=== PATIENT | male | born 1975 | race Caucasian/White ===

== ENCOUNTER 2019-11-13 16:56 | Emergency (ER) | payer OTHER, SELFPAY ==
[2019-11-13 16:57] VITALS: BP 178/120; PULSE 81; RESP 18; TEMP 36.3; O2SAT 94; BMI 43.0
--- NOTE | 2019-11-13 17:18 | ED.VISSUMM ---
- ER Visit Summary Date of Service: 11/13/19 Chief Complaint: Right leg swelling and pain History of Present Illness: The patient is a 44 M presenting with right leg swelling and pain. Patient states this started on Wednesday. He states he does a lot of kneeling while at work. He does not recall a specific injury. He noticed pain to his right knee and swelling to his right leg. He went to urgent care and was advised to come to the ED to rule out DVT. He currently has no pain. Denies fever. He states his mother had an isolated DVT after being sedentary. No other PE/DVT risk factors. Physical Examination: Vitals are stable. Blood pressure 176/120. Patient is afebrile. Alert no acute distress. HEENT exam is unremarkable. Neck is supple. Lungs are clear and equal bilaterally. Heart is regular rate and rhythm. Abdomen is soft nontender nondistended. Extremities mild lateral right knee tenderness with active full range of motion. No erythema or warmth. Mild swelling of the right lower extremity compared to the left. He states his left leg is typically smaller than the right due to previous surgery. Normal distal pulses. Skin is warm and dry. No focal neurologic deficit. Remainder of exam is unremarkable. Emergency Department Course and Treatment: Right lower extremity venous Doppler shows No demonstrated DVT. Patient states he has been out of his blood pressure medications for several months. He states due to COVID he did not follow-up with his primary care physician. He ran out of his refills early this year. I discussed with [facility] pharmacy and patient was previously taking amlodipine 5 mg daily and lisinopril 40 mg daily. He is given prescriptions and advised to follow-up with his primary care physician. He understands importance of follow-up. Advised return to ED for worsening complaints. Disposition: Discharge home Impression: Right lower extremity swelling, hypertension, noncompliance This note was generated with [employer] dictation software. It may contain incorrect words, spelling, and punctuation that were not noted in review of the chart prior to signing ED Disposition - Plan for ED Patient: Instructions: ED High Blood Pressure Established Out of Control, ED Peripheral Edema, Unilateral Prescriptions: Lisinopril 40 mg PO DAILY #30 tab Prescription Printed Amlodipine [Norvasc] 5 mg PO DAILY #30 tab Prescription Printed Referrals: Cash Puentes MD [Primary Care Provider] -
--- NOTE | 2019-11-13 17:37 | US_ITS ---
STUDY: VENOUS DOPPLER ULTRASOUND - RIGHT LOWER EXTREMITY REASON FOR EXAM: Male, 44 years old. RT KNEE PAIN/ SWELLING LATERAL TECHNIQUE: Ultrasound evaluation of the deep vein system to include berger-scale imaging and compression was performed. Berger-scale imaging and Doppler sonographic evaluation, including duplex spectral analysis and qualitative color flow sonography, was performed. COMPARISON: None. FINDINGS: Common Femoral Vein: Normal compression, spontaneity and augmentation. Normal color Doppler. Common Femoral Vein/Greater Saphenous Junction: Normal compression, spontaneity and augmentation. Normal color Doppler. Femoral Proximal: Normal compression, spontaneity and augmentation. Normal color Doppler. Femoral Middle: Normal compression, spontaneity and augmentation. Normal color Doppler. Femoral Distal: Normal compression, spontaneity and augmentation. Normal color Doppler. Popliteal Vein: Normal compression, spontaneity and augmentation. Normal color Doppler. Posterior Tibial Vein: Normal compression, spontaneity and augmentation. Normal color Doppler. Peroneal Vein: Normal compression, spontaneity and augmentation. Normal color Doppler. US/Venous Duplex Imag/Limited/Uni IMPRESSION: No demonstrated DVT Electronically Signed: Declan Page MD at 18:31 EDT , Service support ,
--- NOTE | 2019-11-13 19:04 | ED.DEP ---
ED Disposition - Plan for ED Patient: Instructions: ED Peripheral Edema, Unilateral, ED High Blood Pressure Established Out of Control Prescriptions: Lisinopril 40 mg PO DAILY #30 tab Prescription Printed Amlodipine [Norvasc] 5 mg PO DAILY #30 tab Prescription Printed Referrals: Cash Puentes MD [Primary Care Provider] -
[2019-11-13 19:36] VITALS: BP 159/108; PULSE 64
== END 2019-11-13 19:37 | disposition home or self-care (01) ==
LOC: ED 17:34
PROVIDERS: Emergency Provider Emergency Medicine; PCP Family Medicine
DX: M79.89 Other specified soft tissue disorders (principal); I10 Essential (primary) hypertension; F17.200 Nicotine dependence, unspecified, uncomplicated; Z91.19 Patient's noncompliance with other medical treatment and regimen
CPT/HCPCS: 93971; 99282

== ENCOUNTER 2019-11-18 18:37 | Emergency (ER) | payer OTHER, SELFPAY ==
[2019-11-18 18:38] VITALS: BP 150/94; PULSE 89; RESP 14; TEMP 37.1; O2SAT 97; BMI 42.3
--- NOTE | 2019-11-18 19:05 | RAD_ITS ---
STUDY: X-RAY - RIGHT KNEE REASON FOR EXAM: Male, 44 years old. PAIN LATERAL AND JUST BELOW PATELLA, NO INJURY, PT THINKS MAY BE BONE INFECTION TECHNIQUE: 4 view(s) of the knee. COMPARISON: None. FINDINGS: Normal visualized distal femur. Normal visualized proximal tibia and fibula. Normal proximal tibiofibular articulation. There is mild degenerative arthrosis of the medial femorotibial compartment. Normal lateral femorotibial compartment. There is mild degenerative arthrosis of the patellofemoral articulation. There is prepatellar soft tissue swelling. RAD/Knee 4 or More Views IMPRESSION: Prepatellar soft tissue swelling. Mild degenerative changes of the medial and patellofemoral compartments. There is no evidence of fracture, dislocation, or lytic or blastic osseous process. Electronically Signed: Fredis Cartwright MD at 19:59 EDT , Service support ,
[2019-11-18 19:33] LABS: Absolute Lymphocyte Count 1.87 X10^3/uL (0.83-4.51); Absolute Neutrophil Count 8.9 X10^3/uL (2.0-7.7); Basophil# 0.04 X10^3/uL; Basophil% 0.3 % (0-1); Eosinophil# 0.14 X10^3/uL; Eosinophils% 1.2 % (0-5); Hematocrit 47.4 % (40-54); Hemoglobin 15.9 g/dL (13.0-16.5); Lymphocyte # 1.87 X10^3/ul (4.0); Lymphocyte % 15.5 % (19-41); Mean Corp Hgb Conc 33.5 g/dL (32-36); Mean Corpuscular Hgb 30.3 pg (27.0-32.0); Mean Corpuscular Volume 90.3 fL (80-94); Mean Platelet Vol. 9.5 fl (6.2-12.0); Monocyte# 1.08 X10^3/uL; NRBC Flagged by Analyzer 0 % (0-5); Neutrophil # 8.85 X10^3/uL (2.7-7.7); Neutrophil % 73.5 % (47-70); Platelet Count 259 K/mm3 (150-450); RBC Distribution Width CV 13.8 % (11.6-14.6); RBC Distribution Width SD 46.1 fl (35.1-43.9); Red Blood Count 5.25 M/mm3 (4.6-6.2)
[2019-11-18 19:39] LABS: Anion Gap 5 (5-15); BUN 20 mg/dL (7-18); Calcium,Total 8.9 mg/dL (8.5-10.1); Chloride 109 mmol/L (98-107); Creatinine, Serum 0.91 mg/dL (0.70-1.30); EST Glomerular Filtration Rate 96 mL/min (>60); Est Glom Filt Rate - Afr Amer 117 mL/min (>60); Estimated Creatinine Clearance 114.88 ml/min; Glucose 136 mg/dL (74-106); Potassium 3.8 mmol/L (3.5-5.1); Sodium Level 139 mmol/L (136-145); Uric Acid 6.1 mg/dL (3.5-7.2)
[2019-11-18] MEDS: Ketorolac 15 MG/ML Vial IV (19:39)
[2019-11-18 19:48] LABS: Pathologist Comment May follow
[2019-11-18 20:38] LABS: RBC /Synovial Fluid 0.036 10^6/uL (0); Synovial Fld Mononuclear WBC % 52.5 %; Synovial Fld Polynuclear WBC # 0.029 10^3/uL; Synovial Fld Polynuclear WBC % 47.5 %
[2019-11-18 20:45] LABS: AUTO B FLUID DILUENT BKGD CT WBC <0.1 RBC <0.01 (W<.1,R<.01); Appearance /Synovial Fluid Cloudy (CLEAR); Color / Synovial Fluid Red (Pale Yellow); Source / Synovial Fluid RT KNEE; Viscosity / Synovial Fluid Mod. Viscous (HIGH)
[2019-11-18 21:16] LABS: CRYSTALS, BODY FLUID Other, see comment; Source- Body Fluid SYNOVIAL
[2019-11-18 22:19] LABS: Lymph 36 %; Monocyte /Synovial Fluid 4 %; Neutrophil 52 % (0-25)
[2019-11-18 22:20] LABS: Body Fluid QC Type(s) BF1Q,BF2Q; Other Cell /Synovial Fluid 8 %
--- NOTE | 2019-11-18 22:29 | ED.VISSUMM ---
- ER Visit Summary Date of Service: 11/18/19 Chief Complaint: Right knee pain History of Present Illness: The patient is a [address] Puentes. He reports that he has right knee pain that began 6 days ago. States that the only injury he can think of is 8 days ago something fell out of his van at work and he jumped back and felt like he hyperextended his knee slightly. States he did not have pain the next day. Patient reports that he has a sharp pain is 9-10 at worst and 4-10 currently. It is worsened by walking up the steps, standing from a chair, or extending. Is relieved by ice and heat. He had a cortisone shot placed in this 4 days ago without any relief. Patient denies any history of similar symptoms. 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 He says subjective fever. Physical Examination: Vitals: Stable. Afebrile. General: Well-nourished and well-developed. Head: Normocephalic atraumatic. Neck: Supple, no lymphadenopathy. No JVD. Nontender. Cardiovascular: Regular rate and rhythm. No murmurs. Respiratory: No respiratory distress. Clear to auscultation bilaterally. Abdominal: Soft, nontender, nondistended, normal bowel sounds. No guarding, rebound, or peritoneal signs. Back: Nontender. Extremities: Right knee: There is significant swelling of the prepatellar bursa. There is no overlying erythema or warmth to suggest a septic bursitis. He has limited range of motion due to pain. He does have pain over his patellar tendon and medially. There is no ligamentous instability, but there is pain with anterior/posterior drawer and medial/lateral stress. Skin: Normal color, no rash. Neurologic: Alert and oriented ?3. Cranial nerves II through XII are intact. Normal strength and sensation. Psych: Normal affect. Test Results: CBC shows a white count of 12.0 with 74 segs neutrophils and 16 lymphocytes. Chem-7 shows a chloride of 109, BUN 20, glucose 136. Uric acid is 6.1. Synovial fluid has a white count of 61, red blood count of 36. There were no crystals. Clinical Impression(s) from Imaging Studies Knee X-Ray 11/18/19 19:05 IMPRESSION: Prepatellar soft tissue swelling. Mild degenerative changes of the medial and patellofemoral compartments. There is no evidence of fracture, dislocation, or lytic or blastic osseous process. Electronically Signed: Fredis Cartwright MD at 19:59 EDT , Service support , Emergency Department Course and Treatment: I had a prolonged discussion the patient that I suspect that he a component of this is prepatellar bursitis. However, I do not think that this would necessarily cause all the symptoms that he is experiencing in question whether or not he may have torn his meniscus 8 days ago. States that he is unable to fully extend his leg due to pain. Because of this arthrocentesis was undertaken. This was negative. Treatment Plan: Patient will be discharged with Percocet and naproxen. Instructed to follow-up Dr. Morris in 1 week if not improving. Return to the emergency department for any worsening symptoms. Disposition: To home in improved and stable condition. Impression: 1. Right prepatellar bursitis. 2. Right knee pain, uncertain cause. 3. Arthrocentesis right knee. Procedure note Patient had his right knee prepped with Betadine. It was draped with sterile towels. Approximately 5 cc of fluid was removed. The patient tolerated this well. This note was generated with [employer] dictation software. It may contain incorrect words, spelling, and punctuation that were not noted in review of the chart prior to signing ED Disposition - Plan for ED Patient: Disposition: Home or Assisted Living Instructions: ED Bursitis, ED Meniscal Injury Knee Poss Prescriptions: Naproxen [Naprosyn] 500 mg PO BID #14 tab Prescription Printed Oxycodone HCl/Acetaminophen [Percocet 5/325] 1 tab PO Q6H PRN PRN 3 Days #12 tab PRN Reason: Pain Prescription Printed Referrals: Pao Morris DO [STAFF PHYSICIAN] - 1 Week if not improving
[2019-11-18 22:30] VITALS: PULSE 67; RESP 18; O2SAT 98
[2019-11-20 13:01] LABS: Pathologist Review Reviewed
== END 2019-11-18 22:44 | disposition home or self-care (01) ==
PROVIDERS: Emergency Provider Emergency Medicine; PCP Family Medicine
DX: M70.41 Prepatellar bursitis, right knee (principal); M25.561 Pain in right knee; F17.200 Nicotine dependence, unspecified, uncomplicated; I10 Essential (primary) hypertension
CPT/HCPCS: 73564; 80048; 84550; 85025; 87070; 87075; 87205; 89050; 89051; 89060; 96374; 99284; A4216

== ENCOUNTER 2021-11-23 06:08 | Emergency (ER) | payer OTHER, SELFPAY ==
[2021-11-23 06:08] VITALS: BP 151/89; PULSE 58; RESP 14; TEMP 36.7; O2SAT 97; BMI 43.8
--- NOTE | 2021-11-23 06:35 | RAD_ITS ---
EXAM: XR CHEST, 2 VIEWS CLINICAL INDICATION: chest pain TECHNIQUE: Frontal and lateral views of the chest. This report was created using [employer] report generation technology. COMPARISON: None. FINDINGS: LUNGS AND PLEURAL SPACES: Normal. No consolidation or edema. No pneumothorax. No effusion. HEART: Normal. Normal heart size. MEDIASTINUM: Central airways are unremarkable. No mediastinal or hilar mass. BONES/JOINTS: No acute abnormality. SOFT TISSUES: Normal. RAD/Chest PA and Lateral IMPRESSION: No acute cardiopulmonary disease. Electronically Signed: Mehul Eckert MD at 8:10 EDT ,
--- NOTE | 2021-11-23 06:35 | EKG12_ITS ---
Test Reason : CP Blood Pressure : / mmHG Vent. Rate : 060 BPM Atrial Rate : 060 BPM P-R Int : 216 ms QRS Dur : 106 ms QT Int : 426 ms P-R-T Axes : 054 -33 006 degrees QTc Int : 426 ms Sinus rhythm with 1st degree A-V block Left axis deviation Abnormal ECG Confirmed by HOMER MARIANO, KARLOS ([id number]), clinical editor LYDIA BOSWELL ([id number]) on 11/25/2021 9:15:15 AM Referred By: JULIA Confirmed By:AZALIA CORONEL MD
--- NOTE | 2021-11-23 06:49 | EDS_ITS ---
HPI History of Present Illness Chief Complaint: Chest Pain Narrative Narrative: Patient is a 46-year-old male with past medical history of hypertension and smoking. Patient states that he was staying up late with his significant other watching TV. He states he dozed off around 2:30 in the morning and woke up approximately 10 to 20 minutes later and noticed some pain in his mid upper abdomen/lower chest. He states the pain will radiate up into the chest but also wrap around to the right and left. He denies any nausea vomiting diaphoresis or shortness of breath associated with this. He denies any trauma earlier in the day prior to the pain beginning. He states that he is given himself a few hours for the pain to resolve but has not done so and secondary to this he comes in for evaluation. [facility] Medical History Hypertension Home Medications cetirizine 10 mg tablet 10 mg PO DAILY 11/13/19 [History Last Taken Unknown] lisinopril 40 mg tablet 40 mg PO DAILY #30 tabs 11/13/19 [Rx Last Taken Unknown] naproxen 500 mg tablet 500 mg PO BID #14 tabs 11/18/19 [Rx Last Taken Unknown] Allergy/AdvReac Type Severity Reaction Status Date / Time No Known Allergies Allergy Verified 11/23/21 06:20 Surgical History h/o kidney surgery h/o microdiscectomy L5-S1 Social History (Updated 11/22/19 @ 10:[address] Barry Sood DO) Smoking Status: Current every day smoker tobacco type: cigarettes ROS ROS ED Constitutional Constitutional ED: Denies chills or fever(s) ENT ENT ED: Denies sore throat Cardiovascular Cardiovascular: Reports chest pain; Denies palpitations or racing heartbeat Respiratory/Chest Respiratory/Chest: Denies cough or dyspnea Gastrointestinal Gastrointestinal: Reports abdominal pain; Denies diarrhea, nausea or vomiting Genitourinary Genitourinary ED: Denies dysuria Musculoskeletal Musculoskeletal: Denies back pain or myalgias Integumentary Denies rash Neurologic Neurologic: Denies headache(s) Hematologic/Lymphatic Hematologic/Lymphatic: Denies easy bleeding or easy bruising EXAM Physical Exam Const Vital Signs: 11/23/21 06:08 11/23/21 06:27 Temperature 98.1 F Temperature Source Temporal Pulse Rate 58 L Respiratory Rate 14 Respiratory Effort Normal Respiratory Pattern Normal Blood Pressure 151/89 H Blood Pressure Mean 109 Pulse Ox 97 Oxygen Delivery Method Room Air Positive well nourished, well developed and obese General Appearance ED: well developed Nutritional Appearance: obese HEENT Reports moist mucous membranes HEENT Narrative: No oral lesions no airway edema or compromise Eyes PERRL and EOMs intact bilaterally General Eye ED: Negative for scleral icterus Neck supple and no JVD Chest Wall palpation of chest normal Resp normal respiratory effort and clear to auscultation bilaterally Cardio regular rate and regular rhythm Rate: other Other Details: Radial pulses are plus 2 out of 4 bilaterally Carotid pulses are also plus 2 out of 4 bilaterally GI non-distended GI Narrative: Abdomen is obese soft and nondistended with normal active bowel sounds. There is mild pain to palpation in the midepigastric region without voluntary guarding or rigidity. No pulsatile mass or fluid wave. No hernia noted. Auscultation: normoactive bowel sounds Palpation: soft Extremity normal to inspection Neuro oriented x3 and CN's II-XII intact bilaterally Sensorium / Orientation: alert Psych mental status grossly normal Skin Skin Narrative: Patient has erythematous blanchable circular maculopapular rash to his bilateral arms legs and across the abdomen into the chest consistent with urticaria. No involvement of the palms or soles. No obvious infectious changes such as cellulitis or abscess associated with it MDM MDM MDM Narrative Medical decision making narrative: Patient presented to the ER mildly hypertensive but otherwise with stable vitals. He reported pain in his mid upper abdomen/lower chest. He did not have classic cardiac symptoms such as diaphoresis nausea vomiting or shortness of breath but he does have multiple risk factors and the fact that he is a male over 40 he is a smoker has hypertension and obesity and family history of heart disease. Secondary to this a cardiac work-up will be obtained. Patient also has a urticarial rash. I do not feel this is related to his chest/abdomen issues. It is not causing any signs of respiratory distress. He will be given Solu-Medrol Benadryl and Pepcid secondary to this. At this time patient will need an initial and delta troponin and if both values are normal I believe he will be safe for discharge. Patient will be signed out to the [facility] day physician Dr. Vera to evaluate to the patient's labs and x-ray. Lab Data Labs: Laboratory Results - last 24 hr 11/23/21 06:38 WBC 8.9 RBC 5.52 Hgb 17.4 H Hct 49.9 MCV 90.4 MCH 31.5 MCHC 34.9 RDW Std Deviation 45.6 H RDW Coeff of Jesus 13.7 Plt Count 216 MPV 10.6 Immature Gran % (Auto) 0.900 Neut % (Auto) 65.9 Lymph % (Auto) 21.1 Cedar % (Auto) 9.6 Eos % (Auto) 1.8 Baso % (Auto) 0.7 Absolute Neuts (auto) 5.8 Absolute Lymphs (auto) 1.87 Nucleated RBC % 0 Discharge Plan Triage Chief Complaint: Chest Pain ED Provider: Dilan Rivera Dx/Rx/DC Orders Clinical Impression: Urticaria Prescriptions: No Action cetirizine 10 MG tablet 10 mg PO DAILY lisinopril 40 MG tablet 40 mg PO DAILY Qty: 30 0RF naproxen 500 MG tablet 500 mg PO BID Qty: 14 0RF Primary Care Provider: Cash Puentes Referrals: Cash Puentes MD [Primary Care Provider] -
[2021-11-23] MEDS: Aspirin 325 MG Tablet PO (06:57)
[2021-11-23 06:58] LABS: Absolute Lymphocyte Count 1.87 X10^3/uL (0.83-4.51); Absolute Neutrophil Count 5.8 X10^3/uL (2.0-7.7); Basophil# 0.06 X10^3/uL; Basophil% 0.7 % (0-1); Eosinophil# 0.16 X10^3/uL; Eosinophils% 1.8 % (0-5); Hematocrit 49.9 % (40-54); Hemoglobin 17.4 g/dL (13.0-16.5); Lymphocyte # 1.87 X10^3/ul (0.83-4.51); Lymphocyte % 21.1 % (19-41); Mean Corp Hgb Conc 34.9 g/dL (32-36); Mean Corpuscular Hgb 31.5 pg (27.0-32.0); Mean Corpuscular Volume 90.4 fL (80-94); Mean Platelet Vol. 10.6 fl (6.2-12.0); Monocyte# 0.85 X10^3/uL; Monocyte% 9.6 % (0-10); NRBC Flagged by Analyzer 0 % (0-5); Neutrophil # 5.83 X10^3/uL (2.7-7.7); Neutrophil % 65.9 % (47-70); Platelet Count 216 K/mm3 (150-450); RBC Distribution Width CV 13.7 % (11.6-14.6); RBC Distribution Width SD 45.6 fl (35.1-43.9); Red Blood Count 5.52 M/mm3 (4.6-6.2); White Blood Count 8.9 K/mm3 (4.4-11.0)
[2021-11-23] MEDS: DiphenhydrAMINE 50 MG/ML Syringe IV (06:58)
[2021-11-23] MEDS: MethylPREDNISolone 125 MG/2 ML Vial IV (06:58)
[2021-11-23] MEDS: Mag Hydrox/Al Hydrox/Simeth 30 ML UDC PO (07:20)
[2021-11-23 07:21] LABS: AST(SGOT) 24 U/L (15-37); Alanine Aminotransfer ALT/SGPT 55 U/L (16-61); Albumin, Serum 3.7 g/dL (3.2-5.0); Alkaline Phosphatase 48 U/L (45-117); Anion Gap 7 (5-15); BUN 19 mg/dL (7-18); BUN/Creat Ratio 16.8 RATIO (10-20); Bilirubin, Direct 0.17 mg/dL (0.00-0.30); Calcium,Total 9.4 mg/dL (8.5-10.1); Chloride 107 mmol/L (98-107); Creatinine, Serum 1.13 mg/dL (0.70-1.30); EST Glomerular Filtration Rate 75 mL/min (>60); Est Glom Filt Rate - Afr Amer 90 mL/min (>60); Globulin 3.8 g/dL (2.2-4.2); Glucose 122 mg/dL (74-106); Lipase 214 U/L (73-393); Potassium 4.1 mmol/L (3.5-5.1); Protein, Total 7.5 g/dL (6.4-8.2); Sodium Level 136 mmol/L (136-145); Troponin-I HS 12 pg/mL (3.0-78.0)
[2021-11-23 07:51] VITALS: BP 165/102; PULSE 52; RESP 15; O2SAT 97
[2021-11-23] MEDS: Famotidine 200 MG/20 ML MDV 20 MG in 0.9% Normal Saline (Pres. free 8 ML 300 MG IV ×2 (08:39→08:42)
[2021-11-23 09:17] LABS: Troponin-I HS 11 pg/mL (3.0-78.0)
[2021-11-23 09:41] VITALS: BP 140/97; PULSE 66; RESP 16; RESP 18; O2SAT 96
== END 2021-11-23 09:44 | disposition home or self-care (01) ==
PROVIDERS: Emergency Provider Emergency Medicine; PCP Family Medicine; Visit Provider Emergency Medicine
DX: L50.9 Urticaria, unspecified (principal); F17.210 Nicotine dependence, cigarettes, uncomplicated; E66.9 Obesity, unspecified
CPT/HCPCS: 71046; 80048; 80076; 83690; 84484; 85025; 93005; 96374; 96375; 99285; A4216; J3490

== ENCOUNTER 2021-11-24 07:32 | Emergency (ER) | payer OTHER, SELFPAY ==
[2021-11-24 07:33] VITALS: BP 101/68; PULSE 92; RESP 16; TEMP 36.6; O2SAT 93; BMI 43.2
--- NOTE | 2021-11-24 07:55 | EDS_ITS ---
HPI History of Present Illness Chief Complaint: Rash Informant: patient Onset/Context/Timing Onset: Days (3) Context: Gradual Onset Timing: Continuous Quality: pruritic Location: all over body Current Severity: Severe Maximum Severity: Severe Worsened by: nothing he knows of Relieved by: nothing; tried benadryl, NSAID, Pepcid Associated Symptoms Associated Symptoms: throat feels a little swollen; able to swallow ok Narrative Narrative: Patient states he had the relatively quick onset of lower chest discomfort and itchy rash that started on his low back/hip and started appearing everywhere. Benadryl in the emergency department and at home did not help at all with regards to the rash or the itching. He was seen here and ruled out for cardiac etiologies, he was discharged home on Naprosyn and Pepcid which she has been taking in addition to cetirizine [id number] to try to help this allergy. He denies any obvious etiology. No recent illnesses, no recent medication changes except for the emergency department medications, he just took lisinopril prior to this. He had no tongue edema. He denies any new soaps or shampoos or any other topical contact that could be related. No travel out of the area. He states he is itching so much that he is having trouble sleeping which is why he comes back in. He has had no more the chest discomfort. Denies any dyspnea or syncope/near syncope. [facility] Medical History Hypertension Home Medications lisinopril 40 mg tablet 40 mg PO DAILY #30 tabs 11/13/19 [Rx Last Taken Unknown] prednisone 20 mg tablet 40 mg PO DAILY #10 TABLETS 11/24/21 [Rx Last Taken Unknown] Allergy/AdvReac Type Severity Reaction Status Date / Time No Known Allergies Allergy Verified 11/24/21 07:33 Surgical History h/o kidney surgery h/o microdiscectomy L5-S1 Social History Smoking Status: Current every day smoker tobacco type: cigarettes ROS ROS ED Constitutional Constitutional ED: Denies chills or fever(s) Eyes Eyes: Denies change in vision or diplopia ENT ENT ED: Reports throat swelling; Denies rhinorrhea or sore throat Cardiovascular Cardiovascular: Denies chest pain or palpitations Respiratory/Chest Respiratory/Chest: Denies cough or dyspnea Gastrointestinal Gastrointestinal: Denies abdominal pain, diarrhea, nausea or vomiting Genitourinary Genitourinary ED: Denies dysuria or hematuria Musculoskeletal Musculoskeletal: Reports other Details: Swelling of both hands. Pain on the soles of both feet when walking. ; Denies back pain or neck pain Integumentary Reports as per HPI, pruritus and rash; Denies abscess Neurologic Neurologic: Denies headache(s), paresthesias or weakness Psychiatric Psychiatric: Denies anxiety or suicidal thoughts Allergic/Immunologic Allergic/Immunologic ED: Reports as per HPI and urticaria EXAM Physical Exam Const Vital Signs: 11/24/21 07:33 Temperature 97.8 F Temperature Source Temporal Pulse Rate 92 Respiratory Rate 16 Blood Pressure 101/68 Blood Pressure Mean 79 Pulse Ox 93 Oxygen Delivery Method Room Air Positive well nourished, well developed and obese General Appearance ED: well developed and NAD Nutritional Appearance: obese HEENT Reports moist mucous membranes HEENT Narrative: No tongue edema or stridor. No trismus. No sublingual edema. No oral mucosal lesions. normocephalic and atraumatic Eyes PERRL and EOMs intact bilaterally Neck full ROM and supple Chest Wall palpation of chest normal Resp normal respiratory effort and clear to auscultation bilaterally Cardio regular rate, regular rhythm and no murmurs Rate: Negative for tachycardic GI non-tender and non-distended Auscultation: normoactive bowel sounds Palpation: soft Back/Spine no CVA tenderness General Back: other FROM Extremity General Extremety ED: Yes edema; Negative for pulses abnormal or tenderness General Extremity: edema bilateral upper extremity moderate (Hands only, symmetric); Negative for pulses abnormal Neuro oriented x3, CN's II-XII intact bilaterally and no sensory deficits noted Sensorium / Orientation: awake and alert Motor Exam: strength 5/5 throughout Psych mental status grossly normal Skin no wounds Skin Narrative: Diffuse large urticaria-appearing lesions. No tenderness. No bullae. No petechia or purpura. Feet and hands are involved including fingers and toes. Probably has them on the soles of his feet but difficult to tell because they appear homogenous. Feet are not edematous but hands are. On his lower extremities, there are fewer areas involved but his proximal thighs are involved. Most of the lesions are large and some have the appearance of irregular bull's-eye's. MDM MDM MDM Narrative Medical decision making narrative: This has the appearance of urticaria but since nothing has changed with Benadryl it is more likely to be erythema multiforme minor, he does not have any mucosal involvement, no signs of TEN, no signs of an immediate life threat. I will put him on steroids and have him follow-up closely, discussed this with him and he is comfortable with this plan. Discharge Plan Triage Chief Complaint: Rash ED Provider: Basil Tong Dx/Rx/DC Orders Clinical Impression: Erythema multiforme minor Instructions: ED Erythema Multiforme Prescriptions: New prednisone 20 mg tablet 40 mg PO DAILY Qty: 10 0RF Continued lisinopril 40 MG tablet 40 mg PO DAILY Qty: 30 0RF Discontinued cetirizine 10 MG tablet 10 mg PO DAILY naproxen 500 MG tablet 500 mg PO BID Qty: 14 0RF famotidine [Pepcid] 20 mg tablet 20 mg PO BID Qty: 30 0RF naproxen 500 mg tablet 500 mg PO BID PRN Qty: 20 0RF Primary Care Provider: Cash Puentes Referrals: James Mayer MD [Med Staff - Control Officer] - (If does not resolve with steroids that were prescribed) Cash Puentes MD [Primary Care Provider] - (make appt to be seen within the next 1-2 weeks; sometimes your doctor will want to order testing regarding this, but often this is self-limiting and testing is desired for recurrent reactions.) Disposition Disposition: Home, Self Care
[2021-11-24] MEDS: predniSONE 20 MG Tablet 60 MG PO (08:06)
== END 2021-11-24 08:09 | disposition home or self-care (01) ==
PROVIDERS: Emergency Provider Emergency Medicine; PCP Family Medicine; Visit Provider Emergency Medicine
DX: L51.9 Erythema multiforme, unspecified (principal); F17.210 Nicotine dependence, cigarettes, uncomplicated; E66.9 Obesity, unspecified
CPT/HCPCS: 99283

== ENCOUNTER 2021-11-24 23:20 | Inpatient (IN) | payer OTHER, SELFPAY ==
[2021-11-24 23:20] VITALS: BP 93/62; PULSE 102; RESP 18; TEMP 36.7; O2SAT 97; BMI 40.8
--- NOTE | 2021-11-24 23:34 | EX.ED.DYSGE1 ---
HPI History of Present Illness Chief Complaint: Allergic Reaction Informant: patient Onset/Context/Timing Onset: Yesterday Context: Gradual Onset Timing: Continuous Quality: Swelling Location: Throat Worsened by: Nothing Relieved by: Nothing Narrative Narrative: Patient presents with urticaria that began yesterday. Patient states he has been here twice for this. Patient states that the first visit he was having chest pain and had that evaluated. Patient states it was determined to be noncardiac in nature. Patient was discharged at that time. Patient states his hives got worse after that visit and he came back. Patient states that he was given prescription for prednisone and was told to take Benadryl for this. Patient states he has been taking that but the hives are getting worse. Patient states his chest pain is starting to come back. Patient also admits to some shortness of breath that is worse with exertion. Patient admits to nausea but denies any vomiting. Patient denies any diaphoresis. Patient states his throat feels like it is swelling as well. Patient denies any difficulty talking. [facility] Medical History Hypertension Home Medications lisinopril 40 mg tablet 40 mg PO DAILY #30 tabs 11/13/19 [Rx Last Taken Unknown] prednisone 20 mg tablet 40 mg PO DAILY #10 TABLETS 11/24/21 [Rx Last Taken Unknown] Allergy/AdvReac Type Severity Reaction Status Date / Time No Known Allergies Allergy Verified 11/24/21 23:23 Surgical History h/o kidney surgery h/o microdiscectomy L5-S1 Social History Smoking Status: Current every day smoker tobacco type: cigarettes ROS ROS ED Constitutional Constitutional ED: Denies chills or fever(s) Eyes Eyes: Denies blurry vision or change in vision ENT ENT ED: Reports sore throat; Denies rhinorrhea Cardiovascular Cardiovascular: Reports chest pain; Denies palpitations Respiratory/Chest Respiratory/Chest: Reports cough and dyspnea Gastrointestinal Gastrointestinal: Reports nausea; Denies vomiting Genitourinary Genitourinary ED: Denies dysuria or hematuria Musculoskeletal Musculoskeletal: Denies back pain or neck pain Integumentary Reports rash; Denies abscess Neurologic Neurologic: Denies headache(s) or weakness Allergic/Immunologic Allergic/Immunologic ED: Reports urticaria; Denies mouth swelling or tongue swelling EXAM Physical Exam Const Vital Signs: 11/24/21 23:20 Temperature 98.0 F Temperature Source Temporal Pulse Rate 102 H Respiratory Rate 18 Blood Pressure 93/62 Blood Pressure Mean 72 Pulse Ox 97 Oxygen Delivery Method Room Air Positive well nourished, well developed and obese General Appearance ED: well developed and NAD Nutritional Appearance: obese HEENT Reports moist mucous membranes Neck supple and no JVD Resp normal respiratory effort and clear to auscultation bilaterally Cardio regular rate, regular rhythm and no murmurs GI normal to inspection, nondistended, normoactive bowel sounds and non-tender Palpation: soft Extremity normal to inspection General Extremety ED: Negative for edema or tenderness General Extremity: Negative for edema Neuro oriented x3, CN's II-XII intact bilaterally and no sensory deficits noted Sensorium / Orientation: alert Motor Exam: strength 5/5 throughout Psych mental status grossly normal Skin Rashes: rashes noted Generalized macule scattered erythematous raised and sharp nontender hives MDM MDM MDM Narrative Medical decision making narrative: Patient was given a dose of Benadryl here. Patient was given a GI cocktail here. EKG was obtained. On my interpretation, it showed a normal sinus rhythm with a rate of 66. MS interval, QRS interval, and QTc intervals were all normal. There is left axis deviation at -32. There are no acute ST or T wave changes. CBC was within normal limits. Basic metabolic profile showed a BUN of 46 and creatinine of 2.59. This is increased from previous result. High-sensitivity troponin was 8. Patient was given IV fluids. Patient was still having some itching after the Benadryl. Patient was given a dose of Vistaril. Patient was also given a dose of Pepcid. Case was discussed with the hospitalist. He will admit the patient to his service. He requested patient be given a dose of Solu-Medrol here. This was ordered. Patient understands and is agreeable with the plan. All questions were answered. Lab Data Attestation: I reviewed the patient's lab results. Labs: Laboratory Results - last 24 hr 11/24/21 11/24/21 23:58 23:58 WBC 5.6 RBC 5.72 Hgb 17.9 H Hct 52.0 MCV 90.9 MCH 31.3 MCHC 34.4 RDW Std Deviation 46.4 H RDW Coeff of Jesus 13.9 Plt Count 221 MPV 10.2 Immature Gran % (Auto) 1.200 H Neut % (Auto) 73.7 H Lymph % (Auto) 19.1 Emanuel % (Auto) 4.8 Eos % (Auto) 0.5 Baso % (Auto) 0.7 Absolute Neuts (auto) 4.1 Absolute Lymphs (auto) 1.07 Nucleated RBC % 0 Sodium 132 L Potassium 4.9 Chloride 101 Carbon Dioxide 23.0 Anion Gap 8 BUN 46 H Creatinine 2.59 H Estim Creat Clear Calc 40.70 Est GFR (MDRD) Af Amer 35 L Est GFR (MDRD) Non-Af 29 L BUN/Creatinine Ratio 17.8 Glucose 140 H Calcium 8.8 Troponin I High Sens 8 Discharge Plan Triage Chief Complaint: Allergic Reaction ED Provider: Bishnu Barraza Dx/Rx/DC Orders Clinical Impression: Acute kidney injury, Urticaria Prescriptions: No Action lisinopril 40 MG tablet 40 mg PO DAILY Qty: 30 0RF prednisone 20 mg tablet 40 mg PO DAILY Qty: 10 0RF Primary Care Provider: Cash Puentes Referrals: Cash Puentes MD [Primary Care Provider] - Disposition Disposition: [facility]
--- NOTE | 2021-11-24 23:39 | EKG12_ITS ---
Test Reason : Allergic Reaction Blood Pressure : / mmHG Vent. Rate : 066 BPM Atrial Rate : 066 BPM P-R Int : 170 ms QRS Dur : 092 ms QT Int : 406 ms P-R-T Axes : 032 -32 004 degrees QTc Int : 425 ms Normal sinus rhythm Left axis deviation Septal infarct , age undetermined Abnormal ECG No previous ECGs available Confirmed by SELINA MARIANO, RAMIREZ ([id number]), sound editor LYDIA BOSWELL ([id number]) on 11/27/2021 9:42:16 AM Referred By: Confirmed By:RAMIREZ MARKS MD
[2021-11-24] MEDS: Mag Hydrox/Al Hydrox/Simeth 30 ML UDC PO (23:56)
[2021-11-24] MEDS: DiphenhydrAMINE 50 MG/ML Syringe 25 MG IV (23:56)
[2021-11-25] VITALS (16 sets, daily range): BP systolic 110–177; BP diastolic 72–104; PULSE 62–99; RESP 16–22; TEMP 36.4–37.1; O2SAT 91–98; BMI 44.0
[2021-11-25 00:02] LABS: Absolute Lymphocyte Count 1.07 X10^3/uL (0.83-4.51); Absolute Neutrophil Count 4.1 X10^3/uL (2.0-7.7); Basophil# 0.04 X10^3/uL; Basophil% 0.7 % (0-1); Eosinophil# 0.03 X10^3/uL; Eosinophils% 0.5 % (0-5); Hemoglobin 17.9 g/dL (13.0-16.5); Lymphocyte # 1.07 X10^3/ul (0.83-4.51); Lymphocyte % 19.1 % (19-41); Mean Corp Hgb Conc 34.4 g/dL (32-36); Mean Corpuscular Hgb 31.3 pg (27.0-32.0); Mean Corpuscular Volume 90.9 fL (80-94); Mean Platelet Vol. 10.2 fl (6.2-12.0); Monocyte# 0.27 X10^3/uL; Monocyte% 4.8 % (0-10); NRBC Flagged by Analyzer 0 % (0-5); Neutrophil # 4.13 X10^3/uL (2.7-7.7); Neutrophil % 73.7 % (47-70); POSITIVE MORPHOLOGY YES; Platelet Count 221 K/mm3 (150-450); RBC Distribution Width CV 13.9 % (11.6-14.6); RBC Distribution Width SD 46.4 fl (35.1-43.9); Red Blood Count 5.72 M/mm3 (4.6-6.2); White Blood Count 5.6 K/mm3 (4.4-11.0)
[2021-11-25 00:04] LABS: Differential Indicated SCAN CRITERIA MET
[2021-11-25 00:23] LABS: Anion Gap 8 (5-15); BUN 46 mg/dL (7-18); BUN/Creat Ratio 17.8 RATIO (10-20); Calcium,Total 8.8 mg/dL (8.5-10.1); Chloride 101 mmol/L (98-107); Creatinine, Serum 2.59 mg/dL (0.70-1.30); EST Glomerular Filtration Rate 29 mL/min (>60); Est Glom Filt Rate - Afr Amer 35 mL/min (>60); Glucose 140 mg/dL (74-106); Potassium 4.9 mmol/L (3.5-5.1); Sodium Level 132 mmol/L (136-145); Troponin-I HS 8 pg/mL (3.0-78.0)
[2021-11-25] MEDS: 0.9% Normal Saline 1,000 ML 1000 ML IV (01:22)
[2021-11-25] MEDS: hydrOXYzine 50 MG/ML Vial 25 MG IM (02:02)
--- NOTE | 2021-11-25 02:32 | PCM.HP.STD ---
HPI - General General Date of Admission: 11/25/21 Date of Service: 11/25/21 Chief Complaint: Allergic reaction HPI Narrative NEHAL SUTTON, is a 46 M with a significant history of hypertension who presents to the emergency department with allergic reaction that started 2 days before presentation. He woke up after 15 minutes upon sleeping on the couch to see that his body was covered with hives. Also, he had epigastric pain. He came to emergency department and he was treated and discharged. He returned next day because his symptoms was persistent. He was subsequently discharged home on a prednisone. Still his symptoms were worsening so he came back again to the emergency department. Associated with his symptoms is tightness of his throat and itching. He reports a decrease fluid intake. [facility] Medical History Hypertension Home Medications lisinopril 40 mg tablet 40 mg PO DAILY #30 tabs 11/13/19 [Rx Last Taken Unknown] prednisone 20 mg tablet 40 mg PO DAILY #10 TABLETS 11/24/21 [Rx Last Taken Unknown] Allergy/AdvReac Type Severity Reaction Status Date / Time No Known Allergies Allergy Verified 11/24/21 23:23 Family History Other Heart disease Surgical History h/o kidney surgery h/o microdiscectomy L5-S1 Social History Smoking Status: Current every day smoker tobacco type: cigarettes ROS ROS Narrative Pertinent positives and pertinent negatives as noted in HPI. All other systems were reviewed and are negative Vital Signs Vital Signs Vital Signs: 11/24/21 23:20 Temperature 98.0 F Temperature Source Temporal Pulse Rate 102 H Respiratory Rate 18 Blood Pressure 93/62 Blood Pressure Mean 72 Pulse Ox 97 Oxygen Delivery Method Room Air Weight Weight: 140.614 kg Body Mass Index (BMI) 40.8 Physical Exam Narrative Physical exam: General: Well-nourished, well-developed. Head: Normocephalic, atraumatic, no tenderness Eyes: Vision is grossly intact. EOMI ENT, mild erythema of tonsillar area; no rhinorrhea Neck: Nontender, full range of motion CVS: Regular rate and rhythm. S1-S2 present. No murmur, gallop or rub. Respiratory : Moderate wheezes, chest wall nontender Abdomen: Soft, nontender, nondistended, normal bowel sounds, no masses : Deferred Back: Nontender, no CVA tenderness, no midline spinal tenderness, deformities, step-offs Extremities: Nontender full range of motion, no trauma Skin: Diffuse urticarial rash on entire body. Normal color. Neuro: Alert, oriented, cranial nerves II through XII grossly intact. Psychiatry: Normal mood. Normal affect. Not depressed. Not anxious. Results Lab / Micro Data Result Diagrams: 11/24/21 23:58 11/25/21 02:37 Labs: Laboratory Results - last 24 hr 11/24/21 23:58: WBC 5.6, RBC 5.72, Hgb 17.9 H, Hct 52.0, MCV 90.9, MCH 31.3, MCHC 34.4, RDW Std Deviation 46.4 H, RDW Coeff of Jesus 13.9, Plt Count 221, MPV 10.2, Immature Gran % (Auto) 1.200 H, Neut % (Auto) 73.7 H, Lymph % (Auto) 19.1, [place] % (Auto) 4.8, Eos % (Auto) 0.5, Baso % (Auto) 0.7, Absolute Neuts (auto) 4.1, Absolute Lymphs (auto) 1.07, Nucleated RBC % 0 11/24/21 23:58: Sodium 132 L, Potassium 4.9, Chloride 101, Carbon Dioxide 23.0, Anion Gap 8, BUN 46 H, Creatinine 2.59 H, Estim Creat Clear Calc 40.70, Est GFR (MDRD) Af Amer 35 L, Est GFR (MDRD) Non-Af 29 L, BUN/Creatinine Ratio 17.8, Glucose 140 H, Calcium 8.8, Troponin I High Sens 8 Assessment & Plan Assessment/Plan (1) Allergic reaction: (2) Urticaria: (3) Tobacco abuse: PLAN: Plan Allergic reaction/Urticaria rash Chest x-ray on 11/23/2021 was visualized and independently interpreted. I agree with radiologist interpretation of no cardiopulmonary process. Solu-Medrol [id number] ordered. Claritin and Pepcid ordered. DuoNeb [id number]. As needed albuterol ordered. Admit to progressive care unit. DARREL History of congenital kidney disease with multiple kidney/urological procedures. Creatinine on presentation was 2.59. Repeat was 2.38. BUN presentation was 46. Repeat was 47. BUN over creatinine 17.8 with repeat 19.7. Gentle IV hydration ordered. Trend BMP. Avoid nephrotoxins. Home lisinopril held. Hypertension Stable Hold lisinopril for DARREL. As needed hydralazine IV ordered. Tobacco abuse Counseled Nicotine patch prescribed. DVT prophylaxis: Subcutaneous Lovenox ordered. Charges/Coding Visit Charges Inpatient E&M: 28913 Init Hosp L3
[2021-11-25] MEDS: Famotidine 200 MG/20 ML MDV 20 MG in 0.9% Normal Saline (Pres. free 8 ML 300 MG IV (02:35)
[2021-11-25 02:56] LABS: Anion Gap 8 (5-15); BUN 47 mg/dL (7-18); BUN/Creat Ratio 19.7 RATIO (10-20); Calcium,Total 8.4 mg/dL (8.5-10.1); Chloride 103 mmol/L (98-107); Creatinine, Serum 2.38 mg/dL (0.70-1.30); EST Glomerular Filtration Rate 32 mL/min (>60); Est Glom Filt Rate - Afr Amer 38 mL/min (>60); Glucose 139 mg/dL (74-106); Potassium 4.7 mmol/L (3.5-5.1); Sodium Level 133 mmol/L (136-145)
[2021-11-25] MEDS: MethylPREDNISolone 125 MG/2 ML Vial IV (02:59)
[2021-11-25] MEDS: 0.9% Normal Saline 1,000 ML 100 ML IV ×2 (03:57→14:37)
--- NOTE | 2021-11-25 04:20 | NURSING ---
pt noted with red raised rash covering portions of pt entire body. Pt noted with swelling to pt face and L eye. L eye noted to open and close with minimal difficulty. pt noted to drink water without difficulty, eye watering or coughing noted. Pt reports discomfort in throat. pt denies needs at this time. Call light within reach will monitor.
[2021-11-25] MEDS: Ipratropium/Albuterol Sulfate 3 ML AMPUL.NEB INHALATION ×4 (06:37→20:05)
[2021-11-25] MEDS: DiphenhydrAMINE 50 MG/ML Syringe 25 MG IV ×4 (07:25→20:32)
[2021-11-25] MEDS: 0.9% Saline Lock 10 ML Syringe IV ×2 (07:25→22:52)
[2021-11-25] MEDS: Enoxaparin 40 MG/0.4 ML Syringe SC (08:16)
[2021-11-25] MEDS: Loratadine 10 MG Tablet PO (08:16)
[2021-11-25] MEDS: Famotidine 20 MG Tablet PO ×2 (08:16→22:52)
--- NOTE | 2021-11-25 10:30 | CASEMGMT ---
BRAXTON BAUTISTA assessment: Face to Face with patient for initial transition planning/care coordination assessment. BRAXTON BAUTISTA introduced self and role at [facility], pt voices understanding and consents to assessment.? Pt is sitting up on side of bed in no distress on room air. Pt is A/Ox4 and answers all questions appropriately. Care providers, pharmacy,?and demographics verified. ? Presentation: pt w/ multiple visits to ED for hives/allergic reaction Admitting dx: DARREL/allergic rxn PCP: Dhaval Specialists: Pt states no current specialists. Preferred [facility]acy: [facility] Insurance: [employer] Prescription Benefit:? [employer] Living Will/HPOA: Pt does not have LW/HPOA and declines AD info. LNOK: Nathalia Mcmahan, sig other; eMl Rivers, daughter Living Arrangements: Pt lives with sig other in house apt with 5 steps in and states no concerns at home. Pt is independent with ADL's. Transportation: Pt drives self and states no transportation concerns. DME/HHC: Pt states no current DME or need for any further DME. Pt states no hx of HHC or SNF. Pt states no concerns with going home at time of discharge. 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 Pt states smokes a pack of cigarettes daily and occasionally drinks ETOH. Pt states no further concerns/needs. CM to follow for any further discharge planning/needs. Advised pt to ask for CM if any further questions/concerns/needs arise, voices understanding. Pt Goal: Home ? Plan: Home [place] BRAXTON BAUTISTA ?
[2021-11-25] MEDS: hydrOXYzine PAM 25 MG Capsule 50 MG PO ×3 (10:43→23:00)
--- NOTE | 2021-11-25 14:07 | PCM.DC.SUM ---
Providers Date of Admission: 11/25/21 Date of Discharge: 11/25/21 Primary Care Physician: Dr. Cash Puentes MD Reason For Visit: DARREL, ALLERGIC REACTION Diagnosis Discharge Diagnosis (1) Allergic reaction: Status: Acute Code(s): T78.40XA - Allergy, unspecified, initial encounter (2) Urticaria: Status: Acute Code(s): L50.9 - Urticaria, unspecified (3) Tobacco abuse: Status: Acute Code(s): Z72.0 - Tobacco use Medications at Discharge Home Medications diphenhydramine HCl 25 mg capsule (Benadryl) 25 mg PO TID PRN allergic reaction #30 caps 11/25/21 famotidine 20 mg tablet 20 mg PO BID #60 tabs 11/25/21 hydroxyzine pamoate 25 mg capsule 25 mg PO 4X/DAY PRN PRN Itching #60 caps 11/25/21 prednisone 20 mg tablet 40 mg PO DAILY #10 tabs 11/25/21 amlodipine 10 mg tablet 10 mg PO DAILY #90 tabs 11/26/21 Hospital Course Summary of Care Provided Minutes Spent on Discharge: 35 Hospital Course: Patient is a 46-year-old gentleman admitted with extensive hives which started 2 days prior to his admission.? He had been seen in the emergency department discharged on prednisone however presented with throat discomfort as well as itching.? He was also found to have impaired kidney function admitted to a monitored bed for subsequent management 1.? Acute urticarial rash -Patient managed with prednisone and antihistamines 2.? Acute kidney injury ? Managed with IV fluids. Patient was on lisinopril discontinued on discharge 3. Hypertension - Blood pressure controlled, patient was on lisinopril discontinued in view of his impaired kidney function 4.? Tobacco dependence - Counseled on cessation, offered nicotine patch for tobacco cravings 5.? Class III obesity with BMI of 44 ? Counseled on cessation 6.? DVT prophylaxis ? Enoxaparin Physical Exam Narrative GENERAL: cooperative HEENT: Atraumatic; EYES; Anicteric, Normal Conjunctiva NECK; supple, normal thyroid, RESPIRATORY: Diminished to auscultation CARDIOVASCULAR: Regular S1 S2, GI: soft, normoactive bowel sounds, : No Renal angle tenderness; EXTREMITIES: No edema, no clubbing, MUSCULOSKELETAL: no muscle wasting NEURO: Awake; no lateralizing signs. SKIN: Diffuse urticarial rash on entire body PSYCH; Flat affect Weight / BMI Weight Weight: 151.4 kg Body Mass Index (BMI) 44.0 ABG / Lab / Microbiology Data Result Diagrams: 11/26/21 04:30 11/26/21 04:30 Laboratory: Laboratory Results - last 24 hr 11/24/21 23:58: WBC 5.6, RBC 5.72, Hgb 17.9 H, Hct 52.0, MCV 90.9, MCH 31.3, MCHC 34.4, RDW Std Deviation 46.4 H, RDW Coeff of Jesus 13.9, Plt Count 221, MPV 10.2, Immature Gran % (Auto) 1.200 H, Neut % (Auto) 73.7 H, Lymph % (Auto) 19.1, [place] % (Auto) 4.8, Eos % (Auto) 0.5, Baso % (Auto) 0.7, Absolute Neuts (auto) 4.1, Absolute Lymphs (auto) 1.07, Nucleated RBC % 0 11/24/21 23:58: Sodium 132 L, Potassium 4.9, Chloride 101, Carbon Dioxide 23.0, Anion Gap 8, BUN 46 H, Creatinine 2.59 H, Estim Creat Clear Calc 40.70, Est GFR (MDRD) Af Amer 35 L, Est GFR (MDRD) Non-Af 29 L, BUN/Creatinine Ratio 17.8, Glucose 140 H, Calcium 8.8, Troponin I High Sens 8 11/25/21 02:37: Sodium 133 L, Potassium 4.7, Chloride 103, Carbon Dioxide 22.0, Anion Gap 8, BUN 47 H, Creatinine 2.38 H, Estim Creat Clear Calc 44.30, Est GFR (MDRD) Af Amer 38 L, Est GFR (MDRD) Non-Af 32 L, BUN/Creatinine Ratio 19.7, Glucose 139 H, Calcium 8.4 L D/C Instructions Discharge Diet: No restrictions Discharge Activity: Return to Normal Activity Call your doctor if you observe: Fever of 101 or Higher, Shortness of breath, Fainting spells and Chest pain Meaningful Use Info Meaningful Use Diagnoses (Choose all that apply): None applicable Discharge Plan Admission Admit Date/Time: 11/25/21 02:22 Attending Provider: Armand Forde Primary Care Provider: Cash Puentes Consulting Providers: Barry Ojeda Discharge Orders/Prescriptions Prescriptions: New famotidine 20 mg Tablet 20 mg PO BID Qty: 60 0RF hydroxyzine pamoate 25 mg Capsule 25 mg PO 4X/DAY PRN PRN (Reason: Itching) Qty: 60 0RF diphenhydramine HCl [Benadryl] 25 mg capsule 25 mg PO TID PRN (Reason: allergic reaction) Qty: 30 0RF prednisone 20 mg tablet 40 mg PO DAILY Qty: 10 0RF amlodipine 10 mg tablet 10 mg PO DAILY Qty: 90 0RF Discontinued lisinopril 40 MG tablet 40 mg PO DAILY Qty: 30 0RF prednisone 20 mg tablet 40 mg PO DAILY Qty: 10 0RF Referrals / Follow Up: Cash Puentes MD [Primary Care Provider] - In 1 Day (IN 1 to 2 days to be referred to dermatology) Disposition Disposition (needs filled in before D/C Order can be placed): Home, Self Care Charges/Coding Visit Charges OBSV E&M: 39918 Observation care discharge
--- NOTE | 2021-11-25 14:31 | PCM.HOSP.N ---
Hospitalist Note Patient is a 46-year-old gentleman admitted with extensive hives which started 2 days prior to his admission. He had been seen in the emergency department discharged on prednisone however presented with throat discomfort as well as itching. He was also found to have impaired kidney function admitted to a monitored bed for subsequent management GENERAL: cooperative HEENT: Atraumatic; EYES; Anicteric, Normal Conjunctiva NECK; supple, normal thyroid, RESPIRATORY: Diminished to auscultation CARDIOVASCULAR:? Regular S1 S2, GI:? soft, normoactive bowel sounds, : No Renal angle tenderness; EXTREMITIES:? No edema, no clubbing, MUSCULOSKELETAL:? no muscle wasting NEURO:? Awake;? no lateralizing signs. SKIN: Diffuse urticarial rash on entire body PSYCH; Flat? affect 1. Acute urticarial rash 2. Acute kidney injury 3. Essential tension 4. Tobacco dependence 5. Class III obesity with BMI of 44 6. DVT prophylaxis Patient seen and examined initial assessment including history and physical, diagnostic data and management orders reviewed will follow.
[2021-11-25] MEDS: hydrALAZINE 20 MG/ML Vial 5 MG IV (16:17)
[2021-11-25 17:25] LABS: Color, Urine Straw (Yellow); Glucose, Dipstick 250 mg/dl (Normal); Ketone-Dipstick Negative (Negative); Leukocyte Esterase-Dipstick Negative /ul (Negative); Nitrite-Dipstick Negative (Negative); Occult Blood-Urine 10 /ul (Negative); Protein-Dipstick 15 mg/dl (Negative); Urine Bilirubin Dipstick Negative (Negative); Urine Clarity Clear (Clear); Urine Urobilinogen Normal (Normal)
[2021-11-25] MEDS: Calcium Carbonate 500 MG Tablet PO (22:52)
[2021-11-26] MEDS: 0.9% Normal Saline 1,000 ML 100 ML IV (00:38)
[2021-11-26] MEDS: DiphenhydrAMINE 50 MG/ML Syringe 25 MG IV ×2 (00:39→04:44)
[2021-11-26 03:00] VITALS: PULSE 77
[2021-11-26 04:40] VITALS: BP 129/69; PULSE 64; RESP 16; TEMP 36.4; O2SAT 96
[2021-11-26 05:07] LABS: Absolute Lymphocyte Count 0.82 X10^3/uL (0.83-4.51); Absolute Neutrophil Count 4.5 X10^3/uL (2.0-7.7); Basophil# 0.01 X10^3/uL; Basophil% 0.2 % (0-1); Hematocrit 43.3 % (40-54); Hemoglobin 14.8 g/dL (13.0-16.5); Lymphocyte # 0.82 X10^3/ul (0.83-4.51); Lymphocyte % 14.7 % (19-41); Mean Corp Hgb Conc 34.2 g/dL (32-36); Mean Corpuscular Hgb 31.1 pg (27.0-32.0); Mean Platelet Vol. 10.7 fl (6.2-12.0); Monocyte# 0.25 X10^3/uL; Monocyte% 4.5 % (0-10); NRBC Flagged by Analyzer 0 % (0-5); Neutrophil # 4.46 X10^3/uL (2.7-7.7); Neutrophil % 80.2 % (47-70); Platelet Count 207 K/mm3 (150-450); RBC Distribution Width CV 14.1 % (11.6-14.6); RBC Distribution Width SD 47.4 fl (35.1-43.9); Red Blood Count 4.76 M/mm3 (4.6-6.2); White Blood Count 5.6 K/mm3 (4.4-11.0)
[2021-11-26 05:40] LABS: Anion Gap 7 (5-15); BUN 30 mg/dL (7-18); BUN/Creat Ratio 29.4 RATIO (10-20); Calcium,Total 8.2 mg/dL (8.5-10.1); Chloride 109 mmol/L (98-107); Creatinine, Serum 1.02 mg/dL (0.70-1.30); EST Glomerular Filtration Rate 84 mL/min (>60); Est Glom Filt Rate - Afr Amer 101 mL/min (>60); Estimated Creatinine Clearance 103.36 ml/min; Glucose 177 mg/dL (74-106); Potassium 5.1 mmol/L (3.5-5.1); Sodium Level 137 mmol/L (136-145)
[2021-11-26] MEDS: hydrOXYzine PAM 25 MG Capsule 50 MG PO (05:40)
--- NOTE | 2021-11-26 06:58 | NURSING ---
11/26/21 @ 0630- Nicotine patch removed for shower.
[2021-11-26 07:00] VITALS: PULSE 65
[2021-11-26 07:14] VITALS: PULSE 68; RESP 18; O2SAT 94
[2021-11-26] MEDS: Ipratropium/Albuterol Sulfate 3 ML AMPUL.NEB INHALATION (07:14)
[2021-11-26] MEDS: Loratadine 10 MG Tablet PO (08:16)
[2021-11-26] MEDS: Famotidine 20 MG Tablet PO (08:16)
[2021-11-26] MEDS: Enoxaparin 40 MG/0.4 ML Syringe SC (08:18)
[2021-11-26 08:40] LABS: Hemoglobin A1c 5.9 % (3.8-5.6)
[2021-11-26 10:04] VITALS: BP 129/69; PULSE 64; RESP 16; TEMP 36.4; O2SAT 96
--- NOTE | 2021-11-26 14:02 | PHA.DC.MR ---
Pharmacy Service has performed discharge medication reconciliation for this patient. The patient's discharge medication list was reviewed for discrepancies and discrepancies were resolved. Medication education papers prepared, patient discharged before student was able to bereavement counselor. Home Medications diphenhydramine HCl 25 mg capsule (Benadryl) 25 mg PO TID PRN allergic reaction #30 caps 11/25/21 famotidine 20 mg tablet 20 mg PO BID #60 tabs 11/25/21 hydroxyzine pamoate 25 mg capsule 25 mg PO 4X/DAY PRN PRN Itching #60 caps 11/25/21 prednisone 20 mg tablet 40 mg PO DAILY #10 tabs 11/25/21 amlodipine 10 mg tablet 10 mg PO DAILY #90 tabs 11/26/21
== END 2021-11-26 11:00 | disposition home or self-care (01) | DRG 607 ==
LOC: ED 11-25 02:51 → PCU 11-25 02:57
PROVIDERS: Admitting Provider Hospitalist; Emergency Provider Emergency Medicine; PCP Family Medicine; Visit Provider Internal Medicine
DX: L50.0 Allergic urticaria (principal); N17.9 Acute kidney failure, unspecified; Z68.41 Body mass index [BMI] 40.0-44.9, adult; E66.01 Morbid (severe) obesity due to excess calories; I10 Essential (primary) hypertension; F17.210 Nicotine dependence, cigarettes, uncomplicated; T78.40XA Allergy, unspecified, initial encounter; Z79.899 Other long term (current) drug therapy
CPT/HCPCS: 36415; 80048; 81002; 83036; 84484; 85025; 87086; 93005; 94640; 99251; 99285; J7030; A4216; G0463; J3490

== ENCOUNTER 2022-10-25 20:30 | Emergency (ER) | payer OTHER, SELFPAY ==
[2022-10-25 20:31] VITALS: BP 189/117; PULSE 72; RESP 18; TEMP 36.6; O2SAT 95; BMI 41.8
[2022-10-25 20:33] VITALS: BP 189/117; PULSE 72; RESP 18; TEMP 36.6; O2SAT 95
--- NOTE | 2022-10-25 20:43 | EX.ED.DYSGE1 ---
HPI History of Present Illness Chief Complaint: Abscess Informant: patient Onset/Context/Timing Onset: Days Context: Gradual Onset Timing: Continuous Current Severity: Mild Maximum Severity: Mild Narrative Narrative: 47-year-old male history of hypertension. Complaining of pain just below his right knee. Sitting now About a week ago has not felt uncomfortable but he really did not make much of it. He followed up with his primary care physician's office saw their physician merchandising assistant around last they thought it may be a bursitis and put him on prednisone. He said it is now red and much more swollen. He denies any fever. Today he thinks that there was a small amount of drainage from and that might of pus-like. Prior similar symptoms: No Recent Illness/Hospitalization: No PFSH PFSH Medical History Hypertension Home Medications amlodipine 10 mg tablet 10 mg PO DAILY #90 tabs 11/26/21 [Rx Last Taken Unknown] cephalexin 500 mg capsule 500 mg PO Q6 #40 CAPSULES 10/25/22 [Rx Last Taken Unknown] omeprazole 20 mg capsule,delayed release 20 mg PO DAILY 10/25/22 [History Last Taken Unknown] Allergy/AdvReac Type Severity Reaction Status Date / Time lisinopril Allergy Severe Angioedema Verified 10/25/22 20:31 Family History Other Heart disease Surgical History h/o kidney surgery h/o microdiscectomy L5-S1 Social History Smoking Status: Current every day smoker tobacco type: cigarettes ROS ROS ED ROS Narrative Denies. Review of Systems ROS Unobtainable: Denies due to encephalopathy Constitutional Constitutional ED: Denies chills or fever(s) Eyes Eyes: Denies blurry vision ENT ENT ED: Denies ear pain Cardiovascular Cardiovascular: Denies chest pain Respiratory/Chest Respiratory/Chest: Denies cough Gastrointestinal Gastrointestinal: Denies abdominal pain Genitourinary Genitourinary ED: Denies dysuria Musculoskeletal Musculoskeletal: Denies arthralgias Integumentary Reports abscess Neurologic Neurologic: Denies headache(s) Psychiatric Psychiatric: Denies anxiety Endocrine Endocrinology: Denies cold intolerance Hematologic/Lymphatic Hematologic/Lymphatic: Reports none Allergic/Immunologic Allergic/Immunologic ED: Denies mouth swelling or tongue swelling EXAM Physical Exam Narrative Exam Narrative: Well-appearing 47-year-old male. Vital signs stable afebrile. No distress. Significant other bedside. H EENT exam unremarkable. Lungs clear. Heart regular rhythm no murmur. Rate about 70. Chest wall nontender. Abdomen soft nontender. Moving all 4 extremities. Neurovascular intact. Right knee just distal to the patella over his tibial tuberosity is red tender area consistent with a septic bursitis. He is able to flex and extend his knee. There is no swelling of the knee itself. No signs of a septic joint. He denies any significant discomfort with flexion extension. There is no lymphangitic streaking. There is no inguinal lymphadenopathy of his right leg. Const Vital Signs: 10/25/22 20:31 10/25/22 20:33 Temperature 97.9 F 97.9 F Temperature Source Temporal Temporal Pulse Rate 72 72 Respiratory Rate 18 18 Blood Pressure 189/117 H 189/117 H Blood Pressure Mean 141 141 Pulse Ox 95 95 Positive well nourished and well developed; Negative for cachectic, contractures or unkempt General Appearance ED: well developed and NAD; Negative for unkempt, cachectic, contractures, cyanotic or diaphoretic Nutritional Appearance: Negative for cachectic HEENT Reports moist mucous membranes; Denies TM's clear Negative for trauma or tenderness Tympanic Membrane ED: Negative for TM's clear Eyes PERRL and EOMs intact bilaterally General Eye ED: Negative for pale conjunctiva or scleral icterus Neck no lymphadenopathy, supple and no JVD General: Negative for tenderness Lymph Lymphatic: Negative for other Chest Wall Negative for inspection of chest normal or palpation of chest normal Chest: Negative for other Resp normal respiratory effort and clear to auscultation bilaterally Effort and Inspection: Negative for retractions Auscultation: Negative for rales, rhonchi or wheezes Cardio regular rate, regular rhythm, S1 normal heart sound, S2 normal heart sound and no murmurs Rhythm: Negative for abnormal rhythm GI normal to inspection, nondistended, normoactive bowel sounds, non-tender, non-distended and no masses Inspection: Negative for abdominal distention Auscultation: normoactive bowel sounds Palpation: soft; Negative for tender or guarding Extremity normal to inspection Extremity Narrative: Except prepatellar bursitis just distal to the right kneecap. It is red, tender and swollen consistent with a septic bursitis. No signs of a septic knee joint. Full flexion extension. No effusion. General Extremety ED: Yes tenderness; Negative for edema General Extremity: Negative for edema Neuro oriented x3 and CN's II-XII intact bilaterally Sensorium / Orientation: alert; Negative for orientation impaired Motor Exam: strength 5/5 throughout Psych mental status grossly normal Appearance: Negative for unkempt Attitude: No agitated Mood & Affect: Negative for depressed, anxious or tearful Skin no rashes or lesions noted and no wounds Lesions: No lesion noted Rashes: No rashes noted Trauma: Negative for abrasion Wounds: Negative for wounds noted MDM MDM MDM Narrative Medical decision making narrative: 47-year-old male suspected septic bursitis of his right knee. No signs of septic joint. Area will be locally anesthetized I&D no be started on antibiotics. Outpatient follow-up with orthopedics. Patient has a right knee septic bursitis. The joint itself is fine. Cleaned with Shur-Clens. Local anesthetized with lidocaine. I made a 1 to 2 cm vertical incision. Was able to express about 5 to maybe as much is 10 cc of pus and blood. Irrigated the wound. Placed packing material. Patient is doing well. I spoke to orthopedics on-call Dr. Sood. He will follow up the patient next several days. Patient be discharged home with Keflex 500 mg 4 times daily for 10 days. Procedures Other Procedures Procedure(s): Right knee infected bursa incision and drainage. Locally anesthetized with lidocaine. Made a 1-1/2 to 2 cm vertical incision. Drained 5 to 10 cc of pus and blood. Probed the wound with forceps. Irrigated the infected bursa. Placed about 5 inches of quarter inch plain gauze. Instructed the patient on wound care and packing removal in 4 to 5 days. Follow-up with orthopedics. Treated with a dose of Keflex p.o. here. Discharge Plan Triage Chief Complaint: Abscess ED Provider: Victor Manuel Duenas Dx/Rx/DC Orders Clinical Impression: Septic bursitis Instructions: ED Abscess Incision And Drainage Prescriptions: New cephalexin 500 mg capsule 500 mg PO Q6 Qty: 40 0RF No Action amlodipine 10 mg tablet 10 mg PO DAILY Qty: 90 0RF omeprazole 20 mg capsule,delayed release(DR/EC) 20 mg PO DAILY Primary Care Provider: Cash Puentes Referrals: Barry Sood DO [Med Staff - Active Staff] - As soon as possible (Call the doctor's office tomorrow they can see you this week.) Cash Puentes MD [Primary Care Provider] - Activity Restrictions/Additional Instructions: Keflex 1 pill 4 times a day for 10 days. Call and follow-up with the orthopedic doctor to ensure this is improving. Sometimes it to take out the whole bursa sac. Motrin and Tylenol for pain. Return if feeling worse, fever the leg is getting much more swollen, painful or streaks up the knee or groin. Packing can be pulled out in 5 days. Disposition Disposition: Home, Self Care
[2022-10-25] MEDS: Lidocaine 1% (20 ml mdv) 20 ML Vial 10 ML INFILT (20:48)
[2022-10-25] MEDS: Cephalexin 250 MG Capsule 500 MG PO (20:48)
== END 2022-10-25 22:04 | disposition home or self-care (01) ==
PROVIDERS: Emergency Provider Emergency Medicine; PCP Family Medicine; Visit Provider Emergency Medicine
DX: M71.161 Other infective bursitis, right knee (principal); M25.561 Pain in right knee; F17.210 Nicotine dependence, cigarettes, uncomplicated; I10 Essential (primary) hypertension
CPT/HCPCS: 27301; 99283

== ENCOUNTER 2023-07-27 22:40 | Inpatient (IN) | payer OTHER, SELFPAY ==
[2023-07-27] VITALS (8 sets, daily range): BP systolic 115–186; BP diastolic 61–113; PULSE 69–80; RESP 19–20; TEMP 36.2–36.3; O2SAT 93–97; BMI 41.5
--- NOTE | 2023-07-27 22:44 | EDS_ITS ---
HPI History of Present Illness Chief Complaint: Chest Pain [facility] Medical History Hypertension Home Medications amlodipine 10 mg tablet 10 mg PO DAILY #90 tabs 11/26/21 [Rx Last Taken Unknown] cephalexin 500 mg capsule 500 mg PO Q6 #40 CAPSULES 10/25/22 [Rx Last Taken Unknown] omeprazole 20 mg capsule,delayed release 20 mg PO DAILY PRN 10/28/22 [History Last Taken Unknown] meloxicam 15 mg tablet 15 mg PO DAILY #30 tabs 11/02/22 [Rx Last Taken Unknown] Allergy/AdvReac Type Severity Reaction Status Date / Time lisinopril Allergy Severe Angioedema Verified 07/27/23 22:40 Family History Other Heart disease Surgical History h/o kidney surgery h/o microdiscectomy L5-S1 Social History Smoking Status: Current every day smoker tobacco type: cigarettes alcohol intake: current alcohol intake frequency: a few times a month MDM MDM MDM Narrative Medical decision making narrative: HISTORY OF PRESENT ILLNESS: 48-year-old male presents with acute onset of sharp chest pain is not radiating does note some left arm pain as well. Notes he feels like his chest is collapsing or ripping. Does note uncle with history of aortic aneurysm but denies any personal or family history in first-degree relatives of aortic dissection or other connective tissue disorder. Denies any cough or fever. Denies any loss of movement or sensation. Denies any vomiting. Denies any bleeding diathesis. Notes history of high blood pressure, high cholesterol he smokes tobacco and occasionally marijuana but denies any cocaine or methamphetamine use REVIEW OF SYSTEMS: Pertinent positives: Chest pain Pertinent negatives: Shortness of breath PHYSICAL EXAM: Nursing triage notes reviewed, Vital signs reviewed Constitutional: please see mdm HENT: MMM Eyes: Pupils equal round and reactive to light, Extraocular muscles intact Neck: No stridor, no JVD, full neck ROM Lungs: Clear to auscultation, No wheezing or rales. No increased work of breathing, no conversational dyspnea, no accessory muscle use, no nasal flaring. No respiratory distress noted Heart: Regular rate and rhythm, No murmurs, No rubs and No gallops, 2+ distal pulses (radial, femoral, posterior tibial) in all extremities Abdomen: Soft, there is no tenderness, rigidity, rebound or guarding, no obvious peritoneal signs, no palpable pulsatile abdominal masses, no auscultated abdominal bruit : No CVAT Extremities: No edema Neuro: No focal neurological deficits, cranial nerves II through XII intact, 5/5 strength in all extremities. Intact sensation to light touch in all extremities, 2+ reflexes bilateral patella tendons. Normal gait. No ataxia. Skin: No rash or lesions noted MEDICAL DECISION MAKING: Chief Complaint: [] External records reviewed: [] Factors affecting care: none [] Social determinants of health: none [] History obtained from others: none [] Consults: none [] [facility] Narrative: [] I considered the following differential diagnosis: [] ALL IMAGES (IF OBTAINED) HAVE BEEN PERSONALLY REVIEWED AND INTERPRETED BY MYSELF. [] The patient and/or family, caregivers express understanding. The patient and/or family, caregivers agrees with the plan. Shared decision making: I will have a discussion with the patient and or visitors regarding risk/benefits of further testing or admission. They will be made aware of of the risk/benefits inherent in this decision they will be given the opportunity to voice understanding. Total critical care time today provided was at least 0 [] minutes. This excludes separately billable procedures. Critical care time (if documented) is secondary to the patient having high probability of clinically significant/life threatening deterioration in the patient's condition which required my urgent intervention. Impression: [] Dispo: [] This note was generated with [email or web address] dictation software. It may contain incorrect words, spelling, and punctuation that were not noted in review of the chart prior to signing. Discharge Plan Triage Chief Complaint: Chest Pain ED Provider: Nathen Haynes Dx/Rx/DC Orders Prescriptions: No Action meloxicam 15 mg tablet 15 mg PO DAILY Qty: 30 1RF Rx Instructions: Do not take in conjunction with other NSAID. Tylenol is okay. amlodipine 10 mg tablet 10 mg PO DAILY Qty: 90 0RF cephalexin 500 mg capsule 500 mg PO Q6 Qty: 40 0RF omeprazole 20 mg capsule,delayed release(DR/EC) 20 mg PO DAILY PRN Primary Care Provider: Cash Puentes: Cash Puentes MD [Primary Care Provider] -
--- NOTE | 2023-07-27 22:44 | ED.VIS.CHEST ---
HPI History of Present Illness Chief Complaint: Chest Pain [facility] Medical History Hypertension Home Medications amlodipine 10 mg tablet 10 mg PO DAILY #90 tabs 11/26/21 [Rx Last Taken Unknown] omeprazole 20 mg capsule,delayed release 20 mg PO DAILY PRN gerd 10/28/22 [History Last Taken Unknown] Allergy/AdvReac Type Severity Reaction Status Date / Time lisinopril Allergy Severe Angioedema Verified 07/27/23 22:40 Family History Other Heart disease Surgical History h/o kidney surgery h/o microdiscectomy L5-S1 Social History Smoking Status: Current every day smoker tobacco type: cigarettes alcohol intake: current alcohol intake frequency: a few times a month EXAM Physical Exam Const Vital Signs: 07/27/23 22:40 07/27/23 22:51 07/27/23 22:58 Temperature 97.1 F L Temperature Source Temporal Pulse Rate 78 79 Respiratory Rate 20 H Blood Pressure 176/105 H 186/107 H Blood Pressure Mean 128 Pulse Ox 97 93 Oxygen Delivery Method Nasal Cannula Oxygen Flow Rate (L/min) 2 07/27/23 23:02 07/27/23 23:04 07/27/23 23:05 Temperature 97.4 F L Temperature Source Pulse Rate 80 80 70 Respiratory Rate 19 H Blood Pressure 175/111 H 178/111 H 162/113 H Blood Pressure Mean 133 Pulse Ox 97 Oxygen Delivery Method Oxygen Flow Rate (L/min) 07/27/23 23:08 07/27/23 23:11 Temperature Temperature Source Pulse Rate 70 69 Respiratory Rate 19 H 19 H Blood Pressure 168/110 H 115/61 Blood Pressure Mean 129 79 Pulse Ox 96 96 Oxygen Delivery Method Room Air Room Air Oxygen Flow Rate (L/min) MDM MDM MDM Narrative Medical decision making narrative: HISTORY OF PRESENT ILLNESS: 48-year-old male presents with acute onset of sharp chest pain is not radiating does note some left arm pain as well. Notes he feels like his chest is collapsing or ripping. Does note uncle with history of aortic aneurysm but denies any personal or family history in first-degree relatives of aortic dissection or other connective tissue disorder. Denies any cough or fever. Denies any loss of movement or sensation. Denies any vomiting. Denies any bleeding diathesis. Notes history of high blood pressure, high cholesterol he smokes tobacco and occasionally marijuana but denies any cocaine or methamphetamine use. The patient denies recent surgery in the last 4 weeks or immobilization in the last 3 days, denies previous diagnosis of DVT or PE, hemoptysis, unilateral leg swelling or malignancy with treatment the last 6 months or palliative. No estrogen use noted. Patient denies history of any bleeding diathesis including recurrent hemorrhage, GI hemorrhage. REVIEW OF SYSTEMS: Pertinent positives: Chest pain Pertinent negatives: Shortness of breath PHYSICAL EXAM: Nursing triage notes reviewed, Vital signs reviewed Constitutional: please see mdm HENT: MMM Eyes: Pupils equal round and reactive to light, Extraocular muscles intact Neck: No stridor, no JVD, full neck ROM Lungs: Clear to auscultation, No wheezing or rales. No increased work of breathing, no conversational dyspnea, no accessory muscle use, no nasal flaring. No respiratory distress noted Heart: Regular rate and rhythm, No murmurs, No rubs and No gallops, 2+ distal pulses (radial, femoral, posterior tibial) in all extremities Abdomen: Soft, there is no tenderness, rigidity, rebound or guarding, no obvious peritoneal signs, no palpable pulsatile abdominal masses, no auscultated abdominal bruit : No CVAT Extremities: No edema Neuro: No focal neurological deficits, cranial nerves II through XII intact, 5/5 strength in all extremities. Intact sensation to light touch in all extremities, 2+ reflexes bilateral patella tendons. Normal gait. No ataxia. Skin: No rash or lesions noted MEDICAL DECISION MAKING: Chief Complaint: Chest pain External records reviewed: Chest x-ray from November 2021 no acute process Factors affecting care: Hypertension, dyslipidemia Social determinants of health: Tobacco use History obtained from others: Family Consults: Internal medicine (Dr. Guaman), interventional cardiology (Dr. Lopez) [facility] Narrative: [Patient is initially hypertensive otherwise afebrile and nontoxic-appearing. No focal cardiopulmonary maladies noted. No pulse deficits or focal neurologic deficits noted. I considered the following differential diagnosis: STEMI, ACS, anemia, arrhythmia, electrolyte disturbance, PE Consider obtaining advanced imaging occluding CTA of the chest rule out PE or dissection however the patient had no pulse deficits and no risk factors to suggest PE. In addition to this his clinical exam, history and EKG more consistent with STEMI as a cause of his symptoms. Initial EKG shows STEMI. STEMI protocol activated. Patient was treated for thaws using heparin, aspirin and Brilinta. Consulted interventional cardiology spoke with Dr. Lopez who recommended transfer to the [facility] Of [facility] for definitive intervention. ALL IMAGES (IF OBTAINED) HAVE BEEN PERSONALLY REVIEWED AND INTERPRETED BY MYSELF. Initial EKG consistent with inferior lateral STEMI. CBC without leukocytosis, severe anemia, no thrombocytopenia. No coagulopathy BMP with hypokalemia otherwise no significant electrolyte disturbances, evidence of metabolic acidosis, endorgan hypoperfusion or DARREL High-sensitivity troponin is negative, no evidence of myocardial ischemia Patient was transported to the [facility] in guarded condition. The patient and/or family, caregivers express understanding. The patient and/or family, caregivers agrees with the plan. Shared decision making: I will have a discussion with the patient and or visitors regarding risk/benefits of further testing or admission. They will be made aware of of the risk/benefits inherent in this decision they will be given the opportunity to voice understanding. Total critical care time today provided was at least 35 minutes. This excludes separately billable procedures. Critical care time (if documented) is secondary to the patient having high probability of clinically significant/life threatening deterioration in the patient's condition which required my urgent intervention. Impression: 1. STEMI 2. Hypokalemia 3 history of hypertension Dispo: Admit to [facility] This note was generated with [employer] dictation software. It may contain incorrect words, spelling, and punctuation that were not noted in review of the chart prior to signing. Lab Data Labs: Laboratory Results - last 24 hr 07/27/23 22:43 WBC 9.9 RBC 5.70 Hgb 17.3 H Hct 50.3 MCV 88.2 MCH 30.4 MCHC 34.4 RDW Std Deviation 44.6 H RDW Coeff of Jesus 13.9 Plt Count 237 MPV 9.6 Immature Gran % (Auto) 0.300 Neut % (Auto) 41.5 L Lymph % (Auto) 43.5 H [place] % (Auto) 10.2 H Eos % (Auto) 3.3 Baso % (Auto) 1.2 H Absolute Neuts (auto) 4.1 Absolute Lymphs (auto) 4.29 Nucleated RBC % 0 PT 12.9 INR 1.0 APTT 29.4 Sodium 138 Potassium 3.1 L Chloride 107 Carbon Dioxide 22.0 Anion Gap 9 BUN 14 Creatinine 1.03 Estim Creat Clear Calc 128.16 Est GFR (MDRD) Af Amer 100 Est GFR (MDRD) Non-Af 82 BUN/Creatinine Ratio 13.6 Glucose 108 H Calcium 9.4 Troponin I High Sens 19 Discharge Plan Disposition Disposition: Acute Care Hospital [facility] Discharge Date/Time: 07/27/23 23:19
[2023-07-27] MEDS: Aspirin 81 MG TAB.CHEW 243 MG PO (22:45)
[2023-07-27] MEDS: TICAGRELOR 90 MG TABLET 180 MG PO (22:45)
[2023-07-27] MEDS: Heparin Injection (Vial) 5,000 UNIT/ML VIAL 4000 UNIT IV (22:45)
--- NOTE | 2023-07-27 22:47 | EKG12_ITS ---
Test Reason : Post STEMI Blood Pressure : / mmHG Vent. Rate : 064 BPM Atrial Rate : 064 BPM P-R Int : 192 ms QRS Dur : 106 ms QT Int : 428 ms P-R-T Axes : 062 -27 021 degrees QTc Int : 441 ms Normal sinus rhythm Anterolateral infarct , age undetermined Abnormal ECG When compared with ECG of 27-JUL-2023 22:38, MANUAL COMPARISON REQUIRED, DATA IS UNCONFIRMED Confirmed by SELINA MARIANO, RAMIREZ ([id number]), editor & co founder LYDIA BOSWELL ([id number]) on 07/28/2023 1:13:54 PM Referred By: Marisa Lopez Confirmed By:RAMIREZ MARKS MD
[2023-07-27 22:51] LABS: Absolute Lymphocyte Count 4.29 X10^3/uL (0.83-4.51); Absolute Neutrophil Count 4.1 X10^3/uL (2.0-7.7); Basophil# 0.12 X10^3/uL; Basophil% 1.2 % (0-1); Eosinophil# 0.33 X10^3/uL; Eosinophils% 3.3 % (0-5); Hematocrit 50.3 % (40-54); Hemoglobin 17.3 g/dL (13.0-16.5); Lymphocyte # 4.29 X10^3/ul (0.83-4.51); Lymphocyte % 43.5 % (19-41); Mean Corp Hgb Conc 34.4 g/dL (32-36); Mean Corpuscular Hgb 30.4 pg (27.0-32.0); Mean Corpuscular Volume 88.2 fL (80-94); Mean Platelet Vol. 9.6 fl (6.2-12.0); Monocyte# 1.01 X10^3/uL; Monocyte% 10.2 % (0-10); NRBC Flagged by Analyzer 0 % (0-5); Neutrophil # 4.08 X10^3/uL (2.7-7.7); Neutrophil % 41.5 % (47-70); Platelet Count 237 K/mm3 (150-450); RBC Distribution Width CV 13.9 % (11.6-14.6); RBC Distribution Width SD 44.6 fl (35.1-43.9); White Blood Count 9.9 K/mm3 (4.4-11.0)
[2023-07-27] MEDS: Nitroglycerin SL (ED/IMG/CATH) 0.4 MG TABLET SL ×3 (22:58→23:05)
[2023-07-27 23:05] LABS: Prothrombin Time (Protime)PT. 12.9 SECONDS (11.7-14.9)
[2023-07-27 23:06] LABS: Partial Thromboplast Time 29.4 Seconds (24.1-36.2)
[2023-07-27 23:11] LABS: Anion Gap 9 (5-15); BUN 14 mg/dL (7-18); BUN/Creat Ratio 13.6 RATIO (10-20); Calcium,Total 9.4 mg/dL (8.5-10.1); Chloride 107 mmol/L (98-107); Creatinine, Serum 1.03 mg/dL (0.70-1.30); EST Glomerular Filtration Rate 82 mL/min (>60); Est Glom Filt Rate - Afr Amer 100 mL/min (>60); Estimated Creatinine Clearance 128.16 ml/min; Glucose 108 mg/dL (74-106); Potassium 3.1 mmol/L (3.5-5.1); Sodium Level 138 mmol/L (136-145); Troponin-I HS 19 pg/mL (3.0-78.0)
--- NOTE | 2023-07-27 23:17 | PCM.HP.STD ---
[facility] - General General Date of Admission: 07/27/23 Date of Service: 07/27/23 Chief Complaint: Chest Pain with Code STEMI. [facility] Narrative NEHAL RIVERS, is a 48 M with a past medical history of essential hypertension, hyperlipidemia, history of tobacco abuse, morbid obesity; with BMI of 41.6 this admission, history of angioedema attributed to Lisinopril, history of microdiscectomy at L5-S1, history of kidney surgery, history of septic and patellar bursitis of the right knee, GERD and osteoarthritis who presents to [facility] ER complaining of chest pain with code STEMI. Mr. Rivers reports his symptoms began approximately 1 hour prior to arrival with the abrupt onset of chest pain that was substernal, sharp and radiating into his left arm with patient describing the pain as his chest collapsing or ripping. Nothing seems to make the pain better or worse and he denies a history of personal history aortic aneurysm but he states he has an uncle that has a history of aortic aneurysm. He denies associated fever, chills, nausea, vomiting, cough, shortness of breath or history of cocaine or methamphetamine abuse. In the ER patient had evidence of a STEMI on EKG and he was immediately treated with aspirin, IV heparin, Brilinta and nitroglycerin prior to being emergently sent to the cardiac catheterization lab complicated by laboratory evidence of hypokalemia of 3.1 mmol/L present on admission. He then had 2 stents placed in his LAD and then clinically markedly improved. He was then admitted to the ICU for ongoing treatment or stay that is expected to be greater than 2 midnights. [facility] Medical History Hypertension Home Medications amlodipine 10 mg tablet 10 mg PO DAILY #90 tabs 11/26/21 [Rx Last Taken Unknown] omeprazole 20 mg capsule,delayed release 20 mg PO DAILY PRN gerd 10/28/22 [History Last Taken Unknown] Allergy/AdvReac Type Severity Reaction Status Date / Time lisinopril Allergy Severe Angioedema Verified 07/27/23 22:40 Family History Other Heart disease Surgical History h/o kidney surgery h/o microdiscectomy L5-S1 Social History Smoking Status: Current every day smoker tobacco type: cigarettes alcohol intake: current alcohol intake frequency: a few times a month ROS ROS Narrative Review of systems: General: Patient denies fever or chills. HENT: Denies headache, denies stuffy nose, denies sore throat EYES: Denies changes in vision or discharge from eyes. Resp: Denies cough, denies shortness of breath Cardiac: Patient admits to sharp chest pain radiating to his left arm with a ripping sensation as per HPI. GI: Denies abdominal pain, denies changes in bowel, denies nausea or vomiting. : Denies changes in urination Extremity: Denies swelling Musculoskeletal: Feels somewhat generally weak and unwell but denies arthralgias or myalgias. Neuro: Patient denies headache, paresthesias or focal neurologic weakness. Heme: Denies any bleeding or bruising Skin: Denies rashes Psychiatric: No complaints voiced related to uncontrolled depression or anxiety. Endocrine: No polyuria, polydipsia or polyphagia. The rest of the 14 point ROS was negative except for positives in HPI. Vital Signs Vital Signs Vital Signs: 07/27/23 22:40 07/27/23 22:51 07/27/23 22:58 Temperature 97.1 F L Temperature Source Temporal Pulse Rate 78 79 Respiratory Rate 20 H Blood Pressure 176/105 H 186/107 H Blood Pressure Mean 128 Pulse Ox 97 93 Oxygen Delivery Method Nasal Cannula Oxygen Flow Rate (L/min) 2 07/27/23 23:02 07/27/23 23:04 07/27/23 23:05 Temperature 97.4 F L Temperature Source Pulse Rate 80 80 70 Respiratory Rate 19 H Blood Pressure 175/111 H 178/111 H 162/113 H Blood Pressure Mean 133 Pulse Ox 97 Oxygen Delivery Method Oxygen Flow Rate (L/min) 07/27/23 23:08 07/27/23 23:11 Temperature Temperature Source Pulse Rate 70 69 Respiratory Rate 19 H 19 H Blood Pressure 168/110 H 115/61 Blood Pressure Mean 129 79 Pulse Ox 96 96 Oxygen Delivery Method Room Air Room Air Oxygen Flow Rate (L/min) Weight Weight: 306 lb 10.608 oz Body Mass Index (BMI) 41.5 Physical Exam Const alert, oriented x3, average body habitus and healthy appearing General Appearance: cooperative HEENT normocephalic, head/scalp atraumatic, hearing grossly normal bilaterally and moist oral mucous membranes Eyes PERRL and EOMs intact bilaterally Neck no lymphadenopathy and supple Resp normal respiratory effort, no retractions, no use of accessory muscles and clear to auscultation bilaterally Cardio regular rate and regular rhythm GI normal to inspection, nondistended, normoactive bowel sounds, soft to palpation, non-tender and non-distended Extremity normal to inspection, full ROM and no clubbing, cyanosis or edema Skin Skin Narrative: Patient has no evidence of jaundice or rash. Neuro oriented x3, CN's II-XII intact bilaterally, moves all extremities and no focal motor deficits Sensorium / Orientation: awake, alert, oriented to person, oriented to place and oriented to time Speech: speech normal Psych affect normal Results Medical Records Data Attestation: I reviewed the patient's medical records Lab / Micro Data Attestation: I reviewed the patient's lab results. 07/28/23 02:45 07/28/23 02:45 Labs: Laboratory Results - last 24 hr 07/27/23 22:43: WBC 9.9, RBC 5.70, Hgb 17.3 H, Hct 50.3, MCV 88.2, MCH 30.4, MCHC 34.4, RDW Std Deviation 44.6 H, RDW Coeff of Jesus 13.9, Plt Count 237, MPV 9.6, Immature Gran % (Auto) 0.300, Neut % (Auto) 41.5 L, Lymph % (Auto) 43.5 H, [place] % (Auto) 10.2 H, Eos % (Auto) 3.3, Baso % (Auto) 1.2 H, Absolute Neuts (auto) 4.1, Absolute Lymphs (auto) 4.29, Nucleated RBC % 0, PT 12.9, INR 1.0, APTT 29.4, Sodium 138, Potassium 3.1 L, Chloride 107, Carbon Dioxide 22.0, Anion Gap 9, BUN 14, Creatinine 1.03, Estim Creat Clear Calc 128.16, Est GFR (MDRD) Af Amer 100, Est GFR (MDRD) Non-Af 82, BUN/Creatinine Ratio 13.6, Glucose 108 H, Calcium 9.4, Troponin I High Sens 19 Assessment & Plan Assessment/Plan (1) STEMI (ST elevation myocardial infarction): QUALIFIERS: Involved coronary artery: LAD coronary artery Qualified Code(s): I21.02 - ST elevation (STEMI) myocardial infarction involving left anterior descending coronary artery (2) Hypokalemia: (3) Tobacco abuse: (4) Morbid obesity with BMI of 40.0-44.9, adult: PLAN: Plan 1. Chest Pain with Code STEMI; s/p stents x 2 to LAD - Admit to ICU for treatment under the STEMI protocol. Continue current medical management with IV heparin, Brilinta and statin. Check echocardiogram to evaluate LVEF. [place] [facility] help is greatly appreciated. Give morphine as needed for severe (level 6-10 out of 10) pain. 2. Hypokalemia of 3.1 mmol/L present on admission complicating #1 - Give supplemental KCl and recheck BMP in a.m. to ensure improvement. 3. History of tobacco abuse likely precipitating #1 - Tobacco cessation will be strongly encouraged. 4. Morbid obesity; with BMI of 41.6 this admission adding to the pathology of #1 - #3 - Weight loss will be recommended. Check TSH. 5. Essential hypertension - Continue home medications plus give IV hydralazine as needed for systolic blood pressure greater than 1 or 60 mmHg. 6. Hyperlipidemia - Resume statin and check lipid profile in light of #1. 7. History of angioedema attributed to Lisinopril - Noted. Avoid MALLORY inhibitors and ARB's to prevent recurrence. 8. History of microdiscectomy at L5-S1 - Noted. 9. History of kidney surgery - Noted. 10. History of septic and patellar bursitis of the right knee - Noted. 11. GERD - Resume PPI as previous. 12. Osteoarthritis - Hold meloxicam due to increased risk of cardiovascular events. Give Tylenol as needed for [id number] (level 1-5 out of 10) pain or fever. 13. DVT prophylaxis - Patient already on IV heparin for #1. Total time: Approximately 75 minutes. Charges/Coding Visit Charges Inpatient E&M: 23152 Init Hosp L3
[2023-07-28] VITALS (37 sets, daily range): BP systolic 123–185; BP diastolic 76–114; PULSE 51–74; RESP 12–27; TEMP 36.5–36.8; O2SAT 94–100; BMI 41.5; BMI 41.0
--- NOTE | 2023-07-28 00:35 | ECHOCS_ITS ---
Reason For Study: Chest Pain Procedure This was a 2D Doppler, Color Flow transthoracic echocardiogram. Contrast injection was performed. Exam performed portable in ICU/CCU. Left Ventricle Moderate concentric left ventricular hypertrophy. Normal LV size. The left ventricular ejection fraction is 55 %. Normal diastology for age. Right Ventricle Normal right ventricle. Atria The left atrium is moderately enlarged. Normal right atrium. Mitral Valve Trivial mitral valve insufficiency. Tricuspid Valve Trivial tricuspid valve insufficiency. Normal pulmonary artery pressure. Aortic Valve Trisinus/trileaflet aortic valve. Mild (1+) aortic valve insufficiency. Pulmonic Valve Mild (1+) pulmonic valve insufficiency. Great Vessels Mildly dilated aortic root. Pericardium/Pleural No pericardial effusion. Medication Diluted definity 2ml given slow IV push to enhance endocardial definition. MMode/2D Measurements & Calculations LVIDd: 5.9 cm IVSd: 1.4 cm Ao root diam: 4.1 cm LVIDs: 4.2 cm LVPWd: 1.4 cm RVDd: 4.2 cm FS: 29.2 % LAV(MOD-bp): 67.0 ml LVAd ap4: 41.9 cm2 SV(MOD-sp4): 103.2 ml LAV(MOD-bp) Indexed: 26.4 ml/m2 LVLd ap4: 8.4 cm LAV(MOD-sp2): 55.7 ml EDV(MOD-sp4): 167.6 ml LAV(MOD-sp4): 71.0 ml EDV(sp4-el): 176.4 ml LVAs ap4: 24.7 cm2 LVLs ap4: 7.6 cm ESV(MOD-sp4): 64.5 ml ESV(sp4-el): 68.4 ml EF(MOD-sp4): 61.5 % EF(sp4-el): 61.2 % SV(sp4-el): 108.0 ml LA A4 area: 23.0 cm2 LA dimension(2D): 4.6 cm RA A4 area: 13.5 cm2 TAPSE: 3.1 cm Time Measurements MV dec time: 0.25 sec Doppler Measurements & Calculations MV E max rigoberto: 66.7 cm/sec Lat Peak E' Rigoberto: 10.9 cm/sec Med Peak E' Rigoberto: 9.1 cm/sec MV A max rigoberto: 57.0 cm/sec E/E' lat: 6.1 E/E' med: 7.3 MV E/A: 1.2 MV dec slope: 269.1 cm/sec2 Ao V2 max: 142.0 cm/sec LV V1 max: 119.4 cm/sec Ao max P.1 mmHg LV V1 max P.7 mmHg Ao V2 mean: 98.2 cm/sec Ao mean P.4 mmHg Ao V2 VTI: 30.9 cm PA V2 max: 133.6 cm/sec PI end-d rigoberto: 109.5 cm/sec TR max rigoberto: 262.4 cm/sec PA V2 mean: 91.9 cm/sec TR max P.5 mmHg ECHO/Echo Complete W/ Contrast Interpretation Summary Moderate concentric left ventricular hypertrophy. The left ventricular ejection fraction is 55 %. Apical hypokinesis. The left atrium is moderately enlarged. Mild (1+) aortic valve insufficiency. Mild (1+) pulmonic valve insufficiency. Mildly dilated aortic root. Ordering Physician: Marisa Lopez Referring Physician: Cash Puentes Performed By: Latricia Mast, MELIA, RVT
--- NOTE | 2023-07-28 00:37 | PCM.CONS.C ---
Assessment & Plan Assessment/Plan (1) STEMI (ST elevation myocardial infarction): PLAN: Patient was taken emergently to the cardiac catheterization lab. Coronary angiography revealed about 90% lesion in the proximal LAD. Distal LAD was noted to be totally occluded. Successful percutaneous revascularization was performed with balloon angioplasty to the distal LAD and drug-eluting stent placement to the proximal LAD. Excellent results were noted. Continue aspirin lifelong. Ticagrelor for at least 1 year. Risk factor modification. (2) Coronary artery disease: PLAN: See #1 above. Continue beta-blockers. Statins. Lose weight. Stop smoking. Possible staged PCI to the distal mid RCA as an outpatient. (3) 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: PLAN: Mild LV systolic dysfunction with apical and inferior apical hypokinesis. Secondary to #1 above. Beta-blockers. Spironolactone. No MALLORY inhibitor's or ARB's in view of history of angioedema. (4) Hypertension: PLAN: Beta-blockers. Start on spironolactone. No MALLORY inhibitor's or ARB's in view of history of angioedema. (5) Nicotine dependence: PLAN: Counseled to quit. (6) Hypokalemia: PLAN: Replace potassium. (7) Morbid obesity with BMI of 40.0-44.9, adult: PLAN: Lose weight. HPI Consult Data Date of Consult: 07/28/23 HPI Narrative Reason for Consultation: STEMI HPI Narrative: 48-year-old gentleman with past medical history significant for hypertension, nicotine dependence and morbid obesity. Presented to the emergency room with complaints of anterior chest discomfort that started about half an hour prior to presentation. No radiation to the arm neck or jaw. No diaphoresis. Some shortness of breath associated with it. An ECG was done in the emergency room which showed changes consistent with acute anterior ST elevation myocardial infarction. Subsequently a STEMI alert was called. [facility] Medical History Hypertension Home Medications amlodipine 10 mg tablet 10 mg PO DAILY #90 tabs 11/26/21 [Rx Last Taken Unknown] omeprazole 20 mg capsule,delayed release 20 mg PO DAILY PRN gerd 10/28/22 [History Last Taken Unknown] Allergy/AdvReac Type Severity Reaction Status Date / Time lisinopril Allergy Severe Angioedema Verified 07/27/23 22:40 Family History Other Heart disease Surgical History h/o kidney surgery h/o microdiscectomy L5-S1 Social History Smoking Status: Current every day smoker tobacco type: cigarettes alcohol intake: current alcohol intake frequency: a few times a month Physical Exam Narrative Obese. Comfortable. No apparent distress. Heart sounds 1 and 2 noted. Chest clear to auscultation bilaterally. Alert oriented x 3. No ankle edema. Risk Stratification Risk Stratification Applicable: No Objective Data Vital Signs: Vital Signs Temp Pulse Resp BP Pulse Ox O2 Del Method O2 Flow Rate 97.4 F L 69 19 H 115/61 96 Room Air 2 07/27/23 23:04 07/27/23 23:11 07/27/23 23:11 07/27/23 23:11 07/27/23 23:11 07/27/23 23:11 07/27/23 22:51 Oxygen Flow Rate (L/min) 2 Oxygen Delivery Method Room Air Weight: 306 lb 10.608 oz Body Mass Index (BMI) 41.5 Lab / Micro Data Attestation: I reviewed the patient's lab results. 07/27/23 22:43 07/27/23 22:43 Labs: Laboratory Results - last 24 hr 07/27/23 22:43: WBC 9.9, RBC 5.70, Hgb 17.3 H, Hct 50.3, MCV 88.2, MCH 30.4, MCHC 34.4, RDW Std Deviation 44.6 H, RDW Coeff of Jesus 13.9, Plt Count 237, MPV 9.6, Immature Gran % (Auto) 0.300, Neut % (Auto) 41.5 L, Lymph % (Auto) 43.5 H, [place] % (Auto) 10.2 H, Eos % (Auto) 3.3, Baso % (Auto) 1.2 H, Absolute Neuts (auto) 4.1, Absolute Lymphs (auto) 4.29, Nucleated RBC % 0, PT 12.9, INR 1.0, APTT 29.4, Sodium 138, Potassium 3.1 L, Chloride 107, Carbon Dioxide 22.0, Anion Gap 9, BUN 14, Creatinine 1.03, Estim Creat Clear Calc 128.16, Est GFR (MDRD) Af Amer 100, Est GFR (MDRD) Non-Af 82, BUN/Creatinine Ratio 13.6, Glucose 108 H, Calcium 9.4, Troponin I High Sens 19 Rhythm Strip Rhythm Strip: Sinus Rhythm Cardiology Labs/Tests 07/27/23 22:43: WBC 9.9, RBC 5.70, Hgb 17.3 H, Hct 50.3, MCV 88.2, MCH 30.4, MCHC 34.4, Plt Count 237, MPV 9.6, Immature Gran % (Auto) 0.300, Neut % (Auto) 41.5 L, Lymph % (Auto) 43.5 H, [place] % (Auto) 10.2 H, Eos % (Auto) 3.3, Baso % (Auto) 1.2 H, Absolute Neuts (auto) 4.1, Nucleated RBC % 0, PT 12.9, INR 1.0, APTT 29.4, Sodium 138, Potassium 3.1 L, Chloride 107, Carbon Dioxide 22.0, Anion Gap 9, BUN 14, Creatinine 1.03, Est GFR (MDRD) Af Amer 100, Est GFR (MDRD) Non-Af 82, BUN/Creatinine Ratio 13.6, Glucose 108 H, Calcium 9.4 Rhythm: EKG: Sinus rhythm. ST elevation in anterior leads consistent with acute anterior myocardial infarction. ECHO: Stress Test: Cardiac Cath: PCI: CT Surgery: Holter monitor: EPS: PPM: CXR: Chest CT Scan:
[2023-07-28] MEDS: EPTIFIBATIDE 75 MG/100 ML VIAL 22.2 MG CONT INF ×2 (00:41→03:40)
[2023-07-28] MEDS: Carvedilol 3.125 MG TABLET PO ×2 (00:54→09:47)
[2023-07-28] MEDS: Atorvastatin Calcium 80 MG Tablet PO ×2 (00:54→20:18)
[2023-07-28] MEDS: 0.9% Normal Saline (1000mL) 1,000 ML 100 ML IV (00:54)
[2023-07-28] MEDS: Potassium Chloride Oral Tablet 20 MEQ PO ×2 (00:56→01:30)
--- NOTE | 2023-07-28 00:58 | CL.I_ITS ---
Patient Name: NEHAL SUTTON Study Date: 07/27/2023 Performing: Marisa Lopez MD Ht: 72 inches 182.88 cm : 1975 Wt: 306.66 lbs 139.1 kg Age: 48 Gender: male BSA: 2.55 PROCEDURE(S) PERFORMED DC01-(47404)LHC/COR/LV IC16-([id number])AMI, IZZY OR PTCA, ARTERY/GRAFT, SINGLE VESSEL CLINICAL PROFILE AND CO-MORBIDITIES Indications: ACS <= 24 hrs Heart Failure: None CAD Presentations: STEMI. Symptom onset Date/Time: Time Not Available CONCLUSIONS 40% distal LMCA 70% distal Mid RCA LVEF 45% with apical and inferior apical hypokinesis to akinesis Successfult PTCA distal LAD using 2.0 mm balloon using 3.5 mm balloon, optimized proximally using 4.0 mm balloon RECOMMENDATIONS ASA Indefinitley Brilinta for at least 12 months Staged PCI to Mid RCA DESCRIPTION OF PROCEDURE The patient arrived to the procedure lab. The risks and benefits of the procedure as well as a full description of our services here and lack of surgical backup were fully explained to the patient and/or their significant other prior to the catheterization. The Timeout was completed, verifying the correct patient and procedure. The patient's procedural site was prepped and draped in the usual fashion. Local anesthetic was given subcutaneously to right radial region with Lidocaine 2%. Using a modified Seldinger technique, arterial access was obtained via the right radial artery, a 6Fr sheath was inserted.. Left Coronary Artery selective angiography was performed in multiple views using a 6 Fr XB 3.0 Guide.. Right Coronary Artery selective angiography was then performed in multiple views using a 5 Fr. 4.0 Jeff catheter. Left Ventriculography was performed in NICOLE projection using a 5 Fr. Pigtail catheter. LV to AO pullback pressures were then recorded XB 3.0 Guide catheter was inserted and engaged into the LCA. Runthrough Guide wire was advanced to the LAD. 2 x 20 Emerge Balloon catheter was advanced across lesion in the LAD, distal. PTCA balloon inflated at 8 atms for 15 secs. PTCA balloon inflated at 6 atms for 17 secs. PTCA balloon inflated at 8 atms for 14 secs. PTCA balloon inflated at 4 atms for 10 secs. PTCA balloon inflated at 8 atms for 60 secs. 3.0 x 30 Shahbaz Hernando Drug Eluting stent was advanced across the lesion in the LAD, proximal. Angiogram performed post stent deployment. 3.25 x 20 NC Emerge Balloon catheter was inserted post stent. Angiogram performed post balloon dilatation. 3.0 x 8 Shahbaz Hernando Drug Eluting stent was advanced across the lesion in the LAD, proximal. Angiogram performed post stent deployment. 4 x 6 NC Euphora Balloon catheter was inserted post stent. Angiogram performed post balloon dilatation. 3.5 x 20 NC Emerge Balloon catheter was inserted post stent. Angiogram performed post balloon dilatation. The arterial sheath was pulled and a TR Band was applied for hemostasis 13cc air CORONARY ANGIOGRAPHY DOMINANCE: Right Dominant LEFT HEART ASSESSMENT Left Ventricular Ejection Fraction: by LV Gram 45 % LVEDP: 12 mmHg LEFT MAIN: Tubular 40% Distal lesion in LMCA LEFT ANTERIOR DESCENDING ARTERY: LAD: Tubular 60% Ostial lesion in LAD Tubular 80% Proximal lesion in LAD Thrombus 100% Distal lesion in LAD DIAGONAL 1: Tubular 80% Ostial lesion in DIAG1 RIGHT CORONARY ARTERY: RCA: Tubular 30% Proximal lesion in RCA Tubular 70% Mid lesion in RCA INTERVENTION INFORMATION LESION SITE: LAD (Distal) Lesion Complexity: High/C, thrombus present: Yes, lesion length: 30 mm, culprit lesion: Yes Pre Stenosis: 100 % Pre intervention MK flow: 0 PROCEDURE: Balloon Angioplasty Post Stenosis: 0 % Post intervention MK flow: 3 Lesion Devices: Terumo .014 180cm Runthrough Extra Floppy straight Cordis 6 Fr XB3.0 100cm Guide Catheter Wilbert Sci EMERGE MR 2.00x20 BALLOON LESION SITE: LAD (Proximal) Lesion Complexity: High/C, lesion length: 36 mm, culprit lesion: Yes Pre Stenosis: 80 % Pre intervention MK flow: 3 PROCEDURE: Drug Eluting Stent with post dilatation Post Stenosis: 0 % Post intervention MK flow: 3 Lesion Devices: Terumo .014 180cm Runthrough Extra Floppy straight Cordis 6 Fr XB3.0 100cm Guide Catheter Wilbert Sci NC EMERGE MR 3.25x20 BALLOON Medtronic 3.0 x 08 SHAHBAZ FRONTIER IZZY Medtronic NC EUPHORA RX 4.0x06 BALLOON Wilbert Sci NC EMERGE MR 3.50x20 BALLOON Medtronic 3.0 x 30 SHAHBAZ FRONTIER IZZY COMPLICATIONS No Complications PROCEDURE MEDICATIONS Oxygen: 2 L/min via nasal cannula Heparin 8000 unit(s) IV 07/27/2023 23:36:01 Nitro 50 mcg IC 07/27/2023 23:44:04 Potassium Chloride 10 mEq in 100cc NS 07/27/2023 23:43:13 Potassium Chloride 10 mEq in 100cc NS 07/27/2023 23:43:13 SUMMARY OF HEMODYNAMIC DATA Time AIR REST AO 105/70 (87) SA 23:32:15 AO 132/84 (104) 00:05:31 LV 141/6, 15 00:15:27 LV 133/4, 12 00:15:35 LVp 142/10, 22 00:17:21 AOp 142/88 (114) 00:17:28 ECG 00:51:21 00:51:21 Signed By Marisa Lopez MD On 07/28/2023 00:57:31 Marisa Lopez MD
[2023-07-28 03:20] LABS: Hematocrit 46.6 % (40-54); Hemoglobin 15.7 g/dL (13.0-16.5); Mean Corp Hgb Conc 33.7 g/dL (32-36); Mean Corpuscular Hgb 30.1 pg (27.0-32.0); Mean Corpuscular Volume 89.4 fL (80-94); Mean Platelet Vol. 10.1 fl (6.2-12.0); Platelet Count 248 K/mm3 (150-450); RBC Distribution Width CV 13.8 % (11.6-14.6); RBC Distribution Width SD 45.3 fl (35.1-43.9); Red Blood Count 5.21 M/mm3 (4.6-6.2); White Blood Count 8.7 K/mm3 (4.4-11.0)
[2023-07-28] MEDS: 0.9% Saline Lock 10 ML Syringe IV (03:40)
[2023-07-28 04:05] LABS: ALB/GLOB Ratio 1.1 RATIO (0.9-2.4); AST(SGOT) 56 U/L (15-37); Alanine Aminotransfer ALT/SGPT 65 U/L (16-61); Albumin, Serum 3.8 g/dL (3.2-5.0); Alkaline Phosphatase 61 U/L (45-117); Anion Gap 7 (5-15); BUN 12 mg/dL (7-18); BUN/Creat Ratio 14.4 RATIO (10-20); Calcium,Total 8.9 mg/dL (8.5-10.1); Chloride 107 mmol/L (98-107); Cholesterol 178 mg/dL (200); Creatinine, Serum 0.84 mg/dL (0.70-1.30); EST Glomerular Filtration Rate 105 mL/min (>60); Est Glom Filt Rate - Afr Amer 127 mL/min (>60); Estimated Creatinine Clearance 157.09 ml/min; Globulin 3.5 g/dL (2.2-4.2); Glucose 116 mg/dL (74-106); High Density Lipoprotein 41 mg/dL; Potassium 4.2 mmol/L (3.5-5.1); Protein, Total 7.3 g/dL (6.4-8.2); Sodium Level 136 mmol/L (136-145); Triglycerides 103 mg/dL; Very Low Density Lipoprotein 21 mg/dL (5-40)
--- NOTE | 2023-07-28 07:43 | CRPHASE1 ---
Patient Communication Patient Information Former Patient:: Phase I PHII Cardiac Rehab Discussed with Patient:: Yes Guide to Cardiac Rehab Given to Patient:: Yes Cardiac Rehab Facility Choice List Given to Patient:: Yes Communication to Cardiac Rehab Choice Program [facility] PHII:: Communication Given to CR Bumper And Painter:: Marisa Lopez Phase II Cardiac Rehab:: Yes Sessions:: 36 sessions - 3 days/wk, 12 weeks Medical/Surgical History Medical History VT:: Yes Angina:: No CAD:: Yes Congestive Heart Failure: Cardiomyopathy:: No Valve Disease/Replacement:: No Pulmonary:: No COPD:: No Asthma:: No GENEVA:: No Diabetes:: No Diabetes Type I:: No Diabetes Type II:: No Hypertension:: Yes CVA/TIA: CEA:: No DVT:: No PVD:: No GI:: No GERD:: No Cancer:: No Renal:: No Thyroid:: No Depression:: No Anxiety:: No Surgical History CABG: No PTCA:: Yes ICD:: No Pacemaker:: No Orthopedic:: No Cardiac Rehabilitation Info Program Information Cardiac Rehabilitation Program Information: Cardiac Rehab The cardiac rehab team at [facility] consists of highly skilled exercise physiologists, nurses, respiratory therapists and physicians working together with you. Our purpose is to help you have a full recovery and achieve the goals you set for yourself. Over the years many of our patients have returned to activities they assumed they would never do again! We can help restore your confidence and motivation to make lifestyle changes that can have a significant impact on your health and quality of life! We can help answer questions and concerns you may have about exercise, lifestyle, medications, diet, stress and anxiety which are common following a hospitalization. WE monitor ECG and vital signs during exercise and discuss your progress with you and report to your physician(s). Cardiac Rehab is proven to help reduce readmissions, improve functional capacity and lower recurrence of problems with your heart. Our Cardiac Rehab program is Certified by the [place] [employer] Pulmonary [employer] (AACVPR) and Accredited by the [employer] through our [facility]. You can contact us at . We invite you to call us with your questions or to get started in our program. If you have other questions or concerns be sure to ask your physician/provider during your follow-up visit. WE look forward to seeing you!
--- NOTE | 2023-07-28 07:45 | CRPH1.INSTRU ---
General Education Discussed with Patient CAD and cardiac anatomy and function:: Patient communicates acknowledgment Explanation of diagnoses and procedures:: Patient communicates acknowledgment Sign/Symptoms of CA:: Patient communicates acknowledgment Antiplatelet therapy: Patient communicates acknowledgment Emergency procedures and activation of EMS: Patient communicates acknowledgment Compliance of all prescribed medications: Patient communicates acknowledgment Smoking Risk Factors Patient Nicotine/Smoking Risk Factors Are:: Cigarettes Recommendations Recommendations Include:: Smoking cessation strategies/Smoking packet Response Code Nicotine/Smoking Response Code:: Patient communicates acknowledgment Dyslipidemia Recommendations Recommendations Include:: Lipid profile not available Overweight/Obesity Risk Factors Patient Overweight/Obesity Risk Factors Are:: Overweight = 26-29 Recommendations Recommendations Include:: Exercise 5-7 times/week Response Code Overweight/Obesity:: Patient communicates acknowledgment Hypertension Recommendations Recommendations Include:: Maintain BP <130/85 Response Code Hypertension:: Patient communicates acknowledgment Heart Disease Risk Factors Patient Heart Disease Risk Factors Are:: Family history of heart disease < 65 years old and Previous cardiac event Recommendations Recommendations Include:: Educated family members of their risk Response Code Heart Disease Response Code:: Patient communicates acknowledgment Diabetes Risk Factors Patient Diabetes Risk Factors Are:: No documented hx of diabetes Metabolic Syndrome Risk Factors Patient Metabolic Syndrome Risk Factors Are [3 of 5]:: Waist circumference > 35 [female] or 40 [male] Response Code Metabolic Syndrome Response Code:: Patient communicates acknowledgment Sedentary Risk Factors Patient Sedentary Risk Factors Are:: Lack of regular exercise Stress Recommendations Recommendations Include:: Identification of stressors, and assessment of coping skills Response Code Stress Response Code:: Patient communicates acknowledgment
--- NOTE | 2023-07-28 07:59 | PCM.PN.HOSP ---
Reason for Visit Reason for Visit: Chest pain/STEMI Subjective Subjective Mr. Rivers is a 48-year-old white male who presented to the emergency department at [facility] on 07/27/2023 with chest pain and code STEMI. His symptoms started about an hour prior to arrival with abrupt onset of chest pain that was substernal, sharp and radiated into his left arm. He described the pain as collapsing or ripping in nature and nothing seems to make it better or worse. EKG in the emergency department showed STEMI and he was treated with aspirin, IV heparin, Brilinta and nitroglycerin and taken emergently to the [facility]. Vital signs on presentation showed temperature of 97.1, heart rate 78, blood pressure was 176/105, respiratory was 20 and oxygen saturations were 97% on room air. His CBC was unremarkable except for erythrocytosis which has since resolved. His chemistry panel showed mild hypokalemia with a potassium of 3.1 but was otherwise unremarkable. His initial troponin was 19. He was taken emergently to the [facility] with Dr. Lopez at which time 2 stents were placed in the distal LAD. He was also noted to have 40% distal LMCA and 70% distal mid RCA disease and staged PCI to mid RCA has been recommended. He was placed on aspirin, Brilinta, Coreg, Aldactone but MALLORY/ARB were avoided due to history of angioedema with these medications. EF on cath was noted to be 45% and echocardiogram is pending. Patient with some intermittent runs of VT through the night but better this morning. Patient denies any ongoing chest pain or shortness of breath. States he feels much better than he did on presentation. No current complaints. Objective Data Objective Data Vital Signs: Vital Signs Temp Pulse Resp BP Pulse Ox O2 Del Method O2 Flow Rate 97.7 F L 63 16 164/109 H 98 Room Air 2 07/28/23 04:15 07/28/23 07:00 07/28/23 07:00 07/28/23 07:00 07/28/23 07:00 07/28/23 07:00 07/28/23 02:00 Oxygen Flow Rate (L/min) 2 Oxygen Delivery Method Room Air Weight: 137.3 kg Body Mass Index (BMI) 41.0 Intake & Output: Intake and Output for Last 24 Hours 07/26/23 07/27/23 07/28/23 23:59 23:59 23:59 Intake Total 825.43 / 825.43 Output Total 1900 / 1900 Balance -1074.57 / -1074.57 Lab / Micro Data 07/28/23 02:45 07/28/23 02:45 Labs: Laboratory Results - last 24 hr 07/27/23 22:43: WBC 9.9, RBC 5.70, Hgb 17.3 H, Hct 50.3, MCV 88.2, MCH 30.4, MCHC 34.4, RDW Std Deviation 44.6 H, RDW Coeff of Jesus 13.9, Plt Count 237, MPV 9.6, Immature Gran % (Auto) 0.300, Neut % (Auto) 41.5 L, Lymph % (Auto) 43.5 H, [place] % (Auto) 10.2 H, Eos % (Auto) 3.3, Baso % (Auto) 1.2 H, Absolute Neuts (auto) 4.1, Absolute Lymphs (auto) 4.29, Nucleated RBC % 0, PT 12.9, INR 1.0, APTT 29.4, Sodium 138, Potassium 3.1 L, Chloride 107, Carbon Dioxide 22.0, Anion Gap 9, BUN 14, Creatinine 1.03, Estim Creat Clear Calc 128.16, Est GFR (MDRD) Af Amer 100, Est GFR (MDRD) Non-Af 82, BUN/Creatinine Ratio 13.6, Glucose 108 H, Calcium 9.4, Troponin I High Sens 19 07/28/23 02:45: WBC 8.7, RBC 5.21, Hgb 15.7, Hct 46.6, MCV 89.4, MCH 30.1, MCHC 33.7, RDW Std Deviation 45.3 H, RDW Coeff of Jesus 13.8, Plt Count 248, MPV 10.1, Sodium 136, Potassium 4.2, Chloride 107, Carbon Dioxide 22.0, Anion Gap 7, BUN 12, Creatinine 0.84, Estim Creat Clear Calc 157.09, Est GFR (MDRD) Af Amer 127, Est GFR (MDRD) Non-Af 105, BUN/Creatinine Ratio 14.4, Glucose 116 H, Calcium 8.9, Total Bilirubin 0.60, AST 56 H, ALT 65 H, Alkaline Phosphatase 61, Total Protein 7.3, Albumin 3.8, Globulin 3.5, Albumin/Globulin Ratio 1.1, Triglycerides 103, Cholesterol 178, LDL Cholesterol 116, VLDL Cholesterol 21, HDL Cholesterol 41 Rhythm Strip Rhythm Strip: Sinus Rhythm Physical Exam Const alert, oriented x3, no apparent distress and well nourished; Negative for average body habitus Constitutional Narrative: Morbidly obese, white male, sitting up in a chair at the bedside, nursing at bedside, patient appears comfortable and nontoxic HEENT head/scalp atraumatic and moist oral mucous membranes HEENT Narrative: Mallampati 3-4, no thrush Head and Scalp: normocephalic Resp normal respiratory effort, no retractions, no use of accessory muscles and clear to auscultation bilaterally Resp Narrative: Diminished but clear Auscultation: Negative for rales, rhonchi or wheezes Cardio regular rate, regular rhythm, S1 normal heart sound, S2 normal heart sound, no murmurs, no rub, no gallops and no clicks GI normal to inspection, nondistended, normoactive bowel sounds, soft to palpation and non-tender Extremity no clubbing, cyanosis or edema Extremity Narrative: Pedal pulses are 2+, bilateral radial arteries are 2+, postcatheterization dressing intact-clean and dry with no ecchymosis or significant tenderness Neuro oriented x3, moves all extremities and no focal motor deficits Speech: speech normal Psych affect normal Psych Narrative: Eye contact is good and patient interacts appropriately asking good questions Assessment & Plan Assessment/Plan (1) Chest pain: (2) STEMI (ST elevation myocardial infarction): QUALIFIERS: Involved coronary artery: LAD coronary artery Qualified Code(s): I21.02 - ST elevation (STEMI) myocardial infarction involving left anterior descending coronary artery (3) Hypokalemia: (4) Ventricular ectopy: (5) Tobacco abuse: (6) Morbid obesity with BMI of 40.0-44.9, adult: PLAN: Plan STEMI -Status post PCI with IZZY x 2 to the distal LAD -Status procedure to RCA has been recommended -Continue Brilinta -Continue statin -Continue aspirin -Continue carvedilol -Continue Aldactone -No MALLORY inhibitor/ARB due to history of angioedema -Check hemoglobin A1c -Lipid panel shows a total cholesterol 178/LDL 116/HDL 41/triglycerides of 103 -Patient had not been on a statin previously Hypokalemia -Replaced and resolved Hypertension -Discontinue home amlodipine -Continue Aldactone and carvedilol and titrate accordingly -If blood pressure nelda elevated may need to add third agent as he is bradycardic mildly on the Coreg that we have given him with no significant room for up titration GERD -Continue home PPI History of tobacco abuse -Patient is still smoking -Strongly recommend cessation History of angioedema secondary to lisinopril -Avoid MALLORY inhibitors and ARB's Morbid obesity -BMI is 41.1 -Recommend weight loss -Complicates treatment, prognosis, outcomes DVT prophylaxis -Start Lovenox 40 mg twice daily subcu CODE STATUS Full code Charges/Coding Visit Charges Inpatient E&M: 92562 Subs Hosp L2
[2023-07-28] MEDS: Aspirin E.C. 81 MG Tablet PO (08:33)
[2023-07-28 09:18] LABS: Magnesium 2.1 mg/dL (1.6-2.6); Phosphorus 2.6 mg/dL (2.5-4.9)
[2023-07-28 09:29] LABS: Hemoglobin A1c 5.4 % (3.8-5.6)
[2023-07-28] MEDS: hydroCHLOROthiazide 25 MG Tablet PO (09:46)
[2023-07-28] MEDS: Spironolactone 25 MG Tablet 12.5 MG PO (09:47)
[2023-07-28] MEDS: TICAGRELOR 90 MG TABLET PO ×2 (09:47→20:18)
--- NOTE | 2023-07-28 10:00 | EKG12_ITS ---
Test Reason : am ekg Blood Pressure : / mmHG Vent. Rate : 055 BPM Atrial Rate : 055 BPM P-R Int : 182 ms QRS Dur : 106 ms QT Int : 438 ms P-R-T Axes : 027 -33 -10 degrees QTc Int : 419 ms Sinus bradycardia with sinus arrhythmia Left axis deviation Abnormal ECG When compared with ECG of 27-JUL-2023 22:38, MANUAL COMPARISON REQUIRED, DATA IS UNCONFIRMED Confirmed by SELINA MARIANO, RAMIREZ ([id number]), video tape editor LYDIA BOSWELL ([id number]) on 07/28/2023 1:11:31 PM Referred By: Marisa Lopez Confirmed By:RAMIREZ MARKS MD
[2023-07-28] MEDS: Enoxaparin 40 MG/0.4 ML Syringe SC ×2 (10:01→20:17)
--- NOTE | 2023-07-28 11:45 | CASEMGMT ---
RN CM Assessment Face to Face with patient for initial transition planning/care coordination assessment. RN CM introduced self and role at [facility], pt voices understanding. Pt is A&Ox4 and is resting comfortably in bed and is calm. Pt SO at bedside. Care providers, pharmacy, and demographics verified. Admitting dx: STEMI LACE Strata: 1 PCP: Cash Puentes Specialists: Cristine . Dr. Lopez is seeing the pt here. Preferred Pharmacy: [facility] Insurance: [employer], Commercial (Other) Prescription Benefit: Yes LNOK: Nathalia Mcmahan (SO), Mel Rivers (PAZ) Living Arrangements: Pt lives with his SO in a single level apartment with 5 steps to enter ADLs/IADLs: Ind Transportation: Self, SO DME: [employer]. Denies all other DME uses or needs HHC/SNF: Denies history or needs Pt?s goal: Home and f/u with Cardiac Rehab Plan: Pt plans to DC home once medically ready and denies the need for HHC or OP PT/OT. Pt states that he is willing and wanting to f/u with the Cardiac Rehab program here at [facility]. Pt was given the booklet of information regarding this. Pt states that he would like this RN CM to make appt for the pt. Pt prefers the appt to be later in the day. This RN CM will call to make appt once appropriate. Will follow for expensive medications at time of DC. CM to follow for safe DC from [facility]. Maximilian Wise RN, CM
[2023-07-28] MEDS: amLODIPine 5 MG Tablet PO (15:37)
[2023-07-28] MEDS: cloNIDine HCl 0.1 MG Tablet PO (18:14)
[2023-07-28] MEDS: Carvedilol 6.25 MG Tablet PO (20:18)
[2023-07-29] VITALS: BP 143/101; PULSE 49; RESP 16; TEMP 36.3; O2SAT 97
[2023-07-29 01:00] VITALS: BP 140/95; PULSE 48; RESP 16; O2SAT 96
--- NOTE | 2023-07-29 02:03 | NURSING ---
Pt tx from ICU, this nurse assumed care of this patient
[2023-07-29 02:49] VITALS: BP 158/94; PULSE 67; RESP 18; TEMP 36.4; O2SAT 94
[2023-07-29 05:54] VITALS: BMI 40.4
[2023-07-29 07:14] VITALS: O2SAT 96
[2023-07-29 07:30] LABS: Absolute Neutrophil Count 4.3 X10^3/uL (2.0-7.7); Basophil# 0.07 X10^3/uL; Basophil% 0.9 % (0-1); Eosinophil# 0.24 X10^3/uL; Eosinophils% 3.2 % (0-5); Hematocrit 49.9 % (40-54); Hemoglobin 16.7 g/dL (13.0-16.5); Lymphocyte % 26.8 % (19-41); Mean Corp Hgb Conc 33.5 g/dL (32-36); Mean Corpuscular Hgb 30.2 pg (27.0-32.0); Mean Corpuscular Volume 90.2 fL (80-94); Monocyte% 10.7 % (0-10); NRBC Flagged by Analyzer 0 % (0-5); Neutrophil # 4.33 X10^3/uL (2.7-7.7); Platelet Count 233 K/mm3 (150-450); RBC Distribution Width CV 13.8 % (11.6-14.6); Red Blood Count 5.53 M/mm3 (4.6-6.2); White Blood Count 7.5 K/mm3 (4.4-11.0)
[2023-07-29 08:09] LABS: Anion Gap 5 (5-15); BUN 12 mg/dL (7-18); BUN/Creat Ratio 11.5 RATIO (10-20); Chloride 104 mmol/L (98-107); Creatinine, Serum 1.04 mg/dL (0.70-1.30); EST Glomerular Filtration Rate 81 mL/min (>60); Est Glom Filt Rate - Afr Amer 98 mL/min (>60); Estimated Creatinine Clearance 125.09 ml/min; Glucose 121 mg/dL (74-106); Potassium 3.8 mmol/L (3.5-5.1); Sodium Level 135 mmol/L (136-145)
--- NOTE | 2023-07-29 10:00 | EKG12_ITS ---
Test Reason : CP Blood Pressure : / mmHG Vent. Rate : 077 BPM Atrial Rate : 077 BPM P-R Int : 206 ms QRS Dur : 106 ms QT Int : 414 ms P-R-T Axes : 059 -22 064 degrees QTc Int : 468 ms Normal sinus rhythm Nonspecific ST abnormality Abnormal ECG Confirmed by SELINA MARIANO, RAMIREZ ([id number]), supervising film or videotape editor TYLER SAEZ ([id number]) on 07/29/2023 6:57:07 AM Referred By: Marisa Lopez Confirmed By:RAMIREZ MARKS MD
--- NOTE | 2023-07-29 10:00 | PCM.PN.CARD ---
Subjective Subjective Denies any complaints. Ambulating. No chest pains. No shortness of breath. Objective Data Vital Signs: Vital Signs Temp Pulse Resp BP Pulse Ox O2 Del Method O2 Flow Rate 97.5 F L 67 18 158/94 H 96 Room Air 2 07/29/23 02:49 07/29/23 02:49 07/29/23 02:49 07/29/23 02:49 07/29/23 07:14 07/29/23 07:14 07/28/23 02:00 Oxygen Flow Rate (L/min) 2 Oxygen Delivery Method Room Air Weight: 298 lb 8.094 oz Body Mass Index (BMI) 40.4 Intake & Output: Intake and Output for Last 24 Hours 07/27/23 07/28/23 07/29/23 23:59 23:59 23:59 Intake Total 1825.43 / 2425.43 600 / 600 Output Total 1900 / 1900 Balance -74.57 / 525.43 600 / 600 Lab / Micro Data 07/29/23 06:59 07/29/23 06:59 Labs: Laboratory Results - last 24 hr 07/29/23 06:59: WBC 7.5, RBC 5.53, Hgb 16.7 H, Hct 49.9, MCV 90.2, MCH 30.2, MCHC 33.5, RDW Std Deviation 46.0 H, RDW Coeff of Jesus 13.8, Plt Count 233, MPV 10.0, Immature Gran % (Auto) 0.400, Neut % (Auto) 58.0, Lymph % (Auto) 26.8, [place] % (Auto) 10.7 H, Eos % (Auto) 3.2, Baso % (Auto) 0.9, Absolute Neuts (auto) 4.3, Absolute Lymphs (auto) 2.00, Nucleated RBC % 0, Sodium 135 L, Potassium 3.8, Chloride 104, Carbon Dioxide 26.0, Anion Gap 5, BUN 12, Creatinine 1.04, Estim Creat Clear Calc 125.09, Est GFR (MDRD) Af Amer 98, Est GFR (MDRD) Non-Af 81, BUN/Creatinine Ratio 11.5, Glucose 121 H, Calcium 9.0 Rhythm Strip Rhythm Strip: Sinus Rhythm Cardiology Labs/Tests 07/29/23 06:59: WBC 7.5, RBC 5.53, Hgb 16.7 H, Hct 49.9, MCV 90.2, MCH 30.2, MCHC 33.5, Plt Count 233, MPV 10.0, Immature Gran % (Auto) 0.400, Neut % (Auto) 58.0, Lymph % (Auto) 26.8, [place] % (Auto) 10.7 H, Eos % (Auto) 3.2, Baso % (Auto) 0.9, Absolute Neuts (auto) 4.3, Nucleated RBC % 0, Sodium 135 L, Potassium 3.8, Chloride 104, Carbon Dioxide 26.0, Anion Gap 5, BUN 12, Creatinine 1.04, Est GFR (MDRD) Af Amer 98, Est GFR (MDRD) Non-Af 81, BUN/Creatinine Ratio 11.5, Glucose 121 H, Calcium 9.0 Rhythm: EKG: Evolutionary changes consistent with recent anterior myocardial infarction. ECHO: Stress Test: Cardiac Cath: PCI: CT Surgery: Holter monitor: EPS: PPM: CXR: Chest CT Scan: Radiography Diagnostic Testing: Radiology Impression Echocardiogram 07/28/23 00:35 Interpretation Summary Moderate concentric left ventricular hypertrophy. The left ventricular ejection fraction is 55 %. Apical hypokinesis. The left atrium is moderately enlarged. Mild (1+) aortic valve insufficiency. Mild (1+) pulmonic valve insufficiency. Mildly dilated aortic root. Ordering Physician: Marisa Lopez Referring Physician: Cash Puentes Performed By: Latricia Mast, RDCS, RVT Physical Exam Narrative Comfortable. No distress. Heart sounds 1 and 2 normal. Chest clear to auscultation bilaterally. Alert oriented x 3. No ankle edema. Assessment & Plan Assessment/Plan (1) STEMI (ST elevation myocardial infarction): QUALIFIERS: Involved coronary artery: LAD coronary artery Qualified Code(s): I21.02 - ST elevation (STEMI) myocardial infarction involving left anterior descending coronary artery PLAN: Status post drug-eluting stent to the mid LAD. Status post balloon angioplasty to distal LAD. Continue aspirin lifelong. Ticagrelor for at least 1 year. Risk factor modification. (2) Coronary artery disease: PLAN: See #1 above. Continue beta-blockers. Statins. Lose weight. Stop smoking. Possible staged PCI to the distal mid RCA as an outpatient. (3) 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: PLAN: Overall left ventricular systolic function normal. Regional wall motion abnormality with apical and inferior apical hypokinesis. Secondary to #1 above. Beta-blockers. Spironolactone. No MALLORY inhibitor's or ARB's in view of history of angioedema. (4) Hypertension: PLAN: Beta-tej, spironolactone, amlodipine and hydrochlorothiazide. (5) Nicotine dependence: PLAN: Counseled to quit. (6) Hypokalemia: PLAN: Potassium replaced. (7) Morbid obesity with BMI of 40.0-44.9, adult: PLAN: Lose weight. PLAN: Plan May discharge home today. Follow-up as outpatient in 2 weeks.
[2023-07-29 10:44] VITALS: BP 149/102; PULSE 51; RESP 16; TEMP 36.7; O2SAT 98
[2023-07-29] MEDS: Carvedilol 6.25 MG Tablet PO (10:48)
[2023-07-29] MEDS: hydroCHLOROthiazide 25 MG Tablet PO (10:48)
[2023-07-29] MEDS: Enoxaparin 40 MG/0.4 ML Syringe SC (10:48)
[2023-07-29] MEDS: TICAGRELOR 90 MG TABLET PO (10:48)
[2023-07-29] MEDS: Spironolactone 25 MG Tablet 12.5 MG PO (10:48)
[2023-07-29] MEDS: Aspirin E.C. 81 MG Tablet PO (10:49)
[2023-07-29] MEDS: amLODIPine 10 MG Tablet PO (10:52)
--- NOTE | 2023-07-29 11:20 | CASEMGMT ---
BRAXTON BAUTISTA NOTE: Pt being discharged home today. BRAXTON BAUTISTA to room. Introduced self and role. Pt discharging home on Brilinta and he would like to get his medications from [facility] in [place]. Brilinta 30-day savings card given to pt and instructed on use. Pt made aware if refills are not affordable, to discuss other possible affordable options w/garment mender. He voices understanding. BRAXTON BAUTISTA spoke w/energy systems laboratory director who states Cardiac Rehab will be contacting pt w/in a couple weeks to schedule rehab appt. Pt made aware. He denies having other discharge planning needs/concerns. Aydee HANLEY RN, CM
--- NOTE | 2023-07-29 11:34 | DS.PCM_ITS ---
Providers Date of Admission: 07/28/23 Date of Discharge: 07/29/23 Primary Care Physician: Dr. Cash Puentes MD Reason For Visit: STEMI Diagnosis Discharge Diagnosis (1) STEMI (ST elevation myocardial infarction): Status: Acute Code(s): I21.3 - ST elevation (STEMI) myocardial infarction of unspecified site Qualifiers: Involved coronary artery: LAD coronary artery Qualified Code(s): I21.02 - ST elevation (STEMI) myocardial infarction involving left anterior descending coronary artery (2) Coronary artery disease: Status: Acute Code(s): I25.10 - Atherosclerotic heart disease of lime coronary artery without angina pectoris (3) 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: Status: Acute Code(s): I51.9 - Heart disease, unspecified (4) Hypertension: Status: Chronic Code(s): I10 - Essential (primary) hypertension (5) Nicotine dependence: Status: Acute Code(s): F17.200 - Nicotine dependence, unspecified, uncomplicated (6) Hypokalemia: Status: Deleted Code(s): E87.6 - Hypokalemia (7) Morbid obesity with BMI of 40.0-44.9, adult: Status: Acute Code(s): E66.01 - Morbid (severe) obesity due to excess calories; Z68.41 - Body mass index [BMI] 40.0-44.9, adult Plan STEMI -Status post PCI with IZZY x 2 to the distal LAD -Status procedure to RCA has been recommended -Continue Brilinta -Continue statin -Continue aspirin -Continue carvedilol -Continue Aldactone -No MALLORY inhibitor/ARB due to history of angioedema -Check hemoglobin A1c -Lipid panel shows a total cholesterol 178/LDL 116/HDL 41/triglycerides of 103 -Patient had not been on a statin previously Hypokalemia -Replaced and resolved Hypertension -Discontinue home amlodipine -Continue Aldactone and carvedilol and titrate accordingly -If blood pressure nelda elevated may need to add third agent as he is bradycardic mildly on the Coreg that we have given him with no significant room for up titration GERD -Continue home PPI History of tobacco abuse -Patient is still smoking -Strongly recommend cessation History of angioedema secondary to lisinopril -Avoid MALLORY inhibitors and ARB's Morbid obesity -BMI is 41.1 -Recommend weight loss -Complicates treatment, prognosis, outcomes DVT prophylaxis -Start Lovenox 40 mg twice daily subcu CODE STATUS Full code Medications at Discharge Home Medications amlodipine 10 mg tablet 10 mg PO DAILY #90 tabs 11/26/21 omeprazole 20 mg capsule,delayed release 20 mg PO DAILY PRN gerd 10/28/22 aspirin 81 mg tablet,delayed release 81 mg PO DAILY@0800 #0 tabs 07/29/23 atorvastatin 80 mg tablet 80 mg PO QHS #30 tabs 07/29/23 carvedilol 6.25 mg tablet 6.25 mg PO BID #60 tabs 07/29/23 hydrochlorothiazide 25 mg tablet 25 mg PO DAILY #30 tabs 07/29/23 spironolactone 25 mg tablet 12.5 mg (1/2 x 25 mg) PO DAILY #15 tabs 07/29/23 ticagrelor 90 mg tablet (Brilinta) 90 mg PO BID #60 tabs 07/29/23 Weight / BMI Weight Weight: 135.4 kg Body Mass Index (BMI) 40.4 ABG / Lab / Microbiology Data 07/29/23 06:59 07/29/23 06:59 Laboratory: Laboratory Results - last 24 hr 07/29/23 06:59: WBC 7.5, RBC 5.53, Hgb 16.7 H, Hct 49.9, MCV 90.2, MCH 30.2, MCHC 33.5, RDW Std Deviation 46.0 H, RDW Coeff of Jesus 13.8, Plt Count 233, MPV 10.0, Immature Gran % (Auto) 0.400, Neut % (Auto) 58.0, Lymph % (Auto) 26.8, [place] % (Auto) 10.7 H, Eos % (Auto) 3.2, Baso % (Auto) 0.9, Absolute Neuts (auto) 4.3, Absolute Lymphs (auto) 2.00, Nucleated RBC % 0, Sodium 135 L, Potassium 3.8, Chloride 104, Carbon Dioxide 26.0, Anion Gap 5, BUN 12, Creatinine 1.04, Estim Creat Clear Calc 125.09, Est GFR (MDRD) Af Amer 98, Est GFR (MDRD) Non-Af 81, BUN/Creatinine Ratio 11.5, Glucose 121 H, Calcium 9.0 Radiography Diagnostic Testing: Radiology Impression Echocardiogram 07/28/23 00:35 Interpretation Summary Moderate concentric left ventricular hypertrophy. The left ventricular ejection fraction is 55 %. Apical hypokinesis. The left atrium is moderately enlarged. Mild (1+) aortic valve insufficiency. Mild (1+) pulmonic valve insufficiency. Mildly dilated aortic root. Ordering Physician: Marisa Lopez Referring Physician: Cash Puentes Performed By: Latricia Mast, MELIA, RVT Meaningful Use Info Ischemic Stroke Statin Dosing Therapy Reference: STATIN DOSE THERAPY REFERENCE: * Patients > 75 years receive moderate or high dose statin therapy. * Patients 75 years or YOUNGER should receive HIGH intensity statin dose unless contraindicated. You will be required to document reason for non-treatment if statin daily dose does not meet guidelines. HIGH DOSE STATIN THERAPY DAILY Atorvastatin > than or = to 40 mg Rosuvastatin > than or = to 20 mg Amlodipine + Atorvastatin > than or = to 2.5/40 mg Ezetimibe + Simvastatin 10/80 mg Simvastatin 80mg Discharge Plan Admission Admit Date/Time: 07/28/23 06:40 Primary Reason for Your Visit: Chest Pain Attending Provider: Babita Carreno Primary Care Provider: Cash Puentes Instructions Additional Instructions / Restrictions: 1. Do not stop taking your aspirin and Brilinta unless instructed to do so by your site lead 2. We highly advise that you stop smoking 3. Please call your primary care physician and get an appointment to be seen within the next 7 to 10 days and ask that a basic metabolic profile be ordered to recheck your kidney function and your electrolytes Discharge Orders/Prescriptions Prescriptions: New atorvastatin 80 mg Tablet 80 mg PO QHS Qty: 30 1RF aspirin 81 mg Tablet,Delayed Release (Dr/Ec) 81 mg PO DAILY@0800 Qty: 0 0RF carvedilol 6.25 mg Tablet 6.25 mg PO BID Qty: 60 1RF hydrochlorothiazide 25 mg Tablet 25 mg PO DAILY Qty: 30 1RF spironolactone 25 mg Tablet 12.5 mg PO DAILY Qty: 15 1RF Brilinta 90 mg Tablet 90 mg PO BID Qty: 60 11RF Continued amlodipine 10 mg tablet 10 mg PO DAILY Qty: 90 0RF omeprazole 20 mg capsule,delayed release(DR/EC) 20 mg PO DAILY PRN (Reason: gerd) Referrals / Follow Up: Cash Puentes MD [Primary Care Provider] - Within 1 Week George Mast NP, [employer] [Med Staff - Adv Practice Prof] - 08/19/23 1:30 pm Disposition Disposition (needs filled in before D/C Order can be placed): Home, Self Care Charges/Coding Visit Charges Inpatient E&M: 46974 Disch Hosp >30min
--- NOTE | 2023-07-29 11:34 | PCM.DC.SUM ---
Providers Date of Admission: 07/28/23 Date of Discharge: 07/29/23 Primary Care Physician: Dr. Cash Puentes MD Reason For Visit: STEMI Diagnosis Discharge Diagnosis (1) STEMI (ST elevation myocardial infarction): Status: Acute Code(s): I21.3 - ST elevation (STEMI) myocardial infarction of unspecified site Qualifiers: Involved coronary artery: LAD coronary artery Qualified Code(s): I21.02 - ST elevation (STEMI) myocardial infarction involving left anterior descending coronary artery (2) Coronary artery disease: Status: Acute Code(s): I25.10 - Atherosclerotic heart disease of [place] coronary artery without angina pectoris (3) 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: Status: Acute Code(s): I51.9 - Heart disease, unspecified (4) Hypertension: Status: Chronic Code(s): I10 - Essential (primary) hypertension (5) Nicotine dependence: Status: Acute Code(s): F17.200 - Nicotine dependence, unspecified, uncomplicated (6) Hypokalemia: Status: Deleted Code(s): E87.6 - Hypokalemia (7) Morbid obesity with BMI of 40.0-44.9, adult: Status: Acute Code(s): E66.01 - Morbid (severe) obesity due to excess calories; Z68.41 - Body mass index [BMI] 40.0-44.9, adult Medications at Discharge Home Medications amlodipine 10 mg tablet 10 mg PO DAILY #90 tabs 11/26/21 omeprazole 20 mg capsule,delayed release 20 mg PO DAILY PRN gerd 10/28/22 aspirin 81 mg tablet,delayed release 81 mg PO DAILY@0800 #0 tabs 07/29/23 atorvastatin 80 mg tablet 80 mg PO QHS #30 tabs 07/29/23 carvedilol 6.25 mg tablet 6.25 mg PO BID #60 tabs 07/29/23 hydrochlorothiazide 25 mg tablet 25 mg PO DAILY #30 tabs 07/29/23 spironolactone 25 mg tablet 12.5 mg (1/2 x 25 mg) PO DAILY #15 tabs 07/29/23 ticagrelor 90 mg tablet (Brilinta) 90 mg PO BID #60 tabs 07/29/23 Hospital Course Operations None Procedures 2-D Echocardiogram, Cardiac catheterization and EKG Summary of Care Provided Minutes Spent on Discharge: 38 Hospital Course: Mr. Rivers is a 48-year-old white male who presented to the emergency department at [facility] on 07/27/2023 with chest pain and code STEMI. His symptoms started about an hour prior to arrival with abrupt onset of chest pain that was substernal, sharp and radiated into his left arm. He described the pain as collapsing or ripping in nature and nothing seems to make it better or worse. EKG in the emergency department showed STEMI and he was treated with aspirin, IV heparin, Brilinta and nitroglycerin and taken emergently to the Event Coordinator. Vital signs on presentation showed temperature of 97.1, heart rate 78, blood pressure was 176/105, respiratory was 20 and oxygen saturations were 97% on room air. His CBC was unremarkable except for erythrocytosis which has since resolved. His chemistry panel showed mild hypokalemia with a potassium of 3.1 but was otherwise unremarkable. His initial troponin was 19. He was taken emergently to the Event Coordinator with Dr. Lopez at which time 2 stents were placed in the distal LAD. He was also noted to have 40% distal LMCA and 70% distal mid RCA disease and staged PCI to mid RCA has been recommended. He was placed on aspirin, Brilinta, Coreg, Aldactone but GILDARDO/ARB were avoided due to history of angioedema with these medications. An echocardiogram was performed and showed moderate concentric LVH with an EF of 55% and apical hypokinesis, left atrium was moderately enlarged and he had 1+ aortic and pulmonic valve insufficiency with a mildly dilated aortic root. His chest pain resolved after catheterization. The biggest issue during his hospitalization was controlling his blood pressure. He had only been on amlodipine prior to admission and this was restarted along with a beta-jade and eventually we added Aldactone as well as hydrochlorothiazide. Blood pressure was improved however not quite at goal at the time of discharge. Goal blood pressure for him will be 130/80 or less. Plan will be for follow-up in uptitration versus addition of further medications depending on outpatient blood pressures. The patient did have some ventricular arrhythmia post revascularization but this subsided and was likely related to revascularization arrhythmia after cardiac catheterization. He was monitored on telemetry throughout his hospital course. Prescriptions for his Coreg, atorvastatin, hydrochlorothiazide, Aldactone, and Brilinta were sent to local pharmacy and he was advised to start aspirin 81 mg daily. We did discuss the importance of ongoing dual antiplatelet therapy for at least 12 months and prevention of in-stent restenosis/thrombosis and he voiced understanding. I have asked that he call his primary care physician and obtain a basic metabolic profile to be done within the next 7 to 10 days to ensure that with the diuretics and new medications his renal function and electrolytes are stable. Appointment was made to follow-up with cardiology later on this month and I advised him to follow-up with his primary care physician within the next 1 to 2 weeks. The patient was able to be discharged in stable condition on 07/29/2023. He will follow-up with cardiac rehab as well. He was advised to stop smoking. He would likely also benefit from an outpatient sleep study. Discharge diagnoses: STEMI Coronary artery disease Hypokalemia-resolved Hypertension GERD Tobacco abuse History of angioedema with GILDARDO inhibitors Morbid obesity Suspected GENEVA Physical Exam Const alert, oriented x3, no apparent distress, no limitations, healthy appearing and well nourished; Negative for average body habitus Constitutional Narrative: Morbidly obese, white male, sitting up in a chair at the bedside, family/friends at bedside, patient appears comfortable and nontoxic General Appearance: cooperative, comfortable, well kempt and well developed Orientation / Consciousness: awake, oriented to person, oriented to place and oriented to time Exam Limitations: no limitations Nutritional Appearance: morbidly obese HEENT normocephalic, head/scalp atraumatic, hearing grossly normal bilaterally and moist oral mucous membranes HEENT Narrative: Mallampati is 3-4, no thrush Eyes PERRL, EOMs intact bilaterally and conjunctivae normal Eyes Narrative: No scleral icterus Neck no lymphadenopathy and supple Neck Narrative: Trachea midline, neck is short and thick, no thyroid enlargement noted Resp normal respiratory effort, no retractions, no use of accessory muscles and clear to auscultation bilaterally Resp Narrative: Diminished but clear Auscultation: Negative for rales, rhonchi or wheezes Cardio regular rate, regular rhythm, S1 normal heart sound, S2 normal heart sound, no murmurs, no rub, no gallops and no clicks GI normal to inspection, nondistended, normoactive bowel sounds, soft to palpation and non-tender Extremity no clubbing, cyanosis or edema Extremity Narrative: Pedal pulses are 2+, bilateral radial arteries are 2+, postcatheterization dressing intact-clean and dry with no ecchymosis or significant tenderness Skin no rashes or lesions noted, no wounds, skin turgor normal and no jaundice Neuro oriented x3, CN's II-XII intact bilaterally, moves all extremities and no focal motor deficits Sensorium / Orientation: awake, alert, oriented to person, oriented to place and oriented to time Speech: speech normal Motor Exam: strength 5/5 throughout Psych affect normal Psych Narrative: Eye contact is good and patient interacts appropriately asking good questions Weight / BMI Weight Weight: 135.4 kg Body Mass Index (BMI) 40.4 ABG / Lab / Microbiology Data 07/29/23 06:59 07/29/23 06:59 Laboratory: Laboratory Results - last 24 hr 07/29/23 06:59: WBC 7.5, RBC 5.53, Hgb 16.7 H, Hct 49.9, MCV 90.2, MCH 30.2, MCHC 33.5, RDW Std Deviation 46.0 H, RDW Coeff of Jesus 13.8, Plt Count 233, MPV 10.0, Immature Gran % (Auto) 0.400, Neut % (Auto) 58.0, Lymph % (Auto) 26.8, Wagoner % (Auto) 10.7 H, Eos % (Auto) 3.2, Baso % (Auto) 0.9, Absolute Neuts (auto) 4.3, Absolute Lymphs (auto) 2.00, Nucleated RBC % 0, Sodium 135 L, Potassium 3.8, Chloride 104, Carbon Dioxide 26.0, Anion Gap 5, BUN 12, Creatinine 1.04, Estim Creat Clear Calc 125.09, Est GFR (MDRD) Af Amer 98, Est GFR (MDRD) Non-Af 81, BUN/Creatinine Ratio 11.5, Glucose 121 H, Calcium 9.0 Radiography Diagnostic Testing: Radiology Impression Echocardiogram 07/28/23 00:35 Interpretation Summary Moderate concentric left ventricular hypertrophy. The left ventricular ejection fraction is 55 %. Apical hypokinesis. The left atrium is moderately enlarged. Mild (1+) aortic valve insufficiency. Mild (1+) pulmonic valve insufficiency. Mildly dilated aortic root. Ordering Physician: Marisa Lopez Referring Physician: Cash Puentes Performed By: Latricia Mast RDCS, RVT D/C Instructions Discharge Diet: Low fat / Low cholesterol Discharge Activity: Return to Normal Activity and - (Do not lift greater than 10 pounds for the next 4 to 5 days with the right hand and avoid repetitive movements) Return to work on: 08/02/23 Meaningful Use Info Meaningful Use Meaningful Use Diagnoses (Choose all that apply): AMI AMI/Post PCI/Angioplasty Aspirin given w/in 24hrs of arrival?: Yes ASA at discharge?: Yes Antiplatelet Therapy at Discharge:: Yes Statins at discharge?: Yes Gildardo/ARB at discharge?: No Reason Gildardo/ARB not ordered:: Angioedema Beta Jade at discharge?: Yes Done w/ Acute AL measure.: Yes Documented LVEF (%): 55 Ischemic Stroke Statin Dosing Therapy Reference: STATIN DOSE THERAPY REFERENCE: * Patients > 75 years receive moderate or high dose statin therapy. * Patients 75 years or YOUNGER should receive HIGH intensity statin dose unless contraindicated. You will be required to document reason for non-treatment if statin daily dose does not meet guidelines. HIGH DOSE STATIN THERAPY DAILY Atorvastatin > than or = to 40 mg Rosuvastatin > than or = to 20 mg Amlodipine + Atorvastatin > than or = to 2.5/40 mg Ezetimibe + Simvastatin 10/80 mg Simvastatin 80mg Discharge Plan Admission Admit Date/Time: 07/28/23 06:40 Primary Reason for Your Visit: Chest Pain Attending Provider: Babita Carreno Primary Care Provider: Cash Puentes Instructions Additional Instructions / Restrictions: 1. 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 We highly advise that you stop smoking 3. Please call your primary care physician and get an appointment to be seen within the next 7 to 10 days and ask that a basic metabolic profile be ordered to recheck your kidney function and your electrolytes Discharge Orders/Prescriptions Prescriptions: New atorvastatin 80 mg Tablet 80 mg PO QHS Qty: 30 1RF aspirin 81 mg Tablet,Delayed Release (Dr/Ec) 81 mg PO DAILY@0800 Qty: 0 0RF carvedilol 6.25 mg Tablet 6.25 mg PO BID Qty: 60 1RF hydrochlorothiazide 25 mg Tablet 25 mg PO DAILY Qty: 30 1RF spironolactone 25 mg Tablet 12.5 mg PO DAILY Qty: 15 1RF Brilinta 90 mg Tablet 90 mg PO BID Qty: 60 11RF Continued amlodipine 10 mg tablet 10 mg PO DAILY Qty: 90 0RF omeprazole 20 mg capsule,delayed release(DR/EC) 20 mg PO DAILY PRN (Reason: gerd) Referrals / Follow Up: Cash Puentes MD [Primary Care Provider] - Within 1 Week George Mast NP, INSURANCE LAW SPECIALIST-C [Med Staff - Adv Practice Prof] - 08/19/23 1:30 pm Disposition Disposition (needs filled in before D/C Order can be placed): Home, Self Care Charges/Coding Visit Charges Inpatient E&M: 93293 Disch Hosp >30min
[2023-07-29 11:53] VITALS: BP 129/91; PULSE 45; RESP 16; TEMP 36.7; O2SAT 98
--- NOTE | 2023-07-29 13:42 | PHA.DC.MR.R ---
Pharmacy [place] Med Reconciliation Pharmacy Service has performed discharge medication reconciliation for this patient. Medication education papers prepared, patient discharged when counseling was attempted. Medications reviewed. The patient's discharge medication list was reviewed for discrepancies and discrepancies were resolved. Medications at Discharge Home Medications amlodipine 10 mg tablet 10 mg PO DAILY #90 tabs 11/26/21 omeprazole 20 mg capsule,delayed release 20 mg PO DAILY PRN gerd 10/28/22 aspirin 81 mg tablet,delayed release 81 mg PO DAILY@0800 #0 tabs 07/29/23 atorvastatin 80 mg tablet 80 mg PO QHS #30 tabs 07/29/23 carvedilol 6.25 mg tablet 6.25 mg PO BID #60 tabs 07/29/23 hydrochlorothiazide 25 mg tablet 25 mg PO DAILY #30 tabs 07/29/23 spironolactone 25 mg tablet 12.5 mg (1/2 x 25 mg) PO DAILY #15 tabs 07/29/23 ticagrelor 90 mg tablet (Brilinta) 90 mg PO BID #60 tabs 07/29/23
[2023-07-29 15:41] LABS: ACT Activated Clotting Time 238 sec (74-137)
[2023-07-29 15:41] LABS: ACT Activated Clotting Time 159 sec (74-137)
--- NOTE | 2023-08-09 11:31 | ECQM.STEMI ---
STEMI STEMI ED Door Time / Other REG STEMI EKG Time (1) STEMI (ST elevation myocardial infarction): Inactive ~07/27/23 22:40 Balloon/Aspiration Date-Time Date of Balloon/Aspiration:: 07/27/23 Time of Balloon/Aspiration:: 23:38
== END 2023-07-29 12:16 | disposition home or self-care (01) | DRG 322 ==
LOC: ED 22:52 → ICU 07-28 07:07 → PCU 07-29 02:15
PROVIDERS: Admitting Provider Internal Medicine; Emergency Provider Emergency Medicine; PCP Family Medicine; Referring Provider Internal Medicine Cardiovascular Disease; Visit Provider Internal Medicine
DX: I21.02 ST elevation (STEMI) myocardial infarction involving left anterior descending coronary artery (principal); I38 Endocarditis, valve unspecified; I47.20 Ventricular tachycardia, unspecified; Z68.41 Body mass index [BMI] 40.0-44.9, adult; I11.0 Hypertensive heart disease with heart failure; E66.01 Morbid (severe) obesity due to excess calories; I77.819 Aortic ectasia, unspecified site; E87.6 Hypokalemia; M19.90 Unspecified osteoarthritis, unspecified site; K21.9 Gastro-esophageal reflux disease without esophagitis; E78.5 Hyperlipidemia, unspecified; G47.33 Obstructive sleep apnea (adult) (pediatric); I25.10 Atherosclerotic heart disease of native coronary artery without angina pectoris; F17.210 Nicotine dependence, cigarettes, uncomplicated; Z79.899 Other long term (current) drug therapy; I51.9 Heart disease, unspecified
CPT/HCPCS: 36415; 80048; 80053; 80061; 83036; 83735; 84100; 84484; 85025; 85027; 85347; 85610; 85730; 92941; 93005; 93306; 93458; 99285; C1725; J7030; J7040; Q9957; Q9967; A4216; C1769; C1874; C1887; C1894; C8929; C9606; J1327

== ENCOUNTER → 2023-08-09 | Outpatient (CLI) | payer OTHER, SELFPAY ==
--- NOTE | 2023-08-09 08:02 | CR.HP_ITS ---
CR - History & Physical General Arrival date:: 08/09/23 Arrival time:: 08:02 Date of Referral:: 08/04/23 Date of CR Evaluation:: 08/09/23 Referring Physician: Dr. Lopez Primary Diagnosis: STEMI, PCI with coronary stent History of Present Cardiac Event Onset Date Acute Myocardial Infarction within 12 months:: Yes PTCA or coronary stenting:: Yes Vessel: LAD Medications Ambulatory Orders ?Medication ?Instructions ?Recorded amlodipine 10 mg tablet 10 mg PO DAILY #90 tabs 11/26/21 omeprazole 20 mg capsule,delayed 20 mg PO DAILY PRN gerd 10/28/22 release aspirin 81 mg tablet,delayed 81 mg PO DAILY@0800 #0 tabs 07/29/23 release atorvastatin 80 mg tablet 80 mg PO QHS #30 tabs 07/29/23 carvedilol 6.25 mg tablet 6.25 mg PO BID #60 tabs 07/29/23 hydrochlorothiazide 25 mg tablet 25 mg PO DAILY #30 tabs 07/29/23 spironolactone 25 mg tablet 12.5 mg (1/2 x 25 mg) PO DAILY #15 07/29/23 tabs ticagrelor 90 mg tablet (Brilinta) 90 mg PO BID #60 tabs 07/29/23 Allergies Allergies lisinopril Allergy (Severe, Verified 07/27/23 22:40) Angioedema Sleep Disorder Evaluation Hx of Sleep Apnea: No Do you snore loudly (louder than talking or can be heard through closed doors)?: No Do you often feel tired/ fatigued/ sleepy during daytime?: No Has anyone observed you stop breathing during sleep?: No History of Hypertension (for STOP score): Yes STOP Results: Negative Advanced Directives Advanced Directives Power of Sintering Plant Supervisor: No Living Will: No Advance Directives Information Provided: Yes Advance Directives on File: No DNR Order?:: No Past Medical History Covid-19 Screening Physicial Symptoms Other Clinical Concerns Exposure Risk Pertinent Comorbidities Has a serious heart condition:: Yes Severely obese (Body Mass Index of 40 or higher):: Yes Past Medical Illness Past Medical History (Updated 08/06/23 @ 00:01 by Background Da[place]) Ventricular ectopy I49.3 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 I51.9 Coronary artery disease I25.10 Nicotine dependence F17.200 Morbid obesity with BMI of 40.0-44.9, adult E66.01, Z68.41 Tobacco abuse Z72.0 STEMI (ST elevation myocardial infarction) I21.3 Hypertension I10 Past Surgical History Past Surgical History (Updated 08/06/23 @ 00:01 by Background [place]) Hx of cardiac catheterization (~07/28/23) Z98.890 PTCA distal LAD and prox LAD- IZZY 3.0 x 8 mm [place] and 3.0 x 30 mm [place] 07/28/23 Stented coronary artery (~07/28/23) Z95.5 prox LAD- IZZY 3.0 x 8 mm [place] and 3.0 x 30 mm [place] 07/28/23 h/o microdiscectomy L5-S1 h/o kidney surgery Family History Summary Family History Other Heart disease Social History Smoking History Smoking Status: Former smoker Years Smokin Packs Smoked per Day: 1 Hx Smoking Cessation Date: 07/29/23 Hx Tobacco Use: Yes Hx Smoking Exposure: Yes Alcohol Use Alcohol Usage: Yes Occupation Occupation (List type of work in comments):: Employed Hours worked per day:: 8 Returned to work on:: 08/02/23 Hobbies, Recreation, Social Activities Hobbies: Other (golf, shooting bow) Social Environment Status Marital Status: Current Living Arrangements Living Environment:: Family Children How many children do you have?: 2 Do any of your children live nearby?: Yes Safety Do you feel safe in your surroundings?: Yes Assistance Do you need any assistance at home?: no Review of Systems Review of Systems Hints Review of Present Symptoms: Reports Dizziness/Lightheadedness, Fatigue, Appetite - Normal, Appetite - Special Diet and Sleep - Normal; Denies Shortness of Breath at Rest, Shortness of Breath with Exertion, PVD, Operative Discomfort, Angina, Wound Healing, Heart Arrhythmia/Irregularities or Sexual Changes Pain Is Patient Pain Free?: Yes Risk Factor Assessment Chief Complaint Chief Complaint: STEMI, PCI with coronary stetn Vital Signs Pulse Ox: 96 Blood Pressure: 115/61 Hypertension Blood Pressure Sitting - Right Arm: 115/61 Obesity Height: 6 ft Weight:: 298 lb 12.8 oz Weight in Pounds: 298.8 lbs Body Mass Index (BMI): 40.5 Physical Inactivity Physical Inactivity: None Risk Stratification Risk Guidelines: Moderate Risk: Risk Factor for Dyslipidemia, Risk Factor for Diabetes, Risk Factor for Sedentary Lifestyle and Risk Factor for Depression and Highest Risk: Risk Factor for Smoking, Risk Factor for Obesity and Risk Factor for Hypertension For Smoking Smoking Risk Guidelines For Dyslipidemia Dyslipidemia Risk Guidelines For Diabetes Mellitus Diabetes Risk Guidelines For Obesity/Overweight Obesity/Overweight Risk Guidelines For Hypertension Hypertension Risk Guidelines For Sedentary Lifestyle Sedentary Lifestyle Risk Guidelines For Depression Depression Risk Guidelines Family History Family History Other Heart disease Motivation Motivation to Participate On a scale of 1 to 10, how prepared are you to commit to attending program?: 5 What do you see as barriers to successfully being able to complete the program?: work What do you see as the benefits of succesfully completing the program? In other words, what do you hope to get out of participating in the program?: stronger heart Are there issues you are dealing with that will interfere with completing the program?: no Do you have a spouse or signficant other, family or friends who will help support you to complete the program?: yes
[2023-08-09 08:09] VITALS: BP 115/61; O2SAT 96
--- NOTE | 2023-08-09 08:09 | CR.ITP_ITS ---
Diagnosis General Information Admitting Diagnosis: STEMI, PCI with coronary stent Personal Learning Style:: Audio/Visual Stage of change r/t lifestyle modifications:: Contemplation Gave educational material for:: Treating Heart Disease, How The Heart Works, What it means to have Heart Disease, How Coronary Artery Disease is Diagnosed, Heart Procedures, What Heart Medications Do, Risk Factors & Modifications, Living an Active Life, Nutrition, Emotions & Heart Disease, Stress Management & Relaxation and Sleep Disorders & Heart Disease Education/Goals Cardiac Rehabilitation Goals Personal Goals: Initial Assessment: Quit smoking (participate in smoking cessation, Improve energy level, Participate in home exercise program, Improve knowledge of cardiac disease, Improve muscle strength and endurance, Improve diet and eating habits (eat healthier) and Control risk factors (learn risk factor modification) Scale for measuring improvement of personal goals Diagnosis & Disease Process Outcomes/Goals: Pt IDs own risk factors & lifestyle modifications by Session 10, Verbalizes symptoms of angina & response by session 3., Pt independently manages and Other Additional Outcomes/Goals: Plan/Interventions: Assist Pt to ID & engage in lifestyle modification to reduce CVD risk, Instruct on individual risk factors, Review symptoms of angina & emergency actions, Review secondary diagnosis & identify educational needs. and Other see comment 30 day Reassessments:: Not Met 30 day Reassessments:: Not Met 30 day Reassessments:: Not Met 30 day Reassessments:: Not Met Final Reassessments:: Not Met Safety Referral to Physical Therapy: No Referral to [facility] Case Management: No Fall Risk Assessed:: Yes Assistive Devices:: None Exercise - Initial Assessment Visit Date of Eval: 08/09/23 (initial eval ) Mets: Pre-: >3 METS for 30 minutes by discharge, >5 METS for 30 minutes by discharge, >7 METS for 30 minutes by discharge and Unable to meet goal due to: (see comment below) Physician Prescribed Exercise Modalities: Treadmill, Rower, Airdyne, NuStep, SciFit and Lateral Double Spindle Shaper Operator Frequency: 3x/week for 12 weeks [36 sessions] Intensity: 60-80% of age predicted maximum heart rate reserve Duration: 30 - 45 minutes Current METSs:: 3 Target Heart Rate:: 112-130 Resting Blood Pressure: 115/61 EKG Type: NSR Outcomes & Goals Goals:: Verbalizes understanding of THR, RPE & goal METS by session 6, Documents in home exercise log/reports 30 min aerobic 5 day/wk by DC, Demonstrates acc urate pulse taking by DC and Other additional outcome/goals: see below Intervention & Plan Exercise Program Goals: Instruct on personal THR & RPE, Instruct on MET level & personal MET goal, Show patient to take own pulse /validate performance until accurate, Instruct on home exercise and Other additional plan/int Physical Activity Home Exercise Physical Activity - Home Exercise: Safe Exercise, Warm-up, Self-monitoring, Cool-Down, Home Exercise > 30 min Daily and Sitting Time <3 hours/daily Outcomes & Goals Outcomes/Goals: Demonstrates correct Warm-up/exercise Cool-Down (S3) if = 2.5 METs, Verbalizes symptoms of exercise intolerance by Session 3 (S3), Demonstrate safe equipment use (S3) & follows exercise prescrition (6) and Other: See below Intervention & Plan Plan/Intervention: Instruct warm-up & cool-down if exercising at > 2 METs, Instruct on symptoms of exercise intolerance & actions to take, Instruct & monitor on saf, Assess intial functional capacity & safety risk and Other See below Nutrition - Initial Assessment Program Goals Nutrition Program Goals Patient has diagnosis of Hyperlipidemia (ICD E78)?: No Visit Date of Eval: 08/09/23 (initial eval ) Cholesterol/Lipids (Other Core Measures) Determine presence & major risk factors that modify LDL goal: Cigarette smoking, Hypertension or hypertensive medication, Low HDL cholesterol <40 mg/dL*, Family history of premature CHD in Male < 55 years: female <65 yearsFa and Age men > 45 years; women >/= 55 years Outcomes/Goals: Pt IDs own risk factors & lifestyle modifications by Session 10, Verbalizes symptoms of angina & response by session 3., Pt independently manages and Other Additional Outcomes/Goals: Intervention/Plan: Advocate for lipid panel cholesterol medication if applic able, Instruct on personal lipid levels & lipid goals/NCEP guidelines, Instruct on cholesterol and Other additional plan/int Diabetes (Other Core Measures) Diabetes Type: Not Applicable Weight Mgt (Other Care) Height: 6 ft Weight:: 298 lb 12.8 oz BMI: 40.5 Diagnosis Overweight/Obesity BMI> 30% ICD-10 E66: Yes Diagnosis High BMI/Morbid Obesity BMI> 35% ICD-10 Z68: Yes Outcomes/Goals: Pt sets, maintains & shows weight loss goal & trend during rehab and Other additional outcomes/goals Intervention/Plan: Instruct on ideal BMI & set weight loss goal w/patient, Assist pt to ID & incorporate diet changes for weight loss by S9, Refer to Structured Weight Loss program as appropriate, Encourage goal of using 250- 300dcal per session for weight loss and Other additional plan/interventions Healthy Eating Habits Will attend diet classes:: Yes Outcomes/Goals:: Consume diet rich in vegs,fruits,whole grain/high fiber,fish,lean meat, Limit sat/trans fats,cholesterol & added salts & sugars and Other additional outcome/goals: Intervention/Plan:: Assess current eating habits and Other Additional plan/interventions Education Gave educational materials for:: Signs & symptoms of hypoglycemia, Signs & symptoms of hyperglycemia, Relate diabetes to coronary artery disease and Healthy eating Core - Initial Assessment Visit Date of Eval: 08/09/23 (initial eval ) Medication Compliance Preventative Medication(s):: Ticagrelor/P2Y12 inhibitor, Statin/lipid and Beta tej H/O mental health issues: depression, anxiety, or addiction?: No Doesn?t believe in the benefits of treatment?: No Believes medications are unnecessary or harmful?: No Has a concern about medication side effects?: No Expresses concern over the cost of medications?: No Outcomes/Goals: Verbalizes medications,desired effect & common side effects @ DC, Pt self-reports following medication regimen, Keeps card in wallet w/medications listed by DC and Other additional outcome/goals: Interventions/plans: Instruct on medication effects & side effects, Review medication list w/patient every two weeks, Instruct importance of taking meds as ordered & assist problem solving and Other additional Tobacco Use Tobacco Use: Cigarettes Outcomes/Goals: Smoking cessation achieved or maintained by discharge, Identify aids/strategies for achieving smoking cessation by session 6 and Other additional outcome/goals Interventions/plan: Instruct on effects of smoking & provide smoking cessation resource, Assist pt to set quit date & provide encouragement, Assist pt to develop strategies to achieve/maintain quit date, Assist pt w/nicotine replacement & medication for cessation success and Other additional plan/interventions Hypertension Hypertension Diagnosis:: Hypertension ICD-10 I10 Resting Blood Pressure:: 115/61 [place] [employer] Hypertension Guidelines Outcomes/Goals: Able to verbalize/achieve optimal blood pressure <130/80, In corporates diet changes & exercise for blood pressure control by DC and Other additional outcomes/goals Interventions/plan: Instruct on optimal blood pressure, hypertension & m edications, Instruct on effects of sodium, alcohol, stress, exercise &hypertension and Other additional plan/interventions Tobacco Cessation Referral Smoking Cessation Referral:: No Individual Education/Counseling:: No Education Schedule Given:: Yes Psychosocial - Initial Assess VIsit Date of Eval: 08/09/23 (initial eval ) History of previous Mental disease:: No Target Goals Target Goals Outcomes/Goals: See list Psychosocial Outcomes/Goals:: ID's personal stressors & 2 strategies to manage stress by discharge and Other Additional outcome/goals: Intervention/Plan: See List Interventions/Plan:: Assess stressors,coping strategies & signs of derpression on admission, Instruct/assist pt to develop coping & personal stress Mgt strategies, Refer to Behavioral Health if appropriate, Refer to Physician if appropriate, Instruct patient to recognize signs & symptoms of depression, Instruct patient to recog and Other additional plan/intervention Patient Health Questionnaire PHQ-9 Screening Initial Assessment: 1. Little interest or pleasure in doing things: Not at all 2. Feeling down, depressed, or hopeless: Not at all 3. Trouble falling or staying asleep, or sleeping too much: Several days 4. Feeling tired or having little energy: Not at all 5. Poor appetite or overeating: More than half the days 6. Feeling bad about yourself -- or that you are a failure or have let yourself or your family down: More than half the days 7. Trouble concentrating on things, such as reading the newspaper or watching television: Not at all 8. Moving or speaking so slowly that other people could have noticed. Or the opposite - being so fidgety or restless that you have been moving around a lot more than usual: Not at all 9. Thoughts that you would be better off , or of hurting yourself in some way: Not at all How difficult have these problems made it for you to do your work, take care of things at home, or get along with other people?: Not difficult at all Total Score: 5 PADMINI-Q SV Test Statements CAD is a disease of the arteries in the heart: False Examples of risk factors for heart disease: True Angina is chest pain or discomfort: I Don't Know The benefits of resistance training include: True Eating more meat and dairy products: False Anti-platelet medications such as aspirin are important: True The only effective way to manage stress: False An exercise warm-up slowly increases heart rate: I Don't Know Prepared, processed foods usually have high sodium: True Depression is common after a heart attack: I Don't Know The statin medications lower cholesterol: I Don't Know To control blood pressure, lower the amount of sodium: True If someone gets chest discomfort during walking: False Transfats are partially hydrogenated vegetable oils: I Don't Know Sleep apnea that is not treated increases the risk: I Don't Know To control cholesterol, one should become a vegetarian: False Someone knows if he/she is exercising at the right level: I Don't Know Diabetes cannot be prevented with exercise & health eating: I Don't Know Stress is a large risk for heart attack: I Don't Know A diet that can help lower blood pressure is rich in: I Don't Know Total Score Total Correct Responses: 10 Self-Efficacy 6-Item Scale Initial Assessment: We would like to know how confident you are in doing certain activities. Please select your confidence level for: Fatigue Select Number: 8 Physical Discomfort or Pain Select Number: 8 Emotional Distress Select Number: 10 Other Symptoms or Health Problems Select Number: 4 Different Tasks and Activities Select Number: 8 Medication Select Number: 8 Total Score:: 7 Nutrition Survey Nutrition Survey Instructions Scoring Instructions Nutrition Survey Initial: Have you lost >10 lbs over the past 2 months without trying?: No Are you following a special diet at home for diabetes, low fat, or low salt?: No Are you interested in meeting with a dietitian for help understanding your diet?: Yes Do you eat less than 3 meals a day?: Yes Do you eat fatty meats (vallejo, sausage, ribs, etc), fried foods, desserts, large amounts of salad dressings, margarine, butter, or cheese most days?: No Do you have food allergies? [Enter types in comment field]: No Do you eat in restaurants more than 3 times a week?: No Do you season food with salt, seasoning salt, or garlic salt?: Yes Do you used canned, boxed, frozen meals, or soups, seasoning packets?: Yes Total Score:: 4 Exercise - Final/Discharge Physician Prescribed Exercise Modalities: Treadmill, Rower, Airdyne, NuStep, SciFit and Lateral [place] Frequency: 3x/week for 12 weeks [36 sessions] Intensity: 60-80% of age predicted maximum heart rate reserve Current METSs:: 3 Target Heart Rate:: 112-130 Nutrition - 30-Day Assessment Weight Mgt (Other Care) Height: 6 ft Weight:: 298 lb 12.8 oz BMI: 40.5 Nutrition - 60-Day Assessment Weight Mgt (Other Care) Height: 6 ft Weight:: 298 lb 12.8 oz BMI: 40.5 Core - Final Assessment Hypertension Resting Blood Pressure:: 115/61 [place] [employer] Hypertension Guidelines Core - 60-Day Assessment Hypertension Resting Blood Pressure:: 115/61 [place] [employer] Hypertension Guidelines Psychosocial - 30-Day Assess Target Goals Target Goals Psychosocial - 60-Day Assess Target Goals Target Goals Psychosocial - 90-Day Assess Target Goals Target Goals Psychosocial - Final Assessmen Target Goals Target Goals Nutrition - 90-Day Assessment Weight Mgt (Other Care) Height: 6 ft Weight:: 298 lb 12.8 oz BMI: 40.5 Nutrition - Final Assessment Program Goals Patient has diagnosis of Hyperlipidemia (ICD E78)?: No Weight Mgt (Other Care) Height: 6 ft Weight:: 298 lb 12.8 oz BMI: 40.5
[2023-08-09 08:15] VITALS: BP 115/61
[2023-08-09 08:24] VITALS: BMI 40.5
[2023-08-09 09:15] VITALS: BMI 40.5
== END | disposition home or self-care (01) ==
LOC: CR 07:39
PROVIDERS: PCP Family Medicine; Referring Provider Internal Medicine Cardiovascular Disease; Visit Provider Internal Medicine Cardiovascular Disease
DX: Z00.00 Encounter for general adult medical examination without abnormal findings (principal)

== ENCOUNTER → 2023-08-19 | Outpatient (CLI) | payer OTHER, SELFPAY ==
[2023-08-09 09:15] VITALS: BMI 40.5
--- NOTE | 2023-08-19 14:08 | RAD_ITS ---
INDICATION: for heart cath EXAMINATION/TECHNIQUE: X-RAY - XR Chest 2 Views COMPARISON: November 23, 2021 FINDINGS: LINES/DEVICES: None. LUNGS: No consolidation, edema or effusion. No pneumothorax. MEDIASTINUM AND CARDIOVASCULAR STRUCTURES: Cardiac silhouette not enlarged. Central airways and mediastinal contour are unremarkable. BONES AND SOFT TISSUES: Unremarkable. RAD/Chest PA and Lateral IMPRESSION: No radiographic evidence of acute cardiopulmonary disease. Electronically Signed: Suzanne Bustamante MD at 9:13 EDT ,
[2023-08-19 14:54] LABS: Hematocrit 46.2 % (40-54); Hemoglobin 15.8 g/dL (13.0-16.5); Mean Corp Hgb Conc 34.2 g/dL (32-36); Mean Corpuscular Hgb 30.1 pg (27.0-32.0); Mean Platelet Vol. 10.1 fl (6.2-12.0); Platelet Count 238 K/mm3 (150-450); RBC Distribution Width CV 13.2 % (11.6-14.6); RBC Distribution Width SD 42.9 fl (35.1-43.9); Red Blood Count 5.25 M/mm3 (4.6-6.2)
[2023-08-19 16:24] LABS: Anion Gap 9 (5-15); BUN 18 mg/dL (7-18); BUN/Creat Ratio 14.9 RATIO (10-20); Calcium,Total 9.2 mg/dL (8.5-10.1); Chloride 104 mmol/L (98-107); Creatinine, Serum 1.21 mg/dL (0.70-1.30); EST Glomerular Filtration Rate 68 mL/min (>60); Est Glom Filt Rate - Afr Amer 83 mL/min (>60); Glucose 88 mg/dL (74-106); Potassium 3.8 mmol/L (3.5-5.1); Sodium Level 136 mmol/L (136-145)
== END | disposition home or self-care (01) ==
LOC: RAD 14:08
PROVIDERS: PCP Family Medicine; Referring Provider Nurse Practitioner Family; Visit Provider Nurse Practitioner Family
DX: I25.10 Atherosclerotic heart disease of native coronary artery without angina pectoris (principal); F17.200 Nicotine dependence, unspecified, uncomplicated; I10 Essential (primary) hypertension; R06.02 Shortness of breath
CPT/HCPCS: 36415; 71046; 80048; 85027

== ENCOUNTER 2023-08-20 06:30 | Outpatient (RCR) | payer OTHER, SELFPAY ==
[2023-08-09 09:15] VITALS: BMI 40.5
== END 2023-08-20 23:59 ==
LOC: CR 06:30
PROVIDERS: PCP Family Medicine; Referring Provider Internal Medicine Cardiovascular Disease; Visit Provider Internal Medicine Cardiovascular Disease
DX: Z95.5 Presence of coronary angioplasty implant and graft (principal); I25.10 Atherosclerotic heart disease of native coronary artery without angina pectoris; I21.02 ST elevation (STEMI) myocardial infarction involving left anterior descending coronary artery
CPT/HCPCS: 93798

== ENCOUNTER 2023-08-26 07:24 | Day surgery (SDC) | payer OTHER, SELFPAY ==
[2023-08-09 09:15] VITALS: BMI 40.5
[2023-08-26 08:39] VITALS: BMI 41.9
--- NOTE | 2023-08-26 10:07 | DCINST_ITS ---
Discharge Instructions Diet Discharge Diet: Low fat / Low cholesterol Activity Discharge Activity: Return to Normal Activity Dressing / Incision Call your doctor if your incision/area has: Continuous Slow Oozing, Sudden Increased Bleeding, Increased Pain/ Swelling and Increased Redness Call your doctor if you observe: Fever of 101 or Higher, Coldness, Increased Pain, Numbness or Tingling and Change in Color Follow Up Care Please Follow Up With: Marisa Lopez MD When: 2-4 weeks Test Results: Test results from this visit will be discussed in further detail at your follow- up appointment, if applicable. Discharge Plan Admission Attending Provider: Marisa Lopez Primary Care Provider: Cash Puentes Instructions Print Language: Lithuanian Discharge Orders/Prescriptions Prescriptions: No Action atorvastatin 80 mg tablet 80 mg PO QHS Qty: 90 3RF carvedilol 6.25 mg tablet 6.25 mg PO BID Qty: 180 3RF hydrochlorothiazide 25 mg tablet 25 mg PO DAILY Qty: 90 3RF spironolactone 25 mg tablet 12.5 mg PO DAILY Qty: 45 3RF Brilinta 90 mg tablet 90 mg PO BID Qty: 60 11RF amlodipine 10 mg tablet 10 mg PO DAILY Qty: 90 0RF omeprazole 20 mg capsule,delayed release(DR/EC) 20 mg PO DAILY PRN (Reason: gerd) aspirin 81 mg Tablet,Delayed Release (Dr/Ec) 81 mg PO DAILY@0800 Qty: 0 0RF Referrals / Follow Up: Cash Puentes MD [Primary Care Provider] - Disposition Disposition (needs filled in before D/C Order can be placed): Home, Self Care
--- NOTE | 2023-08-26 10:15 | EKG12_ITS ---
Test Reason : POST PCI Blood Pressure : / mmHG Vent. Rate : 052 BPM Atrial Rate : 052 BPM P-R Int : 196 ms QRS Dur : 114 ms QT Int : 494 ms P-R-T Axes : 026 -35 -20 degrees QTc Int : 459 ms Sinus bradycardia Left axis deviation Anterior infarct (cited on or before 29-JUL-2023) T wave abnormality, consider lateral ischemia Abnormal ECG When compared with ECG of 29-JUL-2023 05:23, T wave inversion less evident in Anterior leads Confirmed by SELINA MARIANO, RAMIREZ ([id number]), editor department TYLER SAEZ ([id number]) on 08/30/2023 8:30:24 AM Referred By: Marisa Lopez Confirmed By:RAMIREZ MARKS MD
[2023-08-26 10:18] LABS: ACT Activated Clotting Time 232 sec (74-137)
[2023-08-26 10:18] LABS: ACT Activated Clotting Time 262 sec (74-137)
--- NOTE | 2023-08-26 10:21 | CL.I_ITS ---
Patient Name: NEHAL SUTTON Study Date: 08/26/2023 Performing: Marisa Lopez MD Ht: 72 inches 182.88 cm : 1975 Wt: 309.99 lbs 140.61 kg Age: 48 Gender: male BSA: 2.57 PROCEDURE(S) PERFORMED IC12-([id number])IZZY W/WO PTCA, SINGLE CORONARY ARTERY CLINICAL PROFILE AND CO-MORBIDITIES Indications: Stable Known CAD Heart Failure: None CONCLUSIONS Successful IZZY Mid/distal RCA using Mira Jasper 3.0x26 mm, post-dilated using 4.0 mm balloon RECOMMENDATIONS ASA Indefinitleshamar Stein for at least 12 months DESCRIPTION OF PROCEDURE The patient arrived to the procedure lab. The risks and benefits of the procedure as well as a full description of our services here and current unavailability of surgical backup were fully explained to the patient and/or their significant other prior to the catheterization. The Timeout was completed, verifying the correct patient and procedure. The patient's procedural site was prepped and draped in the usual fashion. Local anesthetic was given subcutaneously to right radial region with Lidocaine 2%. Using a modified Seldinger technique, arterial access was obtained via the right radial artery, a 6Fr sheath was inserted.. Right Coronary Artery selective angiography was then performed in multiple views using a 6 Fr. JR 4 catheter runthrough extra floppy Guide wire was advanced to the RCA. JR 4 Guide catheter was inserted and engaged into the RCA. mira frontier 3.5 x 34 Drug Eluting stent was inserted. Drug Eluting stent was advanced across the lesion in the right coronary, mid. Drug Eluting stent was removed intact, failed to cross lesion mira frontier 3.0 x 26 Drug Eluting stent was inserted. Drug Eluting stent was advanced across the lesion in the right coronary, mid. Angiogram performed post stent deployment. nc euphora 3.5 x 12 Balloon catheter was inserted. choice extra support 0.014 x 300 Guide wire was inserted as a lizbeth wire Balloon catheter was reinserted Balloon catheter was inserted post stent. Angiogram performed post balloon dilatation. Angiogram performed post balloon dilatation. nc emerge 4 x 12 Balloon catheter was inserted. Balloon catheter was advanced across lesion in the right coronary, mid. PTCA balloon inflated at 14 atms for 8 secs. Angiogram performed pre balloon dilatation. PTCA balloon inflated at 16 atms for 8 secs. PTCA balloon inflated at 16 atms for 6 secs. PTCA balloon inflated at 16 atms for 6 secs. PTCA balloon inflated at 16 atms for 6 secs. Angiogram performed post balloon dilatation. The arterial sheath was pulled and a TR Band was applied for hemostasis 12 ml of air INTERVENTION INFORMATION LESION SITE: RCA (Mid) Lesion Complexity: High/C, lesion length: 24 mm Pre Stenosis: 70 % Pre intervention MK flow: 3 Post Stenosis: 0 % Post intervention MK flow: 3 Lesion Devices: Cordis 6 Fr JR4 100cm Guide Catheter Terumo .014 180cm Runthrough Extra Floppy straight Medtronic 3.0 x 26 MIRA FRONTIER IZZY Medtronic NC EUPHORA RX 3.5x12 BALLOON Wilbert Sci .014 300cm Choice Extra Support Wire straight Wilbert Sci NC EMERGE MR 4.00x12 BALLOON COMPLICATIONS No Complications PROCEDURE MEDICATIONS Fentanyl 50 mcg IV Versed 1 mg IV Versed 1 mg IV Oxygen: 2 L/min via nasal cannula Heparin 8000 unit(s) IV 08/26/2023 09:20:27 Heparin given IA 08/26/2023 09:23:48 Heparin 2000 unit(s) IV 08/26/2023 10:05:11 Nitro 200 mcg IC 08/26/2023 09:38:11 Verapamil 2.5mg, Ntg 200mcgs, 2000 units of Heparin given IA 08/26/2023 09:23:48 SUMMARY OF HEMODYNAMIC DATA Time AIR REST ECG 07:44:43 ECG 09:06:02 AO 133/95 (113) SA 09:26:20 AO 132/96 (114) 09:40:30 AO 128/92 (108) 09:45:59 AO 139/95 (114) 09:53:05 ECG 10:14:55 Signed By Marisa Lopez MD On 08/26/2023 10:19:58 Marisa Lopez MD
--- NOTE | 2023-08-26 11:42 | CRPHASE1_ITS ---
Patient Communication Patient Information Former Patient:: Phase I and Phase II PHII Cardiac Rehab Discussed with Patient:: Yes Guide to Cardiac Rehab Given to Patient:: Yes Cardiac Rehab Facility Choice List Given to Patient:: Yes Communication to Cardiac Rehab Choice Program [facility] CR PHII:: Communication Given to CR Quarry Equipment Operator:: Marisa Lopez Phase II Cardiac Rehab:: Yes Sessions:: 36 sessions - 3 days/wk, 12 weeks Cardiac Rehabilitation Info Program Information Cardiac Rehabilitation Program Information: Cardiac Rehab The cardiac rehab team at [facility] consists of highly skilled exercise physiologists, nurses, respiratory therapists and physicians working together with you. Our purpose is to help you have a full recovery and achieve the goals you set for yourself. Over the years many of our patients have returned to activities they assumed they would never do again! We can help restore your confidence and motivation to make lifestyle changes that can have a significant impact on your health and quality of life! We can help answer questions and concerns you may have about exercise, lifestyle, medications, diet, stress and anxiety which are common following a hospitalization. WE monitor ECG and vital signs during exercise and discuss your progress with you and report to your physician(s). Cardiac Rehab is proven to help reduce readmissions, improve functional capacity and lower recurrence of problems with your heart. Our Cardiac Rehab program is Certified by the [place] [employer] Pulmonary [employer] (AACVPR) and Accredited by the [employer] through our [facility]. You can contact us at . We invite you to call us with your questions or to get started in our program. If you have other questions or concerns be sure to ask your physician/provider during your follow-up visit. WE look forward to seeing you!
--- NOTE | 2023-08-26 11:43 | CRPH1.INSTRU ---
General Education Discussed with Patient CAD and cardiac anatomy and function:: Patient communicates acknowledgment Explanation of diagnoses and procedures:: Patient communicates acknowledgment Sign/Symptoms of CA:: Patient communicates acknowledgment Antiplatelet therapy: Patient communicates acknowledgment Proper use of NTG-SL: Patient communicates acknowledgment Emergency procedures and activation of EMS: Patient communicates acknowledgment Compliance of all prescribed medications: Patient communicates acknowledgment Smoking Risk Factors Patient Nicotine/Smoking Risk Factors Are:: Cigarettes Recommendations Recommendations Include:: Smoking cessation strategies/Smoking packet and Previous smoker; encourage continued cessation Response Code Nicotine/Smoking Response Code:: Patient communicates acknowledgment Dyslipidemia Risk Factors Patient Dyslipidemia Risk Factors Are:: Total Cholesterol, Triglycerides, HDL and LDL Recommendations Recommendations Include:: Lipid profile provided, Reviewed NCEP/ATP guidelines and Therapeutic Lifestyle Change dietary guidelines Response Code Dyslipidemia Response Code:: Patient communicates acknowledgment Overweight/Obesity Risk Factors Patient Overweight/Obesity Risk Factors Are:: Obesity - > or = 30 Recommendations Recommendations Include:: Weight loss of 5-10%, Reduced calorie diet and Exercise 5-7 times/week Response Code Overweight/Obesity:: Patient communicates acknowledgment Hypertension Recommendations Recommendations Include:: Maintain BP <130/85, DASH dietary guidelines, Decrease/maintain normal body weight and Moderation of ETOH Response Code Hypertension:: Patient communicates acknowledgment Heart Disease Risk Factors Patient Heart Disease Risk Factors Are:: Family history of heart disease < 65 years old Recommendations Recommendations Include:: Educated family members of their risk and Educated family members of importance of prevention of heart disease Response Code Heart Disease Response Code:: Patient communicates acknowledgment Diabetes Risk Factors Patient Diabetes Risk Factors Are:: No documented hx of diabetes Metabolic Syndrome Risk Factors Patient Metabolic Syndrome Risk Factors Are [3 of 5]:: Fasting blood sugar > 100 mg/dL, Waist circumference > 35 [female] or 40 [male], High triglyceride >150, Hypertension and Low HDL <40 [male] or < 50 [female] Recommendations Recommendations Include:: Reinforce compliance to risk factor modifications and Encouraged follow-up with Primary Care Physician Response Code Metabolic Syndrome Response Code:: Patient communicates acknowledgment Sedentary Recommendations Recommendations Include:: Aerobic exercise 5-7 times/week for 20-30 minutes continuously, Benefits of regular exercise, Discussed home walking program and Monitored Outpatient Cardiac Rehab Response Code Sedentary Response Code:: Patient communicates acknowledgment Stress Recommendations Recommendations Include:: Identification of stressors, and assessment of coping skills and Stress management techniques Response Code Stress Response Code:: Patient communicates acknowledgment
== END 2023-08-26 15:00 | disposition home or self-care (01) ==
PROVIDERS: PCP Family Medicine; Referring Provider Internal Medicine Cardiovascular Disease; Visit Provider Internal Medicine Cardiovascular Disease
DX: I25.10 Atherosclerotic heart disease of native coronary artery without angina pectoris (principal); I21.3 ST elevation (STEMI) myocardial infarction of unspecified site; E66.01 Morbid (severe) obesity due to excess calories; Z68.41 Body mass index [BMI] 40.0-44.9, adult; I10 Essential (primary) hypertension; F17.210 Nicotine dependence, cigarettes, uncomplicated; E87.6 Hypokalemia; Z79.899 Other long term (current) drug therapy; Z95.5 Presence of coronary angioplasty implant and graft
CPT/HCPCS: 85347; 92928; 93005; 99152; 99153; C1769; C1725; C1874; C1887; C1894; C9600

== ENCOUNTER 2023-09-03 06:30 | Outpatient (RCR) | payer OTHER, SELFPAY ==
[2023-08-09 09:15] VITALS: BMI 40.5
--- NOTE | 2023-09-08 05:05 | CR.ITP_ITS ---
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 Physician Prescribed Exercise Modalities: Treadmill, Schwinn Airdyne AD-7 and SciFit Stepper Nutrition - Initial Assessment Weight Mgt (Other Care) Height: 6 ft Weight:: 309 lb BMI: 41.9 Psychosocial - Initial Assess Target Goals Target Goals Referral to Behavioral Health PS - Interventions: Yes: Attend Stress Management Classes and No: Referral to Behavioral Health if PHQ-9 score >9:, No: Referral to [facility] and No: Referral to Physician if PHQ-9 if score is 5-9: Patient Health Questionnaire PHQ-9 Screening 30-Day Re-eval Assessment: 1. Little interest or pleasure in doing things: Not at all 2. Feeling down, depressed, or hopeless: Not at all 3. Trouble falling or staying asleep, or sleeping too much: Not at all 4. Feeling tired or having little energy: Not at all 5. Poor appetite or overeating: Several days 6. Feeling bad about yourself -- or that you are a failure or have let yourself or your family down: Several days 7. Trouble concentrating on things, such as reading the newspaper or watching television: Not at all 8. Moving or speaking so slowly that other people could have noticed. Or the opposite - being so fidgety or restless that you have been moving around a lot more than usual: Not at all 9. Thoughts that you would be better off , or of hurting yourself in some way: Not at all Total Score: 2 Self-Efficacy 6-Item Scale 30-Day Re-eval Assessment: We would like to know how confident you are in doing certain activities. 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 Physician Prescribed Exercise Modalities: Treadmill, Schwinn Airdyne AD-7 and SciFit Stepper Frequency: 3x/week for 12 weeks [36 sessions] Intensity: 60-80% of age predicted maximum heart rate reserve Duration: 30 - 45 minutes Current METSs:: 6.0 Target Heart Rate:: 112-130 Current RPE:: 11-13 Maximum Excercise HR:: 100 Resting Blood Pressure: 128/84 Maximum Exercise Blood Pressure: 160/98 EKG Type: Sinus mathew to sinus tach with occasional PACs and rare PVC. Current Physical Activity or Exercising minutes: 36:08 Outcomes & Goals Goals:: Verbalizes understanding of THR, RPE & goal METS by session 6, Documents in home exercise log/reports 30 min aerobic 5 day/wk by DC and Demonstrates accurate pulse taking by DC Intervention & Plan Exercise Program Goals: Instruct on personal THR & RPE, Instruct on MET level & personal MET goal, Show patient to take own pulse /validate performance until accurate and Instruct on home exercise 30-day Reassessments 30 day Reassessments:: Met Physical Activity Home Exercise Physical Activity - Home Exercise: Safe Exercise, Warm-up, Self-monitoring, Cool-Down, Home Exercise > 30 min Daily and Sitting Time <3 hours/daily Outcomes & Goals Outcomes/Goals: Demonstrates correct Warm-up/exercise Cool-Down (S3) if = 2.5 METs, Verbalizes symptoms of exercise intolerance by Session 3 (S3) and Demonstrate safe equipment use (S3) & follows exercise prescrition (6) Intervention & Plan Plan/Intervention: Instruct warm-up & cool-down if exercising at > 2 METs, Instruct on symptoms of exercise intolerance & actions to take, Instruct & monitor on saf and Assess intial functional capacity & safety risk 30-day Reassessments 30 day Reassessments:: Met Exercise - 60-day Assessment Physician Prescribed Exercise Modalities: Treadmill, Schwinn Airdyne AD-7 and SciFit Stepper Exercise - 90-day Assessment Physician Prescribed Exercise Modalities: Treadmill, Schwinn Airdyne AD-7 and SciFit Stepper Exercise - Final/Discharge Physician Prescribed Exercise Modalities: Treadmill, Schwinn Airdyne AD-7 and SciFit Stepper Nutrition - 30-Day Assessment Program Goals Nutrition Program Goals Patient has diagnosis of Hyperlipidemia (ICD E78)?: Yes Visit Date of Eval: 09/08/23 Session #:: 6 Cholesterol/Lipids (Other Core Measures) Triglycerides (mg/dL): 103 Total Cholesterol (mg/dL): 178 LDL Cholesterol (mg/dL): 116 HDL Cholesterol (mg/dL): 41 Determine presence & major risk factors that modify LDL goal: Hypertension or hypertensive medication and Age men > 45 years; women >/= 55 years Outcomes/Goals: Pt IDs own risk factors & lifestyle modifications by Session 10, Verbalizes symptoms of angina & response by session 3. and Pt independently manages Intervention/Plan: Instruct on personal lipid levels & lipid goals/NCEP guidelines and Instruct on cholesterol Referral to dietitian:: Yes 30-day Reassessments:: Progressing Diabetes (Other Core Measures) Diabetes Type: Not Applicable Weight Mgt (Other Care) Height: 6 ft Weight:: 309 lb BMI: 41.9 Diagnosis Overweight/Obesity BMI> 30% ICD-10 E66: Yes Diagnosis High BMI/Morbid Obesity BMI> 35% ICD-10 Z68: Yes Outcomes/Goals: Pt sets, maintains & shows weight loss goal & trend during rehab Intervention/Plan: Instruct on ideal BMI & set weight loss goal w/patient, Assist pt to ID & incorporate diet changes for weight loss by S9, Refer to Structured Weight Loss program as appropriate and Encourage goal of using 250-300dcal per session for weight loss 30 day Reassessments:: Progressing Healthy Eating Habits Will attend diet classes:: Yes Outcomes/Goals:: Consume diet rich in vegs,fruits,whole grain/high fiber,fish,lean meat and Limit sat/trans fats,cholesterol & added salts & sugars Intervention/Plan:: Assess current eating habits 30-day Reassessments:: Progressing Education Gave educational materials for:: Healthy eating Nutrition - 60-Day Assessment Weight Mgt (Other Care) Height: 6 ft Weight:: 309 lb BMI: 41.9 Core - 30-Day Assessment Visit Date of Eval: 09/08/23 Session #:: 6 Medication Compliance Preventative Medication(s):: Aspirin, Ticagrelor/P2Y12 inhibitor, Statin/lipid and Beta tej H/O mental health issues: depression, anxiety, or addiction?: No Doesn?t believe in the benefits of treatment?: No Believes medications are unnecessary or harmful?: No Has a concern about medication side effects?: No Expresses concern over the cost of medications?: No Outcomes/Goals: Verbalizes medications,desired effect & common side effects @ DC, Pt self-reports following medication regimen and Keeps card in wallet w/medications listed by DC Interventions/plans: Instruct on medication effects & side effects, Review medication list w/patient every two weeks and Instruct importance of taking meds as ordered & assist problem solving 30-day Reassessments:: Met Tobacco Use Tobacco Use: Non-smoker Hypertension Hypertension Diagnosis:: Hypertension ICD-10 I10 Resting Blood Pressure:: 128/84 [place] [employer] Hypertension Guidelines Peak Exercise Blood Pressure:: 160/98 Outcomes/Goals: Able to verbalize/achieve optimal blood pressure <130/80 and Incorporates diet changes & exercise for blood pressure control by DC Interventions/plan: Instruct on optimal blood pressure, hypertension & medications and Instruct on effects of sodium, alcohol, stress, exercise &hypertension 30 day Reassessments:: Progressing Tobacco Cessation Referral Smoking Cessation Referral:: No Individual Education/Counseling:: No Education Schedule Given:: Yes Psychosocial - 30-Day Assess VIsit Date of Eval: 09/08/23 Session #:: 6 Not Applicable: Yes History of previous Mental disease:: No Target Goals Target Goals Psychosocial Test Tool Used:: PHQ-9 Questionnaire phq-9 Severity Referral to Behavioral Health PS - Interventions: Yes: Attend Stress Management Classes and No: Referral to Behavioral Health if PHQ-9 score >9:, No: Referral to [facility] and No: Referral to Physician if PHQ-9 if score is 5-9: Outcomes/Goals: See list Psychosocial Outcomes/Goals:: ID's personal stressors & 2 strategies to manage stress by discharge Intervention/Plan: See List Interventions/Plan:: Instruct/assist pt to develop coping & personal stress Mgt strategies, Instruct patient to recognize signs & symptoms of depression and Instruct patient to recog 30-day Reassessments: 30 day Reassessments:: Met Psychosocial - 60-Day Assess Target Goals Target Goals Referral to Behavioral Health PS - Interventions: Yes: Attend Stress Management Classes and No: Referral to Behavioral Health if PHQ-9 score >9:, No: Referral to [facility] and No: Referral to Physician if PHQ-9 if score is 5-9: Outcomes/Goals: See list Psychosocial Outcomes/Goals:: ID's personal stressors & 2 strategies to manage stress by discharge Psychosocial - 90-Day Assess Target Goals Target Goals Referral to Behavioral Health PS - Interventions: Yes: Attend Stress Management Classes and No: Referral to Behavioral Health if PHQ-9 score >9:, No: Referral to [facility] and No: Referral to Physician if PHQ-9 if score is 5-9: Psychosocial - Final Assessmen Target Goals Target Goals Referral to Behavioral Health PS - Interventions: Yes: Attend Stress Management Classes and No: Referral to Behavioral Health if PHQ-9 score >9:, No: Referral to [facility] and No: Referral to Physician if PHQ-9 if score is 5-9: Nutrition - 90-Day Assessment Weight Mgt (Other Care) Height: 6 ft Weight:: 309 lb BMI: 41.9 Nutrition - Final Assessment Weight Mgt (Other Care) Height: 6 ft Weight:: 309 lb BMI: 41.9
[2023-09-08 05:08] VITALS: BP 128/84
[2023-09-08 05:12] VITALS: BP 128/84; BMI 41.9
== END 2023-09-19 23:59 ==
LOC: CR 06:30
PROVIDERS: PCP Family Medicine; Referring Provider Internal Medicine Cardiovascular Disease; Visit Provider Internal Medicine Cardiovascular Disease
DX: Z95.5 Presence of coronary angioplasty implant and graft (principal); I51.9 Heart disease, unspecified; I25.10 Atherosclerotic heart disease of native coronary artery without angina pectoris; I21.02 ST elevation (STEMI) myocardial infarction involving left anterior descending coronary artery
CPT/HCPCS: 93798

== ENCOUNTER 2023-09-20 06:03 | Outpatient (RCR) | payer OTHER, SELFPAY ==
[2023-09-20 00:17] VITALS: BP 128/84; BMI 40.5
== END 2023-10-20 23:59 ==
LOC: CR 06:03
PROVIDERS: PCP Family Medicine; Referring Provider Internal Medicine Cardiovascular Disease; Visit Provider Internal Medicine Cardiovascular Disease
DX: Z95.5 Presence of coronary angioplasty implant and graft (principal); I25.10 Atherosclerotic heart disease of native coronary artery without angina pectoris; I21.02 ST elevation (STEMI) myocardial infarction involving left anterior descending coronary artery; I21.3 ST elevation (STEMI) myocardial infarction of unspecified site
CPT/HCPCS: 93798

== ENCOUNTER → 2024-03-17 | Outpatient (CLI) | payer OTHER, SELFPAY ==
[2024-02-25 15:35] VITALS: BMI 41.9
[2024-03-17 09:29] LABS: AST(SGOT) 40 U/L (15-37); Alanine Aminotransfer ALT/SGPT 87 U/L (16-61); Albumin, Serum 3.7 g/dL (3.2-5.0); Alkaline Phosphatase 52 U/L (45-117); Bilirubin, Direct 0.12 mg/dL (0.00-0.30); Cholesterol 167 mg/dL (200); Globulin 3.9 g/dL (2.2-4.2); High Density Lipoprotein 38 mg/dL; Protein, Total 7.6 g/dL (6.4-8.2); Triglycerides 205 mg/dL; Very Low Density Lipoprotein 41 mg/dL (5-40)
== END | disposition home or self-care (01) ==
LOC: LAB 07:19
PROVIDERS: PCP Family Medicine; Referring Provider Nurse Practitioner Family; Visit Provider Nurse Practitioner Family
DX: I10 Essential (primary) hypertension (principal); E78.2 Mixed hyperlipidemia; Z95.5 Presence of coronary angioplasty implant and graft; Z72.0 Tobacco use
CPT/HCPCS: 36415; 80061; 80076

== ENCOUNTER 2025-01-10 14:30 | Emergency (ER) | payer OTHER, SELFPAY ==
[2024-02-25 15:35] VITALS: BMI 41.9
[2025-01-10 14:31] VITALS: BP 199/176; PULSE 92; RESP 16; TEMP 36.2; O2SAT 100; BMI 44.1
[2025-01-10 15:21] LABS: Hematocrit 48.0 % (40-54); Hemoglobin 16.4 g/dL (13.0-16.5); Immature Granulocytes Count 0.020 X10^3/uL (0.0-0.0); Mean Corp Hgb Conc 34.2 g/dL (32-36); Mean Corpuscular Volume 91.1 fL (80-94); Mean Platelet Vol. 10.3 fl (6.2-12.0); NRBC Flagged by Analyzer 0 % (0-5); Platelet Count 210 K/mm3 (150-450); RBC Distribution Width CV 14.3 % (11.6-14.6); RBC Distribution Width SD 47.8 fl (35.1-43.9); Red Blood Count 5.27 M/mm3 (4.6-6.2); White Blood Count 6.7 K/mm3 (4.4-11.0)
[2025-01-10 15:40] VITALS: BP 135/101; PULSE 90; RESP 18; O2SAT 98
[2025-01-10 15:54] LABS: Anion Gap 11 (5-15); BUN 16 mg/dL (4-19); BUN/Creat Ratio 15.0 RATIO (10-20); Calcium,Total 9.2 mg/dL (7.6-11.0); Carbon Dioxide 22.8 mmol/L (21.0-32.0); Chloride 103 mmol/L (98-108); Estimated Creatinine Clearance 129.75 ml/min (50-250); Glucose 120 mg/dL (70-99); Potassium 4.2 mmol/L (3.3-5.1); Troponin T High Sensitivity 13 ng/L (<=22)
[2025-01-10 16:49] LABS: Magnesium 2.0 mg/dL (1.5-2.2)
[2025-01-10 16:59] VITALS: BP 144/110; PULSE 97; RESP 16; O2SAT 96
[2025-01-10] MEDS: APIXABAN 5 MG TABLET PO (17:46)
[2025-01-10 17:48] VITALS: BP 144/110; PULSE 97; RESP 16; TEMP 36.2; O2SAT 96
[2025-01-10 17:49] LABS: Troponin T High Sens 2 HR 14 ng/L (<=22)
== END 2025-01-10 17:49 | disposition home or self-care (01) ==
PROVIDERS: Emergency Provider Emergency Medicine; PCP Family Medicine; Visit Provider Emergency Medicine
DX: I48.91 Unspecified atrial fibrillation (principal); I10 Essential (primary) hypertension; I25.2 Old myocardial infarction; I25.10 Atherosclerotic heart disease of native coronary artery without angina pectoris; Z95.5 Presence of coronary angioplasty implant and graft; Z79.02 Long term (current) use of antithrombotics/antiplatelets; Z79.82 Long term (current) use of aspirin; Z79.899 Other long term (current) drug therapy; Z87.891 Personal history of nicotine dependence
CPT/HCPCS: 71045; 71275; 80048; 83735; 84443; 84484; 85025; 93005; 99284; Q9967; A4216

== ENCOUNTER → 2025-01-12 | Outpatient (CLI) | payer OTHER, SELFPAY ==
[2024-02-25 15:35] VITALS: BMI 41.9
[2025-01-12 15:25] LABS: Pro- Brain NATRIURETIC PEPTIDE 1534 pg/mL (<=450)
[2025-01-12 15:28] LABS: Anion Gap 10 (5-15); BUN 15 mg/dL (4-19); BUN/Creat Ratio 13.4 RATIO (10-20); Calcium,Total 9.2 mg/dL (7.6-11.0); Carbon Dioxide 23.7 mmol/L (21.0-32.0); Chloride 105 mmol/L (98-108); Glucose 119 mg/dL (70-99); Potassium 4.1 mmol/L (3.3-5.1)
== END | disposition home or self-care (01) ==
LOC: LAB 14:23
PROVIDERS: PCP Family Medicine; Referring Provider Nurse Practitioner Gerontology; Visit Provider Nurse Practitioner Gerontology
DX: R06.02 Shortness of breath (principal)
CPT/HCPCS: 36415; 80048; 83880

== ENCOUNTER → 2025-01-22 | Outpatient (CLI) | payer OTHER, SELFPAY ==
[2024-02-25 15:35] VITALS: BMI 41.9
[2025-01-22 08:42] LABS: Anion Gap 10 (5-15); BUN 15 mg/dL (4-19); BUN/Creat Ratio 14.1 RATIO (10-20); Calcium,Total 9.2 mg/dL (7.6-11.0); Carbon Dioxide 24.6 mmol/L (21.0-32.0); Chloride 102 mmol/L (98-108); Glucose 119 mg/dL (70-99); Potassium 4.6 mmol/L (3.3-5.1); Pro- Brain NATRIURETIC PEPTIDE 1042 pg/mL (<=450)
[2025-01-22 08:53] LABS: Cholesterol 129 mg/dL (<=200); Low Density Lipoprotein Calc. 68 mg/dL; Triglycerides 106 mg/dL; Very Low Density Lipoprotein 21 mg/dL (5-40); cholesterol:hdl ratio screen 3.09
[2025-01-22 08:54] LABS: AST(SGOT) 41 U/L (<=37); Alanine Aminotransfer ALT/SGPT 72 U/L (<=46); Albumin, Serum 4.4 g/dL (3.5-5.0); Alkaline Phosphatase 57 U/L (40-129); Bilirubin, Direct 0.19 mg/dL (0.00-0.30); Globulin 3.5 g/dL (2.2-4.2)
== END | disposition home or self-care (01) ==
PROVIDERS: Nurse Practitioner Family; PCP Family Medicine; Referring Provider Nurse Practitioner Gerontology; Visit Provider Nurse Practitioner Gerontology
DX: E78.2 Mixed hyperlipidemia (principal); R06.02 Shortness of breath
CPT/HCPCS: 36415; 80048; 80061; 80076; 83880

== ENCOUNTER → 2025-02-06 | Outpatient (CLI) | payer OTHER, SELFPAY ==
[2024-02-25 15:35] VITALS: BMI 41.9
[2025-02-06 15:50] LABS: Anion Gap 12 (5-15); BUN 21 mg/dL (4-19); BUN/Creat Ratio 18.5 RATIO (10-20); Calcium,Total 9.0 mg/dL (7.6-11.0); Carbon Dioxide 22.0 mmol/L (21.0-32.0); Chloride 104 mmol/L (98-108); Glucose 118 mg/dL (70-99); Potassium 4.3 mmol/L (3.3-5.1)
--- OUTSIDE RECORDS SUMMARY | 2025-02-06 19:01 | XMS RPT_ITS | CCD ---
Author Organization [facility] Care Team Providers Care Inseam Trimmer Name Role Phone Cash Puentes MD Primary Care Provider Dr. Cash Puentes Primary Care Provider Dr. Bishnu Barraza Emergency Provider Dr. Barry Ojeda Admit Provider Dr. Barry Ojeda Attending Provider Dr. Barry Ojeda Other Provider Cash Puentes MD Primary Care Provider Cash Puentes MD Primary Care Provider Dr. Cash Puentes Primary Care Provider Dr. Nathen Haynes Emergency Provider [phone] Dr. Marisa Lopez Admit Provider Dr. Marisa Lopez Referring Provider Dr. Marisa Lopez Other Provider Dr. Armand Worley Attending Provider Unavail able Dr. Marisa Lopez Attending Provider Dr. Babita Carreno Admit Provider Dr. Babita Carreno Attending Provider Dr. Babita Carreno Other Provider Cash Puentes MD Primary Care Provider CASH PUENTES Primary Care Unavailable MIRLANDE LAL Attending Unavailable Justino Kapoor Attending Unavailable Cash Puentes Primary Care Unavailable Cash Puentes Primary Care Unavailable Aditya MEDICAL OFFICE COORDINATOR, Lizzie Referring Unavailable Aditya MEDICAL OFFICE COORDINATOR, Lizzie Attending Unavailable DhavalCash arboleda Primary Care Unavailable Burgess MEDICAL OFFICE COORDINATOR, Lizzie Referring Unavailable Burgess MEDICAL OFFICE COORDINATOR, Lizzie Attending Unavailable Burgess MEDICAL OFFICE COORDINATOR, Lizzie Attending Unavailable [place] Primary Care Unavailable Aditya MEDICAL OFFICE COORDINATOR, Lizzie Referring Unavailable Marisa Lopez Attending Unavailable Dhaval, Cash Referring Unavailable [place], Cash Primary Care Unavailable [place], Cash Referring Unavailable Burgess MEDICAL OFFICE COORDINATOR, Lizzie Attending Unavailable Dhaval, Cash Primary Care Unavailable Burgess MEDICAL OFFICE COORDINATOR, Lizzie Attending Unavailable Burgess MEDICAL OFFICE COORDINATOR, Lizzie Referring Unavailable [place], Cash Primary Care Unavailable [place], Cash Primary Care Unavailable George Mast Attending Unavailable George Mast Referring Unavailable Dr. Cash Puentes MD Primary Care Physician Dr. Justino Kapoor DO Attending Physician Dr. Justino Kapoor DO Emergency Department Physi kamilla Dr. Cash Puentes MD Referring Provider [phone] Aditya MEDICAL OFFICE COORDINATOR-CLizzie Attending Physician [phone] Aditya MEDICAL OFFICE COORDINATOR-CLizzie Referring Provider [phone] Allergies Allergy Classification Reported Allergen(s) Allergy Type Date of Onset Reaction(s) Facility Angiotensin Converting Enzyme (MALLORY) Inhibitors (1 source) Lisinopril Drug Allergy 3 Other: See Comments [facility] (11 sources) Lisinopril; Translations: [LISINOPRIL] Drug Allergy 3 Other: See Comments [facility] (1 source) Lisinopril Drug Allergy 5 [facility] Repository Medications Current Medications Medication Drug Class(es) Dates Sig (Normalized) Sig (Original) amLODIPine 5 mg oral tablet (19 sources) Dihydropyridine Calcium Channel Tej Start: 01-15-2025 take 1 tablet by mouth once daily Start: 01-12-2025 End: 01-15-2025 take 1 tablet by mouth once daily Amlodipine 5 mg tablet Discontinued 5 mg PO DAILY 30 January 12, 2025 12:59pm January 15, 2025 1:48pm Start: 06-22-2024 End: 01-12-2025 take 5 mg by mouth once daily Amlodipine 10 mg tablet Discontinued 5 mg PO DAILY 90 November 16, 2024 11:27am January 12, 2025 1:04pm Start: 11-26-2021 End: 06-22-2024 take 1 tablet by mouth once daily Amlodipine 10 mg tablet Discontinued 10 mg PO DAILY 90 3 August 30, 2023 1:16pm June 22, 2024 11:15am Comment on above: Take 1 tablet by eduin once daily. amoxicillin 875 mg oral tablet (1 source) Penicillin-class Antibacterial Start: 2 End: 2 take 1 tablet by mouth twice daily amoxicillin (AMOXIL) 875 mg tablet Take 1 tablet by mouth twice daily for 10 days. 20 tablet 0 07/10/2021 07/20/2021 Active Comment on above: Take 1 tablet by eduin th twice daily for 10 days. apixaban 5 mg oral tablet (2 sources) Factor Xa Inhibitor Start: take 1 tablet by mouth twice daily Start: 01-10-2025 End: 01-12-2025 take 1 tablet by mouth twice daily Apixaban (Eliquis) 5 mg tablet Discontinued 5 mg PO TWICE A DAY 60 0 January 09, 2025 11:00pm January 12, 2025 1:04pm aspirin 81 mg delayed release oral tablet (6 sources) Platelet Aggregation Inhibitor, Nonsteroidal Anti-inflammatory Drug Start: 07-29-2023 End: 01-10-2025 take 1 tablet by mouth once daily aspirin, enteric coated (ASPIRIN, ENTERIC COATED) 81 mg EC tablet Take 1 tablet by mouth once daily. 0 08/03/2023 Active carvedilol 12.5 mg oral tablet (11 sources) alpha-Adrenergic Tej, beta-Adrenergic Tej Start: 01-12-2025 take 1 tablet by mouth twice daily at mealtime Start: 01-10-2025 End: 01-12-2025 take 1 tablet by mouth twice daily at mealtime Carvedilol 12.5 mg tablet Discontinued 12.5 mg PO TWICE A DAY 60 0 January 09, 2025 11:00pm January 12, 2025 1:04pm must administer with a meal/food Start: 08-09-2024 End: 01-10-2025 take 1 tablet by mouth twice daily at mealtime Carvedilol 3.125 mg tablet Discontinued 3.125 mg PO TWICE A DAY 180 August 08, 2024 11:00pm January 10, 2025 4:13pm must administer with a meal/food Start: 07-29-2023 take 1 tablet by eduin th every twelve hours carvedilol (COREG) 6.25 mg tablet Take 1 tablet by mouth every 12 hours. 0 07/29/2023 Active Start: 07-29-2023 End: 08-09-2024 take 1 tablet by mouth twice daily Carvedilol 6.25 mg tablet Discontinued 6.25 mg PO TWICE A DAY 180 April 19, 2024 9:57am August 09, 2024 7:48am furosemide 40 mg oral tablet (3 sources) Loop Diuretic Start: 01-22-2025 take 1 tablet by eduin th once daily Start: 01-12-2025 End: 01-22-2025 take 1 tablet by mouth once daily Furosemide (Lasix) 40 mg tablet Discontinued 40 mg PO daily 30 January 15, 2025 1:48pm January 22, 2025 12:56pm ketoconazole 20 mg/ml medicated shampoo (2 sources) Azole Antifungal Start: 09-03-2023 ketoconazole (NIZORAL) 2 % shampoo Apply to affected area two times a week. 120 mL 1 09/03/2023 Active lovastatin 40 mg oral tablet (1 source) HMG-CoA Reductase Inhibitor Start: 04-19-2024 take 1 tablet by mouth once daily methylPREDNISolone (1 source) Corticosteroid Start: 10-22-2022 End: 10-28-2022 methylPREDNISolone (MEDROL, JANICE,) 4 mg Dose-Pack Follow dosing instructions, take with food. 21 tablet 0 10/22/2022 10/28/2022 Active Comment on above: Follow dosing instru ctions, take with food. naproxen sodium 220 mg oral capsule (15 sources) Nonsteroidal Anti-inflammatory Drug Start: 04-19-2024 take 1 capsule by mouth once daily as needed Start: 11-18-2019 End: 11-24-2021 take 1 tablet by mouth twice daily as needed Naproxen 500 mg tablet Discontinued 500 mg PO TWICE DAILY NEEDED November 22, 2021 11:00pm November 24, 2021 7:01am omeprazole 20 mg delayed release oral capsule (19 sources) Proton Pump Inhibitor Start: 12-01-2021 End: 04-19-2024 take 1 capsule by mouth once daily as needed for gastroesophageal reflux disease Comment on above: Take 1 capsule by mouth daily before chad akfast. 1/2 hr before meal. Semaglutide (1 source) Start: 08-21-2024 End: 01-12-2025 Semaglutide (Ozempic) 0.25 mg or 0.5 mg (2 mg/3 mL) pen injector Discontinued 0.25 mg SC EVERY WEEK 3 August 20, 2024 11:00pm January 12, 2025 12:57pm For Coronary Artery Disease for 4 weeks sildenafil 25 mg oral tablet (2 sources) Phosphodiesterase 5 Inhibitor Start: 09-06-2023 End: 09-13-2024 tadalafil 10 mg oral tablet (1 source) Phosphodiesterase 5 Inhibitor Start: 12-01-2021 End: 05-30-2022 take 1 tablet by mouth once daily Tadalafil (CIALIS) 10 mg tablet Indications: ED (erectile dysfunction) of organic origin Take 1 tablet by mouth once daily. 30 tablet 5 12/01/2021 05/30/2022 Active Comment on above: Take 1 tablet by mouth once daily. Completed/Discontinued Medications Medication Drug Class(es) Dates Sig (Normalized) Sig (Original) acetaminophen 325 mg / oxyCODONE hydrochloride 5 mg oral tablet (7 sources) Opioid Agonist Start: 11-18-2019 End: 11-21-2019 Oxycodone-Acetamino phen 1 TABLET tablet Discontinued 1 {tbl} PO EVERY 6 HOURS NEEDED as needed for Pain 12 3 0 November 18, 2019 November 19, 2019 11:00pm November 20, 2019 11:02pm Knee pain Pain in unspecified knee Start: 11-18-2019 End: 11-21-2019 take 1 tablet by mouth every six hours as needed Oxycodone-Acetaminophen Discontinued 1 TABLET PO EVERY 6 HOURS NEEDED 12 3 November 18, 2019 November 21, 2019 12:02am atorvastatin 80 mg oral tablet (8 sources) HMG-CoA Reductase Inhibitor Start: 07-29-2023 End: 04-19-2024 take 1 tablet by mouth once daily in the morning Atorvastatin 80 mg tablet Discontinued 80 mg PO EVERY MORNING 90 September 13, 2023 9:45am April 19, 2024 3:00pm cephalexin 500 mg oral capsule (4 sources) Cephalosporin Antibacterial Start: 10-25-2022 End: 07-27-2023 take 1 capsule by mouth every six hours Cephalexin 500 mg capsule Discontinued 500 mg PO EVERY 6 HOURS 40 0 October 24, 2022 11:00pm July 27, 2023 9:50pm cetirizine hydrochloride 10 mg oral tablet (13 sources) Histamine-1 Receptor Antagonist Start: 11-13-2019 End: 11-24-2021 take 1 tablet by mouth once daily Cetirizine 10 MG tablet Discontinued 10 mg PO DAILY November 12, 2019 11:00pm November 24, 2021 7:00am End: 08-03-2023 cetirizine HCl (ZYRTEC ORAL) Take by mouth. 0 08/03/2023 Discontinued (Other) cetirizine HCl ( ZYRTEC ORAL) Take by mouth. 0 Active Comment on above: Take by mouth. clopidogrel 75 mg oral tablet (2 sources) P2Y12 Platelet Inhibitor Start : 11-07 End: 01-10 take 1 tablet by mouth once daily Clopidogrel 75 mg tablet Discontinued 75 mg PO .COMPLEX 90 3 August 09, 2024 7:50am January 10, 2025 4:13pm 75 mg orally 4 tablets on first day for loading dose, then 1 tablet by mouth daily; STOP after August 25 2024. cyclobenzaprine hydrochloride 10 mg oral tablet (5 sources) Muscle Relaxant Start : 04-19 End: 09-02 take 1 tablet by mouth three times daily as needed for muscle spasms cyclobenzaprine (FLEXERIL) 10 mg tablet Indications: Left sided sciatica Take 1 tablet by mouth three times a day as needed for muscle spasm. 15 tablet 0 04/19/2023 09/03/2023 Discontinued Comment on above: Take 1 tablet by [facility] three times a day as needed for muscle spasm. diphenhydrAMINE hydrochloride 25 mg oral capsule (5 sources) Histamine-1 Receptor Antagonist Start : 11-25 End: 10-25 take 1 capsule by mouth three times daily as needed Diphenhydramine Hcl (Benadryl) 25 mg capsule Discontinued 25 mg PO THREE TIMES A DAY as needed for allergic reaction 30 0 November 24, 2021 11:00pm October 25, 2022 7:40pm famotidine 20 mg oral tablet (12 sources) Histamine-2 Receptor Antagonist Start : 11-23 End: 10-25 take 1 tablet by mouth twice daily Famotidine 20 mg Tablet Discontinued 20 mg PO TWICE A DAY 60 0 November 24, 2021 11:00pm October 25, 2022 7:40pm hydroCHLOROthiazide 25 mg oral tablet (7 sources) Thiazide Diuretic Start : 07-28 End: 05-30 take 1 tablet by mouth once daily Hydrochlorothiazide 25 mg tablet Discontinued 25 mg PO DAILY 90 3 August 19, 2023 12:58pm May 30, 2024 3:19pm hydrOXYzine pamoate 25 mg oral capsule (5 sources) Antihistamine Start : 11-25 End: 10-25 take 1 capsule by mouth four times daily as needed Hydroxyzine Pamoate 25 mg Capsule Discontinued 25 mg PO 4 TIMES DAILY NEEDED as needed for Itching 60 0 November 24, 2021 11:00pm October 25, 2022 7:40pm lisinopril 40 mg oral tablet (10 sources) Angiotensin Converting Enzyme Inhibitor Start : 11-12 End: 12-01 take 1 tablet by mouth once daily Lisinopril 40 MG tablet Discontinued 40 mg PO DAILY 30 0 November 12, 2019 11:00pm November 25, 2021 1:25pm Comment on above: Take 1 tablet by eduin once daily. meloxicam 15 mg oral tablet (8 sources) Nonsteroidal Anti-inflammatory Drug Start : 11-02 End: 09-02 take 1 tablet by mouth once daily Meloxicam 15 mg tablet Discontinued 15 mg PO DAILY 30 1 November 01, 2022 11:00pm July 27, 2023 9:50pm Do not take in conjunction with other NSAID. Tylenol is okay. predniSONE 20 mg oral tablet (12 sources) Start : 11-24 End: 10-25 take 2 tablets by mouth once daily Prednisone 20 mg tablet Discontinued 40 mg PO DAILY 10 November 24, 2021 11:00pm October 25, 2022 7:42pm Start: 11-24-2021 End: 10-25-2022 take 40 mg by mouth once daily Prednisone Discontinued 40 MG PO DAILY November 25, 2021 12:00am October 25, 2022 8:42pm Semaglutide (Weight Loss) (2 sources) Start: 03-21-2024 End: 04-14-2024 Semaglutide (Weight Loss) (W egovy) 0.25 mg/0.5 mL pen injector Discontinued 0.25 mg SC EVERY WEEK 2 0 March 21, 2024 8:40am April 14, 2024 9:40am Morbid obesity with body mass index (BMI) of 40.0 to 44.9 in adult History of cardiac catheterization Presence of stent in coronary artery Hypertension Morbid (severe) obesity due to excess calories Body mass index [BMI] 40.0-44.9, adult Other specified postprocedural states Presence of coronary angioplasty implant and graft Essential (primary) hypertension administer weeks 1 through 4 of therapy Start: 03-17-2024 End: 03-21-2024 Semaglutide (Weight Loss) (W egovy) 0.25 mg/0.5 mL pen injector Discontinued 0.25 mg SC EVERY WEEK 2 0 March 17, 2024 12:00am March 21, 2024 8:41am Morbid obesity with body mass index (BMI) of 40.0 to 44.9 in adult History of cardiac catheterization Presence of stent in coronary artery Hypertension Morbid (severe) obesity due to excess calories Body mass index [BMI] 40.0-44.9, adult Other specified postprocedural states Presence of coronary angioplasty implant and graft Essential (primary) hypertension administer weeks 1 through 4 of therapy spironolactone 25 mg oral tablet (8 sources) Aldosterone Antagonist Start: 07-29-2023 take 0.5 tablet by mouth once spironolactone (ALDACTONE) 25 mg tablet Take 0.5 tablets by mouth every afternoon. 0 07/29/2023 Active Start: 07-29-2023 End: 09-13-2023 Spironolactone 25 mg tablet Discontinued 12.5 mg PO DAILY 45 September 06, 2023 1:05pm September 13, 2023 9:34am Start: 07-29-2023 take 12.5 mg by mout h once daily Spironolactone Active 12.5 MG PO DAILY July 29, 2023 12:00am ticagrelor 90 mg oral tablet (7 sources) Start: 07-29-2023 take 1 tablet by mouth every twelve hours BRILINTA 90 mg tablet Take 1 tablet by mouth every 12 hours. 0 07/29/2023 Active Start: 07-29-2023 End: 11-08-2023 take 1 tablet by mouth twice daily Ticagrelor (Brilinta) 90 mg tablet Discontinued 90 mg PO TWICE A DAY 60 11 August 19, 2023 12:58pm November 08, 2023 8:55am Tirzepatide (Weight Loss) (2 sources) Start: 04-14-2024 End: 08-01-2024 Tirzepatide (Weight Loss) (Z epbound) 2.5 mg/0.5 mL pen injector Discontinued 2.5 mg SC EVERY WEEK 2 0 April 14, 2024 9:45am August 01, 2024 8:55am for 4 weeks Start: 04-14-2024 End: 04-14-2024 Tirzepatide (Weight Loss) (Z epbound) 2.5 mg/0.5 mL pen injector Discontinued 2.5 mg SC EVERY WEEK April 14, 2024 12:00am April 14, 2024 9:45am for 4 weeks triamcinolone acetonide 0.001 mg/mg topical ointment (4 sources) Corticosteroid Start: 08-03-2023 End: 09-03-2023 triamcinolone acetonide (KENALOG) 0.1 % ointment Indications: Essential hypertension Apply to affected area two times a day. 15 g 0 08/03/2023 09/03/2023 Discontinued Start: 06-02-2023 End: 06-12-2023 triamcinolone acetonide (CHARU ALOG) 0.1 % cream Indications: Dermatitis of external ear Apply 1 application to affected area two times a day for 10 days. Apply to affected area. Location: external ears 15 g 0 06/02/2023 06/12/2023 Active Comment on above: Apply 1 application to affected area two times a day for 10 days. Apply to affected area. Location: external ears Problems Active Problems Problem Classification Problem Date Documented Da te Episodic/Chronic Acute and unspecified renal failure (9 sources) Injury of kidney; Translations: [Acute kidney failure, unspecified] Episodic Acute myocardial infarction (11 sources) Myocardial infarction; Translations: [ST elevation (STEMI) myocardial infarction of unspecified site] Onset: 07-21-2023 07-28-2023 Chronic Allergic reactions (20 sources) Urticaria; Translations: [Urticaria, unspecified] Episodic Cardiac dysrhythmias (9 sources) Ventricular arrhythmia; Translations: [Ventricular premature depolarization] Onset: 01-10-2025 07-28-2023 Chronic Cardiac dysrhythmias (2 sources) Bradycardia; Translations: [Bradycardia, unspecified] Onset: 01-29-2025 08-03-2023 Episodic Coronary atherosclerosis and other heart disease (4 sources) Coronary arteriosclerosis; Translations: [Atherosclerotic heart disease of [place] coronary artery without angina pectoris] Onset: 04-19-2024 07-28-2023 Chronic Disorders of lipid metabolism (5 sources) Pure hypercholesterolem ia, unspecified; Translations: [Mixed hyperlipidemia] Onset: 04-19-2024 08-19-2023 Chronic Essential hypertension (20 sources) Essential hypertension; Translations: [Essential (primary) hypertension] Onset: 03-08-2018 03-08-2018 Chronic Fluid and electrolyte disorders (3 sources) Hypokalemia; Translations: [Hypokalemia] 07-28-2023 Episodic Immunizations and screening for infectious disease (3 sources) Viral screening status; Translations: [Encounter for screening for other viral diseases] Episodic Nonspecific chest pain (4 sources) Chest pain; Translations: [Chest pain, unspecified] Onset: 01-20-2025 07-28-2023 Episodic Other and ill-defined heart disease (2 sources) Left ventricular systolic dysfunction; Translations: [Heart disease, unspecified] 07-28-2023 Chronic Other and ill-defined heart disease (1 source) Heart disease, unspecified; Translations: [Heart disease, unspecified] 07-29-2023 Chronic Other connective tissue disease (7 sources) Infected bursa; Translations: [Other infective bursitis, unspecified site] 10-25-2022 Episodic Other gastrointestinal disorders (3 sources) Heartburn; Translations: [Heartburn] Episodic Other gastrointestinal disorders (1 source) Intra-abdominal and pelvic swelling, mass and lump, unspecified site; Translations: [Intra-abdominal and pelvic swelling, mass and lump, unspecified site] Onset: 01-10-2025 Episodic Other gastrointestinal disorders (1 source) Heartburn; Translations: [Heartburn] Onset: 01-10-2025 Episodic Other inflammatory condition of skin (7 sources) Erythema multiforme minor; Translations: [Erythema multiforme, unspecified] 12-02-2021 Episodic Other lower respiratory disease (2 sources) Dyspnea; Translations: [Shortness of breath] 08-03-2023 Episodic Other lower respiratory disease (1 source) Snoring; Translations: [Snoring] 09-03-2023 Episodic Other lower respiratory disease (3 sources) Shortness of breath; Translations: [SOB (shortness of breath)] Onset: 01-10-2025 Episodic Other male genital disorders (2 sources) Secondary erectile dysfunction; Translations: [Male erectile dysfunction, unspecified] Chronic Other male genital disorders (2 sources) Male erectile dysfunction, unspecified; Translations: [Erectile dysfunction] Onset: 04-19-2024 04-19-2024 Chronic Other nutritional; endocrine; and metabolic disorders (13 sources) Body mass index 40+ - severely obese; Translations: [Morbid (severe) obesity due to excess calories] Onset: 07-26-2017 07-26-2017 Chronic Other nutritional; endocrine; and metabolic disorders (2 sources) Morbid (severe) obesity due to excess calories; Translations: [Morbid obesity] Onset: 04-19-2024 07-29-2023 Chronic Other nutritional; endocrine; and metabolic disorders (1 source) Morbid obesity; Translations: [Morbid (severe) obesity due to excess calories] 04-19-2024 Chronic Other screening for suspected conditions (not mental disorders or infectious disease) (4 sources) Patient encounter status; Translations: [Encounter for screening for lipoid disorders] Episodic Other skin disorders (1 source) Ingrowing nail; Translations: [Ingrowing nail] 08-03-2023 Episodic Residual codes; unclassified (8 sources) Tobacco user; Translations: [Tobacco use] 11-25-2021 Episodic Residual codes; unclassified (3 sources) Tobacco use; Translations: [Tobacco use disorder] Episodic Substance-related disorders (3 sources) Nicotine dependence; Translations: [Nicotine dependence, unspecified, uncomplicated] 07-28-2023 Chronic Past or Other Problems Problem Classification Problem Date Documented Date Episodic/Chronic Coronary atherosclerosis and other heart disease (4 sources) Stented coronary artery; Translations: [Presence of coronary angioplasty implant and graft] Onset: 07-21-2023 07-28-2023 Episodic Comment on above: prox LAD- IZZY 3.0 x 8 mm [place] and 3.0 x 30 mm [place] 5/8/24; IZZY Mid/distal RCA using [place] 3.0x26 mm 08/26/23; Diabetes mellitus without complication (13 sources) Hyperglycemia; Translations: [Hyperglycemia, unspecified] Onset: 03-08-2018 03-08-2018 Episodic Residual codes; unclassified (2 sources) History of cardiac catheterization; Translations: [Other specified postprocedural states] Onset: 07-21-2023 07-28-2023 Episodic Comment on above: PTCA distal LAD and prox LAD- IZZY 3.0 x 8 mm [place] and 3.0 x 30 mm [place] 07/28/23 Screening and history of mental health and substance abuse codes (3 sources) Personal history of nicotine dependence; Translations: [History of nicotine dependence] Onset: 04-19-2024 04-19-2024 Episodic Unclassified (7 sources) h/o kidney surgery 10-09-2021 Unclassified (7 sources) h/o microdiscectomy L5-S1 10-09-2021 Viral infection (10 sources) Condyloma acuminatum of the anogenital region; Translations: [Anogenital (venereal) warts] Onset: 11-28-2010 11-28-2010 Episodic Results Test Name Value Interpretation Reference Range Facility Anion gap in Serum or Plasma Ordered By: Lizzie Burgess on 01-22-2025 Anion gap [Moles/Vol] 10 mmol/L 08-03 [facility] BUN/creatinine ratioOrdered By: Lizzie Burgess on 01-22-2025 Urea nitrogen/Creatinine [Mass ratio] 14.1 mg/mg 01-08 [facility] Basic Metabolic Profile (BMP )on 01-22-2025 BUN/CRE 14.1 RATIO Normal 01-08 [facility] Comment on above: Performed By: #### L [id number], [id number] #### [facility] [address] [place], [address] Calcium [Mass/Vol] 9.2 mg/dL Normal 7.6-11.0 [facility] Comment on above: Performed By: #### L [id number], [id number] #### [facility] [address] [place], [address] Chloride [Moles/Vol] 102 mmol/L Normal 98-108 [facility] Comment on above: Performed By: #### L [id number], [id number] #### [facility] [address] [place], [address] CO2 [Moles/Vol] 24.6 mmol/L Normal 21.0-32.0 [facility] Comment on above: Performed By: #### L [id number], [id number] #### [facility] [address] [place], [address] Creatinine [Mass/Vol] 1.04 mg/dL Normal 0.70-1.20 [facility] Comment on above: Performed By: #### L [id number], [id number] #### [facility] [address] [place], [address] GAP 10 Normal 5-15 [facility] Comment on above: Performed By: #### L [id number], [id number] #### [facility] [address] [place], [address] GFR/1.73 sq M.predicted among non-blacks MDRD (S/P/Bld) [Vol rate/Area] 89 mL/min/{1.73_m2} Normal >60 [facility] Comment on above: Result Comment: mL/m in/1.73m2 CKD-EPI Creatinine Equation (2020) Performed By: #### L [id number], [id number] #### [facility] [address] [place], [address] Glucose [Mass/Vol] 119 mg/dL High 70-99 [facility] Comment on above: Performed By: #### L [id number], [id number] #### [facility] [address] [place], [address] Potassium [Moles/Vol] 4.6 mmol/L Normal 3.3-5.1 [facility] Comment on above: Result Comment: Hemo lysis present, Results??could be affected. ?? Performed By: #### L [id number], [id number] #### [facility] [address] [place], [address] Sodium [Moles/Vol] 136 mmol/L Normal 133-145 [facility] Comment on above: Performed By: #### L [id number], [id number] #### [facility] [address] [place], [address] Urea nitrogen [Mass/Vol] 15 mg/dL Normal 4-19 [facility] Comment on above: Performed By: #### L 501.9520, L501.5200 #### [facility] [address] [place], [address] Bilirubin directOrdered By: George Mast on 01-22-2025 Bilirubin.direct [Mass/Vol] 0.19 mg/dL 0.00-0.30 [facility] Comment on above: Hemolysis present, R esults could be affected. Bilirubin, totalOrdered By: George Mast on 01-22-2025 Bilirubin [Mass/Vol] 0.54 mg/dL 0.00-1.30 [facility] Calculated very low density lipoprotein (VLDL) cholesterol measurementOrdered By: George Mast on 01-22-2025 Calculated very low density lipoprotein (VLDL) cholesterol measurement 21 mg/dL 5-40 [facility] Carbon dioxide, total [Moles /volume] in Central venous bloodOrdered By: Lizzie Burgess on 01-22-2025 CO2 [Moles/Vol] 24.6 mmol/L 21.0-32.0 [facility] Chloride assayOrdered By: Kyle Burgess on 01-22-2025 Chloride [Moles/Vol] 102 mmol/L 98-108 [facility] Comprehensive Metabolic Prof ilon 01-22-2025 ALB Normal 3.5-5.0 [facility] Comment on above: Result Comment: OVER LAPPING Performed By: #### L 500.4050 #### [facility] [address] [place], [address] ALK PHOS Normal 40-129 [facility] Comment on above: Result Comment: OVER LAPPING Performed By: #### L 500.4050 #### [facility] [address] [place], [address] ALT Normal <=46 [facility] Comment on above: Result Comment: OVER LAPPING Performed By: #### L 500.4050 #### [facility] [address] [place], [address] AST Normal <=37 [facility] Comment on above: Result Comment: OVER LAPPING Performed By: #### L 500.4050 #### [facility] [address] [place], [address] BUN Normal 4-19 [facility] Comment on above: Result Comment: OVER LAPPING Performed By: #### L 500.4050 #### [facility] [address] [place], [address] BUN/CRE Normal 10-20 [facility] Comment on above: Result Comment: OVER LAPPING Performed By: #### L 500.4050 #### [facility] [address] [place], [address] Calcium Normal 7.6-11.0 [facility] Comment on above: Result Comment: OVER LAPPING Performed By: #### L 500.4050 #### [facility] [address] [place], [address] CL Normal 98-108 [facility] Comment on above: Result Comment: OVER LAPPING Performed By: #### L 500.4050 #### [facility] [address] [place], [address] CO2 Normal 21.0-32.0 [facility] Comment on above: Result Comment: OVER LAPPING Performed By: #### L 500.4050 #### [facility] [address] [place], [address] CREAT,SERUM Normal 0.70-1.20 [facility] Comment on above: Result Comment: OVER LAPPING Performed By: #### L 500.4050 #### [facility] [address] [place], [address] eGFR Normal >60 [facility] Comment on above: Result Comment: OVER LAPPING Performed By: #### L 500.4050 #### [facility] [address] [place], [address] GAP Normal 5-15 [facility] Comment on above: Result Comment: OVER LAPPING Performed By: #### L 500.4050 #### [facility] [address] [place], [address] GLU Normal 70-99 [facility] Comment on above: Result Comment: OVER LAPPING Performed By: #### L 500.4050 #### [facility] [address] [place], [address] Potassium Normal 3.3-5.1 [facility] Comment on above: Result Comment: OVER LAPPING Performed By: #### L 500.4050 #### [facility] [address] [place], [address] T BILI Normal 0.00-1.30 [facility] Comment on above: Result Comment: OVER LAPPING Performed By: #### L 500.4050 #### [facility] [address] [place], [address] T PROT Normal 5.9-8.4 [facility] Comment on above: Result Comment: OVER LAPPING Performed By: #### L 500.4050 #### [facility] [address] [place], [address] Comprehensive Metabolic Profil Normal 133-145 [facility] Comment on above: Result Comment: OVER LAPPING Performed By: #### L 500.4054 #### [facility] [address] [place], [place], [address] Glomerular filtration rate ( GFR) estimation/1.73 sq m using serum, plasma, or whole bOrdered By: Lizzie Burgess on 01-22-2025 GFR/1.73 sq M.predicted among non-blacks MDRD (S/P/Bld) [Vol rate/Area] 89 mL/min/{1.73_m2} >60 [facility] Comment on above: mL/min/1.73m2 CKD-EP I Creatinine Equation (2020) LDL calc ser/plasOrdered By: George Mast on 01-22-2025 Cholesterol in LDL [Mass/Vol] 68 mg/dL [facility] Comment on above: Qjqcolydii=906-355 m g/dL & Higher Dmyu=447 mg/dL or greaterSampson Equation 2020 for LDL-C Laboratory - Chemistry and C hemistry - challengeOrdered By: George Mast on 01-22-2025 AST [Catalytic activity/Vol] 41 U/L High <38 [facility] Comment on above: Hemolysis present, R esults could be affected. Lipid Profileon 01-22-2025 CHOL:HDL 3.09 Normal [facility] Comment on above: Performed By: #### L 501.9520, L501.5200 #### [facility] [address] [place], [place], [address] Cholesterol [Mass/Vol] 129 mg/dL Normal <=200 [facility] Comment on above: Result Comment: Chol esterol level, Desirable <200 mg/dL Borderline high cholesterol 200-239 mg/dL High cholesterol >=240 mg/dL Recommendations of the NCEP Adult Treatment Panel for the following risk-cutoff thresholds for the [place] population. Performed By: #### L 501.9520, L501.5200 #### [facility] [address] [place], [place], [address] Cholesterol in HDL [Mass/Vol] 42 mg/dL Normal [facility] Comment on above: Result Comment: Amelia onal Cholesterol Education Program (NCEP) guidelines: <40 mg/dL: Low HDL-cholesterol (major risk factor for CHD) >= 60 mg/dL: High HDL-cholesterol (negative risk factor for CHD) HDL-cholesterol is affected by a number of factors, e.g. smoking, exercise, hormones, sex and age. Performed By: #### L 501.9520, L501.5200 #### [facility] [address] [place], [address] Cholesterol in LDL [Mass/Vol] 68 mg/dL Normal [facility] Comment on above: Result Comment: Bord fzhwxi=195-344 mg/dL Higher Qcpw=220 mg/dL or greater Dai Equation 2020 for LDL-C Performed By: #### L 501.9520, L501.5200 #### [facility] [address] [place], [address] Cholesterol in VLDL [Mass/Vol] 21 mg/dL Normal 5-40 [facility] Comment on above: Performed By: #### L 501.9520, L501.5200 #### [facility] [address] [place], [address] Triglyceride [Mass/Vol] 106 mg/dL Normal [facility] Comment on above: Result Comment: The drugs N-Acetylcysteine and Metamizole may falsely depress this assay. Normal range: <150 mg/dL Borderline High: 150-199 mg/dL High: 200-499 mg/dL Very High: >500 mg/dL Performed By: #### L 501.9520, L501.5200 #### [facility] [address] [place], [address] Liver Profileon 01-22-2025 Albumin [Mass/Vol] 4.4 g/dL Normal 3.5-5.0 [facility] Comment on above: Performed By: #### L 501.9520, L501.5200 #### [facility] [address] [place], [address] ALK PHOS 57 U/L Normal 40-129 [facility] Comment on above: Performed By: #### L 501.9520, L501.5200 #### [facility] [address] [place], [address] ALT [Catalytic activity/Vol] 72 U/L High <=46 [facility] Comment on above: Performed By: #### L 501.9520, L501.5200 #### [facility] [address] [place], [address] AST [Catalytic activity/Vol] 41 U/L High <=37 [facility] Comment on above: Result Comment: Hemo lysis present, Results??could be affected. ?? Performed By: #### L 501.9520, L501.5200 #### [facility] [address] [place], [address] Bilirubin [Mass/Vol] 0.54 mg/dL Normal 0.00-1.30 [facility] Comment on above: Performed By: #### L 501.9520, L501.5200 #### [facility] [address] [place], [address] Bilirubin.direct [Mass/Vol] 0.19 mg/dL Normal 0.00-0.30 [facility] Comment on above: Result Comment: Hemo lysis present, Results??could be affected. ?? Performed By: #### L 501.9520, L501.5200 #### [facility] [address] [place], [address] Globulin (S) [Mass/Vol] 3.5 g/dL Normal 2.2-4.2 [facility] Comment on above: Performed By: #### L 501.9520, L501.5200 #### [facility] [address] [place], [address] T PROT 7.9 g/dL Normal 5.9-8.4 [facility] Comment on above: Performed By: #### L 501.9520, L501.5200 #### [facility] [address] [place], [address] Natriuretic peptide.B prohor anupam N-Terminal [Mass/volume] in Serum or PlasmaOrdered By: Lizzie Burgess on 01-22-2025 Natriuretic peptide.B prohormone N-Terminal [Mass/Vol] 1042 pg/mL High <450 [facility] Comment on above: Heart Failure Unlike ly: < 300 pg/mLHeart Failure Likely< 50 Years: > 450 pg/mL50-75 Years: > 900 pg/mL>75 Years: > 1800 pg/mL Potassium measurement (mass/ volume)Ordered By: Lizzie Burgess on 01-22-2025 Potassium (Unsp spec) [Mass/Vol] 4.6 mmol/L 3.3-5.1 [facility] Comment on above: Hemolysis present, R esults could be affected. Pro- Brain NATRIURETIC PEPTI Remi 01-22-2025 Natriuretic peptide B (Bld) [Mass/Vol] 1042 pg/mL High <=450 [facility] Comment on above: Result Comment: Hear t Failure Unlikely: < 300 pg/mL Heart Failure Likely < 50 Years: > 450 pg/mL 50-75 Years: > 900 pg/mL >75 Years: > 1800 pg/mL Performed By: #### L 501.9520, L501.5200 #### [facility] [address] [place], [address] Screening total cholesterol/ high density lipoprotein (HDL) cholesterol ratioOrdered By: George Mast on 01-22-2025 Cholesterol.total/Choles terol in HDL [Mass ratio] 3.09 {ratio} [facility] Serum creatinine measurement (mass/volume)Ordered By: Lizzie Burgess on 01-22-2025 Creatinine [Mass/Vol] 1.04 mg/dL 0.70-1.20 [facility] Serum globulin measurementOr dered By: George Mast on 01-22-2025 Globulin (S) [Mass/Vol] 3.5 g/dL 2.2-4.2 [facility] Serum glucose measurement (m ass/volume)Ordered By: Lizzie Burgess on 01-22-2025 Glucose [Mass/Vol] 119 mg/dL High 70-99 [facility] Serum or plasma alanine bradley otransferase (ALT) measurementOrdered By: George Mast on 01-22-2025 ALT [Catalytic activity/Vol] 72 U/L High <47 [facility] Serum or plasma albumin christina urement (mass/volume)Ordered By: George Mast on 01-22-2025 Albumin [Mass/Vol] 4.4 g/dL 3.5-5.0 [facility] Serum or plasma alkaline delma sphatase measurementOrdered By: George Mast on 01-22-2025 ALP [Catalytic activity/Vol] 57 U/L 40-129 [facility] Serum or plasma calcium christina urement (mass/volume)Ordered By: Lizzie Burgess on 01-22-2025 Calcium [Mass/Vol] 9.2 mg/dL 7.6-11.0 [facility] Serum or plasma cholesterol in HDL measurement (mass/volume)Ordered By: George Mast on 01-22-2025 Cholesterol in HDL [Mass/Vol] 42 mg/dL >40 [facility] Comment on above: National Cholesterol Education Program (NCEP) guidelines:<40 mg/dL: Low HDL-cholesterol (major risk factor for CHD)>= 60 mg/dL: High HDL-cholesterol (negative risk factor for CHD)HDL-cholesterol is affected by a number of factors, e.g. smoking, exercise, hormones, sex and age. Serum or plasma cholesterol measurement (mass/volume)Ordered By: George Mast on 01-22-2025 Cholesterol [Mass/Vol] 129 mg/dL <201 [facility] Comment on above: Cholesterol level, D esirable <200 mg/dLBorderline high cholesterol 200-239 mg/dLHigh cholesterol >=240 mg/dLRecommendations of the NCEP Adult Treatment Panel for the following risk-cutoff thresholds for the [place] population. Serum or plasma urea nitroge n measurement (mass/volume)Ordered By: Lizzie Burgess on 01-22-2025 Urea nitrogen [Mass/Vol] 15 mg/dL 4-19 [facility] Sodium levelOrdered By: Lurdes Burgess on 01-22-2025 Sodium [Moles/Vol] 136 mmol/L 133-145 [facility] Total proteinOrdered By: Bc Mast on 01-22-2025 Protein [Mass/Vol] 7.9 g/dL 5.9-8.4 [facility] Triglycerides measurementOrd ered By: George Mast on 01-22-2025 Triglyceride [Mass/Vol] 106 mg/dL <199 [facility] Comment on above: The drugs N-Acetylcy steine and Metamizole may falsely depress this assay. Normal range: <150 mg/dLBorderline High: 150-199 mg/dLHigh: 200-499 mg/dLVery High: >500 mg/dL Anion gap in Serum or Plasma Ordered By: Lizzie Burgess on 01-12-2025 Anion gap [Moles/Vol] 10 mmol/L 08-03 [facility] BUN/creatinine ratioOrdered By: Lizzie Burgess on 01-12-2025 Urea nitrogen/Creatinine [Mass ratio] 13.4 mg/mg 01-08 [facility] Basic Metabolic Profile (BMP )on 01-12-2025 BUN/CRE 13.4 RATIO Normal 01-08 [facility] Comment on above: Performed By: #### L 500.2500, L503.4235 #### [facility] [address] [place], [address] Calcium [Mass/Vol] 9.2 mg/dL Normal 7.6-11.0 [facility] Comment on above: Performed By: #### L 500.2500, L503.7505 #### [facility] [address] [place], [address] Chloride [Moles/Vol] 105 mmol/L Normal 98-108 [facility] Comment on above: Performed By: #### L 500.2500, L503.7505 #### [facility] [address] [place], [address] CO2 [Moles/Vol] 23.7 mmol/L Normal 21.0-32.0 [facility] Comment on above: Performed By: #### L 500.2500, L503.7505 #### [facility] [address] [place], [address] Creatinine [Mass/Vol] 1.08 mg/dL Normal 0.70-1.20 [facility] Comment on above: Performed By: #### L 500.2500, L503.7505 #### [facility] [address] [place], [address] GAP 10 Normal 5-15 [facility] Comment on above: Performed By: #### L 500.2500, L503.7505 #### [facility] [address] [place], [address] GFR/1.73 sq M.predicted among non-blacks MDRD (S/P/Bld) [Vol rate/Area] 85 mL/min/{1.73_m2} Normal >60 [facility] Comment on above: Result Comment: mL/m in/1.73m2 CKD-EPI Creatinine Equation (2020) Performed By: #### L 500.2500, L503.7505 #### [facility] [address] [place], [address] Glucose [Mass/Vol] 119 mg/dL High 70-99 [facility] Comment on above: Performed By: #### L 500.2500, L503.7505 #### [facility] [address] [place], [address] Potassium [Moles/Vol] 4.1 mmol/L Normal 3.3-5.1 [facility] Comment on above: Result Comment: Hemo lysis present, Results??could be affected. ?? Performed By: #### L 500.2500, L503.7505 #### [facility] [address] [place], [address] Sodium [Moles/Vol] 138 mmol/L Normal 133-145 [facility] Comment on above: Performed By: #### L 500.2500, L503.7505 #### [facility] [address] [place], [address] Urea nitrogen [Mass/Vol] 15 mg/dL Normal 4-19 [facility] Comment on above: Performed By: #### L 500.2500, L503.7505 #### [facility] [address] [place], [address] Carbon dioxide, total [Moles /volume] in Central venous bloodOrdered By: Lizzie Burgess on 01-12-2025 CO2 [Moles/Vol] 23.7 mmol/L 21.0-32.0 [facility] Cardiology Visit Reporton Cardiology Visit Report [facility] [address] [place] [address] OFFICE VISIT Date of Service: 01/12/25 MR#: [id number] Acct: [id number] Name: MOHIT RIVERS Rep #: [id number] : 1975 Provider: MANDI ruiz Age/Sex: 49/M Location: BMS.G Status: Signed HPI HPI History of Present Illness Details: This is a 49-year-old male who presents to the office today for an emergency room follow-up. He has a history of STEMI, status post drug-eluting stents to the LAD and to the RCA, hypertension, and dyslipidemia. Patient has quit smoking and remains abstinent. Patient presented to emergency room on 01/10/2025 with complaints of chest pain. He was sent to the emergency room by his PCP for new onset atrial fibrillation. He states he had been short of breath over the last 2 weeks. His EKG demonstrated atrial fibrillation at a rate of 96 bpm. His troponin x 2 were stable TSH, BMP were normal. He was started on Eliquis and carvedilol was increased to 12.5 mg twice daily. He was instructed to follow-up with cardiology. From a cardiac standpoint, the patient is doing well. He does acknowledge chest pressure. He denies any palpitations, chest pain, or heaviness. He does acknowledge SOB with exertion and at rest. He denies Orthopnea, and PND. He does not have bleeding issues; no blood in urine, stool, or nosebleeds. He does acknowledge fatigue. He denies myalgias, or claudication. He does not have edema, or sudden weight gain. He denies lightheadedness, dizziness, syncopal or near syncopal episodes, and headaches. Patient states he has not been taking his amlodipine, as this was unable to be refilled. 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 Is patient in pain?: No Allergies lisinopril Allergy (Severe, Verified 01/12/25 13:56) Angioedema Medications ???Medication ???Instructions ???Recorded ???Confirmed ???Type lovastatin 40 mg tablet 40 mg PO QDAY #90 tabs 04/19/24 Rx naproxen sodium 220 mg capsule 220 mg PO QDAY PRN 04/19/24 History (Aleve) omeprazole 20 mg capsule,delayed 20 mg PO DAILY PRN gerd 04/19/24 1 History release sildenafil 25 mg tablet (Viagra) 25 mg PO DAILY PRN sexual activity 09/13/24 01/12/25 Rx #30 tabs amlodipine 5 mg tablet 5 mg PO DAILY #30 tabs 01/12/25 Rx apixaban 5 mg tablet (Eliquis) 5 mg PO BID #60 tabs 01/12/2512/21 Rx carvedilol 12.5 mg tablet 12.5 mg PO BID #60 tabs 01/12/25 1 Rx Ejection fraction %: 55 Have you fallen in the past year?: No COUNTS INCLUDE 234 BEDS AT [facility] Medical History Morbid obesity with BMI of 40.0-44.9, adult SOB (shortness of breath) Coronary artery disease Nicotine dependence Hypertension Ventricular ectopy 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 Tobacco abuse STEMI (ST elevation myocardial infarction) ( 07/27/23) Surgical History (Reviewed 01/12/25 @ 14:14 by Lizzie Burgess MEDICAL OFFICE COORDINATOR, MEDICAL OFFICE COORDINATOR-C) Hx of cardiac catheterization ( 07/28/23) Stented coronary artery ( 08/26/23) h/o microdiscectomy L5-S1 h/o kidney surgery Family History (Reviewed 01/12/25 @ 14:14 by Lizzie Burgess MEDICAL OFFICE COORDINATOR, MEDICAL OFFICE COORDINATOR-C) Father CAD (coronary artery disease) Other Heart disease Social History (Reviewed 01/12/25 @ 14:14 by Lizzie Burgess MEDICAL OFFICE COORDINATOR, MEDICAL OFFICE COORDINATOR-C) Smoking Status: Former smoker how long ago did patient quit smoking: July 2023 alcohol intake: current alcohol intake frequency: a few times a month Alcohol type: beer substance use type: marijuana caffeine: Yes Type: coffee Number of servings: 4 ROS Const Const: Positive for fatigue; Negative for weakness, headache(s) or frequent falls Eyes Eyes: Negative for blurry vision ENT ENT: Negative for headache(s), dizziness or Nosebleed/epistaxis Cardio Chest Pain: Yes Frequency: daily Character: other (Pressure) Palpitations: No Edema: None Muscle aches with walking: None Resp Respiratory: Positive for SOB with activity and SOB at rest; Negative for SOB orthopnea SOB lying down GI GI: Negative nausea, vomiting, heartburn, bright, red blood in stools or black,tarry stools : Negative for hematuria Neuro Neuro: Negative for dizziness, lightheadedness, near syncope, syncope, frequent falls, headache(s), weakness or blurry vision Endo Endo: Positive for fatigue Cardiology Exam Const Appearance: comfortable and no acute distress Nutritional Appearance: obese Orientation: alert and oriented (more content not included)... Normal [facility] Chloride assayOrdered By: Kyle Burgess on 01-12-2025 Chloride [Moles/Vol] 105 mmol/L 98-108 [facility] Glomerular filtration rate ( GFR) estimation/1.73 sq m using serum, plasma, or whole bOrdered By: Lizzie Burgess on 01-12-2025 GFR/1.73 sq M.predicted among non-blacks MDRD (S/P/Bld) [Vol rate/Area] 85 mL/min/{1.73_m2} >60 [facility] Comment on above: mL/min/1.73m2 CKD-EP I Creatinine Equation (2020) Natriuretic peptide.B prohor anupam N-Terminal [Mass/volume] in Serum or PlasmaOrdered By: Lizzie Burgess on 01-12-2025 Natriuretic peptide.B prohormone N-Terminal [Mass/Vol] 1534 pg/mL High <450 [facility] Comment on above: Heart Failure Unlike ly: < 300 pg/mLHeart Failure Likely< 50 Years: > 450 pg/mL50-75 Years: > 900 pg/mL>75 Years: > 1800 pg/mL Potassium measurement (mass/ volume)Ordered By: Lizzie Burgess on 01-12-2025 Potassium (Unsp spec) [Mass/Vol] 4.1 mmol/L 3.3-5.1 [facility] Comment on above: Hemolysis present, R esults could be affected. Pro- Brain NATRIURETIC PEPTI Remi 01-12-2025 Natriuretic peptide B (Bld) [Mass/Vol] 1534 pg/mL High <=450 [facility] Comment on above: Result Comment: Hear t Failure Unlikely: < 300 pg/mL Heart Failure Likely < 50 Years: > 450 pg/mL 50-75 Years: > 900 pg/mL >75 Years: > 1800 pg/mL Performed By: #### L 500.2500, L503.7505 #### [facility] [address] [place], [address] Serum creatinine measurement (mass/volume)Ordered By: Lizzie Burgess on 01-12-2025 Creatinine [Mass/Vol] 1.08 mg/dL 0.70-1.20 [facility] Serum glucose measurement (m ass/volume)Ordered By: Lizzie Burgess on 01-12-2025 Glucose [Mass/Vol] 119 mg/dL High 70-99 [facility] Serum or plasma calcium christina urement (mass/volume)Ordered By: Lizzie Burgess on 01-12-2025 Calcium [Mass/Vol] 9.2 mg/dL 7.6-11.0 [facility] Serum or plasma urea nitroge n measurement (mass/volume)Ordered By: Lizzie Burgess on 01-12-2025 Urea nitrogen [Mass/Vol] 15 mg/dL 4-19 [facility] Sodium levelOrdered By: Lurdes Burgess on 01-12-2025 Sodium [Moles/Vol] 138 mmol/L 133-145 [facility] 12 Lead EKGon 01-10-2025 12 Lead EKG [facility] Cardiovascular Services [address] [place] [address] 12 Lead EKG 01/10/25 1439 MR#: [id number] Acct: [id number] Name: MOHIT RIVERS Rep #: [id number] : 1975 49 From: Cliff Ga MD Attending Dr: Status: DEP ER Ordering Dr: Justino Kapoor DO Date: 01/10/25 Location: ED Sex: M C Admitted: Test Reason : CP Blood Pressure : */* mmHG Vent. Rate : 96 BPM Atrial Rate : * BPM P-R Int : * ms QRS Dur : 98 ms QT Int : 352 ms P-R-T Axes : * -42 -6 degrees QTcB Int : 444 ms Atrial fibrillation Left axis deviation Nonspecific T wave abnormality Abnormal ECG Confirmed by Cliff Ga ([id number]), offline editor TYLER SAEZ ([id number]) on 01/11/2025 9:34:28 AM Referred By: /ER Confirmed By: Cliff Ga 01/11/25 0934 Date Cliff Ga MD CC: Dr. Justino Kapoor DO; Dr. Cash Puetnes MD Signed Normal [facility] Absolute lymphocyte countOrd ered By: Justino Kapoor on 01-10-2025 Lymphocytes Auto (Unsp spec) [#/Vol] 2.09 10*3/uL 0.83-4.51 [facility] Absolute neutrophil countOrd ered By: Justino Kapoor on 01-10-2025 Neutrophils (Bld) [#/Vol] 3.8 10*3/uL 2.0-7.7 [facility] Anion gap in Serum or Plasma Ordered By: Justino Kapoor on 01-10-2025 Anion gap [Moles/Vol] 11 mmol/L 5-15 [facility] Automated lymphocyte count a s percentage of total leukocytesOrdered By: Justino Kapoor on 01-10-2025 Lymphocytes/100 WBC Auto (Unsp spec) 31.2 % [facility] BUN/creatinine ratioOrdered By: Justino Kapoor on 01-10-2025 Urea nitrogen/Creatinine [Mass ratio] 15.0 mg/mg 01-08 [facility] Basic Metabolic Profile (BMP )on 01-10-2025 BUN/CRE 15.0 RATIO Normal 01-08 [facility] Comment on above: Performed By: #### L 500.2500, L100.0100, L501.4021 #### [facility] [address] [place], [address] Calcium [Mass/Vol] 9.2 mg/dL Normal 7.6-11.0 [facility] Comment on above: Performed By: #### L 500.2500, L100.0100, L501.4021 #### [facility] [address] [place], [address] Chloride [Moles/Vol] 103 mmol/L Normal 98-108 [facility] Comment on above: Performed By: #### L 500.2500, L100.0100, L501.4021 #### [facility] [address] [place], [address] CO2 [Moles/Vol] 22.8 mmol/L Normal 21.0-32.0 [facility] Comment on above: Performed By: #### L 500.2500, L100.0100, L501.4021 #### [facility] [address] [place], [address] Creatinine [Mass/Vol] 1.04 mg/dL Normal 0.70-1.20 [facility] Comment on above: Performed By: #### L 500.2500, L100.0100, L501.4021 #### [facility] [address] [place], [address] ECRCL 129.75 ml/min Normal 50-250 [facility] Comment on above: Performed By: #### L 500.2500, L100.0100, L501.4021 #### [facility] [address] [place], [address] GAP 11 Normal 5-15 [facility] Comment on above: Performed By: #### L 500.2500, L100.0100, L501.4021 #### [facility] [address] [place], [address] GFR/1.73 sq M.predicted among non-blacks MDRD (S/P/Bld) [Vol rate/Area] 89 mL/min/{1.73_m2} Normal >60 [facility] Comment on above: Result Comment: mL/m in/1.73m2 CKD-EPI Creatinine Equation (2020) Performed By: #### L 500.2500, L100.0100, L501.4021 #### [facility] [address] [place], [address] Glucose [Mass/Vol] 120 mg/dL High 70-99 [facility] Comment on above: Performed By: #### L 500.2500, L100.0100, L501.4021 #### [facility] [address] [place], [address] Potassium [Moles/Vol] 4.2 mmol/L Normal 3.3-5.1 [facility] Comment on above: Result Comment: Hemo lysis present, Results??could be affected. ?? Performed By: #### L 500.2500, L100.0100, L501.4021 #### [facility] [address] [place], [address] Sodium [Moles/Vol] 137 mmol/L Normal 133-145 [facility] Comment on above: Performed By: #### L 500.2500, L100.0100, L501.4021 #### [facility] [address] [place], [address] Urea nitrogen [Mass/Vol] 16 mg/dL Normal 4-19 [facility] Comment on above: Performed By: #### L 500.2500, L100.0100, L501.4021 #### [facility] [address] [place], [address] Basophil percentageOrdered B y: Justino Nevarezehne on 01-10-2025 Basophils/100 WBC (Bld) 1.0 % 0-1 [facility] CBC W/Diff, Automatedon 12-21 Absolute Lymph 2.09 X10 3/uL Normal 0.83-4.51 [facility] Comment on above: Performed By: #### L 500.2500, L100.0100, L501.4021 #### [facility] [address] [place], [address] Absolute Neut 3.8 X10 3/uL Normal 2.0-7.7 [facility] Comment on above: Performed By: #### L 500.2500, L100.0100, L501.4021 #### [facility] [address] [place], [address] Basophils/100 WBC (Bld) 1.0 % Normal 0-1 [facility] Comment on above: Performed By: #### L 500.2500, L100.0100, L501.4021 #### [facility] [address] [place], [address] Eosinophils/100 WBC (Bld) 3.4 % Normal 0-5 [facility] Comment on above: Performed By: #### L 500.2500, L100.0100, L501.4021 #### [facility] [address] [place], [address] Erythrocyte distribution width (RBC) [Ratio] 14.3 % Normal 11.6-14.6 [facility] Comment on above: Performed By: #### L 500.2500, L100.0100, L501.4021 #### [facility] [address] [place], [address] Hematocrit (Bld) [Volume fraction] 48.0 % Normal 40-54 [facility] Comment on above: Performed By: #### L 500.2500, L100.0100, L501.4021 #### [facility] [address] [place], [address] Hemoglobin (Bld) [Mass/Vol] 16.4 g/dL Normal 13.0-16.5 [facility] Comment on above: Performed By: #### L 500.2500, L100.0100, L501.4021 #### [facility] [address] [place], [address] IG% 0.300 Normal 0.0-0.9 [facility] Comment on above: Result Comment: IG% - Immature Granulocytes (promyelocytes, myelocytes and metamyelocytes) > 1% indicates that a LEFT SHIFT is Present. Performed By: #### L 500.2500, L100.0100, L501.4021 #### [facility] [address] [place], [address] Lymphocytes/100 WBC (Bld) 31.2 % Normal 19-41 [facility] Comment on above: Performed By: #### L 500.2500, L100.0100, L501.4021 #### [facility] [address] [place], [address] MCH (RBC) [Entitic mass] 31.1 pg Normal 27.0-32.0 [facility] Comment on above: Performed By: #### L 500.2500, L100.0100, L501.4021 #### [facility] [address] [place], [address] MCHC (RBC) [Mass/Vol] 34.2 g/dL Normal 32-36 [facility] Comment on above: Performed By: #### L 500.2500, L100.0100, L501.4021 #### [facility] [address] [place], [address] MCV (RBC) [Entitic vol] 91.1 fL Normal 80-94 [facility] Comment on above: Performed By: #### L 500.2500, L100.0100, L501.4021 #### [facility] [address] [place], [address] Monocytes/100 WBC (Bld) 7.9 % Normal 0-10 [facility] Comment on above: Performed By: #### L 500.2500, L100.0100, L501.4021 #### [facility] [address] [place], [address] Neutrophils/100 WBC (Bld) 56.2 % Normal 47-70 [facility] Comment on above: Performed By: #### L 500.2500, L100.0100, L501.4021 #### [facility] [address] [place], [address] Nucleated RBC (Bld) [#/Vol] 0 10*3/uL Normal 0-5 [facility] Comment on above: Performed By: #### L 500.2500, L100.0100, L501.4021 #### [facility] [address] [place], [address] Platelet mean volume (Bld) [Entitic vol] 10.3 fL Normal 6.2-12.0 [facility] Comment on above: Performed By: #### L 500.2500, L100.0100, L501.4021 #### [facility] [address] [place], [address] Platelets (Bld) [#/Vol] 210 10*3/uL Normal 150-450 [facility] Comment on above: Performed By: #### L 500.2500, L100.0100, L501.4021 #### [facility] [address] [place], [address] RBC (Bld) [#/Vol] 5.27 10*6/uL Normal 4.6-6.2 [facility] Comment on above: Performed By: #### L 500.2500, L100.0100, L501.4021 #### [facility] [address] [place], [address] RDW SD 47.8 fl High 35.1-43.9 [facility] Comment on above: Performed By: #### L 500.2500, L100.0100, L501.4021 #### [facility] [address] [place], [address] WBC (Bld) [#/Vol] 6.7 10*3/uL Normal 4.4-11.0 [facility] Comment on above: Performed By: #### L 500.2500, L100.0100, L501.4021 #### [facility] [address] [place], [address] CNOVon 01-10-2025 OV [facility] MOHIT RIVERS ([id number]) 1975 M Date Time Provider Department 01/10/25 1:20 PM MIRLANDE LAL During your visit today, we recorded the following information about you: Pulse Respiration Blood pressure Weight 69/minute 16/minute 141/99 151 kg Mirlande Lal APRN.CNP 01/10/2025 2:18 PM Signed This is a 49 year old male who presents today with: The patient is a 49-year-old male presenting for evaluation of shortness of breath when sitting or supine and a right-sided abdominal bulge. HISTORY OF PRESENT ILLNESS: Mohit is a 49-year-old male presenting with dyspnea and abdominal mass. Dyspnea: - Dyspnea x2 weeks, primarily when sitting or lying down. - Occasionally noticed during movement in the past few days, but does not limit activity. - Denies chest pain or palpitations. - No swelling. Abdominal Mass: - Mass is palpable when lying flat; described as feeling like a baseball. - Associated with discomfort when pressure is applied or if he leans against it. - Denies any previous colonoscopy. + heartburn and uses omeprazole. No n/v. No diarrhea/constipation /melena/hematochezia. Denies urinary symptoms. PAST MEDICAL HISTORY: PAST MEDICAL HISTORY Diagnosis Date Hemorrhoids HTN (hypertension) Hyperglycemia PAST SURGICAL HISTORY Procedure Laterality Date PAST SURGICAL HISTORY OF [phone] left kidney surgery aprox 9 procedures PAST SURGICAL HISTORY OF [phone] [facility], and second at [facility]. ALLERGIES Lisinopril MEDICATIONS Current Outpatient Medications Medication Sig iv contrast (will be provided with radiology test) CT ABD/PEL -Inject, intravenously, once for 1 dose.No IV access, insert saline lock prior to the beginning of sedation, infusion, injection of imaging exam. Discontinue saline lock post exam. If Pt. has a central line or IVAD, may access for administration according to line specific nursing protocol. Once exam is complete flush line and de-access according to line specific nursing protocol in theCT contrast administration guidelines link. enteric contrast (will be provided with radiology test) For CT ABD/PEL W IVCON Routine order Administer, As Directed One Time Only, via Oral, Rectal, both Oral and Rectal, Enteric Tube, Stoma or Indwelling Catheter, Enteric Contrast as designated per enteric contrast guidelines omeprazole (PRILOSEC) 20 mg capsule Take 1 capsule by mouth daily before breakfast. 1/2 hr before meal. ketoconazole (NIZORAL) 2 % shampoo Apply to affected area two times a week. atorvastatin (LIPITOR) 80 mg tablet Take 80 mg by mouth daily at bedtime. carvedilol (COREG) 6.25 mg tablet Take 1 tablet by mouth every 12 hours. hydroCHLOROthiazide 25 mg tablet Take 1 tablet by mouth every afternoon. spironolactone (ALDACTONE) 25 mg tablet Take 0.5 tablets by mouth every afternoon. aspirin, enteric coated (ASPIRIN, ENTERIC COATED) 81 mg EC tablet Take 1 tablet by mouth once daily. amLODIPine (NORVASC) 10 mg tablet Take 1 tablet by mouth once daily. No current facility-administered medications for this visit. FAMILY HISTORY Problem Relation Age of Onset Cancer Paternal Grandfather Coronary Artery Disease Father Diabetes Father Heart Father Hypertension Father SOCIAL HISTORY[1] REVIEW OF SYSTEMS Cardiovascular: (+) lower extremity swelling, (-) chest pain Respiratory: (+) dyspnea Gastrointestinal: (+) heartburn, (+) abdominal mass sensation, (+) abdominal pain with pressure Genitourinary: (-) dysuria EXAM: BP 141/99 Pulse 69 Resp 16 Wt (!) 151 kg (333 lb) SpO2 95% BMI 45.16 kg/m? PHYSICAL EXAM: General Appearance: Well appearing, alert, in no acute distress, well-hydrated, well nourished.. Skin: Skin color, texture, turgor normal, no suspicious rashes or lesions. Head: Normocephalic, no masses, lesions, tenderness or abnormalities. Eyes: Anicteric sclera. Extraocular movements are intact. . Neck: Supple, no adenopathy; thyroid symmetric, normal size, no bruits. Lungs: Lungs clear to auscultation. No wheezing, rhonchi, rales.. Heart: Positive findings: irregularly irregular rhythm. Abdomen: + diastasis recti. Abdomen obese, soft, non-tender. + baseball sized lump noted in the right lateral mid abdomen. Extremities: No deformities, edema, skin discoloration, clubbing or cyanosis. Good capillary refill. . Neurologic: Gait normal. ASSESSMENT/PLAN 1. Atrial fibrillation, unspecified type (HCC) (I48.91) 2. SOB (shortness of breath) (R06.02) 3. Irregular heartbeat (I49.9) 4. ST elevation myocardial infarction involving left anterior descending (LAD) coronary artery (HCC) (I21.02) Pt with personal hx of STEMI 07/2023. Has not seen cardiology since 03/2024. Medication list is uncertain. - Occasional SOB and irregular heartbeats noted on exam. EKG obtained w/ n (more content not included)... Normal [facility] Chest W/WO Contraston CTA Chest W/WO Contrast [facility] Imaging Services [address] [place], [place] [address] CTA Chest W/WO Contrast MR#: [id number] Acct: [id number] Name: MOHIT RIVERS Rep #: [id number] : 1975 M 49 From: Merly Vanegas PCP: Dr. Cash Puentes MD Status: REG ER Study: CTA Chest W/WO Contrast Date of Exam: 01/10/25 Exam# [id number] Ordering Dr: Justino Kapoor DO PROCEDURE: CTA CHEST W/WO CONTRAST 01/10/2025 REASON FOR EXAM: PULMONARY EMBOLISM TECHNIQUE: Procedure Code: CTCTACHWW Modality: CT Procedure: CTA CHEST W/WO CONTRAST Multiplanar Sagittal and Coronal images were obtained. CONTRAST: 100 mL of Isovue 370 One or more dose reduction techniques were used (e.g., Automated exposure control, adjustment of the mA and/or kV according to patient size, use of iterative reconstruction technique). RADIATION DOSE SUMMARY: DLP: 599 mGycm COMPARISON: None FINDINGS: PULMONARY ARTERIES: No evidence of pulmonary embolism. LUNGS AND PLEURA: No consolidations. No definite pulmonary edema. No mass or nodule. No pleural effusion. No pneumothorax. MEDIASTINUM: No lymphadenopathy or mass. The heart shows no acute findings. Extensive coronary atherosclerosis/stent s. The aorta shows no acute findings. The pulmonary trunk, and branches of the vessels in the mediastinum are within normal limits. SUPRACLAVICULAR AND AXILLARY: No abnormalities seen in these regions. No mass or significant lymphadenopathy. UPPER ABDOMEN: Hepatic steatosis. BONES AND SOFT TISSUES: The ribs are unremarkable. The visualized spine shows no significant acute findings. No focal bony mass lesions noted. The subcutaneous soft tissues are unremarkable. CT/CTA Chest W/WO Contrast IMPRESSION: No acute pulmonary emboli. No focal consolidations. Reading Location: [facility] CC: Dr. Justino Kapoor DO; Dr. Cash Puentes MD Neurophysiologist: Signed Normal [facility] Carbon dioxide, total [Moles /volume] in Central venous bloodOrdered By: Justino Kapoor on 01-10-2025 CO2 [Moles/Vol] 22.8 mmol/L 21.0-32.0 [facility] Chest 1 View (Portable)on Chest 1 View (Portable) [facility] Imaging Services [address] [place], [place] [address] Chest 1 View (Portable) MR#: [id number] Acct: [id number] Name: MOHIT RIVERS Rep #: [id number] : 1975 M 49 From: Armand Vanegas PCP: Dr. Cash Puentes MD Status: REG ER Study: Chest 1 View (Portable) Date of Exam: 01/10/25 Exam# [id number] Ordering Dr: Justino Kapoor DO PROCEDURE: CHEST 1 VIEW (PORTABLE) 01/10/2025 REASON FOR EXAM: CHEST PAIN TECHNIQUE: Frontal view of the chest. COMPARISON: None. RAD/Chest 1 View (Portable) IMPRESSION: Examination somewhat limited by AP portable technique, body habitus, in some patient motion. Lungs appear clear of acute disease. No pleural effusion or pneumothorax is noted. The cardiomediastinal silhouette is within the normal range for technique. No acute osseous change is evident. Reading Location: [address] CC: Dr. Justino Kapoor DO; Dr. Cash Puentes MD Neurophysiologist: Signed Normal [facility] Chloride assayOrdered By: Bryce Kapoor on 01-10-2025 Chloride [Moles/Vol] 103 mmol/L 98-108 [facility] [id number] 01-10-2025 ECG01 Ventricular Rate : 8 8 BPM QRS Duration : 98 ms Q-T Interval : 394 ms QTC Calculation(Bazett) : 476 ms Calculated R [place] : -28 degrees Calculated T [place] : -26 degrees ATRIAL FIBRILLATION NONSPECIFIC T WAVE ABNORMALITY ABNORMAL ECG Confirmed by MD JASMINA, QARAB ([id number]) on 01/12/2025 5:48:48 PM NAME : MOHIT RIVERS PID : [id number] : 1975 Gender : Male Race : ORD : Procedure Date : Jan 10 2025 13:55:02 Edit Date : Jan 12 2025 17:48:49 Diagnosis: ATRIAL FIBRILLATION NONSPECIFIC T WAVE ABNORMALITY ABNORMAL ECG Confirmed by MD FREEDMAN QARAB ([id number]) on 01/12/2025 5:48:48 PM Test Reason : Location : 136 : [place] Overread By : MD FREEDMAN QARAB Edited By : MD FREEDMAN QARAB Referred By : Mirlande Lal Acquired by : dimitri gordillo Normal [facility] Electrocardiogram reportOrde red By: Cliff Ga on 01-10-2025 EKG study [facility] Cardiovascular Services [address] [place] [address] 12 Lead EKG 01/10/25 1439 MR#: [id number] Acct: [id number] Name: MOHIT RIVERS Rep #:[id number] : 1975 49 From: Cliff lawson MD Attending Dr: Status: DEP E R Ordering Dr: Justino Kapoor DO Date: 1 Location: ED Sex: M C Admitted: Test Reason : CP Blood Pressure : */* mmHG Vent. Rate : 96 BPM Atrial Rate : * BPM P-R Int : * ms QRS Dur : 98 ms QT Int : 352 ms P-R-T Axes : * -42 -6 degrees QTcB Int : 444 ms Atrial fibrillation Left axis deviation Nonspecific T wave abnormality Abnormal ECG Confirmed by Cliff Ga ([id number]), offline editor TYLER SAEZ ([id number]) on 59:34:28 AM Referred By: DH/ER Confirmed By: Cliff Ga 01/11/25 0934 Date _ Cliff Ga MD CC: Dr. Justino Kapoor DO; Dr. Cash Puentes MD ~ Signed [facility] Other Phone: Emergency Department Summary on 01-10-2025 Emergency Department Summary [facility] Medical Records Department [address] [place] [address] Emergency Department Summary 01/10/25 MR#: [id number] Acct: [id number] Name: MOHIT RIVERS Rep #: [id number] : 1975 49 From: Justino Kapoor DO PCP: Dr. Cash Puentes MD Status:DEP ER Location: ED HPI History of Present Illness Chief Complaint: Chest Pain Informant: patient Narrative Narrative: 49-year-old male presenting to the emergency room after being referred here by PCP for new onset A- fib. Patient has a history of coronary artery disease having had a STEMI in July 2023 with IZZY to the LAD delayed stenting to the RCA. He follows locally with [place] [facility] Dr. Lopez. Patient notes over the past 2 weeks he has had more consistent shortness of breath than what he was used to. He states that after his heart attack while on Brilinta he was having some dyspnea. He states that he has not been having any chest pain. He denies any leg swelling. He notes shortness of breath denies intermittent with exertion but is been more consistent at night. He went to his PCP where an EKG was performed which found A-fib. There was noted to be rate controlled. He is currently on antihypertensives to include amlodipine and carvedilol. He is also on Plavix and aspirin. He denies any thyroid issues. No muscle spasms or weakness. He has no history of sleep apnea. He quit tobacco following his STEMI. [facility] Medical History Morbid obesity with BMI of 40.0-44.9, adult SOB (shortness of breath) Coronary artery disease Nicotine dependence Hypertension Ventricular ectopy 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 Tobacco abuse STEMI (ST elevation myocardial infarction) ( 07/27/23) Home Medications ???Medication ???Instructions ???Recorded ???Last Taken ???Type lovastatin 40 mg tablet 40 mg PO QDAY #90 tabs 04/19/24 Un known Rx naproxen sodium 220 mg capsule 220 mg PO QDAY PRN 04/19/24 Unknow n History (Aleve) omeprazole 20 mg capsule,delayed 20 mg PO DAILY PRN gerd 04/19/24 U nknown History release semaglutide 0.25 mg or 0.5 mg (2 0.25 mg (0.368 mL) subcut QWEEK Unknown Rx mg/3 mL) subcutaneous pen injector For Coronary Artery Disease #3 m L (Ozempic) sildenafil 25 mg tablet (Viagra) 25 mg PO DAILY PRN sexual activity 09/13/24 Unknown Rx #30 tabs amlodipine 10 mg tablet 5 mg (1/2 x 10 mg) PO DAILY #90 Unknown Rx tabs apixaban 5 mg tablet (Eliquis) 5 mg PO BID #60 tabs 01/10/25 Unkn own Rx carvedilol 12.5 mg tablet 12.5 mg PO BID #60 tabs 01/10/25 U nknown Rx Allergy/AdvReac Type Severity Reaction Status Date / Time lisinopril Allergy Severe Angioedema Verified 01/10/25 14:31 Family History Father CAD (coronary artery disease) Other Heart disease Surgical History Hx of cardiac catheterization ( 07/28/23) Stented coronary artery ( 08/26/23) h/o microdiscectomy L5-S1 h/o kidney surgery Social History Smoking Status: Former smoker how long ago did patient quit smoking: July 2023 alcohol intake: current alcohol intake frequency: a few times a month Alcohol type: beer substance use type: marijuana caffeine: Yes Type: coffee Number of servings: 4 ROS ROS ED Constitutional Constitutional ED: Denies chills, fever(s) or weight loss Eyes Eyes: Denies change in vision or diplopia ENT ENT ED: Denies ear pain, rhinorrhea or sore throat Cardiovascular Cardiovascular: Denies chest pain, orthopnea, palpitations or racing heartbeat Respiratory/Chest Respiratory/Chest: Reports dyspnea and dyspnea on exertion; Denies cough or orthopnea Gastrointestinal Gastrointestinal: Denies abdominal pain, diarrhea, nausea or vomiting Genitourinary Genitourinary ED: Denies dysuria, hematuria or urinary frequency Musculoskeletal Musculoskeletal: Denies arthralgias or myalgias Integumentary Denies abscess or rash Neurologic Neurologic: Denies headache(s) or weakness Psychiatric Psychiatric: Denies anxiety, depression, suicidal ideation or suicidal thoughts Endocrine Endocrinology: Denies polydipsia, polyphagia or polyuria Allergic/Immunologic Allergic/Immunologic ED: Denies mouth swelling, tongue swelling or urticaria EXAM Physical Exam Const Vital Signs: 01/10/25 14:31 01/10/25 15:40 01/10/25 16:59 Temperature 97.2 F L Temperature Source Temporal Pulse Rate 92 90 97 Respiratory Rate 16 18 16 Blood Pressure 199/176 H 135/101 H 144/110 H Blood Pressure Mean 183 112 121 Pulse Ox 100 98 96 Oxygen Delivery Method Room Air Room Air Room Air (more content not included)... Normal [facility] Eosinophil percentageOrdered By: Justino Kapoor on 01-10-2025 Eosinophils/100 WBC (Bld) 3.4 % 0-5 [facility] Erythrocyte distribution wid th ratioOrdered By: Justino Kapoor on 01-10-2025 Erythrocyte distribution width (RBC) [Ratio] 14.3 % 11.6-14.6 [facility] Erythrocyte distribution wid th standard deviationOrdered By: Justino Kapoor on 01-10-2025 Erythrocyte distribution width (RBC) [Ratio] 47.8 fl High 35.1-43.9 [facility] Glomerular filtration rate ( GFR) estimation/1.73 sq m using serum, plasma, or whole bOrdered By: Justino Kapoor on 01-10-2025 GFR/1.73 sq M.predicted among non-blacks MDRD (S/P/Bld) [Vol rate/Area] 89 mL/min/{1.73_m2} >60 [facility] Comment on above: mL/min/1.73m2 CKD-EP I Creatinine Equation (2020) Hematocrit Auto (Bld) [Volum e fraction]Ordered By: Justino Kapoor on 01-10-2025 Hematocrit (Bld) [Volume fraction] 48.0 % 40-54 [facility] Hemoglobin measurementOrdere d By: Justino Kapoor on 01-10-2025 Hemoglobin (Bld) [Mass/Vol] 16.4 g/dL 13.0-16.5 [facility] Immature granulocytes/100 WB C Auto (Bld)Ordered By: Justino Kapoor on 01-10-2025 Immature granulocytes/100 WBC (Bld) 0.300 % 0.0-0.9 [facility] Comment on above: IG% - Immature Granu locytes (promyelocytes, myelocytes and metamyelocytes) > 1% indicates that a LEFT SHIFT is Present. L501.4021on 01-10-2025 Trop T High Sen 13 ng/L Normal <=22 [facility] Comment on above: Performed By: #### L 501.9520, L501.5200 #### [facility] [address] [place], [place], [id number] MCV (mean corpuscular volume ) determinationOrdered By: Justino Kapoor on 01-10-2025 MCV (RBC) [Entitic vol] 91.1 fL 80-94 [facility] Magnesiumon 01-10-2025 Magnesium [Mass/Vol] 2.0 mg/dL Normal 1.5-2.2 [facility] Comment on above: Performed By: #### L 501.9520, L501.5200 #### [facility] [address] [place], [place], [id number] Magnesium measurement (mass/ volume)Ordered By: Justino Kapoor on 01-10-2025 Magnesium (Unsp spec) [Mass/Vol] 2.0 mg/dL 1.5-2.2 [facility] Mean corpuscular hemoglobin (MCH) determinationOrdered By: Justino Kapoor on 01-10-2025 MCH (RBC) [Entitic mass] 31.1 pg 27.0-32.0 [facility] Mean corpuscular hemoglobin concentration (MCHC) determinationOrdered By: Justino Kapoor on 01-10-2025 MCHC (RBC) [Mass/Vol] 34.2 g/dL 32-36 [facility] Mean platelet volume determi nationOrdered By: Justino Kapoor on 01-10-2025 Platelet mean volume (Bld) [Entitic vol] 10.3 fL 6.2-12.0 [facility] Monocyte percentageOrdered B y: Justino Kapoor on 01-10-2025 Monocytes/100 WBC (Bld) 7.9 % 0-10 [facility] Neutrophil percentageOrdered By: Justino Kapoor on 01-10-2025 Neutrophils/100 WBC (Bld) 56.2 % 47-70 [facility] Nucleated red blood cell per centageOrdered By: Justino Kapoor on 01-10-2025 Nucleated RBC/100 WBC (Bld) [Ratio] 0 % 0-5 [facility] Platelet countOrdered By: Bryce Kapoor on 01-10-2025 Platelets (Bld) [#/Vol] 210 10*3/uL 150-450 [facility] Potassium measurement (mass/ volume)Ordered By: Justino Kapoor on 01-10-2025 Potassium (Unsp spec) [Mass/Vol] 4.2 mmol/L 3.3-5.1 [facility] Comment on above: Hemolysis present, R esults could be affected. RBC Auto (Bld) [#/Vol]Ordere d By: Justino Kapoor on 01-10-2025 RBC (Bld) [#/Vol] 5.27 10*6/uL 4.6-6.2 [facility] Serum creatinine measurement (mass/volume)Ordered By: Justino Kapoor on 01-10-2025 Creatinine [Mass/Vol] 1.04 mg/dL 0.70-1.20 [facility] Serum glucose measurement (m ass/volume)Ordered By: Justino Kapoor on 01-10-2025 Glucose [Mass/Vol] 120 mg/dL High 70-99 [facility] Serum or plasma calcium christina urement (mass/volume)Ordered By: Justino Kapoor on 01-10-2025 Calcium [Mass/Vol] 9.2 mg/dL 7.6-11.0 [facility] Serum or plasma urea nitroge n measurement (mass/volume)Ordered By: uJstino Kapoor on 01-10-2025 Urea nitrogen [Mass/Vol] 16 mg/dL 4-19 [facility] Sodium levelOrdered By: Krish Kapoor on 01-10-2025 Sodium [Moles/Vol] 137 mmol/L 133-145 [facility] TSH DL <= 0.005 mIU/L QnOrde red By: Justino Kapoor on 01-10-2025 TSH Qn 1.700 uIU/mL 0.300-4.200 [facility] Thyroid Stim Hormone (TSH)on 01-10-2025 TSH 1.700 uIU/mL Normal 0.300-4.200 [facility] Comment on above: Performed By: #### L [id number], L501.5200 #### [facility] [address] [place], [address] Troponin T HS 2 HRon 025 Trop T High Sen 14 ng/L Normal <=22 [facility] Comment on above: Performed By: #### L [id number], [id number] #### [facility] [address] [place], [address] Troponin T HS 4 HRon 025 Trop T High Sen Normal <=22 [facility] Comment on above: Result Comment: Beata nesbitt via OM: MD Ordered Performed By: #### L [id number], [id number] #### [facility] [address] [place], [address] Troponin T.cardiac [Mass/vol ume] in Serum or Plasma by High sensitivity methodOrdered By: Justino Kapoor on 01-10-2025 Troponin T.cardiac High sensitivity method [Mass/Vol] 14 ng/L <22 [facility] Troponin T.cardiac High sensitivity method [Mass/Vol] 13 ng/L <22 [facility] White blood cell (WBC) count Ordered By: Justino Kapoor on 01-10-2025 WBC (Bld) [#/Vol] 6.7 10*3/uL 4.4-11.0 [facility] Cardiology Visit Reporton Cardiology Visit Report [facility] [address] [place] [address] OFFICE VISIT Date of Service: 04/19/24 MR#: [id number] Acct: [id number] Name: MOHIT RIVERS Rep #: [id number] : 1975 Provider: Dr. Marisa Lopez MD Age/Sex: 48/M Location: [facility] Status: Signed HPI HPI History of Present Illness Details: This gentleman with history of STEMI status post drug-eluting stents to the LAD and to the RCA, hypertension and dyslipidemia is here for follow-up visit. Denies any chest pains or shortness of breath either at rest or with exertion. No orthopnea or PND. Denies any ankle edema. No palpitations. Per patient, he has not been taking his atorvastatin as according to him, it was causing him dry mouth. Patient has quit smoking and remains abstinent. 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 Accompanied by: self Is patient in pain?: No Allergies lisinopril Allergy (Severe, Verified 04/19/24 09:53) Angioedema Medications ???Medication ???Instructions ???Recorded ???Confirmed ???Type aspirin 81 mg tablet,delayed 81 mg PO DAILY@0800 #0 tabs 07/29/23 04/19/24 Rx release hydrochlorothiazide 25 mg tablet 25 mg PO DAILY #90 tabs 08/19/23 04/19/24 Rx amlodipine 10 mg tablet 10 mg PO DAILY #90 tabs 08/30/23 04/19/24 Rx sildenafil 25 mg tablet (Viagra) 25 mg PO DAILY PRN sexual activity 09/06/23 04/19/24 Rx #30 tabs atorvastatin 80 mg tablet 80 mg PO QAM #90 tabs 09/13/23 04/19/24 Rx clopidogrel 75 mg tablet 75 mg PO .COMPLEX #90 tabs 11/08/23 04/19/24 Rx tirzepatide (weight loss) 2.5 2.5 mg (0.5 mL) subcut QWEEK #2 mL 04/14/24 04/19/24 Rx mg/0.5 mL subcutaneous pen injector (Zepbound) carvedilol 6.25 mg tablet 6.25 mg PO BID #180 tabs 04/19/24 Rx naproxen sodium 220 mg capsule 220 mg PO QDAY PRN 04/19/24 04/19/24 History (Aleve) omeprazole 20 mg capsule,delayed 20 mg PO DAILY PRN gerd 04/19/24 04/19/24 History release Ejection fraction %: 55 Have you fallen in the past year?: No PFSH Medical History (Updated 04/19/24 @ 10:[address] 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 Tobacco abuse STEMI (ST elevation myocardial infarction) ( 07/27/23) Surgical History Hx of cardiac catheterization ( 07/28/23) Stented coronary artery ( 08/26/23) h/o microdiscectomy L5-S1 h/o kidney surgery Family History Father CAD (coronary artery disease) Other Heart disease Social History Smoking Status: Former smoker how long ago did patient quit smoking: July 2023 alcohol intake: current alcohol intake frequency: a few times a month Alcohol type: beer substance use type: marijuana caffeine: Yes Type: coffee Number of servings: 4 ROS Const Const: Positive for fatigue, weight gain and other (decreased libido); Negative for weakness or headache(s) ENT ENT: Negative for headache(s), dizziness, Nosebleed/epistaxis or balance problems Cardio Chest Pain: No Palpitations: No Edema: None Muscle aches with walking: None Resp Respiratory: Positive for SOB at rest (could be anxiety per pt); Negative for SOB with activity or SOB orthopnea SOB lying down GI GI: Negative nausea, vomiting or heartburn Musc Musc: Negative for muscle aches/ myalgia, muscle weakness, joint pain or balance problems Neuro Neuro: Negative for dizziness, lightheadedness, near syncope, syncope, headache(s) or weakness Endo Endo: Positive for fatigue Psych Psych: Positive for anxiety (stress and anxiety per pt) Cardiology Exam Const Appearance: comfortable and no acute distress Nutritional Appearance: obese Neck Neck: no JVD Carotids: Negative bruit Chest Auscultation: Bilateral: Clear to Auscultation Cardio Rate: regular rate Rhythm: regular rhythm Heart sounds: S1 normal and S2 normal GI GI: obese Neuro General: patient alert, patient awake and patient oriented x3 Extremities Lower Extremity Edema: None: Bilateral Supplemental Info Supplemental Information Echocardiogram from 07/28/2023: Interpretation Summary Moderate concentric left ventricular hypertrophy. The left ventricular ejection fraction is 55 %. Apical hypokinesis. The left atrium is moderately enlarged. Mild (1+) aortic valve i (more content not included)... Normal [facility] Lipid Profileon 03-17-2024 Cholesterol [Mass/Vol] 167 mg/dL Normal 200 [facility] Comment on above: Result Comment: <200 mg/dL Desirable 200-240 mg/dL Borderline >240 mg/dL High Risk Performed By: #### L 500.4100, L500.3400 #### [facility] [address] [place], [address] Cholesterol in HDL [Mass/Vol] 38 mg/dL Low [facility] Comment on above: Result Comment: The drugs N-Acetylcysteine and Metamizole may falsely depress this assay. Reference Range HDL <40 mg/dL Low HDL Cholesterol HDL >or= 60 mg/dL High HDL Cholesterol Performed By: #### L 500.4100, L500.3400 #### [facility] [address] [place], [address] Cholesterol in LDL [Mass/Vol] 88 mg/dL Normal 0-130 [facility] Comment on above: Performed By: #### L 500.4100, [id number] #### [facility] [address] [place], [address] Cholesterol in VLDL [Mass/Vol] 41 mg/dL High 5-40 [facility] Comment on above: Performed By: #### L 500.4100, [id number] #### [facility] [address] [place], [address] Triglyceride [Mass/Vol] 205 mg/dL High [facility] Comment on above: Result Comment: The drugs N-Acetylcysteine and Metamizole may falsely depress this assay. Serum Triglycerides Reference Interval Normal <150 mg/dL Borderline high 150 - 199 mg/dL High 200 - 499 mg/dL Very High > or = 500 mg/dL Performed By: #### L 500.4100, L500.3400 #### [facility] [address] [place], [address] Liver Profileon 03-17-2024 Albumin [Mass/Vol] 3.7 g/dL Normal 3.2-5.0 [facility] Comment on above: Performed By: #### L 500.4100, [id number] #### [facility] [address] [place], [address] ALK P 52 U/L Normal 45-117 [facility] Comment on above: Performed By: #### L 500.4100, [id number] #### [facility] [address] [place], [address] ALT [Catalytic activity/Vol] 87 U/L High 16-61 [facility] Comment on above: Performed By: #### L 500.4100, [id number] #### [facility] [address] [place], [address] AST [Catalytic activity/Vol] 40 U/L High 15-37 [facility] Comment on above: Performed By: #### L 500.4100, [id number] #### [facility] [address] [place], [address] Bilirubin [Mass/Vol] 0.70 mg/dL Normal 0.20-1.00 [facility] Comment on above: Result Comment: For patients on eltrombopag therapy, use of Dimension [place] TBIL is not recommended. Performed By: #### L 500.4100, L500.3400 #### [facility] [address] [place], [address] Bilirubin.direct [Mass/Vol] 0.12 mg/dL Normal 0.00-0.30 [facility] Comment on above: Performed By: #### L 500.4100, [id number] #### [facility] [address] [place], [address] Globulin (S) [Mass/Vol] 3.9 g/dL Normal 2.2-4.2 [facility] Comment on above: Performed By: #### L [id number], [id number] #### [facility] [address] [place], [address] T PROT 7.6 g/dL Normal 6.4-8.2 [facility] Comment on above: Performed By: #### L 500.4100, [id number] #### [facility] [address] [place], [address] CBC W Auto Differential pane l (Bld)on 08-03-2023 Basophils (Bld) [#/Vol] 0.07 10*3/uL [facility] Basophils/100 WBC (Bld) 1.0 % [facility] Differential cell count method Nom (Bld) Auto [facility] Eosinophils (Bld) [#/Vol] 0.25 10*3/uL [facility] Eosinophils/100 WBC (Bld) 3.5 % [facility] Erythrocyte distribution width (RBC) [Ratio] 13.6 % 11.5 - 15.0 % [facility] Hematocrit (Bld) [Volume fraction] 46.7 % 39.0 - 51.0 % [facility] Hemoglobin (Bld) [Mass/Vol] 16.3 g/dL 13.0 - 17.0 g/dL [facility] Immature granulocytes (Bld) [#/Vol] 0.04 10*3/uL [facility] Immature granulocytes/100 WBC (Bld) 0.6 % [facility] Lymphocytes (Bld) [#/Vol] 1.94 10*3/uL [facility] Lymphocytes/100 WBC (Bld) 27.0 % [facility] MCH (RBC) [Entitic mass] 30.8 pg 26. 0 - 34.[address] [facility] MCHC (RBC) [Mass/Vol] 34.9 g/dL 30.5 - 36.0 g/dL [facility] MCV (RBC) [Entitic vol] 88.1 fL 80.0 - 100.[address] [facility] Monocytes (Bld) [#/Vol] 0.67 10*3/uL [facility] Monocytes/100 WBC (Bld) 9.3 % [facility] Neutrophils (Bld) [#/Vol] 4.21 10*3/uL [facility] Neutrophils/100 WBC (Bld) 58.6 % [facility] Nucleated RBC (Bld) [#/Vol] [facility] Nucleated RBC/100 WBC (Bld) [Ratio] 0.0 % /[address] [facility] Platelet mean volume (Bld) [Entitic vol] 10.7 fL 9.0 - 12.[address] [facility] Platelets (Bld) [#/Vol] 242 10*3/uL [facility] RBC (Bld) [#/Vol] 5.30 10*6/uL 4.20 - 6.0 0 m/uL [facility] WBC (Bld) [#/Vol] 7.18 10*3/uL [facility] Comprehensive metabolic 2000 panelon 08-03-2023 Albumin [Mass/Vol] 4.3 g/dL 3.9 - 4.9 g/dL [facility] ALP [Catalytic activity/Vol] 74 U/L 38 - 113 U/L [facility] ALT [Catalytic activity/Vol] 53 U/L 10 - 54 U/L [facility] Anion gap [Moles/Vol] 13 mmol/L 9 - 18 mmol/L [facility] AST [Catalytic activity/Vol] 34 U/L 14 - 40 U/L [facility] Bilirubin [Mass/Vol] 0.5 mg/dL 0.2 - 1 .3 mg/dL [facility] Calcium [Mass/Vol] 9.6 mg/dL 8.5 - 10. 2 mg/dL [facility] Chloride [Moles/Vol] 100 mmol/L 97 - 10 5 mmol/L [facility] CO2 [Moles/Vol] 22 mmol/L 22 - 30 mmol/L [facility] Creatinine [Mass/Vol] 1.12 mg/dL 0.73 - 1.22 mg/dL [facility] GFR/1.73 sq M.predicted among non-blacks MDRD (S/P/Bld) [Vol rate/Area] 82 mL/min/{1.73_m2} - PINF [facility] Comment on above: Estimated Glomerular Filtration Rate (eGFR) is calculated using the 2020 CKD-EPI creatinine equation. This equation utilizes serum creatinine, sex, and age as parameters. The creatinine assay has traceable calibration to isotope dilution-mass spectrometry. Refer to KDIGO guidelines for clinical interpretation. In patients with unstable renal function, e.g. those with acute kidney injury, the eGFR may not accurately reflect actual GFR. Glucose [Mass/Vol] 102 mg/dL High 74 - 99 mg/dL [facility] Comment on above: The [place] Diabete s Association (ADA) provides guidance for cutoff values for fasting glucose and random glucose. The ADA defines fasting as no caloric intake for at least 8 hours. Fasting plasma glucose results between 100 to 125 mg/dL indicate increased risk for diabetes (prediabetes). Fasting plasma glucose results greater than or equal to 126 mg/dL meet the criteria for diagnosis of diabetes. In the absence of unequivocal hyperglycemia, results should be confirmed by repeat testing. In a patient with classic symptoms of hyperglycemia or hyperglycemic crisis, random plasma glucose results greater than or equal to 200 mg/dL meet the criteria for diagnosis of diabetes. Reference: Standards of Medical Care in Diabetes 2016, [place] [employer] Association. Diabetes Care. 2016.39(Suppl 1). Interpretation and review of laboratory results Abnormal [facility] Potassium [Moles/Vol] 4.2 mmol/L 3.7 - 5.1 mmol/L [facility] Protein [Mass/Vol] 7.3 g/dL 6.3 - 8.0 g/dL [facility] Sodium [Moles/Vol] 135 mmol/L Low 136 - 144 mmol/L [facility] Urea nitrogen [Mass/Vol] 16 mg/dL 9 - 24 mg/d L [facility] HbA1c (Bld)on 08-03-2023 Average glucose Estimated from glycated hemoglobin (Bld) [Mass/Vol] 117 mg/dL [facility] Comment on above: eAG: (Estimated aver age glucose) is a calculated value from HgbA1c and is business process representative of the average blood glucose level in the last 2-3 month period. HbA1c (Bld) [Mass fraction] 5.7 % High 4.3 - 5.6 % [facility] Comment on above: [place] Diabetes As sociation guidelines indicate that patients with HgbA1c in the range 5.7-6.4% are at increased risk for development of diabetes, and intervention by lifestyle modification may be beneficial. HgbA1c greater or equal to 6.5% is considered diagnostic of diabetes. Interpretation and review of laboratory results Abnormal [facility] Absolute lymphocyte countOrd ered By: Babita Carreno on 07-29-2023 Lymphocytes Auto (Unsp spec) [#/Vol] 2.00 10*3/uL 0.83-4.51 [facility] Automated lymphocyte count a s percentage of total leukocytesOrdered By: Babita Carreno on 07-29-2023 Lymphocytes/100 WBC Auto (Unsp spec) 26.8 % 19-41 [facility] Basophil percentageOrdered B y: Babita Carreno on 07-29-2023 Basophils/100 WBC (Bld) 0.9 % 0-1 [facility] Chloride [Moles/Vol] 104 mmol/L 98-107 [facility] Eosinophils/100 WBC (Bld) 3.2 % 0-5 [facility] Glucose [Mass/Vol] 121 mg/dL 74-106 [facility] Comment on above: Fasting Glucose resu lt from 100 to 125 mg/dL suggests IMPAIRED HOMEOSTASIS per A.D.A. criteria. Hemoglobin (Bld) [Mass/Vol] 16.7 g/dL 13.0-16.5 [facility] Monocytes/100 WBC (Bld) 10.7 % 0-10 [facility] Neutrophils (Bld) [#/Vol] 4.3 10*3/uL 2.0-7.7 [facility] Neutrophils/100 WBC (Bld) 58.0 % 47-70 [facility] Potassium [Moles/Vol] 3.8 mmol/L 3.5-5.1 [facility] Sodium [Moles/Vol] 135 mmol/L 136-145 [facility] WBC (Bld) [#/Vol] 7.5 10*3/uL 4.4-11.0 [facility] Determination of erythrocyte mean corpuscular volume (MCV)Ordered By: Babita Carreno on 07-29-2023 MCV (RBC) [Entitic vol] 90.2 fL 80-94 [facility] Erythrocyte distribution wid th ratioOrdered By: Babita Carreno on 07-29-2023 Erythrocyte distribution width (RBC) [Ratio] 13.8 % 11.6-14.6 [facility] Erythrocyte distribution wid th standard deviationOrdered By: Babita Carreno on 07-29-2023 Erythrocyte distribution width (RBC) [Entitic vol] 46.0 fL 35.1-43.9 [facility] Hematocrit Auto (Bld) [Volum e fraction]Ordered By: Babita Carreno on 07-29-2023 Hematocrit (Bld) [Volume fraction] 49.9 % 40-54 [facility] Immature granulocytes/100 WB C Auto (Bld)Ordered By: Babita Carreno on 07-29-2023 Immature granulocytes/100 WBC (Bld) 0.400 % 0.0-0.9 [facility] Comment on above: IG% - Immature Granu locytes (promyelocytes, myelocytes and metamyelocytes) > 1% indicates that a LEFT SHIFT is Present. Laboratory - Chemistry and C hemistry - challengeOrdered By: Babita Carreno on 07-29-2023 CO2 [Moles/Vol] 26.0 mmol/L 21.0-32.0 [facility] Urea nitrogen/Creatinine [Mass ratio] 11.5 mg/mg 10-20 [facility] - Hematology and Cell countsOrdered By: Babita Carreno on 07-29-2023 MCH (RBC) [Entitic mass] 30.2 pg 27.0-32.0 [facility] MCHC (RBC) [Mass/Vol] 33.5 g/dL 32-36 [facility] Nucleated RBC/100 WBC (Bld) [Ratio] 0 % 0-5 [facility] Platelet mean volume (Bld) [Entitic vol] 10.0 fL 6.2-12.0 [facility] Platelets (Bld) [#/Vol] 233 10*3/uL 150-450 [facility] No Panel InformationOrdered By: Babita Carreno on 07-29-2023 Estimated Creatinine Clearance Calc 125.09 ml/min [facility] Estimated GFR (MDRD) Amer 98 mL/min >60 [facility] Comment on above: GFR Calc Estimated GFR (MDRD) Non-Af Amer 81 mL/min >60 [facility] Comment on above: Non- GFR Calc RBC Auto (Bld) [#/Vol]Ordere d By: Babita Carreno on 07-29-2023 RBC (Bld) [#/Vol] 5.53 10*6/uL 4.6-6.2 [facility] Serum or plasma calcium christina urement (mass/volume)Ordered By: Babita Carreno on 07-29-2023 Calcium [Mass/Vol] 9.0 mg/dL 8.5-10.1 [facility] Serum or plasma creatinine m easurement (mass/volume)Ordered By: Babita Carreno on 07-29-2023 Creatinine [Mass/Vol] 1.04 mg/dL 0.70-1.30 [facility] Comment on above: The validity of the calculated GFR & GFRAA in patients over 70 years has not been determined. Clinical correlation is essential. Serum or plasma urea nitroge n measurement (mass/volume)Ordered By: Babita Carreno on 07-29-2023 Urea nitrogen [Mass/Vol] 12 mg/dL 7-18 [facility] Thin prep Papanicolaou smear with manual screeningOrdered By: Babita Carreno on 07-29-2023 Thin prep Papanicolaou smear with manual screening 5 5-15 [facility] Basophil percentageOrdered B y: Babita Carreno on 07-28-2023 Basophil percentage 2.6 mg/dL 2.5-4.9 [facility] Basophil percentageOrdered B y: Marisa Lopez on 07-28-2023 Bilirubin [Mass/Vol] 0.60 mg/dL 0.20-1.00 [facility] Comment on above: For patients on eltr ombopag therapy, use of Dimension [place] TBIL is not recommended. Cholesterol [Mass/Vol] 178 mg/dL <200 [facility] Comment on above: <200 mg/dL Desirable 200-240 mg/dL Borderline >240 mg/dL High Risk Protein [Mass/Vol] 7.3 g/dL 6.4-8.2 [facility] Triglyceride [Mass/Vol] 103 mg/dL <199 [facility] Comment on above: The drugs N-Acetylcy steine and Metamizole may falsely depress this assay.Serum Triglycerides Reference Interval Normal <150 mg/dL Borderline high 150 - 199 mg/dL High 200 - 499 mg/dL Very High > or = 500 mg/dL Laboratory - Chemistry and C hemistry - challengeOrdered By: Marisa Lopez on 07-28-2023 Albumin/Globulin [Mass ratio] 1.1 {ratio} 0.9-2.4 [facility] ALP [Catalytic activity/Vol] 61 U/L 45-117 [facility] ALT [Catalytic activity/Vol] 65 U/L 16-61 [facility] Cholesterol in HDL [Mass/Vol] 41 mg/dL >40 [facility] Comment on above: The drugs N-Acetylcy steine and Metamizole may falsely depress this assay. Reference Range HDL <40 mg/dL Low HDL Cholesterol HDL >or= 60 mg/dL High HDL Cholesterol Cholesterol in LDL [Mass/Vol] 116 mg/dL 0-130 [facility] Globulin (S) [Mass/Vol] 3.5 g/dL 2.2-4.2 [facility] Laboratory - Chemistry and C hemistry - challengeOrdered By: Babita Carreno on 07-28-2023 Magnesium [Mass/Vol] 2.1 mg/dL 1.6-2.6 [facility] No Panel InformationOrdered By: Marisa Lopez on 07-28-2023 VLDL Cholesterol 21 mg/dL 5-40 [facility] Thin prep Papanicolaou smear with manual screeningOrdered By: Marisa Lopez on 07-28-2023 Thin prep Papanicolaou smear with manual screening 3.8 g/dL 3.2-5.0 [facility] Thin prep Papanicolaou smear with manual screening 56 U/L 15-37 [facility] Whole blood hemoglobin A1c/t otal hemoglobin ratio (mass fraction)Ordered By: Babita Carreno on 07-28-2023 HbA1c (Bld) [Mass fraction] 5.4 % 3.8-5.6 [facility] Comment on above: Normal < 5.7 % Predi abetic 5.7 - 6.4 % Diabetic >or= 6.5 % Please note range changes. Absolute lymphocyte countOrd ered By: Nathen Haynes on 07-27-2023 Lymphocytes Auto (Unsp spec) [#/Vol] 4.29 10*3/uL 0.83-4.51 [facility] Activated partial thrombopla stin time (aPTT) in platelet poor plasma by coagulation aOrdered By: Nathen Haynes on 07-27-2023 aPTT Coag (PPP) [Time] 29.4 s 24.1-36.2 [facility] [place] Automated lymphocyte count a s percentage of total leukocytesOrdered By: Nathen Haynes on 07-27-2023 Lymphocytes/100 WBC Auto (Unsp spec) 43.5 % 19-41 [facility] Basophil percentageOrdered B y: Nathen Haynes on 07-27-2023 Basophils/100 WBC (Bld) 1.2 % 0-1 [facility] Chloride [Moles/Vol] 107 mmol/L 98-107 [facility] Eosinophils/100 WBC (Bld) 3.3 % 0-5 [facility] Glucose [Mass/Vol] 108 mg/dL 74-106 [facility] Comment on above: Fasting Glucose resu lt from 100 to 125 mg/dL suggests IMPAIRED HOMEOSTASIS per A.D.A. criteria. Hemoglobin (Bld) [Mass/Vol] 17.3 g/dL 13.0-16.5 [facility] Monocytes/100 WBC (Bld) 10.2 % 0-10 [facility] Neutrophils (Bld) [#/Vol] 4.1 10*3/uL 2.0-7.7 [facility] Neutrophils/100 WBC (Bld) 41.5 % 47-70 [facility] Potassium [Moles/Vol] 3.1 mmol/L 3.5-5.1 [facility] Sodium [Moles/Vol] 138 mmol/L 136-145 [facility] WBC (Bld) [#/Vol] 9.9 10*3/uL 4.4-11.0 [facility] Determination of erythrocyte mean corpuscular volume (MCV)Ordered By: Nathen Haynes on 07-27-2023 MCV (RBC) [Entitic vol] 88.2 fL 80-94 [facility] Erythrocyte distribution wid th ratioOrdered By: Nathen Haynes on 07-27-2023 Erythrocyte distribution width (RBC) [Ratio] 13.9 % 11.6-14.6 [facility] Erythrocyte distribution wid th standard deviationOrdered By: Nathen Haynes on 07-27-2023 Erythrocyte distribution width (RBC) [Entitic vol] 44.6 fL 35.1-43.9 [facility] Hematocrit Auto (Bld) [Volum e fraction]Ordered By: Nathen Haynes on 07-27-2023 Hematocrit (Bld) [Volume fraction] 50.3 % 40-54 [facility] Immature granulocytes/100 WB C Auto (Bld)Ordered By: Nathen Haynes on 07-27-2023 Immature granulocytes/100 WBC (Bld) 0.300 % 0.0-0.9 [facility] Comment on above: IG% - Immature Granu locytes (promyelocytes, myelocytes and metamyelocytes) > 1% indicates that a LEFT SHIFT is Present. Laboratory - Chemistry and C hemistry - challengeOrdered By: Nathen Haynes on 07-27-2023 CO2 [Moles/Vol] 22.0 mmol/L 21.0-32.0 [facility] Urea nitrogen/Creatinine [Mass ratio] 13.6 mg/mg 10-20 [facility] Laboratory - CoagulationOrde red By: Nathen Haynes on 07-27-2023 INR Coag (Bld) [Relative time] 1.0 {INR} [facility] PT Coag (PPP) [Time] 12.9 s 11.7-14.9 [facility] Laboratory - Hematology and Cell countsOrdered By: Nathen Haynes on 07-27-2023 MCH (RBC) [Entitic mass] 30.4 pg 27.0-32.0 [facility] MCHC (RBC) [Mass/Vol] 34.4 g/dL 32-36 [facility] Nucleated RBC/100 WBC (Bld) [Ratio] 0 % 0-5 [facility] Platelet mean volume (Bld) [Entitic vol] 9.6 fL 6.2-12.0 [facility] Platelets (Bld) [#/Vol] 237 10*3/uL 150-450 [facility] No Panel InformationOrdered By: Nathen Haynes on 07-27-2023 Estimated Creatinine Clearance Calc 128.16 ml/min [facility] Estimated GFR (MDRD) Amer 100 mL/min >60 [facility] Comment on above: GFR Calc Estimated GFR (MDRD) Non-Af Amer 82 mL/min >60 [facility] Comment on above: Non- GFR Calc Troponin I High Sensitivity 19 pg/mL 3.0-78.0 [facility] Comment on above: Please Note: New Katya t Units and Gender Specific Reference Ranges. For more information see Policy Stat Procedure [place] High Sensitivity Troponin (TNIH) and attachments. RBC Auto (Bld) [#/Vol]Ordere d By: Nathen Haynes on 07-27-2023 RBC (Bld) [#/Vol] 5.70 10*6/uL 4.6-6.2 [facility] Serum or plasma calcium christina urement (mass/volume)Ordered By: Nathen Haynes on 07-27-2023 Calcium [Mass/Vol] 9.4 mg/dL 8.5-10.1 [facility] Serum or plasma creatinine m easurement (mass/volume)Ordered By: Nathen Haynes on 07-27-2023 Creatinine [Mass/Vol] 1.03 mg/dL 0.70-1.30 [facility] Comment on above: The validity of the calculated GFR & GFRAA in patients over 70 years has not been determined. Clinical correlation is essential. Serum or plasma urea nitroge n measurement (mass/volume)Ordered By: Nathen Haynes on 07-27-2023 Urea nitrogen [Mass/Vol] 14 mg/dL 7-18 [facility] Thin prep Papanicolaou smear with manual screeningOrdered By: Nathen Haynes on 07-27-2023 Thin prep Papanicolaou smear with manual screening 9 5-15 [facility] Absolute lymphocyte counton 11-26-2021 Lymphocytes Auto (Unsp spec) [#/Vol] 0.82 10*3/uL 0.83-4.51 [facility] Work Phone: Basophil percentageon 2021 Basophils/100 WBC (Bld) 0.2 % 0-1 [facility] Work Phone: Chloride [Moles/Vol] 109 mmol/L 98-107 [facility] Work Phone: Eosinophils/100 WBC (Bld) 0.0 % 0-5 [facility] Work Phone: Glucose [Mass/Vol] 177 mg/dL 74-106 [facility] Work Phone: Comment on above: Fasting Glucose resu lt greater than or equal to 126 mg/dL suggests DIABETES MELLITUS per A.D.A. criteria. Neutrophils (Bld) [#/Vol] 4.5 10*3/uL 2.0-7.7 [facility] Work Phone: Neutrophils/100 WBC (Bld) 80.2 % 47-70 [facility] Work Phone: Potassium [Moles/Vol] 5.1 mmol/L 3.5-5.1 [facility] Work Phone: Sodium [Moles/Vol] 137 mmol/L 136-145 [facility] Work Phone: WBC (Bld) [#/Vol] 5.6 10*3/uL 4.4-11.0 [facility] Work Phone: Blood erythrocytes count (nu mber/volume)on 11-26-2021 RBC (Bld) [#/Vol] 4.76 10*6/uL 4.6-6.2 [facility] Work Phone: Blood hemoglobin measurement (mass/volume)on 11-26-2021 Hemoglobin (Bld) [Mass/Vol] 14.8 g/dL 13.0-16.5 [facility] Work Phone: Blood lymphocytes/100 leukoc yteson 11-26-2021 Lymphocytes/100 WBC (Bld) 14.7 % 19-41 [facility] Work Phone: Blood monocytes/100 leukocyt eson 11-26-2021 Monocytes/100 WBC (Bld) 4.5 % 0-10 [facility] Work Phone: Blood platelet mean volumeon 11-26-2021 Platelet mean volume (Bld) [Entitic vol] 10.7 fL 6.2-12.0 [facility] Work Phone: Determination of erythrocyte mean corpuscular volume (MCV)on 11-26-2021 MCV (RBC) [Entitic vol] 91.0 fL 80-94 [facility] Work Phone: Hematocrit Auto (Bld) [Volum e fraction]on 11-26-2021 Hematocrit (Bld) [Volume fraction] 43.3 % 40-54 [facility] Work Phone: Laboratory - Chemistry and C hemistry - challengeon 11-26-2021 CO2 [Moles/Vol] 21.0 mmol/L 21.0-32.0 [facility] Work Phone: Urea nitrogen/Creatinine [Mass ratio] 29.4 mg/mg 10-20 [facility] Work Phone: Laboratory - Hematology and Cell countson 11-26-2021 Erythrocyte distribution width (RBC) [Entitic vol] 47.4 fL 35.1-43.9 [facility] Work Phone: [phone] Erythrocyte distribution width (RBC) [Ratio] 14.1 % 11.6-14.6 [facility] Work Phone: [phone] Immature granulocytes/100 WBC (Bld) 0.400 % 0.0-0.9 [facility] Work Phone: Comment on above: IG% - Immature Granu locytes (promyelocytes, myelocytes and metamyelocytes) > 1% indicates that a LEFT SHIFT is Present. MCH (RBC) [Entitic mass] 31.1 pg 27.0-32.0 [facility] Work Phone: Nucleated RBC/100 WBC (Bld) [Ratio] 0 % 0-5 [facility] Work Phone: MCHC Auto (RBC) [Mass/Vol]on 11-26-2021 MCHC (RBC) [Mass/Vol] 34.2 g/dL 32-36 [facility] Work Phone: No Panel Informationon 11-26 Estimated Creatinine Clearance Calc 103.36 ml/min [facility] Work Phone: Estimated GFR (MDRD) Amer 101 mL/min >60 [facility] Work Phone: Comment on above: GFR Calc Estimated GFR (MDRD) Non-Af Amer 84 mL/min >60 [facility] Work Phone: Comment on above: Non- GFR Calc Platelets bldon 11-26-2021 Platelets (Bld) [#/Vol] 207 10*3/uL 150-450 [facility] Work Phone: Serum or plasma calcium christina urement (mass/volume)on 11-26-2021 Calcium [Mass/Vol] 8.2 mg/dL 8.5-10.1 [facility] Work Phone: Serum or plasma creatinine m easurement (mass/volume)on 11-26-2021 Creatinine [Mass/Vol] 1.02 mg/dL 0.70-1.30 [facility] Work Phone: Comment on above: The validity of the calculated GFR & GFRAA in patients over 70 years has not been determined. Clinical correlation is essential. Serum or plasma urea nitroge n measurement (mass/volume)on 11-26-2021 Urea nitrogen [Mass/Vol] 30 mg/dL 7-18 [facility] Work Phone: [phone] Thin prep Papanicolaou smear with manual screeningon 11-26-2021 Thin prep Papanicolaou smear with manual screening 7 5-15 [facility] Work Phone: [phone] Whole blood hemoglobin A1c/t otal hemoglobin ratio (mass fraction)on 11-26-2021 HbA1c (Bld) [Mass fraction] 5.9 % 3.8-5.6 [facility] Work Phone: Comment on above: Normal < 5.7 % Predi abetic 5.7 - 6.4 % Diabetic >or= 6.5 % Please note range changes. Basophil percentageon 2021 Chloride [Moles/Vol] 103 mmol/L 98-107 [facility] Work Phone: Glucose [Mass/Vol] 139 mg/dL 74-106 [facility] Work Phone: Comment on above: Fasting Glucose resu lt greater than or equal to 126 mg/dL suggests DIABETES MELLITUS per A.D.A. criteria. Potassium [Moles/Vol] 4.7 mmol/L 3.5-5.1 [facility] Work Phone: Sodium [Moles/Vol] 133 mmol/L 136-145 [facility] Work Phone: Bilirubin Test strip Ql (U)o n 11-25-2021 Bilirubin Ql (U) Negative Negative [facility] Work Phone: Ketones Test strip Ql (U)on 11-25-2021 Ketones Ql (U) Negative Negative [facility] Work Phone: Laboratory - Chemistry and C hemistry - challengeon 11-25-2021 CO2 [Moles/Vol] 22.0 mmol/L 21.0-32.0 [facility] Work Phone: Urea nitrogen/Creatinine [Mass ratio] 19.7 mg/mg 10-20 [facility] Work Phone: Nitrite Test strip Ql (U)on 11-25-2021 Nitrite Ql (U) Negative Negative [facility] Work Phone: No Panel Informationon 11-25 Estimated Creatinine Clearance Calc 44.30 ml/min [facility] Work Phone: Estimated GFR (MDRD) Amer 38 mL/min >60 [facility] Work Phone: [phone] Comment on above: GFR Calc Estimated GFR (MDRD) Non-Af Amer 32 mL/min >60 [facility] Work Phone: Comment on above: Non- GFR Calc Protein Test strip Ql (U)on 11-25-2021 Protein Ql (U) 15 mg/dl Negative [facility] Work Phone: Serum or plasma calcium christina urement (mass/volume)on 11-25-2021 Calcium [Mass/Vol] 8.4 mg/dL 8.5-10.1 [facility] Work Phone: Serum or plasma creatinine m easurement (mass/volume)on 11-25-2021 Creatinine [Mass/Vol] 2.38 mg/dL 0.70-1.30 [facility] Work Phone: Comment on above: The validity of the calculated GFR & GFRAA in patients over 70 years has not been determined. Clinical correlation is essential. Serum or plasma urea nitroge n measurement (mass/volume)on 11-25-2021 Urea nitrogen [Mass/Vol] 47 mg/dL 7-18 [facility] Work Phone: Thin prep Papanicolaou smear with manual screeningon 11-25-2021 Thin prep Papanicolaou smear with manual screening 8 5-15 [facility] Work Phone: Urine blood detectionon RBC Ql (U) 10 /ul Negative [facility] Work Phone: Urine clarityon 11-25-2021 Clarity (U) Clear Clear [facility] Work Phone: Urine color determinationon 11-25-2021 Color (U) Straw Yellow [facility] Work Phone: Urine glucose detectionon Glucose Ql (U) 250 mg/dl Normal [facility] Work Phone: Urine leukocyte esterase det ection by dipstickon 11-25-2021 Leukocyte esterase Test strip Ql (U) Negative Negative [facility] Work Phone: Urine pHon 11-25-2021 pH (U) 6.0 [pH] 5.0 - 8.0 [facility] Work Phone: Urine specific gravity measu rementon 11-25-2021 Specific gravity (U) [Rel density] 1.010 1.002-1.030 [facility] Work Phone: Urobilinogen Auto test strip Ql (U)on 11-25-2021 Urobilinogen Ql (U) Normal mg/dl Normal [facility] Work Phone: Absolute lymphocyte counton 11-24-2021 Lymphocytes Auto (Unsp spec) [#/Vol] 1.07 10*3/uL 0.83-4.51 [facility] Work Phone: Basophil percentageon 2021 Basophils/100 WBC (Bld) 0.7 % 0-1 [facility] Work Phone: Eosinophils/100 WBC (Bld) 0.5 % 0-5 [facility] Work Phone: Neutrophils (Bld) [#/Vol] 4.1 10*3/uL 2.0-7.7 [facility] Work Phone: Neutrophils/100 WBC (Bld) 73.7 % 47-70 [facility] Work Phone: WBC (Bld) [#/Vol] 5.6 10*3/uL 4.4-11.0 [facility] Work Phone: Blood erythrocytes count (nu mber/volume)on 11-24-2021 RBC (Bld) [#/Vol] 5.72 10*6/uL 4.6-6.2 [facility] Work Phone: Blood hemoglobin measurement (mass/volume)on 11-24-2021 Hemoglobin (Bld) [Mass/Vol] 17.9 g/dL 13.0-16.5 [facility] Work Phone: Blood lymphocytes/100 leukoc yteson 11-24-2021 Lymphocytes/100 WBC (Bld) 19.1 % 19-41 [facility] Work Phone: Blood monocytes/100 leukocyt eson 11-24-2021 Monocytes/100 WBC (Bld) 4.8 % 0-10 [facility] Work Phone: [phone] Blood platelet mean volumeon 11-24-2021 Platelet mean volume (Bld) [Entitic vol] 10.2 fL 6.2-12.0 [facility] Work Phone: [phone] Determination of erythrocyte mean corpuscular volume (MCV)on 11-24-2021 MCV (RBC) [Entitic vol] 90.9 fL 80-94 [facility] Work Phone: [phone] Hematocrit Auto (Bld) [Volum e fraction]on 11-24-2021 Hematocrit (Bld) [Volume fraction] 52.0 % 40-54 [facility] Work Phone: [phone] Laboratory - Hematology and Cell countson 11-24-2021 Erythrocyte distribution width (RBC) [Entitic vol] 46.4 fL 35.1-43.9 [facility] Work Phone: [phone] Erythrocyte distribution width (RBC) [Ratio] 13.9 % 11.6-14.6 [facility] Work Phone: [phone] Immature granulocytes/100 WBC (Bld) 1.200 % 0.0-0.9 [facility] Work Phone: [phone] Comment on above: IG% - Immature Granu locytes (promyelocytes, myelocytes and metamyelocytes) > 1% indicates that a LEFT SHIFT is Present. MCH (RBC) [Entitic mass] 31.3 pg 27.0-32.0 [facility] Work Phone: [phone] Nucleated RBC/100 WBC (Bld) [Ratio] 0 % 0-5 [facility] Work Phone: [phone] MCHC Auto (RBC) [Mass/Vol]on 11-24-2021 MCHC (RBC) [Mass/Vol] 34.4 g/dL 32-[address] Work Phone: [phone] No Panel Informationon 11-24 Troponin I High Sensitivity 8 pg/mL 3.0-78.0 [facility] Work Phone: Comment on above: Please Note: New Katya t Units and Gender Specific Reference Ranges. For more information see Policy Stat Procedure [place] High Sensitivity Troponin (TNIH) and attachments. Platelets bldon 11-24-2021 Platelets (Bld) [#/Vol] 221 10*3/uL 150-450 [facility] Work Phone: Absolute lymphocyte counton 11-23-2021 Lymphocytes Auto (Unsp spec) [#/Vol] 1.87 10*3/uL 0.83-4.51 [facility] Work Phone: Basophil percentageon 2021 Basophils/100 WBC (Bld) 0.7 % 0-1 [facility] Work Phone: Bilirubin [Mass/Vol] 0.60 mg/dL 0.20-1.00 [facility] Work Phone: Comment on above: For patients on eltr ombopag therapy, use of Dimension [place] TBIL is not recommended. Chloride [Moles/Vol] 107 mmol/L 98-107 [facility] Work Phone: Eosinophils/100 WBC (Bld) 1.8 % 0-5 [facility] Work Phone: Glucose [Mass/Vol] 122 mg/dL 74-106 [facility] Work Phone: Comment on above: Fasting Glucose resu lt from 100 to 125 mg/dL suggests IMPAIRED HOMEOSTASIS per A.D.A. criteria. Neutrophils (Bld) [#/Vol] 5.8 10*3/uL 2.0-7.7 [facility] Work Phone: Neutrophils/100 WBC (Bld) 65.9 % 47-70 [facility] Work Phone: Potassium [Moles/Vol] 4.1 mmol/L 3.5-5.1 [facility] Work Phone: Protein [Mass/Vol] 7.5 g/dL 6.4-8.2 [facility] Work Phone: Sodium [Moles/Vol] 136 mmol/L 136-145 [facility] Work Phone: WBC (Bld) [#/Vol] 8.9 10*3/uL 4.4-11.0 [facility] Work Phone: Blood erythrocytes count (nu mber/volume)on 11-23-2021 RBC (Bld) [#/Vol] 5.52 10*6/uL 4.6-[facility]: Blood hemoglobin measurement (mass/volume)on 11-23-2021 Hemoglobin (Bld) [Mass/Vol] 17.4 g/dL 13.0-16.5 [facility] Work Phone: Blood lymphocytes/100 leukoc yteson 11-23-2021 Lymphocytes/100 WBC (Bld) 21.1 % 19-41 [facility] Work Phone: Blood monocytes/100 leukocyt eson 11-23-2021 Monocytes/100 WBC (Bld) 9.6 % 0-10 [facility] Work Phone: Blood platelet mean volumeon 11-23-2021 Platelet mean volume (Bld) [Entitic vol] 10.6 fL 6.2-12.0 [facility] Work Phone: Determination of erythrocyte mean corpuscular volume (MCV)on 11-23-2021 MCV (RBC) [Entitic vol] 90.4 fL 80-94 [facility] Work Phone: Direct bilirubinon Bilirubin.direct [Mass/Vol] 0.17 mg/dL 0.00-0.30 [facility] Work Phone: [phone] Hematocrit Auto (Bld) [Volum e fraction]on 11-23-2021 Hematocrit (Bld) [Volume fraction] 49.9 % 40-54 [facility] Work Phone: [phone] Laboratory - Chemistry and C hemistry - challengeon 11-23-2021 ALP [Catalytic activity/Vol] 48 U/L 45-117 [facility] Work Phone: ALT [Catalytic activity/Vol] 55 U/L 16-61 [facility] Work Phone: [phone] CO2 [Moles/Vol] 22.0 mmol/L 21.0-32.0 [facility] Work Phone: [phone] Globulin (S) [Mass/Vol] 3.8 g/dL 2.2-4.2 [facility] Work Phone: [phone] Lipase [Catalytic activity/Vol] 214 U/L 73-393 [facility] Work Phone: [phone] Urea nitrogen/Creatinine [Mass ratio] 16.8 mg/mg 10-20 [facility] Work Phone: [phone] Laboratory - Hematology and Cell countson 11-23-2021 Erythrocyte distribution width (RBC) [Entitic vol] 45.6 fL 35.1-43.9 [facility] Work Phone: [phone] Erythrocyte distribution width (RBC) [Ratio] 13.7 % 11.6-14.6 [facility] Work Phone: [phone] Immature granulocytes/100 WBC (Bld) 0.900 % 0.0-0.9 [facility] Work Phone: [phone] Comment on above: IG% - Immature Granu locytes (promyelocytes, myelocytes and metamyelocytes) > 1% indicates that a LEFT SHIFT is Present. MCH (RBC) [Entitic mass] 31.5 pg 27.0-32.0 [facility] Work Phone: [phone] Nucleated RBC/100 WBC (Bld) [Ratio] 0 % 0-5 [facility] Work Phone: [phone] MCHC Auto (RBC) [Mass/Vol]on 11-23-2021 MCHC (RBC) [Mass/Vol] 34.9 g/dL 32-[address] [facility] Work Phone: [phone] Panel Informationon 11-23 Troponin I High Sensitivity 11 pg/mL 3.0-78.0 [facility] Work Phone: [phone] Comment on above: Please Note: New Katya t Units and Gender Specific Reference Ranges. For more information see Policy Stat Procedure [place] High Sensitivity Troponin (TNIH) and attachments. Estimated Creatinine Clearance Calc 93.30 ml/min [facility] Work Phone: Estimated GFR (MDRD) Amer 90 mL/min >60 [facility] Work Phone: [phone] Comment on above: GFR Calc Estimated GFR (MDRD) Non-Af Amer 75 mL/min >60 [facility] Work Phone: Comment on above: Non- GFR Calc Platelets bldon 11-23-2021 Platelets (Bld) [#/Vol] 216 10*3/uL 150-450 [facility] Work Phone: Serum or plasma albumin christina urement (mass/volume)on 11-23-2021 Albumin [Mass/Vol] 3.7 g/dL 3.2-5.0 [facility] Work Phone: Serum or plasma calcium christina urement (mass/volume)on 11-23-2021 Calcium [Mass/Vol] 9.4 mg/dL 8.5-10.1 [facility] Work Phone: Serum or plasma creatinine m easurement (mass/volume)on 11-23-2021 Creatinine [Mass/Vol] 1.13 mg/dL 0.70-1.30 [facility] Work Phone: Comment on above: The validity of the calculated GFR & GFRAA in patients over 70 years has not been determined. Clinical correlation is essential. Serum or plasma urea nitroge n measurement (mass/volume)on 11-23-2021 Urea nitrogen [Mass/Vol] 19 mg/dL 7-18 [facility] Work Phone: Thin prep Papanicolaou smear with manual screeningon 11-23-2021 Thin prep Papanicolaou smear with manual screening 24 U/L 15-37 [facility] Work Phone: Thin prep Papanicolaou smear with manual screening 7 5-15 [facility] Work Phone: [phone] Vital Signs Date Time Vital Sign Value Performing Clinician Facility 01-12-2025 11:05-0400 Body mass index (BMI) [Ratio] 45.8 kg/m2 Dr. Cash Puentes MD Work Phone: [phone] [place] [address] 01-12-2025 11:05-0400 Body weight 153.[address] Cash Puentes MD Work Phone: [phone] [place] [address] 01-12-2025 11:05-0400 Diastolic blood pressure 100 mm[Hg] Dr. Cash Puentes MD Work Phone: [phone] [place] [address] 01-12-2025 11:05-0400 Heart rate 81 /min Dr. Cash Puentes MD Work Phone: [phone] [place] [address] 01-12-2025 11:05-0400 Respiratory rate 20 /min Dr. Cash Puentes MD Work Phone: [phone] [place] [address] 01-12-2025 11:05-0400 SaO2% (BldA) [Mass fraction] 94 % Dr. Cash uPentes MD Work Phone: [phone] [place] [address] 01-12-2025 11:05-0400 Systolic blood pressure 143 mm[Hg] Dr. Cash Puentes MD Work Phone: [phone] [place] [address] 01-10-2025 17:48-0400 Body temperature 97.2 [degF] Dr. Cash Puentes MD Work Phone: [phone] [place] [address] 01-10-2025 17:48-0400 Diastolic blood pressure 110 mm[Hg] Dr. Cash Puentes MD Work Phone: [phone] [place] [address] 01-10-2025 17:48-0400 Heart rate 97 /min Dr. Cash Puentes MD Work Phone: [phone] [place] [address] 01-10-2025 17:48-0400 Respiratory rate 16 /min Dr. Cash Puentes MD Work Phone: [phone] [place] [address] 01-10-2025 17:48-0400 SaO2% (BldA) [Mass fraction] 96 % Dr. Cash Puentes MD Work Phone: [phone] [place] [address] 01-10-2025 17:48-0400 Systolic blood pressure 144 mm[Hg] Dr. Cash Puentes MD Work Phone: [facility] 01-10-2025 14:31-0400 Body height 182.[address] Cash Puentes MD Work Phone: [facility] 01-10-2025 14:31-0400 Body mass index (BMI) [Ratio] 44.1 kg/m2 Dr. Cash Puentes MD Work Phone: [facility] 01-10-2025 14:31-0400 Body weight 147.[address] Cash Puentes MD Work Phone: [facility] 09-03-2023 08:02-0400 Body mass index (BMI) [Ratio] 42.78 kg/m2 Mirlande Haagen [employer] ENGINEERING TECHNOLOGIST.WAITER/WAITRESS COUNTER Work Phone: [facility] 09-03-2023 08:02-0400 Body weight 143.06 kg Mirlande Haagen [employer]OTONICS ENGINEERING TECHNOLOGIST.WAITER/WAITRESS COUNTER Work Phone: [facility] 09-03-2023 08:02-0400 Diastolic blood pressure 80 mm[Hg] Mirlande Haagen PHOTONICS ENGINEERING TECHNOLOGIST.WAITER/WAITRESS COUNTER Work Phone: [facility] 09-03-2023 08:02-0400 Heart rate 58 /min Mirlande Haagen PHOTONICS ENGINEERING TECHNOLOGIST.WAITER/WAITRESS COUNTER Work Phone: [facility] 09-03-2023 08:02-0400 Systolic blood pressure 126 mm[Hg] Mirlande Haagen PHOTONICS ENGINEERING TECHNOLOGIST.WAITER/WAITRESS COUNTER Work Phone: [facility] 08-03-2023 08:50-0400 Body mass index (BMI) [Ratio] 41.09 kg/m2 Mirlande Haagen PHOTONICS ENGINEERING TECHNOLOGIST.WAITER/WAITRESS COUNTER Work Phone: [facility] 08-03-2023 08:50-0400 Body weight 137.44 kg Mirlande Haagen PHOTONICS ENGINEERING TECHNOLOGIST.WAITER/WAITRESS COUNTER Work Phone: [facility] 08-03-2023 08:50-0400 Diastolic blood pressure 82 mm[Hg] Mirlande Haagen PHOTONICS ENGINEERING TECHNOLOGIST.WAITER/WAITRESS COUNTER Work Phone: [facility] 08-03-2023 08:50-0400 Heart rate 48 /min Mirlande Lal PHOTONICS ENGINEERING TECHNOLOGIST.WAITER/WAITRESS COUNTER Work Phone: [facility] 08-03-2023 08:50-0400 Respiratory rate 16 /min Mirlande aLl PHOTONICS ENGINEERING TECHNOLOGIST.WAITER/WAITRESS COUNTER Work Phone: [facility] 08-03-2023 08:50-0400 SaO2% (BldA) [Mass fraction] 97 % Mirlande Lal PHOTONICS ENGINEERING TECHNOLOGIST.WAITER/WAITRESS COUNTER Work Phone: [facility] 08-03-2023 08:50-0400 Systolic blood pressure 118 mm[Hg] Mirlande Lal PHOTONICS ENGINEERING TECHNOLOGIST.WAITER/WAITRESS COUNTER Work Phone: [facility] 07-29-2023 11:53-0400 Body temperature 98.1 [degF] Dr. Cash Puentes Work Phone: [facility] 07-29-2023 11:53-0400 Diastolic blood pressure 91 mm[Hg] Dr. Cash Puentes Work Phone: [facility] 07-29-2023 11:53-0400 Heart rate 45 /min Dr. Cash Puentes Work Phone: [phone] [place] [address] 07-29-2023 11:53-0400 Respiratory rate 16 /min Dr. Cash Puentes Work Phone: [facility] 07-29-2023 11:53-0400 SaO2% (BldA) [Mass fraction] 98 % Dr. Cash Puentes Work Phone: [facility] 07-29-2023 11:53-0400 Systolic blood pressure 129 mm[Hg] Dr. Cash Puentes Work Phone: [facility] 07-29-2023 05:54-0400 Body mass index (BMI) [Ratio] 40.4 kg/m2 Dr. Cash Puentes Work Phone: [facility] 07-29-2023 05:54-0400 Body weight 135.[address] Cash Punetes Work Phone: [facility] 07-28-2023 14:00-0400 Inhaled oxygen flow rate 2 L/min Dr. Cash Puentes Work Phone: [facility] 07-28-2023 00:39-0400 Body height 182.[address] Cash Puentes Work Phone: [facility] 07-27-2023 23:11-0400 Diastolic blood pressure 61 mm[Hg] [facility] 07-27-2023 23:11-0400 Heart rate 69 /min [facility] 07-27-2023 23:11-0400 Respiratory rate 19 /min [facility] 07-27-2023 23:11-0400 SaO2% (BldA) [Mass fraction] 96 % [facility] 07-27-2023 23:11-0400 Systolic blood pressure 115 mm[Hg] [facility] 07-27-2023 23:04-0400 Body temperature 97.4 [degF] [facility] 07-27-2023 22:51-0400 Inhaled oxygen flow rate 2 L/min [facility] 07-27-2023 22:40-0400 Body height 182.88 cm [facility] 07-27-2023 22:40-0400 Body mass index (BMI) [Ratio] 41.5 kg/m2 [facility] 07-27-2023 22:40-0400 Body weight 139.1 kg [facility] 06-02-2023 15:25-0400 Body temperature 98.01 [degF] Jasen Savage MD Work Phone: [facility] 06-02-2023 15:25-0400 Body weight 141.9 kg Jasen Savage MD Work Phone: [facility] 06-02-2023 15:25-0400 Diastolic blood pressure 110 mm[Hg] Jasen Savage MD Work Phone: [facility] 06-02-2023 15:25-0400 Heart rate 67 /min Jasen Savage MD Work Phone: [facility] 06-02-2023 15:25-0400 Respiratory rate 21 /min Jasen Savage MD Work Phone: [facility] 06-02-2023 15:25-0400 SaO2% (BldA) [Mass fraction] 95 % Jasen Savage MD Work Phone: [facility] 06-02-2023 15:25-0400 Systolic blood pressure 150 mm[Hg] Jasen Savage MD Work Phone: [facility] 10-25-2022 20:33-0400 Body temperature 97.9 [degF] [facility] 10-25-2022 20:33-0400 Diastolic blood pressure 117 mm[Hg] [facility] 10-25-2022 20:33-0400 Heart rate 72 /min [facility] 10-25-2022 20:33-0400 Respiratory rate 18 /min [facility] 10-25-2022 20:33-0400 SaO2% (BldA) [Mass fraction] 95 % [facility] 10-25-2022 20:33-0400 Systolic blood pressure 189 mm[Hg] [facility] 10-25-2022 20:31-0400 Body height 182.88 cm [facility] 10-25-2022 20:31-0400 Body mass index (BMI) [Ratio] 41.8 kg/m2 [facility] 10-25-2022 20:31-0400 Body weight 139.93 kg [facility] 10-22-2022 16:35-0400 Body temperature 98.01 [degF] NA Sandoval PA-C Work Phone: [facility] 10-22-2022 16:35-0400 Body weight 138.8 kg NA Sandoval PA-C Work Phone: [facility] 10-22-2022 16:35-0400 Diastolic blood pressure 90 mm[Hg] NA Sandoval PA-C Work Phone: [facility] 10-22-2022 16:35-0400 Heart rate 68 /min NA Sandoval PA-C Work Phone: [facility] 10-22-2022 16:35-0400 Respiratory rate 18 /min NA Sandoval PA-C Work Phone: [facility] 10-22-2022 16:35-0400 SaO2% (BldA) [Mass fraction] 98 % NA Sandoval PA-C Work Phone: [facility] 10-22-2022 16:35-0400 Systolic blood pressure 148 mm[Hg] NA Sandoval PA-C Work Phone: [facility] 12-01-2021 14:58-0400 Body weight 143.34 kg Mirlande Haagen PHOTONICS ENGINEERING TECHNOLOGIST.WAITER/WAITRESS COUNTER Work Phone: [facility] 12-01-2021 14:58-0400 Diastolic blood pressure 98 mm[Hg] Mirlande Haagen PHOTONICS ENGINEERING TECHNOLOGIST.WAITER/WAITRESS COUNTER Work Phone: [facility] 12-01-2021 14:58-0400 Heart rate 59 /min Mirlande Lal PHOTONICS ENGINEERING TECHNOLOGIST.WAITER/WAITRESS COUNTER Work Phone: [facility] 12-01-2021 14:58-0400 Respiratory rate 18 /min Mirlande Hanisreen PHOTONICS ENGINEERING TECHNOLOGIST.WAITER/WAITRESS COUNTER Work Phone: [facility] 12-01-2021 14:58-0400 SaO2% (BldA) [Mass fraction] 94 % Mirlande Hanisreen PHOTONICS ENGINEERING TECHNOLOGIST.WAITER/WAITRESS COUNTER Work Phone: [facility] 12-01-2021 14:58-0400 Systolic blood pressure 132 mm[Hg] Mirlande Hanisreen PHOTONICS ENGINEERING TECHNOLOGIST.WAITER/WAITRESS COUNTER Work Phone: [facility] 11-26-2021 10:04-0400 Body temperature 97.6 [degF] Dr. Cash Puentes Work Phone: [facility] Work Phone: 11-26-2021 10:04-0400 Diastolic blood pressure 69 mm[Hg] Dr. Cash Puentes Work Phone: [facility] Work Phone: 11-26-2021 10:04-0400 Heart rate 64 /min Dr. Cash Puentes Work Phone: [facility] Work Phone: 11-26-2021 10:04-0400 Respiratory rate 16 /min Dr. Cash Puentes Work Phone: [facility] Work Phone: 11-26-2021 10:04-0400 SaO2% (BldA) [Mass fraction] 96 % Dr. Cash Puentes Work Phone: [facility] Work Phone: 11-26-2021 10:04-0400 Systolic blood pressure 129 mm[Hg] Dr. Cash Puentes Work Phone: [facility] Work Phone: 11-25-2021 11:52-0400 Body height 185.[address] Cash Puentes Work Phone: [facility] Work Phone: 11-25-2021 11:52-0400 Body weight 151.[address] Cash Puentes Work Phone: [facility] Work Phone: 11-25-2021 03:35-0400 Body mass index (BMI) [Ratio] 44 kg/m2 Dr. Cash Puentes Work Phone: [facility] Work Phone: 11-25-2021 02:47-0400 Body temperature 98.1 [degF] Dr. Cash Puentes Work Phone: [facility] Work Phone: 11-25-2021 02:47-0400 Diastolic blood pressure 77 mm[Hg] Dr. Cash Puentes Work Phone: [facility] Work Phone: 11-25-2021 02:47-0400 Heart rate 99 /min Dr. Cash Puentes Work Phone: [facility] Work Phone: 11-25-2021 02:47-0400 Respiratory rate 16 /min Dr. Cash Puentes Work Phone: [facility] Work Phone: 11-25-2021 02:47-0400 SaO2% (BldA) [Mass fraction] 98 % Dr. Cash Puentes Work Phone: [facility] Work Phone: 11-25-2021 02:47-0400 Systolic blood pressure 110 mm[Hg] Dr. Cash Puentes Work Phone: [facility] Work Phone: 11-24-2021 23:20-0400 Body height 185.[address] Cash Puentes Work Phone: [facility] Work Phone: 11-24-2021 23:20-0400 Body mass index (BMI) [Ratio] 40.8 kg/m2 Dr. Cash Peuntes Work Phone: [facility] Work Phone: 11-24-2021 23:20-0400 Body weight 140.[address] Cash Puentes Work Phone: [facility] Work Phone: 11-24-2021 07:33-0400 Body height 185.42 cm [facility] Work Phone: 11-24-2021 07:33-0400 Body mass index (BMI) [Ratio] 43.2 kg/m2 [facility] Work Phone: 11-24-2021 07:33-0400 Body temperature 97.8 [degF] [facility] Work Phone: 11-24-2021 07:33-0400 Body weight 148.6 kg [facility] Work Phone: 11-24-2021 07:33-0400 Diastolic blood pressure 68 mm[Hg] [facility] Work Phone: 11-24-2021 07:33-0400 Heart rate 92 /min [facility] Work Phone: 11-24-2021 07:33-0400 Respiratory rate 16 /min [facility] Work Phone: 11-24-2021 07:33-0400 SaO2% (BldA) [Mass fraction] 93 % [facility] Work Phone: 11-24-2021 07:33-0400 Systolic blood pressure 101 mm[Hg] [facility] Work Phone: 11-23-2021 09:41-0400 Diastolic blood pressure 97 mm[Hg] [facility] Work Phone: 11-23-2021 09:41-0400 Heart rate 66 /min [facility] Work Phone: 11-23-2021 09:41-0400 Respiratory rate 16 /min [facility] Work Phone: 11-23-2021 09:41-0400 SaO2% (BldA) [Mass fraction] 96 % [facility] Work Phone: 11-23-2021 09:41-0400 Systolic blood pressure 140 mm[Hg] [facility] Work Phone: 11-23-2021 06:08-0400 Body mass index (BMI) [Ratio] 43.8 kg/m2 [facility] Work Phone: 11-23-2021 06:08-0400 Body temperature 98.1 [degF] [facility] Work Phone: 11-23-2021 06:08-0400 Body weight 150.7 kg [facility] Work Phone: Encounters Encounter Date Encounter Type Care Provider Facility Start: 02-23-2025 ambulatory [facility] Facility:[facility] Start: 02-19-2025 ambulatory [facility] Facility:[facility] Start: 01-22-2025 ambulatory Lizzie Burgess NP Facili ty:[facility] Start: 01-12-2025 End: 01-12-2025 Patient encounter procedure Lizzie Burgess MEDICAL OFFICE COORDINATOR-C -Laboratory Work Phone: Start: 01-12-2025 End: 01-12-2025 Patient encounter procedure Lizzie Burgess MEDICAL OFFICE COORDINATOR-C -[facility] Work Phone: Start: 01-12-2025 End: 01-12-2025 ambulatory [facility] Facility:[facility] Start: 01-12-2025 End: 01-12-2025 ambulatory Lizzei Burgess NP Facility:[facility] Start: 01-10-2025 End: 01-10-2025 Emergency department patient visit Justino Collbran Facility:[facility] Start: 01-10-2025 End: 01-10-2025 ambulatory [facility] Facility:[facility] Start: 04-19-2024 End: 04-19-2024 ambulatory Marisa John Facility[facility] Start: 03-17-2024 End: 03-17-2024 ambulatory [facility] Facility:[facility] Start: 09-11-2023 [facility] Work Phone: Neurology Start: 09-03-2023 End: 09-03-2023 Office outpatient visit 25 minutes Mirlande Lal APRN.CNP Work Phone: [facility] Comment on above: Essential hypertensi on (Primary Dx); Heartburn; ST elevation myocardial infarction involving left anterior descending (LAD) coronary artery (HCC); Snoring; Screening for colon cancer; Encounter for immunization; ED (erectile dysfunction) of organic origin Start: 08-06-2023 Telephone encounter Mirlande nielson APRN.CNP Work Phone: [facility] Comment on above: Results Start: 08-03-2023 End: 08-03-2023 Transitional care manage srvc 14 day discharge Mirlande Lal APRN.CNP Work Phone: [facility] Comment on above: ST elevation myocard ial infarction involving left anterior descending (LAD) coronary artery (HCC) (Primary Dx); Essential hypertension; Ingrown fingernail; Bradycardia; SOB (shortness of breath) Start: 08-02-2023 ambulatory [facility] Start: 07-29-2023 Non-patient / Non-visit Dr. Bakari Puentes Work Phone: [facility] Work Phone: Start: 07-28-2023 Non-patient / Non-visit Dr. Bakari Puentes Work Phone: [facility] Work Phone: Start: 07-28-2023 End: 07-29-2023 Evaluation and management of inpatient Dr. Cash Puentes [facility] Work Phone: Start: 07-28-2023 Non-patient / Non-visit Dr. Bakari Puentes Work Phone: [facility] Start: 07-27-2023 Non-patient / Non-visit Dr. 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 al ear (Primary Dx) Start: 10-25-2022 End: 10-25-2022 Emergency department patient visit [facility] Work Phone: Start: 10-22-2022 End: 10-22-2022 Patient encounter procedure Vince Sandoval PA-C Work Phone: [facility] Comment on above: Hyperglycemia (Prima ry Dx); Essential hypertension; Heartburn; Obesity, Class III, BMI 40-49.9 (morbid obesity) (HCC); Screening for lipid disorders Start: 12-01-2021 End: 12-01-2021 Office outpatient visit 25 minutes Mirlande Lal APRN.CNP Work Phone: [facility] Comment on above: Urticaria of unknown origin (Primary Dx); Essential hypertension; Screening for hyperlipidemia; Hyperglycemia; ED (erectile dysfunction) of organic origin; Special screening examination for viral disease; Screening for HIV (human immunodeficiency virus); Heartburn; Screening for colon cancer; DARREL (acute kidney injury) (HCC) Start: 11-27-2021 Telephone encounter Cash Puentes MD Work Phone: [facility] Comment on above: Patient Question Start: 11-25-2021 Non-patient / Non-visit Dr. Bakari Puentes Work Phone: [facility] Start: 11-25-2021 End: 11-26-2021 Evaluation and management of inpatient Dr. Cash Puentes [facility] Start: 11-24-2021 End: 11-24-2021 Emergency department patient visit [facility] Start: 11-23-2021 End: 11-23-2021 Emergency department patient visit [facility] Start: 07-10-2021 ambulatory Cash Puentes MD Work Phone: [facility] Comment on above: Ear Pain (possibly c aused by a toothache) Procedures Date Procedure Procedure Detail Performing Clinician Start: 01-10-2025 CT angiography of ch est with contrast Dr. Cash Puentes MD Work Phone: Start: 01-10-2025 Plain chest X-ray Dr. Beka Puentes MD Work Phone: Start: 01-10-[address] Cash Puentes MD Work Phone: Start: 12-01-2021 Adult depression scr eening assessment Mirlande Lal APRN.WAITER/WAITRESS COUNTER Work Phone: Start: 12-01-2021 Lipid 1996 panel - S alvin or Plasma Jasen Savage MD Work Phone: Start: 11-23-2021 Plain chest X-ray Start: 09-19-2015 Adult depression scr eening assessment Cash Puentes MD Work Phone: Plan of Treatment Date Care Activity Detail Author Start: 10-03-2028 Urine microalbumin profile [facility] Start: 12-01-2026 Lipid panel Lipid Screening [facility] Start: 12-01-2026 LIPID SCREEN LIPID SCREEN [facility] Start: 08-02-2026 Diabetes Screening Diabetes Screenin g [facility] Start: 10-11-2025 LIPID SCREEN LIPID SCREEN [facility] Start: 01-22-2025 Patient encounter procedure Registered Clinical -Laboratory Work Phone: Start: 01-12-2025 End: 01-12-2025 Evaluation of diagnostic study results [facility] Start: 01-10-2025 [facility] Start: 01-10-2025 End: 01-10-2025 [facility] Start: 12-01-2024 DIABETES [facility] Start: 12-01-2024 Diabetes Screening Diabetes Screenin g [facility] Start: 09-02-2024 Annual PCP Team Clinical Nursing Manager pedro pablo Disease Visit Annual PCP Team Chronic Disease Visit [facility] Start: 09-02-2024 BP Controlled (<130/80) BP Controlle d (<130/80) [facility] Start: 09-02-2024 Covid-19 Vaccine () Covid-19 Vaccine () [facility] Comment on above: Postponed from 11/20 (Declined at this time) Start: 09-02-2024 Hepatitis C screening Hepatitis C [facility] Comment on above: Postponed from 07/24 (Declined at this time) Start: 09-02-2024 HIV screening HIV Screening [facility] Comment on above: Postponed from 07/24 (Declined at this time) Start: 08-02-2024 Annual PCP Team Clinical Nursing Manager pedro pablo Disease Visit Annual PCP Team Chronic Disease Visit [facility] Start: 03-21-2024 Behavioral Health Screening Behavioral Health Screening [facility] Comment on above: Postponed from 03/22 (Declined at this time) Start: 03-03-2024 End: 03-03-2024 Patient encounter procedure 03/03/2024 2:40 PM EST Office Visit Family [facility] [address] Mirlande Lal, AMEENA.WAITER/WAITRESS COUNTER [address] [place] [address] 1 month follow up [facility] Comment on above: 1 month follow up Start: 11-21-2023 Influenza vaccination Influenz a Vaccine (Season Ended) [facility] Start: 10-23-2023 ANNUAL PCP TEAM LEGAL DOCUMENT SPECIALIST PEDRO PABLO DISEASE VISIT ANNUAL PCP TEAM CHRONIC DISEASE VISIT [facility] Start: 10-12-2023 DIABETES SCREEN DIABETES SCREEN [facility] Start: 09-17-2023 End: 09-17-2023 Patient encounter procedure 09/17/2023 10:00 AM EDT Office Visit Neurology [address] [place] [address] Essential hypertension [I10]; Snoring [R06.83] Neurology Comment on above: Essential hypertensi on [I10]; Snoring [R06.83] Start: 09-03-2023 End: 09-03-2023 Patient encounter procedure 09/03/2023 8:20 AM EDT Office Visit Family Medicine [facility] [address] [place] [address] Mirlande Lal, AMEENA.WAITER/WAITRESS COUNTER [address] [place] [address] 1 month follow up Family [facility] Comment on above: 1 month follow up Start: 07-29-2023 Patient discharge [facility] Start: 07-29-2023 Care planning and problem solving actions [facility] Start: 07-28-2023 Admission procedure [facility] Start: 07-28-2023 Following clinical pathway protocol [facility] Start: 07-28-2023 Ambulation without limitation [facility] Start: 07-28-2023 Provision of activit y privileges [facility] Start: 07-28-2023 Cardiac monitoring [facility] Start: 07-28-2023 Cardiac rehabilitati on - phase 1 [facility] Start: 07-28-2023 Cardiac rehabilitati on - phase 2 [facility] Start: 07-28-2023 End: 07-28-2023 Notification of physician [facility] Start: 07-28-2023 Oxygen therapy [facility] Start: 07-28-2023 Patient discharge [facility] Start: 07-28-2023 Taking patient vital signs [facility] Start: 07-28-2023 Vascular disease ris k assessment [facility] Start: 07-28-2023 Vital signs measurements [facility] Start: 07-28-2023 End: 07-28-2023 [facility] Start: 07-27-2023 Hospital admission, emergency, from emergency room, medical nature [facility] Start: 07-27-2023 End: 07-28-2023 [facility] Start: 04-24-2023 End: 06-24-2023 Hemoglobin A1c in Blood HGB A1C Lab Routine Hyperglycemia Expected: 04/24/2023, Expires: 06/24/2023 [facility] Work Phone: Comment on above: Expected: 04/24/2023 , Expires: 06/24/2023 Start: 04-24-2023 End: 06-24-2023 Lipid 1996 panel - Serum or Plasma LIPID PANEL BASIC Lab Routine Screening for lipid disorders Expected: 04/24/2023, Expires: 06/24/2023 [facility] Work Phone: Comment on above: Expected: 04/24/2023 , Expires: 06/24/2023 Start: 03-22-2023 Behavioral Health Screening Behavioral Health Screening [facility] Start: 03-22-2023 Depression Assessment Depression Ass essment [facility] Start: 12-01-2022 Adult depression screening assessment DEPRESSION SCREENING [facility] Start: 12-01-2022 ANNUAL PCP TEAM LEGAL DOCUMENT SPECIALIST PEDRO PABLO DISEASE VISIT ANNUAL PCP TEAM CHRONIC DISEASE VISIT [facility] Start: 11-20-2022 Covid-19 Vaccine ( season) Covid-19 Vaccine () [facility] Start: 11-20-[address] [facility] Start: 10-22-2022 End: 12-22-2022 CBC panel - Blood by Automated count CBC Lab Routine Essential hypertension Expected: 10/22/2022, Expires: 12/22/2022 [facility] Work Phone: Comment on above: Expected: 10/22/2022 , Expires: 12/22/2022 Start: 10-22-2022 End: 12-22-2022 Comprehensive metabolic 2000 panel - Serum or Plasma COMP METABOLIC PANEL Lab Routine Essential hypertension Expected: 10/22/2022, Expires: 12/22/2022 [facility] Work Phone: Comment on above: Expected: 10/22/2022 , Expires: 12/22/2022 Start: 03-22-2022 DEPRESSION ASSESSMENT DEPRESSION ASS ESSMENT [facility] Start: 12-01-2021 End: 01-31-2022 Comprehensive metabolic 2000 panel - Serum or Plasma [facility] Work Phone: Comment on above: Expected: 12/01/2021 , Expires: 01/31/2022 Start: 12-01-2021 End: 01-31-2022 Hemoglobin A1c in Blood [facility] Work Phone: Comment on above: Expected: 12/01/2021 , Expires: 01/31/2022 Start: 12-01-2021 End: 01-31-2022 Hepatitis C virus Ab [Presence] in Serum HEP C AB IA W/CONF SCRN Lab Routine Special screening examination for viral disease Expected: 12/01/2021, Expires: 01/31/2022 [facility] Work Phone: Comment on above: Expected: 12/01/2021 , Expires: 01/31/2022 Start: 12-01-2021 End: 01-31-2022 HIV 1+2 Ab [Presence] in Serum or Plasma by Immunoassay HIV 1 2 COMBO(AG/AB),WITH REFLEX TO DIFFERENTIATION Lab Routine Screening for HIV (human immunodeficiency virus) Expected: 12/01/2021, Expires: 01/31/2022 [facility] Work Phone: Comment on above: Expected: 12/01/2021 , Expires: 01/31/2022 Start: 12-01-2021 End: 01-31-2022 LIPID PANEL, NONFASTING [facility] Work Phone: Comment on above: Expected: 12/01/2021 , Expires: 01/31/2022 Start: 11-26-2021 Patient discharge [facility] Work Phone: Start: 11-26-2021 [facility] Work Phone: Start: 11-25-2021 [facility] Work Phone: Start: 11-25-2021 Care planning and problem solving actions [facility] Work Phone: Start: 11-25-2021 Following clinical pathway protocol [facility] Work Phone: Start: 11-25-2021 Ambulation without limitation [facility] Work Phone: Start: 11-25-2021 Assessment of risk o f venous thromboembolism [facility] Work Phone: Start: 11-25-2021 Inhalation therapy procedure [facility] Work Phone: Start: 11-25-2021 Insertion of cathete r into peripheral vein [facility] Work Phone: Start: 11-25-2021 Oxygen therapy [facility] Work Phone: Start: 11-25-2021 Providing care accor ding to standard [facility] Work Phone: Start: 11-25-2021 [facility] Work Phone: Start: 11-25-2021 Verification routine [facility] Work Phone: Start: 11-25-2021 Admission procedure [facility] Work Phone: Start: 11-20-[address] [facility] Start: 10-21-2021 ANNUAL PCP TEAM LEGAL DOCUMENT SPECIALIST PEDRO PABLO DISEASE VISIT ANNUAL PCP TEAM CHRONIC DISEASE VISIT [facility] Start: 2021 COLOGUARD (FIT-DNA) COLOGUARD (FIT-D NA) [facility] Start: 2021 Colonoscopy COLONOSCOPY [facility] Start: 2021 COLORECTAL CANCER SCREENING COLORECTAL CANCER SCREENING [facility] Start: [address] COLONOGRAPHY [facility] Start: 2021 FECAL OCCULT BLOOD FECAL OCCULT BLOO D [facility] Start: 2021 Screening for malign ant neoplasm of colon [facility] Start: 2021 SIGMOIDOSCOPY SIGMOIDOSCOPY [facility] Start: 09-18-2016 Adult depression screening assessment DEPRESSION SCREENING [facility] Start: 05-25-2002 Hepatitis B Vaccine (3 of 3 - 19+ 3-dose series) Hepatitis B Vaccine (3 of 3 - 19+ 3-dose series) [facility] Start: 07-25-1995 ONE PNEUMOVAX PRIOR TO AGE 65 ONE PNEUMOVAX PRIOR TO AGE [address] [facility] Start: 1994 BP CONTROLLED (<130/80) BP CONTROLLE D (<130/80) [facility] Start: 1994 HEPATITIS C SCREENING HEPATITIS C [facility] Start: 1994 Hepatitis C screening Hepatitis C [facility] Start: 1994 HIV SCREENING HIV SCREENING [facility] Start: 1994 HIV screening HIV Screening [facility] Start: 1982 PNEUMOCOCCAL (1 - PCV) PNEUMOCOCCAL (1 - PCV) [facility] Start: 1982 Pneumococcal vaccination Pneum ococcal Vaccine (1 of 2 - PCV) [facility] Start: 1981 COVID-19 VACCINE (1) Cl [facility] Start: 01-24-1977 COVID-19 VACCINE (#1) COVID-19 VACCI NE (#1) [facility] Start: 1976 HEPATITIS B (1 of 3 - 3-dose series) HEPATITIS B (1 of 3 - 3-dose series) [facility] Bacteria identified in Urine by Culture Urine Culture [facility] Work Phone: End: 09-02-2024 HOME SLEEP APNEA TEST (HSAT) HOME SLEEP APNEA TEST (HSAT) Procedures Routine Essential hypertension Snoring 1 Occurrences starting 09/03/2023 until 09/02/2024 [facility] Work Phone: Comment on above: 1 Occurrences starti ng 09/03/2023 until 09/02/2024 Patient Education [facility] Work Phone: Patient referral [facility] Work Phone: [facility] Immunizations Immunization Date Immunization Notes Care Provider Jd morgan 09-03-2023 hepatitis B vaccine, adult dosage Mirlande Lal MICHAEL Work Phone: [facility] 10-03-2018 tetanus toxoid, redu harpal diphtheria toxoid, and acellular pertussis vaccine, adsorbed Cash Puentes MD Work Phone: [facility] 06-13-2008 diphtheria and tetan us toxoids, adsorbed for pediatric use Cash Puentes MD Work Phone: [facility] Work Phone: 01-06-2002 hepatitis B vaccine, adult dosage Cash Puentes MD Work Phone: [facility] 11-25-2001 hepatitis B vaccine, adult dosage Cash Puentes MD Work Phone: [facility] Payers Date Payer Category Payer Unknown [id number] 2024 Self-pay [id number] 2024 Unknown [id number] 2024 Unknown [id number] 2019 Unknown [facility] PRE TRICIA SELF FUNDED [id number] 2019-Present [phone] [address] [place] [address] PPO [id number] 2016 Unknown [facility] MEDICAL GENERIC [id number] 2016-Present [phone] [address] [place] [id number] Indemnity [id number] 2016 Unknown [id number] Unknown [id number] Unknown [id number] Unknown [id number] Unknown [id number] Unknown [id number] Unknown [id number] Unknown [id number] Unknown [id number] Unknown [id number] Social History Date Type Detail Facility Start: 09-06-2017 End: 12-01-2021 Tobacco smoking status VTIS Smokes tobacco daily [facility] Work Phone: End: 07-27-2023 History of tobacco use Cigarette Smoker [facility] Work Phone: History of tobacco use Chews [facility] Work Phone: Start: 10-21-2020 End: 09-03-2023 Alcohol intake Current drinker of alcohol (finding) [facility] Start: 10-21-2020 End: 11-19-2022 Alcohol intake [facility] Start: 12-02-2010 History SDOH Alcohol Comment 3 beers 3x per week [facility] Start: 09-19-2015 End: 12-01-2021 Tobacco Comment less than a pack a day [facility] Start: 1975 Sex Assigned At Not on file [facility] Start: 11-24-2021 End: 07-28-2023 Tobacco smoking status NHIS Unknown if ever smoked [facility] Start: 1975 Sex Assigned At Male [facility] Start: 09-06-2017 End: 12-01-2021 Tobacco use and exposure User of smokeless tobacco [facility] Start: 11-17-2021 End: 11-27-2021 Exposure to SARS-CoV-2 (event) Not sure [facility] Start: 10-22-2022 End: 11-19-2022 Tobacco use panel [facility] Adult Depression Screening Assessment [address] [facility] Start: 09-03-2023 End: 01-10-2025 Tobacco smoking status NHIS Ex-smoker [facility] End: 07-27-2023 History of tobacco use Current smoker [facility] Start: 09-03-2023 Tobacco use and exposure Former smokeless tobacco user [facility] Medical Equipment Procedure Code Equipment Code Equipment Origin al Text Equipment Identifier Dates Drug-eluting coronary artery stent, tqf-[id number]-iv lymer-coated ()[id number] FDA Start: 07-28-2023 Drug-eluting coronary artery stent, ixj-nkytsfloikbld-lf lymer-coated ()[id number] FDA Start: 07-28-2023 Drug-eluting coronary artery stent, [id number]-eb lymer-coated ()[id number] FDA Start: 08-26-2023 Goals Date Patient Goal Desired Activity /State Functional Status Date Assessment Result Facility 07-29-2023 Functional status Ambulates;Up ad leonel [facility] Work Phone: 11-26-2021 Functional status Activity Ability Indepe ndent [facility] Work Phone: 11-26-2021 Functional status Ambulates;Up ad leonel [facility] Work Phone: Mental Status Date Assessment Result Facility 01-10-2025 Cognitive function Level Of Consciousness Awake [facility] Work Phone: 07-29-2023 Cognitive function Voice/Name [facility] Work Phone: 07-27-2023 Cognitive function Voice/Name [facility] Work Phone: 11-26-2021 Cognitive function Voice/Name [facility] Work Phone: 11-23-2021 Cognitive function Touch/Shaking [facility] Work Phone: Clinical Notes 07-10-2021 to 01-10-2025 Note Date & Type Note Facility 01-10-2025 Discharge summary [facility] 01-10-2025 Radiology Diagnostic study note [facility] Imaging Services [address] [place], [place] [address] CTA Chest W/WO Contrast MR#: [id number] Acct: [id number] Name: MOHIT RIVERS Rep #: [id number] : 1975 M 49 From: Pura Lopez MD PCP: Dr. Cash Puentes MD Status: REG E R Study:CTA Chest W/WO Contrast Date of Exam: 01/10/25 Exam# [id number] Ordering Dr: Romina Kapoor DO PROCEDURE: CTA CHEST W/WO CONTRAST 01/10/2025 REASON FOR EXAM: PULMONARY EMBOLISM TECHNIQUE: Procedure Code: [id number] Modality: CT Procedure: CTA CHEST W/WO CONTRAST Multiplanar Sagittal and Coronal images were obtained. CONTRAST: 100 mL of Isovue 370 One or more dose reduction techniques were used (e.g., Automated exposure control, adjustment of the mA and/or kV according to patient size, use of iterative reconstruction technique). RADIATION DOSE SUMMARY: DLP: 599 mGycm COMPARISON: None FINDINGS: PULMONARY ARTERIES: No evidence of pulmonary embolism. LUNGS AND PLEURA: No consolidations. No definite pulmonary edema. No mass or nodule. No pleural effusion. No pneumothorax. MEDIASTINUM: No lymphadenopathy or mass. The heart shows no acute findings. Extensive coronary atherosclerosis/stents. The aorta shows no acute findings. The pulmonary trunk, and branches of the vessels in the mediastinum are within normal limits. SUPRACLAVICULAR AND AXILLARY: No abnormalities seen in these regions. No mass or significant lymphadenopathy. UPPER ABDOMEN: Hepatic steatosis. BONES AND SOFT TISSUES: The ribs are unremarkable. The visualized spine shows no significant acute findings. No focal bony mass lesions noted. The subcutaneous soft tissues are unremarkable. CT/CTA Chest W/WO Contrast IMPRESSION: No acute pulmonary emboli. No focal consolidations. Reading Location: [id number] CC: Dr. Justino Kapoor DO; Dr. Cash Puentes MD ~ Neurophysiologist: Signed [facility] 01-10-2025 Radiology Diagnostic study note [facility] Imaging Services [address] [place], [place] [address] Chest 1 View (Portable) MR#: [id number] Acct: [id number] Name: MOHIT RIVERS Rep #: [id number] : 1975 M 49 From: Danny Sotomayor MD PCP: Dr. Cash Puentes MD Status: REG E R Study:Chest 1 View (Portable) Date of Exam: 01/10/25 Exam# [id number] Ordering Dr: Romina Kapoor DO PROCEDURE: CHEST 1 VIEW (PORTABLE) 01/10/2025 REASON FOR EXAM: CHEST PAIN TECHNIQUE: Frontal view of the chest. COMPARISON: None. RAD/Chest 1 View (Portable) IMPRESSION: Examination somewhat limited by AP portable technique, body habitus, in some patient motion. Lungs appear clear of acute disease. No pleural effusion or pneumothorax is noted. The cardiomediastinal silhouette is within the normal range for technique. No acute osseous change is evident. Reading Location: [id number] CC: Dr. Justino Kapoor DO; Dr. Cash Puentes MD ~ Neurophysiologist: Signed [facility] 01-10-2025 Note HNO ID: [id number] Author: MIRLANDE LAL APRN.WAITER/WAITRESS COUNTER Service: ? Author Type: Nurse Practitioner Type: Progress Notes Filed: 01/10/2025 14:18 Note Text: This is a 49 year old male who presents today with: The patient is a 49-year-old male presenting for evaluation of shortness of breath when sitting or supine and a right-sided abdominal bulge. HISTORY OF PRESENT ILLNESS: Mohit is a 49-year-old male presenting with dyspnea and abdominal mass. Dyspnea: - Dyspnea x2 weeks, primarily when sitting or lying down. - Occasionally noticed during movement in the past few days, but does not limit activity. - Denies chest pain or palpitations. - No swelling. Abdominal Mass: - Mass is palpable when lying flat; described as feeling like a baseball. - Associated with discomfort when pressure is applied or if he leans against it. - Denies any previous colonoscopy. + heartburn and uses omeprazole. No n/v. No diarrhea/constipation/melena/hematoch ezia. Denies urinary symptoms. PAST MEDICAL HISTORY: PAST MEDICAL HISTORY Diagnosis Date Hemorrhoids HTN (hypertension) Hyperglycemia PAST SURGICAL HISTORY Procedure Laterality Date PAST SURGICAL HISTORY OF [id number] left kidney surgery aprox 9 procedures PAST SURGICAL HISTORY OF [id number] [facility], and second at [facility]. ALLERGIES Lisinopril MEDICATIONS Current Outpatient Medications Medication Sig iv contrast (will be provided with radiology test) CT ABD/PEL -Inject, intravenously, once for 1 dose.No IV access, insert saline lock prior to the beginning of sedation, infusion, injection of imaging exam. Discontinue saline lock post exam. If Pt. has a central line or IVAD, may access for administration according to line specific nursing protocol. Once exam is complete flush line and de-access according to line specific nursing protocol in theCT contrast administration guidelines link. enteric contrast (will be provided with radiology test) For CT ABD/PEL W IVCON Routine order Administer, As Directed One Time Only, via Oral, Rectal, both Oral and Rectal, Enteric Tube, Stoma or Indwelling Catheter, Enteric Contrast as designated per enteric contrast guidelines omeprazole (PRILOSEC) 20 mg capsule Take 1 capsule by mouth daily before breakfast. 1/2 hr before meal. ketoconazole (NIZORAL) 2 % shampoo Apply to affected area two times a week. atorvastatin (LIPITOR) 80 mg tablet Take 80 mg by mouth daily at bedtime. carvedilol (COREG) 6.25 mg tablet Take 1 tablet by mouth every 12 hours. hydroCHLOROthiazide 25 mg tablet Take 1 tablet by mouth every afternoon. spironolactone (ALDACTONE) 25 mg tablet Take 0.5 tablets by mouth every afternoon. aspirin, enteric coated (ASPIRIN, ENTERIC COATED) 81 mg EC tablet Take 1 tablet by mouth once daily. amLODIPine (NORVASC) 10 mg tablet Take 1 tablet by mouth once daily. No current facility-administered medications for this visit. FAMILY HISTORY Problem Relation Age of Onset Cancer Paternal Grandfather Coronary Artery Disease Father Diabetes Father Heart Father Hypertension Father SOCIAL HISTORY[1] REVIEW OF SYSTEMS Cardiovascular: (+) lower extremity swelling, (-) chest pain Respiratory: (+) dyspnea Gastrointestinal: (+) heartburn, (+) abdominal mass sensation, (+) abdominal pain with pressure Genitourinary: (-) dysuria EXAM: BP 141/99 Pulse 69 Resp 16 Wt (!) 151 kg (333 lb) SpO2 95% BMI 45.16 kg/m? PHYSICAL EXAM: General Appearance: Well appearing, alert, in no acute distress, well-hydrated, well nourished.. Skin: Skin color, texture, turgor normal, no suspicious rashes or lesions. Head: Normocephalic, no masses, lesions, tenderness or abnormalities. Eyes: Anicteric sclera. Extraocular movements are intact. . Neck: Supple, no adenopathy; thyroid symmetric, normal size, no bruits. Lungs: Lungs clear to auscultation. No wheezing, rhonchi, rales.. Heart: Positive findings: irregularly irregular rhythm. Abdomen: + diastasis recti. Abdomen obese, soft, non-tender. + baseball sized lump noted in the right lateral mid abdomen. Extremities: No deformities, edema, skin discoloration, clubbing or cyanosis. Good capillary refill. . Neurologic: Gait normal. ASSESSMENT/PLAN 1. Atrial fibrillation, unspecified type (HCC) (I48.91) 2. SOB (shortness of breath) (R06.02) 3. Irregular heartbeat (I49.9) 4. ST elevation myocardial infarction involving left anterior descending (LAD) coronary artery (HCC) (I21.02) Pt with personal hx of STEMI 07/2023. Has not seen cardiology since 03/2024. Medication list is uncertain. - Occasional SOB and irregular heartbeats noted on exam. EKG obtained w/ new onset of A. Fib. - controlled rate -- 88. Discussed with patient and reviewed options re: starting treatment or proceeding to ER. He would like to proceed to ER. Report called. 5. Intra-abdominal and pelvic swelling, mass and lump, unspecified site (R19. (more content not included)... [facility] 01-10-2025 Discharge summary Note Date/Time January 10, 2025 6:49pm [facility] Medical Records Department [address] [place] [address] Emergency Department Summary 01/10/25 MR#: [id number] Acct: [id number] Name: MOHIT RIVERS Rep #:[id number] : 1975 49 From: Justino Arboleda PCP: Dr. Cash Puentes MD Status:DEP E R Location: ED HPI History of Present Illness Chief Complaint: Chest Pain Informant: patient Narrative Narrative: 49-year-old male presenting to the emergency room after being referred here by PCP for new onset A-fib. Patient has a history of coronary artery disease having had a STEMI in July 2023 with IZZY to the LAD delayed stenting to the RCA. He follows locally with [facility] Dr. Lopez. Patient notes over the past 2 weeks he has had more consistent shortness of breath than what he was used to. He states that after his heart attack while on Brilinta he was having some dyspnea. He states that he has not been having any chest pain. He denies any leg swelling. He notes shortness of breath denies intermittent with exertion but is been more consistent at night. He went to his PCP where an EKG was performed which found A-fib. There was noted to be rate controlled. He is currently on antihypertensives to include amlodipine and carvedilol. He is alsoon Plavix and aspirin. He denies any thyroid issues. No muscle spasms or weakness. He has no history of sleep apnea. He quit tobacco following his STEMI. [facility] Medical History Morbid obesity with BMI of 40.0-44.9, adult SOB (shortness of breath) Coronary artery disease Nicotine dependence Hypertension Ventricular ectopy 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 Tobacco abuse STEMI (ST elevation myocardial infarction) (~07/27/23) Home Medications ?Medication ?Instructions ?Recorded ?Last Taken ?Type lovastatin 40 mg tablet 40 mg PO QDAY #90 tabs 04/19 Unknown Rx naproxen sodium 220 mg capsule 220 mg PO QDAY PRN 03/23 12/14 Unknown History (Aleve) omeprazole 20 mg capsule,delayed 20 mg PO DAILY PRN ge rd 04/19/24 Unknown History release semaglutide 0.25 mg or 0.5 mg (2 0.25 mg (0.368 mL) verduzco bcut QWEEK 08/21/24 Unknown Rx mg/3 mL) subcutaneous pen injector For Coronary Artery Disease #3 mL (Ozempic) sildenafil 25 mg tablet (Viagra) 25 mg PO DAILY PRN se xual activity 09/13/24 Unknown Rx #30 tabs amlodipine 10 mg tablet 5 mg (1/2 x 10 mg) PO DAILY #90 11/16/24 Unknown Rx tabs apixaban 5 mg tablet (Eliquis) 5 mg PO BID #60 tabs Unknown Rx carvedilol 12.5 mg tablet 12.5 mg PO BID #60 tabs 12/21 05/16 Unknown Rx Allergy/AdvReac Type Severity Reaction Status Date / Time lisinopril Allergy Severe Angioedema Verified 01/10/25 14:31 Family History Father CAD (coronary artery disease) Other Heart disease Surgical History Hx of cardiac catheterization (~07/28/23) Stented coronary artery (~08/26/23) h/o microdiscectomy L5-S1 h/o kidney surgery Social History Smoking Status: Former smoker how long ago did patient quit smoking: July 2023 alcohol intake: current alcohol intake frequency: a few times a month Alcohol type: beer substance use type: marijuana caffeine: Yes Type: coffee Number of servings: 4 ROS ROS ED Constitutional Constitutional ED: Denies chills, fever(s) or weight loss Eyes Eyes: Denies change in vision or diplopia ENT ENT ED: Denies ear pain, rhinorrhea or sore throat Cardiovascular Cardiovascular: Denies chest pain, orthopnea, palpitations or racing heartbeat Respiratory/Chest Respiratory/Chest: Reports dyspnea and dyspnea on exertion; Denies cough or orthopnea Gastrointestinal Gastrointestinal: Denies abdominal pain, diarrhea, nausea or vomiting Genitourinary Genitourinary ED: Denies dysuria, hematuria or urinary frequency Musculoskeletal Musculoskeletal: Denies arthralgias or myalgias Integumentary Denies abscess or rash Neurologic Neurologic: Denies headache(s) or weakness Psychiatric Psychiatric: Denies anxiety, depression, suicidal ideation or suicidal thoughts Endocrine Endocrinology: Denies polydipsia, polyphagia or polyuria Allergic/Immunologic Allergic/Immunologic ED: Denies mouth swelling, tongue swelling or urticaria EXAM Physical Exam Const Vital Signs: 01/10/25 14:31 01/10/25 15:40 01/10/25 16:59 Temperature 97.2 F L Temperature Source Temporal Pulse Rate 92 90 97 Respiratory Rate 16 18 16 Blood Pressure 199/176 H 135/101 H 144/110 H Blood Pressure Mean 183 112 121 Pulse Ox 100 98 96 Oxygen Delivery Method Room Air Room Air Room Air 01/10/25 17:48 Temperature 97.2 F L Temperature Source Pulse Rate 97 Respiratory Rate 16 Blood Pressure 144/110 H Blood Pressure Mean 121 Pulse Ox 96 Oxygen Delivery Method Positive well nourished and well developed General Appearance ED: well developed HEENT Reports normocephalic, head/scalp atraumatic and moist mucous membranes Eyes PERRL and EOMs intact bilaterally Neck no lymphadenopathy, supple and no JVD Resp normal respiratory effort and clear to auscultation bilaterally Cardio no murmurs Rhythm: abnormal rhythm irregularly irregular GI normal to inspection, nondistended, normoactive bowel sounds and non-tender Palpation: soft Back/Spine no CVA tenderness and normal ROM Extremity normal to inspection General Extremety ED: Negative for edema General Extremity: Negative for edema Neuro oriented x3 and CN's II-XII intact bilaterally Sensorium / Orientation: alert Motor Exam: strength 5/5 throughout Psych mental status grossly normal Mood & Affect: Negative for depressed or tearful Skin no rashes or lesions noted and no wounds MDM MDM MDM Narrative Medical decision making narrative: Differential diagnosis includes but not limited to cardiac dysrhythmia electrolyte abnormalities thyroid disorder acute coronary syndrome coronary artery disease atrial myxoma valvular heart disease congestive heart failure pulmonary embolism aortic dissection/aneurysm EKG demonstrates atrial fibrillation at a rate of 96 bpm. My independent interpretation of the chest x-ray is no acute findings.. No concerning ST segments. Basic blood work is rather unremarkable with normal TSH. Troponin x 2 is stable at 13 and 14. He has been rate controlled in the 80s and 90s on themonitor. CTA of the chest is negative for pulmonary embolism. Case was discussed with on-call filling layer up Dr. Ga. He recommends that thepatient begin Eliquis. Patient has already stopped his clopidogrel we will havehim hold his aspirin. Will also increase his carvedilol to 12.5 mg twice daily and he will follow-up with cardiology as soon as possible. History & Record Review Discussion w/independent historian: Patient Additional record(s) reviewed:: Prior inpatient record, Prior outpatient record,Prior ED visit and Prior labs Lab Data Attestation: I reviewed the patient's lab results. Labs: Laboratory Results - last 24 hr 01/10/25 01/10/25 15:10 17:00 WBC 6.7 RBC 5.27 Hgb 16.4 Hct 48.0 MCV 91.1 MCH 31.1 MCHC 34.2 RDW Std Deviation 47.8 H RDW Coeff of Jesus 14.3 Plt Count 210 MPV 10.3 Immature Gran % (Auto) 0.300 Neut % (Auto) 56.2 Lymph % (Auto) 31.2 [place] % (Auto) 7.9 Eos % (Auto) 3.4 Baso % (Auto) 1.0 Absolute Neuts (auto) 3.8 Absolute Lymphs (auto) 2.09 Nucleated RBC % 0 Sodium 137 Potassium 4.2 Chloride 103 Carbon Dioxide 22.8 Anion Gap 11 BUN 16 Creatinine 1.04 Estim Creat Clear Calc 129.75 Est GFR (MDRD) Non-Af 89 BUN/Creatinine Ratio 15.0 Glucose 120 H Calcium 9.2 Magnesium 2.0 Troponin T High Sens 13 Troponin T Hi Sens 2 Hr 14 TSH 1.700 Radiography Diagnostic Testing: Clinical Impression(s) from Imaging Studies Chest X-Ray 01/10/25 15:30 IMPRESSION: Examination somewhat limited by AP portable technique, body habitus, in some patient motion. Lungs appear clear of acute disease. No pleural effusion or pneumothorax is noted. The cardiomediastinal silhouette is within the normal range for technique. No acute osseous change is evident. Reading Location: [address] Chest CTA 01/10/25 15:38 IMPRESSION: No acute pulmonary emboli. No focal consolidations. Reading Location: [facility] EKG Initial EKG: Attestation: I personally reviewed and interpreted this EKG as follows: Comments: Atrial fibrillation ventricular rate of 96 bpm. Management Discussion w/another healthcare provider: [employer] (Dr. Ga (cardiology)) Discharge Plan Triage Chief Complaint: Chest Pain ED Provider: Justino Kapoor Dx/Rx/DC Orders Clinical Impression: Atrial fibrillation, new onset, Coronary artery disease Instructions: A-Fib Prescriptions: New Eliquis 5 mg tablet 5 mg PO BID Qty: 60 0RF carvedilol 12.5 mg tablet 12.5 mg PO BID Qty: 60 0RF Rx Instructions: must administer with a meal/food Discontinued aspirin 81 mg Tablet,Delayed Release (Dr/Ec) 81 mg PO DAILY@0800 Qty: 0 0RF carvedilol 3.125 mg tablet 3.125 mg PO BID Qty: 180 3RF Rx Instructions: must administer with a meal/food clopidogrel 75 mg tablet 75 mg PO .COMPLEX Qty: 90 3RF Rx Instructions: 75 mg orally 4 tablets on first day for loading dose, then 1 tablet by mouth daily; STOP after August 25 2024. No Action naproxen sodium [Aleve] 220 mg capsule 220 mg PO QDAY PRN lovastatin 40 mg tablet 40 mg PO QDAY Qty: 90 3RF omeprazole 20 mg capsule,delayed release(DR/EC) 20 mg PO DAILY PRN (Reason: gerd) Ozempic 0.25 mg or 0.5 mg (2 mg/3 mL) pen injector 0.25 mg subcut QWEEK Qty: 3 6RF Rx Instructions: for 4 weeks sildenafil [Viagra] 25 mg tablet 25 mg PO DAILY PRN (Reason: sexual activity) Qty: 30 0RF Rx Instructions: administer 30 minutes to 4 hours before activity amlodipine 10 mg tablet 5 mg PO DAILY Qty: 90 3RF Primary Care Provider: Cahs Puentes Referrals: Marisa Lopez MD [Med Staff - Active Staff, Cardiology] - As soon as possible Cash Puentes MD [Primary Care Provider, Medical] Activity Restrictions/Additional Instructions: Please increase your carvedilol dose to 12.5 mg twice a day. Because you are in atrial fibrillation and at risk for pulmonary embolism and stroke you are being placed on Eliquis which is a blood thinner. You may stop your aspirin and your Plavix. Please follow-up with cardiology as soon as possible. Please call tomorrow morning to arrange follow-up Print Language: Greek Disposition Disposition: Home, Self Care Discharge Date/Time: 01/10/25 17:49 What to do if you have Problems For any increased pain, shortness of breath, bleeding, nausea or vomiting, chestpain, or any unexpected problems, contact your Primary Care Provider. Call [facility] ([phone]) or report to the closest Emergency Room. Call 911 if necessary. 01/10/25 9350 <Electronically signed by Justino Kapoor DO> Cosigner Signature (if applicable): CC: Dr. Cash Puentes MD ~ Signed [facility] Work Phone: 1(867) 521-149906-25-2024 History of Present illness Narrative* Ifrah Berman MD - 09/14/2023 10:28 AM EDT September 14, 2023 Standing PSG Orders signed in the last 90 days None Future PSG Orders signed in the last 90 days Ordered Auth. provider HOME SLEEP APNEA TEST (HSAT) [[id number]] 09/03/23 Mirlande Lal APRN.WAITER/WAITRESS COUNTER Assoc. diagnoses: Essential hypertension [I10], Snoring [R06.83] Q: Indications: A: Obstructive sleep apnea Q: STOP-BANG conditions - Select All That Apply: A: GENDER = male A2: BMI > 35 kg/m2 A3: high blood PRESSURE A4: SNORING that is loud or disruptive Q: Current use of supplemental oxygen during sleep period?: A: No All Prior Sleep Studies (past 365 days) 09/03/2023 08:10 Sleep Studies HOME SLEEP APNEA TEST (HSAT) HOME SLEEP APNEA TEST (HSAT) Order Status: Ordered, Future Expires: 09/02/24 BMI Readings from Last 2 Encounters: 09/03/23 : 42.78 kg/m 08/03/23 : 41.09 kg/m PAST MEDICAL HISTORY Diagnosis Date Hemorrhoids HTN (hypertension) Hyperglycemia The medical record was reviewed to determine if the proposed sleep study conforms to the AASM Practice Parameters for the Indications for Polysomnography and Related Procedures, or if the sleep studyis indicated for other reasons. Indications for study: GENEVA suspected with comorbid medical or sleep disorders: Morbid obesity (BMI>40 kg/m2) Sleep study to be performed: Home Sleep Apnea Test (HSAT) Special instructions: None-follow laboratory protocol Breanna [facility] Sleep [facility] Staff Note: I have read the above protocol, edited as needed, and agree to the plan. Ifrah Berman MD 12:40 PM, 09/14/2023 * Jyoti Ochoa - 09/11/2023 12:35 PM EDT September 11, 2023 An order has been received for Home Sleep Apnea Test (HSAT) from Mirlande Metz APRN.billy POMPA. [facility] Staff. Visit prep complete. Comments :No The sleep study is scheduled for 09/15. Insurance: Payor: [facility] / Plan: [facility] [employer]ULL[facility] INSURED / Product Type: PPO / Payer/Plan Subscr Sex Relation Sub. Ins. ID Effective Group Num 1. [facility] - * MOHIT RIVERS 1975 Male Self [id number] 03[birth year]/21 [address] 2. [facility] MOHIT RIVERS 1975 Male Self [id number] 03/[birth year]/16 [address] Jyoti Ochoa documented in this encounterMer[facility]06[facility]-2024 Instructions* Patient Instructions* Mirlande Lal APRN.ALETHA - 09/03/2023 8:18 AM EDT Same medications. We'll send a message to cardiology. Let me know if you don' hear about a sleep study. Schedule with gen surgery for colonoscopy. Use the ketoconazole for the ears. Recheck in 6 months. documented in this encounterMer[facility]. [facility]06-14-2024 History of Present illness Narrative* Mirlande Lal APRN.ALETHA - 09/03/2023 7:50 AM EDT .This is a 48 year old male who presents today with: Patient presents with: Follow Up HISTORY OF PRESENT ILLNESS: Mohit Rivers is a 48 year old male. Patient presents with: Follow Up Pt presents today for 1 month follow-up. He did return for staged PCI. Refers that he did have some chest pain the following night that woke him from sleep, but fell backasleep in an hour. None since. He is going to cardiac rehab. He has a follow-up with cardiology next month. Needs to be stay on brillinta for at least 1 year. Needs to stay on baby asa for life. Continues to be smoke free since [place]. Feels that his diet is uncontrolled right now because of this. Tried the triamcinolone to his ears. Refers that started itching again after treatment. Refers that he has been having some problems in the bedroom. Having trouble maintaining an erection. Requesting medication. HYPERLIPIDEMIA: Patient is taking medications: Yes. Patient is watching diet: not so good. Patient denies myalgias: Yes. Patient denies gi upset: Yes Side effects -- thinks it is causing dry mouth overnight. PAST MEDICAL HISTORY: PAST MEDICAL HISTORY Diagnosis Date Hemorrhoids HTN (hypertension) Hyperglycemia PAST SURGICAL HISTORY Procedure Laterality Date PAST SURGICAL HISTORY OF [id number] left kidney surgery aprox 9 procedures PAST SURGICAL HISTORY OF [id number] [facility], and second at [facility]. ALLERGIES Lisinopril MEDICATIONS Current Outpatient Medications Medication Sig atorvastatin (LIPITOR) 80 mg tablet Take 80 mg by mouth daily at bedtime. carvedilol (COREG) 6.25 mg tablet Take 1 tablet by mouth every 12 hours. hydroCHLOROthiazide 25 mg tablet Take 1 tablet by mouth every afternoon. spironolactone (ALDACTONE) 25 mg tablet Take 0.5 tablets by mouth every afternoon. BRILINTA 90 mg tablet Take 1 tablet by mouth every 12 hours. aspirin, enteric coated (ASPIRIN, ENTERIC COATED) 81 mg EC tablet Take 1 tablet by mouth once daily. triamcinolone acetonide (KENALOG) 0.1 % ointment Apply to affected area two times a day. meloxicam (MOBIC) 15 mg tablet cyclobenzaprine (FLEXERIL) 10 mg tablet Take 1 tablet by mouth three times a day as needed for muscle spasm. amLODIPine (NORVASC) 10 mg tablet Take 1 tablet by mouth once daily. omeprazole (PRILOSEC) 20 mg capsule Take 1 capsule by mouth daily before breakfast. 1/2 hr before meal. No current facility-administered medications for this visit. FAMILY HISTORY Problem Relation Age of Onset Cancer Paternal Grandfather Coronary Artery Disease Father Diabetes Father Heart Father Hypertension Father Social History Tobacco Use Smoking status: Every Day Packs/day: 0.50 Years: 15.00 Additional pack years: 0.00 Total pack years: 7.50 Types: Cigarettes Smokeless tobacco: Current Types: Chew Tobacco comments: less than a pack a day Substance Use Topics Alcohol use: Yes Alcohol/week: 6.0 standard drinks of alcohol Types: 6 Cans of Beer (12oz) per week Comment: 3 beers 3x per week EXAM: BP 126/80 (BP Site: Left Arm, BP Position: Sitting, BP Cuff Size: Large Adult) Pulse (!) 58 Wt (!) 143.1 kg (315 lb 6.4 oz) BMI 42.78 kg/m PHYSICAL EXAM: General Appearance: Well appearing, alert, in no acute distress, well-hydrated, well nourished.. Skin: Skin color, texture, turgor normal, no suspicious rashes or lesions. Head: Normocephalic, no masses, lesions, tenderness or abnormalities. Eyes: Anicteric sclera. Extraocular movements are intact. . Ears: dry skin in external ears/canal. Oropharynx: Lips, mucosa, and tongue normal, teeth and gums normal, oropharynx normal. Neck: Supple, no adenopathy; thyroid symmetric, normal size, no bruits. Lungs: Lungs clear to auscultation. No wheezing, rhonchi, rales.. Heart: RRR without murmur, gallop, or rubs. No ectopy. Extremities: No deformities, edema, skin discoloration, clubbing or cyanosis. Good capillary refill. . Neurologic: Gait normal. ASSESSMENT/PLAN: 1. Essential hypertension - ICD9: 401.9, ICD10: I10 (primary diagnosis) - Controlled - Continue current medications - Recommend home blood pressure monitoring, to bring results to next visit - Encouraged sodium restriction, DASH or Mediterranean diet - Recommend regular aerobic exercise - HOME SLEEP APNEA TEST (HSAT) Pt unsure if cardiology wants him to continue the spirolactone -- will sent a message. 2. Heartburn - ICD9: 787.1, ICD10: R12 Refill: - OMEPRAZOLE 20 MG CAPSULE,DELAYED RELEASE 3. ST elevation myocardial infarction involving left anterior descending (LAD) coronary artery (HCC) - ICD9: 410.10, ICD10: I21.02 Stable. Continue per cardiology. 4. Snoring - ICD9: 786.09, ICD10: R06.83 Agreeable to home study. - HOME SLEEP APNEA TEST (HSAT) 5. Screening for colon cancer - ICD9: V76.51, ICD10: Z12.11 Would like to schedule in the fall. - CONSULT TO GENERAL SURGERY 6. Encounter for immunization - ICD9: V03.89, ICD10: Z23 - HEP B VACCINE, 3-DOSE, AGE 20+ YR (ENGERIX-B, RECOMBIVAX HB) 7. ED (erectile dysfunction) of organic origin - ICD9: 607.84, ICD10: N52.9 Will message cardiology re: recommendations d/t recent NV. Discussed treatment plan and patient voices understanding. Patient's questions answered appropriately. Medications and potential side effects were discussed and patient voices understanding. Return to the office as scheduled or as needed for worsening/no improvement. Mirlande Lal APRN.WAITER/WAITRESS COUNTER documented in this encounterMer[facility]06-01-2024 Evaluation note* Diagnosis Onset Date Resolution Status Admit Date Stented coronary artery August, acute O ctober 2024 1:21pm History of nicotine dependence chron ic January 12, 2025 1:21pm Hyperlipidemia chronic January 122024 1:21pm Hypertension chronic December 1:21pm Atrial fibrillation, new onset inact nitin January 12, 2025 1:21pm [facility] Work Phone: 1(584) 607-353105-20-2024 Telephone encounter Note* Telephone Encounter - Babita Chatman MA - 08/09/2023 10:29 AM EDT Letter mailed to pt home of results. Babita Chatman MA [facility]05-20-2024 Miscellaneous Notes* Telephone Encounter - Babita Chatman MA - 08/09/2023 10:29 AM EDT Letter mailed to pt home of results. Babita Chatman MA * Telephone Encounter - Mirlande Lal APRN.CNP - 08/06/2023 5:15 PM EDT Can please let patient know that his labwork was within normal/stable. He continues to be in the prediabetic range, but is improved from last year. Please work on eating less sugar, bread, potato, pasta, rice, corn, corn syrup. Mirlande Lal APRN.CNP documented in this encounterMer[facility]05-17-2024 Telephone encounter Note * Telephone Encounter - Mirlande Lal APRN.CNP - 08/06/2023 5:15 PM EDT Can please let patient know that his labwork was within normal/stable. He continues to be in the prediabetic range, but is improved from last year. Please work on eating less sugar, bread, potato, pasta, rice, corn, corn syrup. Mirlande Lal APRN.CNP [facility]05-14-2024 History of Present illness Narrative* Mirlande Lal APRN.CNP - 08/03/2023 5:54 PM EDT See office notes. Mirlande Lal APRN.WAITER/WAITRESS COUNTER * Brittany Watkins LPN - 08/02/2023 12:06 PM EDT TRANSITION CARE MANAGEMENT (TCM) INITIAL CONTACT Head Packager Outreach Provider Action/FYI: Patient states that he has been having leg cramps. Is trying to be sure he is drinking plenty of water. He is to have a BMP checked for kidney function and electrolytes. Initial contact with patient post discharge, spoke to patient. Patient identified by name and . TRANSITION CARE MANAGEMENT INITIAL OUTREACH DOCUMENTATION: 08/02/2023 Date of Outreach: Outreach Attempt 1: Contact Made Date of Discharge 07/29/2023 SUMMARY: -Pt discharged from [facility] on 07/29/23. -Admitted for: STEMI Do you have a hospital follow up appointment with your PCP? Appointment on 08/03/23 with Mirlande Lal. Yes. Remind patient of appointment date, time, and location. If not within 14 calendar days of discharge - please reschedule accordingly. MEDICATIONS: Many patients have questions or concerns about their medications once they are home. Were you prescribed any new medications? If yes, what are those medications? Atorvastatin, ASA, carvedilol, HCTZ, spironolactone, Brillinta Were you told to hold any medications? No Were any of your medications discontinued? No Do you have any questions about getting or taking your medications? No Your discharge instructions/After visit Summary (AVS) are important in guiding you through the recovery process. Is there anything I might help you understand? No Do you have all the necessary equipment and supplies at home? Yes Medical records from recent hospitalization: Placed for provider to review documented in this encounterMercy Health St. [facility]05-14-2024 Instructions* Patient Instructions* Mirlande Lal APRN.ALETHA - 08/03/2023 9:40 AM EDT Continue the same medications. Continue the omeprazole. You can add pepcid (famotidine) daily if need. Get labwork. Schedule w/ dermatology. (Let us know if you need us to fax a referral). Try the triamcinolone to the ears for up to 2 weeks. After that, just change to vaseline. Recheck in 1 month. documented in this encounterMer[facility]. [facility]05-14-2024 History of Present illness Narrative* Mirlande Lal APRN.ALETHA - 08/03/2023 9:03 AM EDT Transitional Care Management TCM Eligibility Documentation The following information was gathered during patient outreach 08/02/2023 Date of Outreach: Outreach Attempt 1: Contact Made Date of Discharge 07/29/2023 Provider Documentation Mohit Rivers is a 48 year old male here today for a follow up from recent hospitalization. I havereviewed the patient's hospital course including discharge summary, discharge medications , and follow up needs with the patient and any family members present at today's visit. HPI Pt presents today for hospital follow-up. Patient presented to the emergency room on 07/27/2023 with complaints of chest pain and code STEMI. His symptoms started about an hour prior to arrival. In the emergency room, he was treated with aspirin, IV heparin, Brilinta, and nitro. He was taken emergently to the [facility]. His initial CBC was unremarkable except for erythrocytosis, which has since resolved. His chemistry panel showed mild hypokalemia at 3.1, but was otherwise unremarkable. His initial troponin was 19. In the [facility] he had 2 stents placed in the distal LAD. He was also noted to have 40% distal LMCA and 70% distal mid RCA.Staged PCI to the mid RCA has been recommended. He was placed on aspirin, Brilinta, Coreg, Aldactone, but MALLORY and ARB were avoided due to personal history of angioedema with these medications. An echocardiogram was performed that showed moderate concentric LVH with an EF of 55% and apical hypokinesis. Left atrium was mildly enlarged and he had +1 aortic and pulmonic valve insufficiency with mildly dilated aortic root. His chest pain resolved after catheterization. The biggest issue during his ho spitalization was controlling blood pressure. He was restarted on his amlodipine with a beta-tej and eventually Aldactone and hydrochlorothiazide were also ordered. Blood pressure was improved however not quite at goal at discharge. He was noted to have some ventricular arrhythmia post revascularization but this had subsided and was likely related to revascularization arrhythmia after cardiaccath. He was advised to continue dual antiplatelet therapy for at least 12 months with the Brilintaand aspirin 81 mg. He needs repeat labs to check his BMP to ensure that his renal function electrolytes are within normal limits with the diuretics. He has an appoint with cardiology later this month. He will also follow-up with cardiac rehab. He was encouraged to stop smoking. He was also encouraged to consider an outpatient sleep study. 1 week smoke-free. Trying to eat better. No chest pain. Will feel a little fluttery a couple of times, but brief. Will feel SOB when he is trying to go to sleep. Has never had issues w/ sleep apnea in the past. PHYSICAL EXAMINATION BP 118/82 Pulse (!) 48 Resp 16 Wt (!) 137.4 kg (303 lb) SpO2 97% BMI 41.09 kg/m GENERAL: well appearing, alert, in no acute distress HEART: regular rate and rhythm. No murmur, rubs or gallops. LUNGS: clear to auscultation, no wheezing, rhonchi, or crackles ABDOMEN: soft, non-tender, non-distended, no masses or organomegaly EXTREMITIES: no lower extremity edema. No skin discoloration. HEENT: Normocephalic, atraumatic, Pupils are equal, round, reactive to light, Extraocular muscles intact, and Oropharynx clear, no erythema or exudate NECK: supple, thyroid midline, normal size, non-tender to palpation, and no carotid bruits EXTREMITY: no lower extremity edema. No skin discoloration. ASSESSMENT/PLAN: 1. ST elevation myocardial infarction involving left anterior descending (LAD) coronary artery (HCC) - ICD9: 410.10, ICD10: I21.02 (primary diagnosis) Has follow-up with cardiology to further evaluate for staged PCI for the RCA. Continue antiplatelets. Return to ER if any new/worsening symptoms. 2. Essential hypertension - ICD9: 401.9, ICD10: I10 - Controlled - Continue current medications - Recommend home blood pressure monitoring, to bring results to next visit - Encouraged sodium restriction, DASH or Mediterranean diet - Recommend regular aerobic exercise - COMPREHENSIVE METABOLIC PANEL - COMPLETE BLOOD COUNT AND DIFFERENTIAL - HEMOGLOBIN A1C - TRIAMCINOLONE ACETONIDE 0.1 % TOPICAL OINTMENT 3. Ingrown fingernail - ICD9: 703.0, ICD10: L60.0 Right thumb. No current s/s of infection/inflammation. No known injury. Will try propping nail while waiting to get into dermatology. - CONSULT TO DERMATOLOGY 4. Bradycardia - ICD9: 427.89, ICD10: R00.1 Appears stable on current medication regimen. If any symptoms, may need to back down on betablocker. He has follow-up scheduled with cardiology in 2 weeks. 5. SOB (shortness of breath) - ICD9: 786.05, ICD10: R06.02 Describes occurring when he is almost asleep. ? Sleep apnea. Consider sleep study. Discussed treatment plan and patient voices understanding. Patient's questions answered appropriately. Medications and potential side effects were discussed and patient voices understanding. Return to the office as scheduled or as needed for worsening/no improvement. Mirlande Lal APRN.WAITER/WAITRESS COUNTER documented in this encounterMercy Health St. [facility]05-09-2024 Progress note Author Marisa Lopez [facility] July 29, 2023 10:03am Note Date/Time July 29, 2023 10:03a [facility] Medical Records Department [address] [place] [address] Progress Note - Cardiology 07/29/23 1000 MR#: [id number] Acct: [id number] Name: LESLEYMOHIT R Rep #:[id number] : 1975 48 From: Marisa Lopez MD PCP: Dr. Cash Puentes MD Status:ADM I N Location: [place] [address] Subjective Subjective Denies any complaints. Ambulating. No chest pains. No shortness of breath. Objective Data Vital Signs: Vital Signs Temp Pulse Resp BP Pulse Ox O2 Del Method O2 Flow Rate 97.5 F L 67 18 158/94 H 96 Room Air 2 07/29/23 02:49 07/29/23 02:49 07/29/23 02:49 07/29/23 02:49 07/29/23 07:14 07/29/23 07:14 07/28/23 02:00 Oxygen Flow Rate (L/min) 2 Oxygen Delivery Method Room Air Weight: 298 lb 8.094 oz Body Mass Index (BMI) 40.4 Intake & Output: Intake and Output for Last 24 Hours 07/27/23 07/28/23 07/29/23 23:59 23:59 23:59 Intake Total 1825.43 / 2425.43 600 / 600 Output Total 1900 / 1900 Balance -74.57 / 525.43 600 / 600 Lab / Micro Data 07/29/23 06:59 07/29/23 06:59 Labs: Laboratory Results - last 24 hr 07/29/23 06:59: WBC 7.5, RBC 5.53, Hgb 16.7 H, Hct 49.9, MCV 90.2, MCH 30.2, MCHC 33.5, RDW Std Deviation 46.0 H, RDW Coeff of Jesus 13.8, Plt Count 233, MPV 10.0, Immature Gran % (Auto) 0.400, Neut % (Auto) 58.0, Lymph % (Auto) 26.8, Pasco % (Auto) 10.7 H, Eos % (Auto) 3.2, Baso % (Auto) 0.9, Absolute Neuts (auto)4.3, Absolute Lymphs (auto) 2.00, Nucleated RBC % 0, Sodium 135 L, Potassium 3.8, Chloride 104, Carbon Dioxide 26.0, Anion Gap 5, BUN 12, Creatinine 1.04, Estim Creat Clear Calc 125.09, Est GFR (MDRD) Af Amer 98, Est GFR (MDRD) Non-Af 81, BUN/Creatinine Ratio 11.5, Glucose 121 H, Calcium 9.0 Rhythm Strip Rhythm Strip: Sinus Rhythm Cardiology Labs/Tests 07/29/23 06:59: WBC 7.5, RBC 5.53, Hgb 16.7 H, Hct 49.9, MCV 90.2, MCH 30.2, MCHC 33.5, Plt Count 233, MPV 10.0, Immature Gran % (Auto) 0.400, Neut % (Auto) 58.0, Lymph % (Auto) 26.8, [place] % (Auto) 10.7 H, Eos % (Auto) 3.2, Baso % (Auto)0.9, Absolute Neuts (auto) 4.3, Nucleated RBC % 0, Sodium 135 L, Potassium 3.8, Chloride 104, Carbon Dioxide 26.0, Anion Gap 5, BUN 12, Creatinine 1.04, Est GFR(MDRD) Af Amer 98, Est GFR (MDRD) Non-Af 81, BUN/Creatinine Ratio 11.5, Glucose 121 H, Calcium 9.0 Rhythm: EKG: Evolutionary changes consistent with recent anterior myocardial infarction. ECHO: Stress Test: Cardiac Cath: PCI: CT Surgery: Holter monitor: EPS: PPM: CXR: Chest CT Scan: Radiography Diagnostic Testing: Radiology Impression Echocardiogram 07/28/23 00:35 Interpretation Summary Moderate concentric left ventricular hypertrophy. The left ventricular ejection fraction is 55 %. Apical hypokinesis. The left atrium is moderately enlarged. Mild (1+) aortic valve insufficiency. Mild (1+) pulmonic valve insufficiency. Mildly dilated aortic root. Ordering Physician: Marisa Lopez Referring Physician: Cash Puentes Performed By: Latricia Mast, RDCS, RVT Physical Exam Narrative Comfortable. No distress. Heart sounds 1 and 2 normal. Chest clear to auscultation bilaterally. Alert oriented x 3. No ankle edema. Assessment & Plan Assessment/Plan (1) STEMI (ST elevation myocardial infarction): QUALIFIERS: Involved coronary artery: LAD coronary artery Qualified Code(s): I21.02 - ST elevation (STEMI) myocardial infarction involvingleft anterior descending coronary artery PLAN: Status post drug-eluting stent to the mid LAD. Status post balloon angioplasty to distal LAD. Continue aspirin lifelong. Ticagrelor for at least 1 year. Risk factor modification. (2) Coronary artery disease: PLAN: See #1 above. Continue beta-blockers. Statins. Lose weight. Stop smoking. Possible staged PCI to the distal mid RCA as an outpatient. (3) 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: PLAN: Overall left ventricular systolic function normal. Regional wall motion abnormality with apical and inferior apical hypokinesis. Secondary to #1 above. Beta-blockers. Spironolactone. No MALLORY inhibitor's or ARB's in view of historyof angioedema. (4) Hypertension: PLAN: Beta-tej, spironolactone, amlodipine and hydrochlorothiazide. (5) Nicotine dependence: PLAN: Counseled to quit. (6) Hypokalemia: PLAN: Potassium replaced. (7) Morbid obesity with BMI of 40.0-44.9, adult: PLAN: Lose weight. PLAN: Plan May discharge home today. Follow-up as outpatient in 2 weeks. 07/29/23 1003 <Electronically signed by Marisa Lopez MD> Cosigner Signature (if applicable): CC: ~ Signed [facility] Work Phone: [phone]) 421-786305-08-2024 Progress note Author Babita Carreno [facility] July 28, 2023 10:01am Note Date/Time July 28, 2023 8:07am [facility] Medical Records Department [address] [place] [address] Progress Note - Hospitalist 07/28/23 0759 MR#: [id number] Acct: [id number] Name: MOHIT RIVERS Rep #:[id number] : 1975 48 From: Babita Carreno DO PCP: Dr. Cash Puentes MD Status:ADM I N [facility] Reason for Visit Reason for Visit: Chest pain/STEMI Subjective Subjective Mr. Rivers is a 48-year-old white male who presented to the emergency departmentat [facility] on 07/27/2023 with chest pain and code STEMI. His symptoms started about an hour prior to arrival with abrupt onset of chest pain that was substernal, sharp and radiated into his left arm. He described the pain as collapsing or ripping in nature and nothing seems to make it better or worse. EKG in the emergency department showed STEMI and he was treated with aspirin, IV heparin, Brilinta and nitroglycerin and taken emergently to the CathLab. Vital signs on presentation showed temperature of 97.1, heart rate 78, blood pressure was 176/105, respiratory was 20 and oxygen saturations were 97% on room air. His CBC was unremarkable except for erythrocytosis which has sinceresolved. His chemistry panel showed mild hypokalemia with a potassium of 3.1 but was otherwise unremarkable. His initial troponin was 19. He was taken emergently to the [facility] with Dr. Lopez at which time 2 stents were placed in the distal LAD. He was also noted to have 40% distal LMCA and 70% distal mid RCA disease and staged PCI to mid RCA has been recommended. He was placed on aspirin, Brilinta, Coreg, Aldactone but MALLORY/ARB were avoided due to history of angioedema with these medications. EF on cath was noted to be 45% and echocardiogram is pending. Patient with some intermittent runs of VT through the night but better this morning. Patient denies any ongoing chest pain or shortness of breath. States he feels much better than he did on presentation. No current complaints. Objective Data Objective Data Vital Signs: Vital Signs Temp Pulse Resp BP Pulse Ox O2 Del Method O2 Flow Rate 97.7 F L 63 16 164/109 H 98 Room Air 2 07/28/23 04:15 07/28/23 07:00 07/28/23 07:00 07/28/23 07:00 07/28/23 07:00 07/28/23 07:00 07/28/23 02:00 Oxygen Flow Rate (L/min) 2 Oxygen Delivery Method Room Air Weight: 137.3 kg Body Mass Index (BMI) 41.0 Intake & Output: Intake and Output for Last 24 Hours 07/26/23 07/27/23 07/28/23 23:59 23:59 23:59 Intake Total 825.43 / 825.43 Output Total 1900 / 1900 Balance -1074.57 / -1074.57 Lab / Micro Data 07/28/23 02:45 07/28/23 02:45 Labs: Laboratory Results - last 24 hr 07/27/23 22:43: WBC 9.9, RBC 5.70, Hgb 17.3 H, Hct 50.3, MCV 88.2, MCH 30.4, MCHC 34.4, RDW Std Deviation 44.6 H, RDW Coeff of Jesus 13.9, Plt Count 237, MPV 9.6, Immature Gran % (Auto) 0.300, Neut % (Auto) 41.5 L, Lymph % (Auto) 43.5 H, Pasco % (Auto) 10.2 H, Eos % (Auto) 3.3, Baso % (Auto) 1.2 H, Absolute Neuts (auto) 4.1, Absolute Lymphs (auto) 4.29, Nucleated RBC % 0, PT 12.9, INR 1.0, APTT 29.4, Sodium 138, Potassium 3.1 L, Chloride 107, Carbon Dioxide 22.0, AnionGap 9, BUN 14, Creatinine 1.03, Estim Creat Clear Calc 128.16, Est GFR (MDRD) AfAmer 100, Est GFR (MDRD) Non-Af 82, BUN/Creatinine Ratio 13.6, Glucose 108 H, Calcium 9.4, Troponin I High Sens 19 07/28/23 02:45: WBC 8.7, RBC 5.21, Hgb 15.7, Hct 46.6, MCV 89.4, MCH 30.1, MCHC 33.7, RDW Std Deviation 45.3 H, RDW Coeff of Jesus 13.8, Plt Count 248, MPV 10.1, Sodium 136, Potassium 4.2, Chloride 107, Carbon Dioxide 22.0, Anion Gap 7, BUN 12, Creatinine 0.84, Estim Creat Clear Calc 157.09, Est GFR (MDRD) Af Amer 127, Est GFR (MDRD) Non-Af 105, BUN/Creatinine Ratio 14.4, Glucose 116 H, Calcium 8.9, Total Bilirubin 0.60, AST 56 H, ALT 65 H, Alkaline Phosphatase 61, Total Protein 7.3, Albumin 3.8, Globulin 3.5, Albumin/Globulin Ratio 1.1, Triglycerides 103, Cholesterol 178, LDL Cholesterol 116, VLDL Cholesterol 21, HDL Cholesterol 41 Rhythm Strip Rhythm Strip: Sinus Rhythm Physical Exam Const alert, oriented x3, no apparent distress and well nourished; Negative for average body habitus Constitutional Narrative: Morbidly obese, white male, sitting up in a chair at the bedside, nursing at bedside, patient appears comfortable and nontoxic HEENT head/scalp atraumatic and moist oral mucous membranes HEENT Narrative: Mallampati 3-4, no thrush Head and Scalp: normocephalic Resp normal respiratory effort, no retractions, no use of accessory muscles and clearto auscultation bilaterally Resp Narrative: Diminished but clear Auscultation: Negative for rales, rhonchi or wheezes Cardio regular rate, regular rhythm, S1 normal heart sound, S2 normal heart sound, no murmurs, no rub, no gallops and no clicks GI normal to inspection, nondistended, normoactive bowel sounds, soft to palpation and non-tender Extremity no clubbing, cyanosis or edema Extremity Narrative: Pedal pulses are 2+, bilateral radial arteries are 2+, postcatheterization dressing intact-clean and dry with no ecchymosis or significant tenderness Neuro oriented x3, moves all extremities and no focal motor deficits Speech: speech normal Psych affect normal Psych Narrative: Eye contact is good and patient interacts appropriately asking good questions Assessment & Plan Assessment/Plan (1) Chest pain: (2) STEMI (ST elevation myocardial infarction): QUALIFIERS: Involved coronary artery: LAD coronary artery Qualified Code(s): I21.02 - ST elevation (STEMI) myocardial infarction involvingleft anterior descending coronary artery (3) Hypokalemia: (4) Ventricular ectopy: (5) Tobacco abuse: (6) Morbid obesity with BMI of 40.0-44.9, adult: PLAN: Plan STEMI -Status post PCI with IZZY x 2 to the distal LAD -Status procedure to RCA has been recommended -Continue Brilinta -Continue statin -Continue aspirin -Continue carvedilol -Continue Aldactone -No MALLORY inhibitor/ARB due to history of angioedema -Check hemoglobin A1c -Lipid panel shows a total cholesterol 178/LDL 116/HDL 41/triglycerides of 103 -Patient had not been on a statin previously Hypokalemia -Replaced and resolved Hypertension -Discontinue home amlodipine -Continue Aldactone and carvedilol and titrate accordingly -If blood pressure nelda elevated may need to add third agent as he is bradycardic mildly on the Coreg that we have given him with no significant room for up titration GERD -Continue home PPI History of tobacco abuse -Patient is still smoking -Strongly recommend cessation History of angioedema secondary to lisinopril -Avoid MALLORY inhibitors and ARB's Morbid obesity -BMI is 41.1 -Recommend weight loss -Complicates treatment, prognosis, outcomes DVT prophylaxis -Start Lovenox 40 mg twice daily subcu CODE STATUS Full code Charges/Coding Visit Charges Inpatient E&M: 28064 Subs Hosp L2 07/28/23 1001 <Electronically signed by Babita Carreno DO> Cosigner Signature (if applicable): CC: ~ Signed [facility] Work Phone: 1(522) 413-373105-08-2024 History and physical note Author Armand Jimenez [facility] July 28, 2023 5:49am Note Date/Time July 27, 2023 11:23p m [facility] Medical Records Department [address] [facility] [place] [address] H&P Exam - Hospitalist 07/27/23 2317 MR#: [id number] Acct: [id number] Name: MOHIT RIVERS Rep #:[id number] : 1975 48 From: Armand Huff DO PCP: Dr. Cash Puentes MD Status:ADM I N Location: ICU ICU05-1 HPI - General General Date of Admission: 07/27/23 Date of Service: 07/27/23 Chief Complaint: Chest Pain with Code STEMI. HPI Narrative MOHIT RIVERS, is a 48 M with a past medical history of essential hypertension, hyperlipidemia, history of tobacco abuse, morbid obesity; with BMI of 41.6 this admission, history of angioedema attributed to Lisinopril, history of microdiscectomy at L5-S1, history of kidney surgery, history of septic and patellar bursitis of the right knee, GERD and osteoarthritis who presents to [facility] ER complaining of chest pain with code STEMI. Mr. Rivers reports his symptoms began approximately 1 hour prior to arrival with the abruptonset of chest pain that was substernal, sharp and radiating into his left arm with patient describing the pain as his chest collapsing or ripping. Nothing seems to make the pain better or worse and he denies a history of personal history aortic aneurysm but he states he has an uncle that has a history of aortic aneurysm. He denies associated fever, chills, nausea, vomiting, cough, shortness of breath or history of cocaine or methamphetamine abuse. In the ER patient had evidence of a STEMI on EKG and he was immediately treated with aspirin, IV heparin, Brilinta and nitroglycerin prior to being emergently sent to the cardiac catheterization lab complicated by laboratory evidence of hypokalemia of 3.1 mmol/L present on admission. He then had 2 stents placed in his LAD and then clinically markedly improved. He was then admitted to the ICU for ongoing treatment or stay that is expected to be greater than 2 midnights. COUNTS INCLUDE 234 BEDS AT THE [facility] Medical History Hypertension Home Medications amlodipine 10 mg tablet 10 mg PO DAILY #90 tabs 11/26/21 [Rx Last Taken Unknown] omeprazole 20 mg capsule,delayed release 20 mg PO DAILY PRN gerd 10/28/22 [History Last Taken Unknown] Allergy/AdvReac Type Severity Reaction Status Date / Time lisinopril Allergy Severe Angioedema Verified 07/27/23 22:40 Family History Other Heart disease Surgical History h/o kidney surgery h/o microdiscectomy L5-S1 Social History Smoking Status: Current every day smoker tobacco type: cigarettes alcohol intake: current alcohol intake frequency: a few times a month ROS ROS Narrative Review of systems: General: Patient denies fever or chills. HENT: Denies headache, denies stuffy nose, denies sore throat EYES: Denies changes in vision or discharge from eyes. Resp: Denies cough, denies shortness of breath Cardiac: Patient admits to sharp chest pain radiating to his left arm with a ripping sensation as per HPI. GI: Denies abdominal pain, denies changes in bowel, denies nausea or vomiting. : Denies changes in urination Extremity: Denies swelling Musculoskeletal: Feels somewhat generally weak and unwell but denies arthralgiasor myalgias. Neuro: Patient denies headache, paresthesias or focal neurologic weakness. Heme: Denies any bleeding or bruising Skin: Denies rashes Psychiatric: No complaints voiced related to uncontrolled depression or anxiety. Endocrine: No polyuria, polydipsia or polyphagia. The rest of the 14 point ROS was negative except for positives in HPI. Vital Signs Vital Signs Vital Signs: 07/27/23 22:40 07/27/23 22:51 07/27/23 22:58 Temperature 97.1 F L Temperature Source Temporal Pulse Rate 78 79 Respiratory Rate 20 H Blood Pressure 176/105 H 186/107 H Blood Pressure Mean 128 Pulse Ox 97 93 Oxygen Delivery Method Nasal Cannula Oxygen Flow Rate (L/min) 2 07/27/23 23:02 07/27/23 23:04 07/27/23 23:05 Temperature 97.4 F L Temperature Source Pulse Rate 80 80 70 Respiratory Rate 19 H Blood Pressure 175/111 H 178/111 H 162/113 H Blood Pressure Mean 133 Pulse Ox 97 Oxygen Delivery Method Oxygen Flow Rate (L/min) 07/27/23 23:08 07/27/23 23:11 Temperature Temperature Source Pulse Rate 70 69 Respiratory Rate 19 H 19 H Blood Pressure 168/110 H 115/61 Blood Pressure Mean 129 79 Pulse Ox 96 96 Oxygen Delivery Method Room Air Room Air Oxygen Flow Rate (L/min) Weight Weight: 306 lb 10.608 oz Body Mass Index (BMI) 41.5 Physical Exam Const alert, oriented x3, average body habitus and healthy appearing General Appearance: cooperative HEENT normocephalic, head/scalp atraumatic, hearing grossly normal bilaterally and moist oral mucous membranes Eyes PERRL and EOMs intact bilaterally Neck no lymphadenopathy and supple Resp normal respiratory effort, no retractions, no use of accessory muscles and clearto auscultation bilaterally Cardio regular rate and regular rhythm GI normal to inspection, nondistended, normoactive bowel sounds, soft to palpation,non-tender and non-distended Extremity normal to inspection, full ROM and no clubbing, cyanosis or edema Skin Skin Narrative: Patient has no evidence of jaundice or rash. Neuro oriented x3, CN's II-XII intact bilaterally, moves all extremities and no focal motor deficits Sensorium / Orientation: awake, alert, oriented to person, oriented to place andoriented to time Speech: speech normal Psych affect normal Results Medical Records Data Attestation: I reviewed the patient's medical records Lab / Micro Data Attestation: I reviewed the patient's lab results. 07/28/23 02:45 07/28/23 02:45 Labs: Laboratory Results - last 24 hr 07/27/23 22:43: WBC 9.9, RBC 5.70, Hgb 17.3 H, Hct 50.3, MCV 88.2, MCH 30.4, MCHC 34.4, RDW Std Deviation 44.6 H, RDW Coeff of Jesus 13.9, Plt Count 237, MPV 9.6, Immature Gran % (Auto) 0.300, Neut % (Auto) 41.5 L, Lymph % (Auto) 43.5 H, Pasco % (Auto) 10.2 H, Eos % (Auto) 3.3, Baso % (Auto) 1.2 H, Absolute Neuts (auto) 4.1, Absolute Lymphs (auto) 4.29, Nucleated RBC % 0, PT 12.9, INR 1.0, APTT 29.4, Sodium 138, Potassium 3.1 L, Chloride 107, Carbon Dioxide 22.0, AnionGap 9, BUN 14, Creatinine 1.03, Estim Creat Clear Calc 128.16, Est GFR (MDRD) AfAmer 100, Est GFR (MDRD) Non-Af 82, BUN/Creatinine Ratio 13.6, Glucose 108 H, Calcium 9.4, Troponin I High Sens 19 Assessment & Plan Assessment/Plan (1) STEMI (ST elevation myocardial infarction): QUALIFIERS: Involved coronary artery: LAD coronary artery Qualified Code(s): I21.02 - ST elevation (STEMI) myocardial infarction involvingleft anterior descending coronary artery (2) Hypokalemia: (3) Tobacco abuse: (4) Morbid obesity with BMI of 40.0-44.9, adult: PLAN: Plan 1. Chest Pain with Code STEMI; s/p stents x 2 to LAD - Admit to ICU for treatment under the STEMI protocol. Continue current medical management with IVheparin, Brilinta and statin. Check echocardiogram to evaluate LVEF. [facility] help is greatly appreciated. Give morphine as needed for severe (level 6-10 out of 10) pain. 2. Hypokalemia of 3.1 mmol/L present on admission complicating #1 - Give supplemental KCl and recheck BMP in a.m. to ensure improvement. 3. History of tobacco abuse likely precipitating #1 - Tobacco cessation will bestrongly encouraged. 4. Morbid obesity; with BMI of 41.6 this admission adding to the pathology of #1 - #3 - Weight loss will be recommended. Check TSH. 5. Essential hypertension - Continue home medications plus give IV hydralazine as needed for systolic blood pressure greater than 1 or 60 mmHg. 6. Hyperlipidemia - Resume statin and check lipid profile in light of #1. 7. History of angioedema attributed to Lisinopril - Noted. Avoid MALLORY inhibitors and ARB's to prevent recurrence. 8. History of microdiscectomy at L5-S1 - Noted. 9. History of kidney surgery - Noted. 10. History of septic and patellar bursitis of the right knee - Noted. 11. GERD - Resume PPI as previous. 12. Osteoarthritis - Hold meloxicam due to increased risk of cardiovascular events. Give Tylenol as needed for [id number] (level 1-5 out of 10) pain or fever. 13. DVT prophylaxis - Patient already on IV heparin for #1. Total time: Approximately 75 minutes. Charges/Coding Visit Charges Inpatient E&M: 22074 Init Hosp L3 07/28/23 0549 <Electronically signed by Armand Worley DO> Cosigner Signature (if applicable): CC: Dr. Armand Worley DO; Dr. Cash Puentes MD~ Signed [facility] Work Phone: 1(251) [phone] Consult note Author Marisa Lopez [facility] July 28, 2023 12:43am Note Date/Time July 28, 2023 12:43a [facility] Medical Records Department [address] [place] [address] Consultation - Cardiology 07/28/23 0037 MR#: [id number] Acct: [id number] Name: MOHIT RIVERS Rep #:[id number] : 1975 48 From: Marisa Lopez MD PCP: Dr. Cash Puentes MD Status:ADM I N Location: ICU ICU-1 Assessment & Plan Assessment/Plan (1) STEMI (ST elevation myocardial infarction): PLAN: Patient was taken emergently to the cardiac catheterization lab. Coronaryangiography revealed about 90% lesion in the proximal LAD. Distal LAD was notedto be totally occluded. Successful percutaneous revascularization was performedwith balloon angioplasty to the distal LAD and drug-eluting stent placement to the proximal LAD. Excellent results were noted. Continue aspirin lifelong. Ticagrelor for at least 1 year. Risk factor modification. (2) Coronary artery disease: PLAN: See #1 above. Continue beta-blockers. Statins. Lose weight. Stop smoking. Possible staged PCI to the distal mid RCA as an outpatient. (3) 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: PLAN: Mild LV systolic dysfunction with apical and inferior apical hypokinesis. Secondary to #1 above. Beta-blockers. Spironolactone. No MALLORY inhibitor's or ARB's in view of history of angioedema. (4) Hypertension: PLAN: Beta-blockers. Start on spironolactone. No MALLORY inhibitor's or ARB's in view of history of angioedema. (5) Nicotine dependence: PLAN: Counseled to quit. (6) Hypokalemia: PLAN: Replace potassium. (7) Morbid obesity with BMI of 40.0-44.9, adult: PLAN: Lose weight. HPI Consult Data Date of Consult: 07/28/23 HPI Narrative Reason for Consultation: STEMI HPI Narrative: 48-year-old gentleman with past medical history significant for hypertension, nicotine dependence and morbid obesity. Presented to the emergency room with complaints of anterior chest discomfort that started about half an hour prior topresentation. No radiation to the arm neck or jaw. No diaphoresis. Some shortness of breath associated with it. An ECG was done in the emergency room which showed changes consistent with acute anterior ST elevation myocardial infarction. Subsequently a STEMI alert was called. COUNTS INCLUDE 234 BEDS AT THE [facility] Medical History Hypertension Home Medications amlodipine 10 mg tablet 10 mg PO DAILY #90 tabs 11/26/21 [Rx Last Taken Unknown] omeprazole 20 mg capsule,delayed release 20 mg PO DAILY PRN gerd 10/28/22 [History Last Taken Unknown] Allergy/AdvReac Type Severity Reaction Status Date / Time lisinopril Allergy Severe Angioedema Verified 07/27/23 22:40 Family History Other Heart disease Surgical History h/o kidney surgery h/o microdiscectomy L5-S1 Social History Smoking Status: Current every day smoker tobacco type: cigarettes alcohol intake: current alcohol intake frequency: a few times a month Physical Exam Narrative Obese. Comfortable. No apparent distress. Heart sounds 1 and 2 noted. Chest clear to auscultation bilaterally. Alert oriented x 3. No ankle edema. Risk Stratification Risk Stratification Applicable: No Objective Data Vital Signs: Vital Signs Temp Pulse Resp BP Pulse Ox O2 Del Method O2 Flow Rate 97.4 F L 69 19 H 115/61 96 Room Air 2 07/27/23 23:04 07/27/23 23:11 07/27/23 23:11 07/27/23 23:11 07/27/23 23:11 07/27/23 23:11 07/27/23 22:51 Oxygen Flow Rate (L/min) 2 Oxygen Delivery Method Room Air Weight: 306 lb 10.608 oz Body Mass Index (BMI) 41.5 Lab / Micro Data Attestation: I reviewed the patient's lab results. 07/27/23 22:43 07/27/23 22:43 Labs: Laboratory Results - last 24 hr 07/27/23 22:43: WBC 9.9, RBC 5.70, Hgb 17.3 H, Hct 50.3, MCV 88.2, MCH 30.4, MCHC 34.4, RDW Std Deviation 44.6 H, RDW Coeff of Jesus 13.9, Plt Count 237, MPV 9.6, Immature Gran % (Auto) 0.300, Neut % (Auto) 41.5 L, Lymph % (Auto) 43.5 H, Pas[place] % (Auto) 10.2 H, Eos % (Auto) 3.3, Baso % (Auto) 1.2 H, Absolute Neuts (auto) 4.1, Absolute Lymphs (auto) 4.29, Nucleated RBC % 0, PT 12.9, INR 1.0, APTT 29.4, Sodium 138, Potassium 3.1 L, Chloride 107, Carbon Dioxide 22.0, AnionGap 9, BUN 14, Creatinine 1.03, Estim Creat Clear Calc 128.16, Est GFR (MDRD) AfAmer 100, Est GFR (MDRD) Non-Af 82, BUN/Creatinine Ratio 13.6, Glucose 108 H, Calcium 9.4, Troponin I High Sens 19 Rhythm Strip Rhythm Strip: Sinus Rhythm Cardiology Labs/Tests 07/27/23 22:43: WBC 9.9, RBC 5.70, Hgb 17.3 H, Hct 50.3, MCV 88.2, MCH 30.4, MCHC 34.4, Plt Count 237, MPV 9.6, Immature Gran % (Auto) 0.300, Neut % (Auto) 41.5 L, Lymph % (Auto) 43.5 H, Pasco % (Auto) 10.2 H, Eos % (Auto) 3.3, Baso % (Auto) 1.2 H, Absolute Neuts (auto) 4.1, Nucleated RBC % 0, PT 12.9, INR 1.0, APTT 29.4, Sodium 138, Potassium 3.1 L, Chloride 107, Carbon Dioxide 22.0, AnionGap 9, BUN 14, Creatinine 1.03, Est GFR (MDRD) Af Amer 100, Est GFR (MDRD) Non-Af 82, BUN/Creatinine Ratio 13.6, Glucose 108 H, Calcium 9.4 Rhythm: EKG: Sinus rhythm. ST elevation in anterior leads consistent with acute anterior myocardial infarction. ECHO: Stress Test: Cardiac Cath: PCI: CT Surgery: Holter monitor: EPS: PPM: CXR: Chest CT Scan: 07/28/23 0043 <Electronically signed by Marisa Lopez MD> Cosigner Signature (if applicable): CC: Dr. Marisa Lopez MD; Dr. Cash Puentes MD~ Signed [facility] Work Phone: [phone]) 483-673305-08-2024 Discharge summary Author Nathen [facility] July 27, 2023 11:48pm Note Date/Time July 27, 2023 10:47p m [facility] Medical Records Department [address] [place] [address] Emergency Department Summary 07/27/23 MR#: [id number] Acct: [id number] Name: MOHIT RIVERS Rep #:[id number] : 1975 48 From: Nathen Arboleda PCP: Dr. Cash Puentes MD Status:ADM I N Location: ICU ICU05-1 HPI History of Present Illness Chief Complaint: Chest Pain [facility] Medical History Hypertension Home Medications amlodipine 10 mg tablet 10 mg PO DAILY #90 tabs 11/26/21 [Rx Last Taken Unknown] omeprazole 20 mg capsule,delayed release 20 mg PO DAILY PRN gerd 10/28/22 [History Last Taken Unknown] Allergy/AdvReac Type Severity Reaction Status Date / Time lisinopril Allergy Severe Angioedema Verified 07/27/23 22:40 Family History Other Heart disease Surgical History h/o kidney surgery h/o microdiscectomy L5-S1 Social History Smoking Status: Current every day smoker tobacco type: cigarettes alcohol intake: current alcohol intake frequency: a few times a month EXAM Physical Exam Const Vital Signs: 07/27/23 22:40 07/27/23 22:51 07/27/23 22:58 Temperature 97.1 F L Temperature Source Temporal Pulse Rate 78 79 Respiratory Rate 20 H Blood Pressure 176/105 H 186/107 H Blood Pressure Mean 128 Pulse Ox 97 93 Oxygen Delivery Method Nasal Cannula Oxygen Flow Rate (L/min) 2 07/27/23 23:02 07/27/23 23:04 07/27/23 23:05 Temperature 97.4 F L Temperature Source Pulse Rate 80 80 70 Respiratory Rate 19 H Blood Pressure 175/111 H 178/111 H 162/113 H Blood Pressure Mean 133 Pulse Ox 97 Oxygen Delivery Method Oxygen Flow Rate (L/min) 07/27/23 23:08 07/27/23 23:11 Temperature Temperature Source Pulse Rate 70 69 Respiratory Rate 19 H 19 H Blood Pressure 168/110 H 115/61 Blood Pressure Mean 129 79 Pulse Ox 96 96 Oxygen Delivery Method Room Air Room Air Oxygen Flow Rate (L/min) MDM MDM MDM Narrative Medical decision making narrative: HISTORY OF PRESENT ILLNESS: 48-year-old male presents with acute onset of sharp chest pain is not radiating does note some left arm pain as well. Notes he feels like his chest is collapsing or ripping. Does note uncle with history of aortic aneurysm but denies any personal or family history in first-degree relatives of aortic dissection or other connective tissue disorder. Denies any cough or fever. Denies any loss of movement or sensation. Denies any vomiting. Denies any bleeding diathesis. Notes history of high blood pressure, high cholesterol he smokes tobacco and occasionally marijuana but denies any cocaine or methamphetamine use. The patient denies recent surgery in the last 4 weeks or immobilization in the last 3 days, denies previous diagnosis of DVT or PE, hemoptysis, unilateral leg swelling or malignancy with treatment the last 6 months or palliative. No estrogen use noted. Patient denies history of any bleeding diathesis including recurrent hemorrhage, GI hemorrhage. REVIEW OF SYSTEMS: Pertinent positives: Chest pain Pertinent negatives: Shortness of breath PHYSICAL EXAM: Nursing triage notes reviewed, Vital signs reviewed Constitutional: please see mdm HENT: MMM Eyes: Pupils equal round and reactive to light, Extraocular muscles intact Neck: No stridor, no JVD, full neck ROM Lungs: Clear to auscultation, No wheezing or rales. No increased work of breathing, no conversational dyspnea, no accessory muscle use, no nasal flaring. No respiratory distress noted Heart: Regular rate and rhythm, No murmurs, No rubs and No gallops, 2+ distal pulses (radial, femoral, posterior tibial) in all extremities Abdomen: Soft, there is no tenderness, rigidity, rebound or guarding, no obviousperitoneal signs, no palpable pulsatile abdominal masses, no auscultated abdominal bruit : No CVAT Extremities: No edema Neuro: No focal neurological deficits, cranial nerves II through XII intact, 5/5strength in all extremities. Intact sensation to light touch in all extremities,2+ reflexes bilateral patella tendons. Normal gait. No ataxia. Skin: No rash or lesions noted MEDICAL DECISION MAKING: Chief Complaint: Chest pain External records reviewed: Chest x-ray from November 2021 no acute process Factors affecting care: Hypertension, dyslipidemia Social determinants of health: Tobacco use History obtained from others: Family Consults: Internal medicine (Dr. Worley), interventional cardiology (Dr. Lopez) [facility] Narrative: [Patient is initially hypertensive otherwise afebrile and nontoxic-appearing. No focal cardiopulmonary maladies noted. No pulse deficits or focal neurologic deficits noted. I considered the following differential diagnosis: STEMI, ACS, anemia, arrhythmia, electrolyte disturbance, PE Consider obtaining advanced imaging occluding CTA of the chest rule out PE or dissection however the patient had no pulse deficits and no risk factors to suggest PE. In addition to this his clinical exam, history and EKG more consistent with STEMI as a cause of his symptoms. Initial EKG shows STEMI. STEMI protocol activated. Patient was treated for thaws using heparin, aspirin and Brilinta. Consulted interventional cardiology spoke with Dr. Lopez who recommended transfer to the [facility] for definitive intervention. ALL IMAGES (IF OBTAINED) HAVE BEEN PERSONALLY REVIEWED AND INTERPRETED BY MYSELF. Initial EKG consistent with inferior lateral STEMI. CBC without leukocytosis, severe anemia, no thrombocytopenia. No coagulopathy BMP with hypokalemia otherwise no significant electrolyte disturbances, evidence of metabolic acidosis, endorgan hypoperfusion or DARREL High-sensitivity troponin is negative, no evidence of myocardial ischemia Patient was transported to the [facility] in guarded condition. The patient and/or family, caregivers express understanding. The patient and/or family, caregivers agrees with the plan. Shared decision making: I will have a discussion with the patient and or visitors regarding risk/benefits of further testing or admission. They will be made aware of of the risk/benefits inherent in this decision they will be given the opportunity to voice understanding. Total critical care time today provided was at least 35 minutes. This excludes separately billable procedures. Critical care time (if documented) is secondary to the patient having high probability of clinically significant/life threatening deterioration in the patient's condition which required my urgent intervention. Impression: 1. STEMI 2. Hypokalemia 3 history of hypertension Dispo: Admit to [facility] This note was generated with [employer] dictation software. It may contain incorrect words, spelling, and punctuation that were not noted in review of the chart prior to signing. Lab Data Labs: Laboratory Results - last 24 hr 07/27/23 22:43 WBC 9.9 RBC 5.70 Hgb 17.3 H Hct 50.3 MCV 88.2 MCH 30.4 MCHC 34.4 RDW Std Deviation 44.6 H RDW Coeff of Jesus 13.9 Plt Count 237 MPV 9.6 Immature Gran % (Auto) 0.300 Neut % (Auto) 41.5 L Lymph % (Auto) 43.5 H Pasco % (Auto) 10.2 H Eos % (Auto) 3.3 Baso % (Auto) 1.2 H Absolute Neuts (auto) 4.1 Absolute Lymphs (auto) 4.29 Nucleated RBC % 0 PT 12.9 INR 1.0 APTT 29.4 Sodium 138 Potassium 3.1 L Chloride 107 Carbon Dioxide 22.0 Anion Gap 9 BUN 14 Creatinine 1.03 Estim Creat Clear Calc 128.16 Est GFR (MDRD) Af Amer 100 Est GFR (MDRD) Non-Af 82 BUN/Creatinine Ratio 13.6 Glucose 108 H Calcium 9.4 Troponin I High Sens 19 Discharge Plan Disposition Disposition: Acute Care Hospital [facility] Discharge Date/Time: 07/27/23 23:19 What to do if you have Problems For any increased pain, shortness of breath, bleeding, nausea or vomiting, chest pain, or any unexpected problems, contact your Primary Care Provider. Call [facility] ([phone]) or report to the closest Emergency Room. Call 911 if necessary. 07/27/23 1862 <Electronically signed by Nathen Haynes DO> Cosigner Signature (if applicable): CC: Dr. Cash Puentes MD ~ Signed [facility] Work Phone: [phone] 684-516603-13-2024 History of Present illness Narrative* Jasen Savage MD - 06/02/2023 3:31 PM EDT Patient presents with: Ear Problem: Bilateral ear pain x 1 day, and itchiness x 3 weeks HPI: Rash: Location: bilateral external ears Duration: 3 weeks Pruritis: Yes Pain: left ear hurts some today. 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 No new soaps, detergents, fabric softeners, lotions. Recent illness: Denies Cough, Sore throat, internal Earache, Sinus pressure. Treatment: OTC swimmer's ear oil MEDICATIONS: Current Outpatient Medications Medication Sig meloxicam (MOBIC) 15 mg tablet amLODIPine (NORVASC) 10 mg tablet Take 1 tablet by mouth once daily. omeprazole (PRILOSEC) 20 mg capsule Take 1 capsule by mouth daily before breakfast. 1/2 hr before meal. cyclobenzaprine (FLEXERIL) 10 mg tablet Take 1 tablet by mouth three times a day as needed for muscle spasm. (Patient not taking: Reported on 06/02/2023) cetirizine HCl (ZYRTEC ORAL) Take by mouth. (Patient not taking: Reported on 04/19/2023) No current facility-administered medications for this visit. ALLERGIES: ALLERGIES Allergen Reactions Lisinopril Other: See Comments VITALS: BP 150/110 Pulse 67 Temp 36.7 C (98 F) Resp 21 Wt (!) 141.9 kg (312 lb 13.3 oz) SpO2 95% BMI 42.43 kg/m PHYSICAL EXAM: GEN: Pleasant, in no acute distress. HEENT: PERRL, EOMI, conjunctiva clear Ears: canals clear. TMs without erythema, bulge, or effusion. External ears have faint hint of general erythema. There is some smooth faint erythema in the crease behind the left ear with a few pinpoint papules/vesicles. Sinuses: non-tender frontal sinus, non-tender maxillary sinuses Throat: moist mucous membranes, no erythema, no exudate Neck: supple, no thyromegaly, no lymphadenopathy ASSESSMENT/PLAN: 1. Dermatitis of external ear - ICD9: 692.9, ICD10: L30.9 Pruritus is suspicious for allergic or irritant dermatitis. Stop OTC oil. Monitor for sources/vector of allergen. - TRIAMCINOLONE ACETONIDE 0.1 % TOPICAL CREAM He reports he has normal BPs at home but gets anxious about getting his BP done at the doctor's office. Jasen Savage MD documented in [facility] Discharge summary Author Victor Manuel Duenas [facility] October 25, 2022 9:20pm Note Date/Time October 25, 2022 8:5 0pm [facility] Medical Records Department [address] [place] [address] Emergency Department Summary 10/25/22 MR#: [id number] Acct: [id number] Name: MOHIT RIVERS Rep #:[id number] : 1975 47 From: Victor Manuel Duenas MD PCP: Dr. Cash Puentes MD Status:REG E R Location: ED HPI History of Present Illness Chief Complaint: Abscess Informant: patient Onset/Context/Timing Onset: Days Context: Gradual Onset Timing: Continuous Current Severity: Mild Maximum Severity: Mild Narrative Narrative: 47-year-old male history of hypertension. Complaining of pain just below his right knee. Sitting now About a week ago has not felt uncomfortable but he really did not make much of it. He followed up with his primary care physician's office saw their physicianassistant around last they thought it may be a bursitis and put him on prednisone. He said it is now red and much more swollen. He denies any fever. Today he thinks that there was a small amount of drainage from and that might ofpus-like. Prior similar symptoms: No Recent Illness/Hospitalization: No PFSH PFSH Medical History Hypertension Home Medications amlodipine 10 mg tablet 10 mg PO DAILY #90 tabs 11/26/21 [Rx Last Taken Unknown] cephalexin 500 mg capsule 500 mg PO Q6 #40 CAPSULES 10/25/22 [Rx Last Taken Unknown] omeprazole 20 mg capsule,delayed release 20 mg PO DAILY 10/25/22 [History Last Taken Unknown] Allergy/AdvReac Type Severity Reaction Status Date / Time lisinopril Allergy Severe Angioedema Verified 10/25/22 20:31 Family History Other Heart disease Surgical History h/o kidney surgery h/o microdiscectomy L5-S1 Social History Smoking Status: Current every day smoker tobacco type: cigarettes ROS ROS ED ROS Narrative Denies. Review of Systems ROS Unobtainable: Denies due to encephalopathy Constitutional Constitutional ED: Denies chills or fever(s) Eyes Eyes: Denies blurry vision ENT ENT ED: Denies ear pain Cardiovascular Cardiovascular: Denies chest pain Respiratory/Chest Respiratory/Chest: Denies cough Gastrointestinal Gastrointestinal: Denies abdominal pain Genitourinary Genitourinary ED: Denies dysuria Musculoskeletal Musculoskeletal: Denies arthralgias Integumentary Reports abscess Neurologic Neurologic: Denies headache(s) Psychiatric Psychiatric: Denies anxiety Endocrine Endocrinology: Denies cold intolerance Hematologic/Lymphatic Hematologic/Lymphatic: Reports none Allergic/Immunologic Allergic/Immunologic ED: Denies mouth swelling or tongue swelling EXAM Physical Exam Narrative Exam Narrative: Well-appearing 47-year-old male. Vital signs stable afebrile. No distress. Significant other bedside. H EENT exam unremarkable. Lungs clear. Heart regular rhythm no murmur. Rate about 70. Chest wall nontender. Abdomen soft nontender. Moving all 4 extremities. Neurovascular intact. Right knee just distal to the patella over his tibial tuberosity is red tender area consistent with a septic bursitis. He is able to flex and extend his knee. There is no swelling of the knee itself. No signs of a septic joint. He denies any significant discomfort with flexion extension. There is no lymphangitic streaking. There is no inguinal lymphadenopathy of his right leg. Const Vital Signs: 10/25/22 20:31 10/25/22 20:33 Temperature 97.9 F 97.9 F Temperature Source Temporal Temporal Pulse Rate 72 72 Respiratory Rate 18 18 Blood Pressure 189/117 H 189/117 H Blood Pressure Mean 141 141 Pulse Ox 95 95 Positive well nourished and well developed; Negative for cachectic, contracturesor unkempt General Appearance ED: well developed and NAD; Negative for unkempt, cachectic, contractures, cyanotic or diaphoretic Nutritional Appearance: Negative for cachectic HEENT Reports moist mucous membranes; Denies TM's clear Negative for trauma or tenderness Tympanic Membrane ED: Negative for TM's clear Eyes PERRL and EOMs intact bilaterally General Eye ED: Negative for pale conjunctiva or scleral icterus Neck no lymphadenopathy, supple and no JVD General: Negative for tenderness Lymph Lymphatic: Negative for other Chest Wall Negative for inspection of chest normal or palpation of chest normal Chest: Negative for other Resp normal respiratory effort and clear to auscultation bilaterally Effort and Inspection: Negative for retractions Auscultation: Negative for rales, rhonchi or wheezes Cardio regular rate, regular rhythm, S1 normal heart sound, S2 normal heart sound and no murmurs Rhythm: Negative for abnormal rhythm GI normal to inspection, nondistended, normoactive bowel sounds, non-tender, non-distended and no masses Inspection: Negative for abdominal distention Auscultation: normoactive bowel sounds Palpation: soft; Negative for tender or guarding Extremity normal to inspection Extremity Narrative: Except prepatellar bursitis just distal to the right kneecap. It is red, tenderand swollen consistent with a septic bursitis. No signs of a septic knee joint. Full flexion extension. No effusion. General Extremety ED: Yes tenderness; Negative for edema General Extremity: Negative for edema Neuro oriented x3 and CN's II-XII intact bilaterally Sensorium / Orientation: alert; Negative for orientation impaired Motor Exam: strength 5/5 throughout Psych mental status grossly normal Appearance: Negative for unkempt Attitude: No agitated Mood & Affect: Negative for depressed, anxious or tearful Skin no rashes or lesions noted and no wounds Lesions: No lesion noted Rashes: No rashes noted Trauma: Negative for abrasion Wounds: Negative for wounds noted MDM MDM MDM Narrative Medical decision making narrative: 47-year-old male suspected septic bursitis of his right knee. No signs of septic joint. Area will be locally anesthetized I&D no be started on antibiotics. Outpatient follow-up with orthopedics. Patient has a right knee septic bursitis. The joint itself is fine. Cleaned with Shur-Clens. Local anesthetized with lidocaine. I made a 1 to 2 cm vertical incision. Was able to express about 5 to maybe as much is 10 cc of pusand blood. Irrigated the wound. Placed packing material. Patient is doing well. I spoke to orthopedics on-call Dr. Sood. He will follow up the patient next several days. Patient be discharged home with Keflex 500 mg 4 times daily for 10 days. Procedures Other Procedures Procedure(s): Right knee infected bursa incision and drainage. Locally anesthetized with lidocaine. Made a 1-1/2 to 2 cm vertical incision. Drained 5to 10 cc of pus and blood. Probed the wound with forceps. Irrigated the infected bursa. Placed about 5 inches of quarter inch plain gauze. Instructed the patient on wound care and packing removal in 4 to 5 days. Follow-up with orthopedics. Treated with a dose of Keflex p.o. here. Discharge Plan Triage Chief Complaint: Abscess ED Provider: Victor Manuel Duenas Dx/Rx/DC Orders Clinical Impression: Septic bursitis Instructions: ED Abscess Incision And Drainage Prescriptions: New cephalexin 500 mg capsule 500 mg PO Q6 Qty: 40 0RF No Action amlodipine 10 mg tablet 10 mg PO DAILY Qty: 90 0RF omeprazole 20 mg capsule,delayed release(DR/EC) 20 mg PO DAILY Primary Care Provider: Cash Puentes Referrals: Barry Sood DO [Med Staff - Active Staff] - As soon as possible (Call the doctor's office tomorrow they can see you this week.) Cash Puentes MD [Primary Care Provider] - Activity Restrictions/Additional Instructions: Keflex 1 pill 4 times a day for 10 days. Call and follow-up with the orthopedic doctor to ensure this is improving. Sometimes it to take out the whole bursa sac. Motrin and Tylenol for pain. Return if feeling worse, fever the leg is getting much more swollen, painful or streaks up the knee or groin. Packing can be pulled out in 5 days. Disposition Disposition: Home, Self Care What to do if you have Problems For any increased pain, shortness of breath, bleeding, nausea or vomiting, chestpain, or any unexpected problems, contact your Primary Care Provider. Call [facility] ([phone]) or report to the closest Emergency Room. Call 911 if necessary. 10/25/222119 <Electronically signed by Victor Manuel Duenas MD> Cosigner Signature (if applicable): CC: Dr. Cash Puentes MD ~ Signed [facility] Work Phone: 1(148) 290-565708-03-2023 Instructions* Patient Instructions* Vince Sandoval PA-C - 10/22/2022 4:54 PM EDT Images from the original note were not included. Bursitis Knee pads, if possible off loading the are swollen. What is bursitis? Bursitis is the inflammation or irritation of the bursa. The bursa is a small sac filled with lubricating fluid, located between tissues such as bone, muscle, tendons, and skin. Bursae help to decrease friction, rubbing and irritation and help your joints move with ease. There are more than 150 bursae in your body. Bursitis occurs when a bursa becomes inflamed; this results in pain and discomfort. The pain may be gradual (building up over time) or may be sudden and severe (especially if calciumdeposits are present). What causes bursitis? Bursitis is most often caused by repetitive motions (ie, overuse); or direct, minor impact on the area (eg, from such activities as repeated bumping or prolonged pressure from kneeling). Less often, bursitis is caused from a sudden, more serious injury. Other examples of the sources of bursitis include one or more of the following: Play or work activities that cause overuse or injury to the joint areas, for example: Gardening Raking Carpentry Shoveling Painting Scrubbing Sports (tennis, golf, throwing and pitching, etc.) Incorrect posture injury Stress on the soft tissues from an abnormal or poorly positioned joint or bone (such as leg length differences or arthritis in a joint) Other diseases or conditions (rheumatoid arthritis, gout, psoriasis, thyroid disease or an unusual drug reaction) and rarely, from infection Many times, the cause of bursitis is unknown. Where does bursitis occur? Bursae are located throughout the body. However, certain joints are more subject to increased pressure and repetitive use, making bursitis more likely to develop in them. These joints include the shoulders, elbows, knees, and feet. Bursae near the hip joint, particularly those on the outer side of the hip, and those in the buttocks (subjected to pressure from sitting) are also prone to bursitis. How is bursitis treated? Treatment goals include reduction in pain and inflammation, as well as preserving mobility and preventing disability and recurrence. Treatment recommendations may include a combination of rest, splints, heat and cold application. More advanced treatment options include: Nonsteroidal anti-inflammatory drugs, such as ibuprofen or naproxen Corticosteroid injections given by your health care provider. Injections work quickly to decrease the inflammation and pain. Physical therapy that includes range of motion exercises and splinting. This can be very beneficial. Surgery, when other treatments are not effective. When should you seek medical advice? Most cases of bursitis improve without any treatment over a few weeks. See your health care provider if you have any of the following signs or symptoms: You experience pain that interferes with your normal day-to-day activities or have soreness that doesn't improve despite self-care measures. You have recurrence of bursitis. You have a fever or the area affected appears red, swollen or warm. In addition, see your doctor if you have other medical conditions that may increase your risk of aninfection, or if you take medications that increase your risk of infection, such as corticosteroidsor immunosuppressants. How can you prevent bursitis? Because most cases of bursitis are caused by overuse, the best treatment is prevention. It is important to avoid or modify the activities that cause the problem. Underlying conditions such as leg length differences, improper posture or poor technique in sports or work must be corrected. Some positions, such as kneeling and sitting, significantly increase joint pressure. Apply these basic rules when performing activities: Take it slow at first and gradually build up your activity level. Use limited force and limited repetitions. Stop if unusual pain occurs. Use cushions and pads to reduce pressure. Copyright 1994- 2012 [facility]. All rights reserved This information is provided by the [facility] and is not intended to replace the medical advice of your doctor or health care provider. Please consult your health care provider for advice about a specific medical condition. For additional health information, please contact the Center for Consumer Health Information at the [facility] or toll-free extension [phone]. If you prefer, you may visit [email or web address] or [email or web address]. This document was last reviewed on: 2008 documented [facility] [address] [facility]08-03-2023 History of Present illness Narrative* Vince Sandoval PA-C - 10/22/2022 4:46 PM EDT 47 year old male with c/o knelt on a pebble. Knee started swelling over patellar bursa. Previously occurred 2 years ago which led to time of work, and persistent pain and swelling that imporoved with medrol dose pack. Asking for this treatment to alleviate risk of missing worse Hypertension Current meds: Amlodipine 10mg daily Patient is compliant with meds Yes Monitors bp at home: Yes. If yes, readings: lower to about the same Denies side effects: Yes. Chest pain: No. Dyspnea: No. Edema: No. Palpitations: No. Syncope: No. Headache: No. Dizziness: No. Last 3 Encounter BP Readings: Date: BP: 10/22/2022 148/90 12/01/2021 132/98 10/21/2020 132/72 Last 2 Encounter Wt Readings: Date: Wt: 10/22/2022 138.8 kg (306 lb) 12/01/2021 143.3 kg (316 lb) GERD Current medication: Omeprazole 20mg daily. Current symptoms: none currently but having some mornings. Last Mg level if on PPI chronically: none. Heartburn is controlled: Occasional. Dysphagia: No. Bloody or black stools: No. Bowel changes: No. Last EGD and/or colonoscopy: none. HISTORIES FAMILY HISTORY Problem Relation Age of Onset Cancer Paternal Grandfather Coronary Artery Disease Father Diabetes Father Heart Father Hypertension Father PAST MEDICAL HISTORY Diagnosis Date Hemorrhoids HTN (hypertension) Hyperglycemia PAST SURGICAL HISTORY Procedure Laterality Date PAST SURGICAL HISTORY OF [id number] left kidney surgery aprox 9 procedures PAST SURGICAL HISTORY OF [id number] [facility], and second at [facility]. Social History Tobacco Use Smoking status: Every Day Packs/day: 0.50 Years: 15.00 Total pack years: 7.50 Types: Cigarettes Smokeless tobacco: Current Types: Chew Tobacco comments: less than a pack a day Substance Use Topics Alcohol use: Yes Alcohol/week: 15.0 standard drinks of alcohol Types: 6 Cans of Beer (12oz) per week Comment: 3 beers 3x per week ACTIVE PROBLEM LIST Condyloma Acuminata Obesity, Class Iii, Bmi 40-49.9 (Morbid Obesity) (Hcc) Hyperglycemia Essential Hypertension Current Outpatient Medications Medication Sig Dispense Refill amLODIPine (NORVASC) 10 mg tablet Take 1 tablet by mouth once daily. 30 tablet 5 omeprazole (PRILOSEC) 20 mg capsule Take 1 capsule by mouth daily before breakfast. 1/2 hr before meal. 30 capsule 3 cetirizine HCl (ZYRTEC ORAL) Take by mouth. No current facility-administered medications for this visit. HEPATITIS B(1 of 3 - 3-dose series) Never done COVID-19 VACCINE(1) Never done PNEUMOCOCCAL(1 - PCV) Never done HEPATITIS C SCREENING Never done HIV SCREENING Never done BP CONTROLLED (<130/80) Never done COLORECTAL CANCER SCREENING Never done DEPRESSION ASSESSMENT Never done EXAM: BP 148/90 Pulse 68 Temp 36.7 C (98 F) (Left Tympanic) Resp 18 Wt (!) 138.8 kg (306 lb) SpO2 98% BMI 41.50 kg/m Pleasant obese adult male in no acute distress. Alert and oriented all spheres. Normal affect and cognition. Speech normal. No deficits to learning or comprehension. Skin warm, dry, pink to lips and nailbeds. Normal turgor. Respirations regular and unlabored. HEENT: NCAT. No scleral icterus or conjunctival injection. TM's clear. Nose and oropharynx free from injection or lesion. Oral membranes moist and pink. No cervical lymph nodes. Thyroid non-tender, no masses, or enlargement. Carotids pulses 2+/4+ without bruits. Chest is normal shape. Lungs are clear to all rosa with good air exchange through out. HRRR without murmur or gallop. No lifts, heaves, or rubs. Extrem: no clubbing or cyanosis. Edema: none. Extremities are warm and pink with prompt capillary refill. ASSESSMENT/PLAN: 1. Hyperglycemia - ICD9: 790.29, ICD10: R73.9 (primary diagnosis) - HGB A1C 2. Essential hypertension - ICD9: 401.9, ICD10: I10 - Uncontrolled, partially r/t pain and stress - Recommend home blood pressure monitoring, to bring results to next visit - Encouraged sodium restriction, DASH or Mediterranean diet - Recommend regular aerobic exercise - AMLODIPINE 10 MG TABLET - COMP METABOLIC PANEL - CBC 3. Heartburn - ICD9: 787.1, ICD10: R12 controlled - OMEPRAZOLE 20 MG CAPSULE,DELAYED RELEASE 4. Obesity, Class III, BMI 40-49.9 (morbid obesity) (HCC) - ICD9: 278.01, ICD10: E66.01 Weight increasing - Behavioral intervention and - Pharmacological intervention Discussed incretins: wants to wait Discussed weight loss and exercise requirements to lose weight. 5. Screening for lipid disorders - ICD9: V77.91, ICD10: Z13.220 - LIPID PANEL BASIC F/u lab 3 months F/u OV 6 months. Vince Sandoval PA-C Some of this note may have been copied and pasted for the purpose of history context and comparison. documented in this encounter[facility]-2022 Instructions* Patient Instructions* Mirlande Lal APRN.CNP - 12/01/2021 3:37 PM EDT Continue amlodipine. Start the omeprazole. Schedule with allergy and dermatology. Schedule w/ general surgery. Get labs done. Recheck in a month (for blood pressure). documented in this encounterMer[facility]09-12-2022 History of Present illness Narrative* Mirlande Lal APRN.CNP - 12/01/2021 3:28 PM EDT This is a 46 year old male who presents today with: Patient presents with: Hospital Follow Up: [facility] dc'd 11/25 dx: allergic reaction, renal failure HISTORY OF PRESENT ILLNESS: Mohit Rivers is a 46 year old male. Patient presents with: Hospital Follow Up: [facility] dc'd 11/25 dx: allergic reaction, renal failure Patient presents today for hospital follow-up. He was admitted and discharged from the hospital on 11/25/2021. He presented to the emergency room with extensive hives that started 2 days prior to his admission.He had presented to the emergency room at the visit prior to his admission and was discharged with prednisone, however this did not improve his symptoms. He was also found to have impaired kidney function. So he was admitted to a monitored bed for subsequent management. He was treated with prednisone and antihistamines for his hives. No further hives since discharged from the hospital. DARREL He has a history of congenital kidney disease with multiple kidney/urological procedures. His creatinine on presentation was 2.59, with a repeat of 2.38. His BUN on presentation was 46, with a repeat of 47. He received general IV hydration. His home lisinopril was discontinued. Hypertension. His home lisinopril was discontinued. He was started on amlodipine. ED Needs refill of cialis. Refers effective. No side effects. GERD: Refers told that the lump in throat was related to reflux. Taking pepcid, which hasn't helped. Reports no symptoms yesterday, but did consume spicy/tomato sauce foods. Awoke this morning w/ symptoms. PAST MEDICAL HISTORY: PAST MEDICAL HISTORY Diagnosis Date Hemorrhoids HTN (hypertension) Hyperglycemia PAST SURGICAL HISTORY Procedure Laterality Date PAST SURGICAL HISTORY OF [id number] left kidney surgery aprox 9 procedures PAST SURGICAL HISTORY OF [id number] [facility], and second at [facility]. ALLERGIES No Known Drug Allergies MEDICATIONS Current Outpatient Medications Medication Sig amLODIPine (NORVASC) 10 mg tablet Take 1 tablet by mouth once daily. omeprazole (PRILOSEC) 20 mg capsule Take 1 capsule by mouth daily before breakfast. 1/2 hr before meal. lisinopril (ZESTRIL, PRINIVIL) 40 mg tablet Take 1 tablet by mouth once daily. cetirizine HCl (ZYRTEC ORAL) Take by mouth. No current facility-administered medications for this visit. FAMILY HISTORY Problem Relation Age of Onset Cancer Paternal Grandfather Coronary Artery Disease Father Diabetes Father Heart Father Hypertension Father Social History Tobacco Use Smoking status: Every Day Packs/day: 0.50 Years: 15.00 Pack years: 7.50 Types: Cigarettes Smokeless tobacco: Current Types: Chew Tobacco comments: less than a pack a day Substance Use Topics Alcohol use: Yes Alcohol/week: 15.0 standard drinks Types: 6 Cans of Beer (12oz) per week Comment: 3 beers 3x per week EXAM: BP 132/98 Pulse (!) 59 Resp 18 Wt (!) 143.3 kg (316 lb) SpO2 94% BMI 42.86 kg/m PHYSICAL EXAM: General Appearance: Well appearing, alert, in no acute distress, well-hydrated, well nourished.. Skin: Skin color, texture, turgor normal, no suspicious rashes or lesions. Head: Normocephalic, no masses, lesions, tenderness or abnormalities. Eyes: Anicteric sclera. Extraocular movements are intact. . Lungs: Lungs clear to auscultation. No wheezing, rhonchi, rales.. Heart: RRR without murmur, gallop, or rubs. No ectopy. Extremities: No deformities, edema, skin discoloration, clubbing or cyanosis. Good capillary refill. . Neurologic: Gait normal. ASSESSMENT/PLAN: 1. Urticaria of unknown origin - ICD9: 708.9, ICD10: L50.9 (primary diagnosis) Referral for dermatology placed last week as requested per hospital discharge summary. We will also go ahead and place referral for allergy. May have been caused by lisinopril. Continue to hold lisinopril. Notify provider of any recurrence of rash/hives. - OMEPRAZOLE 20 MG CAPSULE,DELAYED RELEASE - CONSULT TO ALLERGY/IMMUNOLOGY 2. Essential hypertension - ICD9: 401.9, ICD10: I10 Recently discontinued lisinopril. Has been on amlodipine for less than 2 weeks. Plan to recheck in 1 month. - AMLODIPINE 10 MG TABLET - BASIC METABOLIC PNL - COMP METABOLIC PANEL 3. Screening for hyperlipidemia - ICD9: V77.91, ICD10: Z13.22 - LIPID PANEL, NONFASTING 4. Hyperglycemia - ICD9: 790.29, ICD10: R73.9 - HGB A1C 5. ED (erectile dysfunction) of organic origin - ICD9: 607.84, ICD10: N52.9 Refill: - TADALAFIL 10 MG TABLET 6. Special screening examination for viral disease - ICD9: V73.99, ICD10: Z11.59 - HEP C AB IA W/CONF SCRN 7. Screening for HIV (human immunodeficiency virus) - ICD9: V73.89, ICD10: Z11.4 - HIV 1 2 COMBO(AG/AB),WITH REFLEX TO DIFFERENTIATION 8. Heartburn - ICD9: 787.1, ICD10: R12 Start the omeprazole. - CONSULT TO GENERAL SURGERY 9. Screening for colon cancer - ICD9: V76.51, ICD10: Z12.11 - CONSULT TO GENERAL SURGERY 10. DARREL (acute kidney injury) (HCC) - ICD9: 584.9, ICD10: N17.9 Will recheck to ensure resolved. - COMP METABOLIC PANEL Discussed treatment plan and patient voices understanding. Patient's questions answered appropriately. Medications and potential side effects were discussed and patient voices understanding. Return to the office as scheduled or as needed for worsening/no improvement. Mirlande Lal APRN.ALETHA This note was partially generated using [employer] voice recognition system. Note was reviewed for accuracy. There may be minor misspellings or grammar miscues with [employer] voice recognition. documented in this encounterMer[facility]09-10-2022 Miscellaneous Notes* Telephone Encounter - Layla Metzger - 11/29/2021 1:31 PM EDT 1st attempt, unable to leave voicemail for patient to schedule Consult to Dermatology * Telephone Encounter - Santos Gordillo LPN - 11/28/2021 1:27 PM EDT Schedulers please assist pt with scheduling dermatology appt. Santos Gordillo LPN * Telephone Encounter - Mirlande Lal APRN.CNP - 11/28/2021 1:00 PM EDT Derm referral placed. Follow-up on Wednesday, as directed/scheduled. Mirlande Lal APRN.ALETHA * Telephone Encounter - Santos Gordillo LPN - 11/27/2021 9:59 AM EDT BETO 10/21/20. [facility] records printed and given to provider for further review. Santos Godrillo LPN * Telephone Encounter - Kendal Gupta RN - 11/27/2021 9:29 AM EDT Patient calls to schedule a hospital follow up for allergic reaction with urticaria and acute kidney injury. Patient seen at [facility]. Patient reports they are recommending that he be seen by dermatology.Patient requesting consult to dermatology order be placed prior to appointment on Wednesday12/01/2021 so he can be seen nicholas. Consult pended for urticaria of unknown origin. Order needs consult priorityfilled in if provider agreeable to order prior to hospital follow up appointment. Kendal Gupta RN documented in this encounterMercy [facility]04-21-2022 Miscellaneous Notes* Telephone Encounter - Babita Chatman Ma - 07/10/2021 5:04 PM EDT Tried to reach pt again, still unable to get through, VM not set up. Babita Chatman Ma * Telephone Encounter - Babita Chatman Ma - 07/10/2021 2:48 PM EDT Tried to reach pt but VM has not been set up yet. Unable to leave message or call back number. The following approved medication requests have been transmitted electronically. Signed Prescriptions Disp Refills amoxicillin (AMOXIL) 875 mg tablet 20 tablet 0 Sig: Take 1 tablet by mouth twice daily for 10 days. Babita Chatman Ma * Telephone Encounter - Nelson Figueroa MD - 07/10/2021 2:46 PM EDT OK for amoxicillin as ordered Nelson Figueroa MD * Telephone Encounter - Kayce Brooke Ma - 07/10/2021 12:32 PM EDT Pt c/o right ear pain for one week. Pt has a broken wisdom tooth on upper right side. Also has jaw pain on same side. He has a dental appointment on next Wednesday. Denies any dental abscess, swollen red gums. No fevers or URI symptoms. Pt asking for antibiotic to cover before dental appointment. Please advise Kayce Brooke Ma * Telephone Encounter - Latricia Coronado [facility] - 07/10/2021 12:29 PM EDT Mohit Rivers is calling Cash Puentes MD today with concern regarding Ear Pain (possibly causedby a toothache)patient is asking for antibiotics until he is able to get into the dentist he has anappointment next or Wednesday Please call [phone] Patient has been identified by name and birthdate. Duration of symptoms: 1 weeks Person calling: self Call patient at: on cell [phone] (home) [phone] (work) Was an appointment scheduled: No Closing statement: Symptom Call: Thank you for calling [facility], your call is very important. A nurse will call in approximately 2-4 hours during business hours. If this is an emergency, please contact 911. Latricia Coronado Pss documented in this encounterPrem[facility] summary Author Babita Carreno [facility] July 29, 2023 11:47am Note Date/Time July 29, 2023 11:34a m [facility] Medical Records Department [address] [place] [address] Discharge Summary 07/29/23 1134 MR#: [id number] Acct: [id number] Name: MOHIT RIVERS Rep #:[id number] : 1975 48 From: Babita Carreno DO PCP: Dr. Cash Puentes MD Status:ADM I N Location: [place] [address] Providers Date of Admission: 07/28/23 Date of Discharge: 07/29/23 Primary Care Physician: Dr. Cash Puentes MD Reason For Visit: STEMI Diagnosis Discharge Diagnosis (1) STEMI (ST elevation myocardial infarction): Status: Acute Code(s): I21.3 - ST elevation (STEMI) myocardial infarction of unspecified site Qualifiers: Involved coronary artery: LAD coronary artery Qualified Code(s): I21.02- ST elevation (STEMI) myocardial infarction involving left anterior descending coronary artery (2) Coronary artery disease: Status: Acute Code(s): I25.10 - Atherosclerotic heart disease of [place] coronary artery without angina pectoris (3) 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: Status: Acute Code(s): I51.9 - Heart disease, unspecified (4) Hypertension: Status: Chronic Code(s): I10 - Essential (primary) hypertension (5) Nicotine dependence: Status: Acute Code(s): F17.200 - Nicotine dependence, unspecified, uncomplicated (6) Hypokalemia: Status: Deleted Code(s): E87.6 - Hypokalemia (7) Morbid obesity with BMI of 40.0-44.9, adult: Status: Acute Code(s): E66.01 - Morbid (severe) obesity due to excess calories; Z68.41 - Body mass index [BMI] 40.0-44.9, adult Medications at Discharge Home Medications amlodipine 10 mg tablet 10 mg PO DAILY #90 tabs 11/26/21 omeprazole 20 mg capsule,delayed release 20 mg PO DAILY PRN gerd 10/28/22 aspirin 81 mg tablet,delayed release 81 mg PO DAILY@0800 #0 tabs 07/29/23 atorvastatin 80 mg tablet 80 mg PO QHS #30 tabs 07/29/23 carvedilol 6.25 mg tablet 6.25 mg PO BID #60 tabs 07/29/23 hydrochlorothiazide 25 mg tablet 25 mg PO DAILY #30 tabs 07/29/23 spironolactone 25 mg tablet 12.5 mg (1/2 x 25 mg) PO DAILY #15 tabs 07/29/23 ticagrelor 90 mg tablet (Brilinta) 90 mg PO BID #60 tabs 07/29/23 Hospital Course Operations None Procedures 2-D Echocardiogram, Cardiac catheterization and EKG Summary of Care Provided Minutes Spent on Discharge: 38 Hospital Course: Mr. Rivers is a 48-year-old white male who presented to the emergency department at [facility] on 07/27/2023 with chest pain and code STEMI. His symptoms started about an hour prior to arrival with abrupt onset of chest pain that was substernal, sharp and radiated into his left arm. He described the pain as collapsing or ripping in nature and nothing seems to make it better or worse. EKG in the emergency department showed STEMI and he was treated with aspirin, IV heparin, Brilinta and nitroglycerin and taken emergently to the [facility]. Vital signs on presentation showed temperature of 97.1, heart rate 78, blood pressure was 176/105, respiratory was 20 and oxygen saturations were 97% on room air. His CBC was unremarkable except for erythrocytosis which has since resolved. His chemistry panel showed mild hypokalemia with a potassium of 3.1 but was otherwise unremarkable. His initial troponin was 19. He was taken emergently to the [facility] with Dr. Lopez at which time 2 stents were placed in the distal LAD. He was also noted to have 40% distal LMCA and 70% distal mid RCA disease and staged PCI to mid RCA has been recommended. He was placed on aspirin, Brilinta, Coreg, Aldactone but MALLORY/ARB were avoided due to history of angioedema with these medications. An echocardiogram was performed and showed moderate concentric LVH with an EF of 55% and apical hypokinesis, left atrium was moderately enlarged and he had 1+ aortic and pulmonic valve insufficiency with a mildly dilated aortic root. His chest pain resolved after catheterization. The biggest issue during his hospitalization was controlling his blood pressure. He had only been on amlodipine prior to admission and this was restarted along with a beta-tej and eventually we added Aldactone as well as hydrochlorothiazide. Blood pressure was improved however not quite at goal at the time of discharge. Goal blood pressure for him will be 130/80 or less. Plan will be for follow-up in uptitration versus addition of further medications depending on outpatient blood pressures. The patient did have some ventricular arrhythmia post revascularization but this subsided and was likely related to revascularization arrhythmia after cardiac catheterization. He was monitored on telemetry throughout his hospital course. Prescriptions for his Coreg, atorvastatin, hydrochlorothiazide, Aldactone, and Brilinta were sent to local pharmacy and he was advised to start aspirin 81 mg daily. We did discuss the importance of ongoing dual antiplatelet therapy for at least 12 months and prevention of in-stent restenosis/thrombosis and he voiced understanding. I have asked that he call his primary care physician and obtain a basic metabolic profile to be done within the next 7 to 10 days to ensure that with the diuretics and new medications his renal function and electrolytes are stable. Appointment was made to follow-up with cardiology later on this month and I advised him to follow-up with his primary care physician within the next 1 to 2 weeks. The patient was able to be discharged in stable condition on 07/29/2023. He will follow-up with cardiac rehab as well. He was advised to stop smoking. He would likely also benefit from an outpatient sleep study. Discharge diagnoses: STEMI Coronary artery disease Hypokalemia-resolved Hypertension GERD Tobacco abuse History of angioedema with MALLORY inhibitors Morbid obesity Suspected GENEVA Physical Exam Const alert, oriented x3, no apparent distress, no limitations, healthy appearing and well nourished; Negative for average body habitus Constitutional Narrative: Morbidly obese, white male, sitting up in a chair at the bedside, family/friends at bedside, patient appears comfortable and nontoxic General Appearance: cooperative, comfortable, well kempt and well developed Orientation / Consciousness: awake, oriented to person, oriented to place and oriented to time Exam Limitations: no limitations Nutritional Appearance: morbidly obese HEENT normocephalic, head/scalp atraumatic, hearing grossly normal bilaterally and moist oral mucous membranes HEENT Narrative: Mallampati is 3-4, no thrush Eyes PERRL, EOMs intact bilaterally and conjunctivae normal Eyes Narrative: No scleral icterus Neck no lymphadenopathy and supple Neck Narrative: Trachea midline, neck is short and thick, no thyroid enlargement noted Resp normal respiratory effort, no retractions, no use of accessory muscles and clear to auscultation bilaterally Resp Narrative: Diminished but clear Auscultation: Negative for rales, rhonchi or wheezes Cardio regular rate, regular rhythm, S1 normal heart sound, S2 normal heart sound, no murmurs, no rub, no gallops and no clicks GI normal to inspection, nondistended, normoactive bowel sounds, soft to palpation and non-tender Extremity no clubbing, cyanosis or edema Extremity Narrative: Pedal pulses are 2+, bilateral radial arteries are 2+, postcatheterization dressing intact-clean and dry with no ecchymosis or significant tenderness Skin no rashes or lesions noted, no wounds, skin turgor normal and no jaundice Neuro oriented x3, CN's II-XII intact bilaterally, moves all extremities and no focal motor deficits Sensorium / Orientation: awake, alert, oriented to person, oriented to place and oriented to time Speech: speech normal Motor Exam: strength 5/5 throughout Psych affect normal Psych Narrative: Eye contact is good and patient interacts appropriately asking good questions Weight / BMI Weight Weight: 135.4 kg Body Mass Index (BMI) 40.4 ABG / Lab / Microbiology Data 07/29/23 06:59 07/29/23 06:59 Laboratory: Laboratory Results - last 24 hr 07/29/23 06:59: WBC 7.5, RBC 5.53, Hgb 16.7 H, Hct 49.9, MCV 90.2, MCH 30.2, MCHC 33.5, RDW Std Deviation 46.0 H, RDW Coeff of Jesus 13.8, Plt Count 233, MPV 10.0, Immature Gran % (Auto) 0.400, Neut % (Auto) 58.0, Lymph % (Auto) 26.8, [place] % (Auto) 10.7 H, Eos % (Auto) 3.2, Baso % (Auto) 0.9, Absolute Neuts (auto) 4.3, Absolute Lymphs (auto) 2.00, Nucleated RBC % 0, Sodium 135 L, Potassium 3.8, Chloride 104, Carbon Dioxide 26.0, Anion Gap 5, BUN 12, Creatinine 1.04, Estim Creat Clear Calc 125.09, Est GFR (MDRD) Af Amer 98, Est GFR (MDRD) Non-Af 81, BUN/Creatinine Ratio 11.5, Glucose 121 H, Calcium 9.0 Radiography Diagnostic Testing: Radiology Impression Echocardiogram 07/28/23 00:35 Interpretation Summary Moderate concentric left ventricular hypertrophy. The left ventricular ejection fraction is 55 %. Apical hypokinesis. The left atrium is moderately enlarged. Mild (1+) aortic valve insufficiency. Mild (1+) pulmonic valve insufficiency. Mildly dilated aortic root. Ordering Physician: Marisa Lopez Referring Physician: Cash Puentes Performed By: Latricia Mast, MELIA, RVT D/C Instructions Discharge Diet: Low fat / Low cholesterol Discharge Activity: Return to Normal Activity and - (Do not lift greater than 10 pounds for the next 4 to 5 days with the right hand and avoid repetitive movements) Return to work on: 08/02/23 Meaningful Use Info Meaningful Use Meaningful Use Diagnoses (Choose all that apply): AMI AMI/Post PCI/Angioplasty Aspirin given w/in 24hrs of arrival?: Yes ASA at discharge?: Yes Antiplatelet Therapy at Discharge:: Yes Statins at discharge?: Yes Mallory/ARB at discharge?: No Reason Mallory/ARB not ordered:: Angioedema Beta Tej at discharge?: Yes Done w/ Acute NV measure.: Yes Documented LVEF (%): 55 Ischemic Stroke Statin Dosing Therapy Reference: STATIN DOSE THERAPY REFERENCE: * Patients > 75 years receive moderate or high dose statin therapy. * Patients 75 years or YOUNGER should receive HIGH intensity statin dose unless contraindicated. You will be required to document reason for non-treatment if statin daily dose does not meet guidelines. HIGH DOSE STATIN THERAPY DAILY Atorvastatin > than or = to 40 mg Rosuvastatin > than or = to 20 mg Amlodipine + Atorvastatin > than or = to 2.5/40 mg Ezetimibe + Simvastatin 10/80 mg Simvastatin 80mg Discharge Plan Admission Admit Date/Time: 07/28/23 06:40 Primary Reason for Your Visit: Chest Pain Attending Provider: Babita Carreno Primary Care Provider: Cash Puentes Instructions Additional Instructions / Restrictions: 1. Do not stop taking your aspirin and Brilinta unless instructed to do so by your filling layer up 2. We highly advise that you stop smoking 3. Please call your primary care physician and get an appointment to be seen within the next 7 to 10 days and ask that a basic metabolic profile be ordered to recheck your kidney function and your electrolytes Discharge Orders/Prescriptions Prescriptions: New atorvastatin 80 mg Tablet 80 mg PO QHS Qty: 30 1RF aspirin 81 mg Tablet,Delayed Release (Dr/Ec) 81 mg PO DAILY@0800 Qty: 0 0RF carvedilol 6.25 mg Tablet 6.25 mg PO BID Qty: 60 1RF hydrochlorothiazide 25 mg Tablet 25 mg PO DAILY Qty: 30 1RF spironolactone 25 mg Tablet 12.5 mg PO DAILY Qty: 15 1RF Brilinta 90 mg Tablet 90 mg PO BID Qty: 60 11RF Continued amlodipine 10 mg tablet 10 mg PO DAILY Qty: 90 0RF omeprazole 20 mg capsule,delayed release(DR/EC) 20 mg PO DAILY PRN (Reason: gerd) Referrals / Follow Up: Cash Puentes MD [Primary Care Provider] - Within 1 Week George Mast NP, MEDICAL OFFICE COORDINATOR-C [Med Staff - Adv Practice Prof] - 08/19/23 1:30 pm Disposition Disposition (needs filled in before D/C Order can be placed): Home, Self Care Charges/Coding Visit Charges Inpatient E&M: 39038 Disch Hosp >30min 07/29/23 1147 <Electronically signed by Babita Carreno DO> Cosigner Signature (if applicable): CC: MEDICAL OFFICE COORDINATORAlvaro Mast; Dr. Babita Carreno DO; Dr. Cash Puentes MD~ Signed [facility] Work Phone: Evaluation noteNo assessment information available [facility] Work Phone: evaluation note* Diagnosis Onset Date Resolution Status Acute kidney injury acute Allergic reaction acute Tobacco abuse acute Urticaria acute [facility] Work Phone: evaluation note* Diagnosis Urticaria of unknown origin- Primary documented [facility] Diagnosis Urticaria of unknown origin- Primary Essential hypertension Unspecified essential hypertension Screening for hyperlipidemia Screening for lipoid disorders Hyperglycemia Other abnormal glucose ED (erectile dysfunction) of organic origin Impotence of organic origin Special screening examination for viral disease Special screening examination for unspecified viral disease Screening for HIV (human immunodeficiency virus) Special screening examination for other specified viral diseases Heartburn Screening for colon cancer Special screening for malignant neoplasms, colon DARREL (acute kidney injury) ([facility]) Acute kidney failure, unspecified documented in this encounter [facility]* Diagnosis Hyperglycemia- Primary Other abnormal glucose Essential hypertension Unspecified essential hypertension Heartburn Obesity, Class III, BMI 40-49.9 (morbid obesity) ([facility]) Morbid obesity Screening for lipid disorders documented in this encounter [facility] note* Diagnosis Dermatitis of external ear- Primary Contact dermatitis and other eczema, due to unspecified cause [facility] Diagnosis Onset Date Resolution Status Chest pain acute Coronary artery disease acut e Hypokalemia acute Left ventricular systolic dy sfunction (LVSD) without heart failure acute Morbid obesity with BMI of 40.0-44.9, adult acute Nicotine dependence acute STEMI (ST elevation myocardial infarction) acute Tobacco abuse acute Ventricular ectopy acute Hypertension chronic [facility] Work Phone: Evaluation note* Diagnosis ST elevation myocardial infarction involving left anterior descending (LAD) coronary artery (HCC)- Primary Essential hypertension Unspecified essential hypertension Ingrown fingernail Ingrowing nail Bradycardia Other specified cardiac dysrhythmias SOB (shortness of breath) Shortness of breath [facility] Diagnosis Essential hypertension- Primary Unspecified essential hypertension Heartburn ST elevation myocardial infarction involving left anterior descending (LAD) coronary artery (HCC) Snoring Other dyspnea and respiratory abnormality Screening for colon cancer Special screening for malignant neoplasms, colon Encounter for immunization Need for other specified prophylactic vaccination against single bacterial disease ED (erectile dysfunction) of organic origin Impotence of organic origin [facility] Additional Instructions Keflex 1 pill 4 times a day for 10 days. Call and follow-up with the orthopedic doctor to ensure this is improving. Sometimes it to take out the whole bursa sac. Motrin and Tylenol for pain. Return if feeling worse, fever the leg is getting much more swollen, painful or streaks up the knee or groin. Packing can be pulled out in 5 days.[facility] Work Phone: Hospital Discharge instructionsAdditional Instructions Please increase your carvedilol dose to 12.5 mg twice a day. Because you are in atrial fibrillation and at risk for pulmonary embolism and stroke you are being placed on Eliquis which is a blood thinner. You may stop your aspirin and your Plavix. Please follow-up with cardiology as soon as possible. Please call tomorrow morning to [facility] Work Phone: Reason for referral (narrative)No reason for referral information availableWSouthern [place] Medical Center Work Phone: Chief Complaint and Reason for Visit Chief Complaint CHEST PAIN RASH Chief Complaint CHEST PAIN RASH DARREL, ALLERGIC REACTION DARREL, ALLERGIC REACTION Reason for Visit Acute kidney injury Allergic reaction Tobacco abuse Urticaria Chief Complaint ABSCESS TO R KNEE Chief Complaint chest pain Chief Complaint STEMI STEMI STEMI STEMI STEMI STEMI Reason for Visit Chest pain Coronary artery disease Hypokalemia 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 Morbid obesity with BMI of 40.0-44.9, adult Nicotine dependence STEMI (ST elevation myocardial infarction) Tobacco abuse Ventricular ectopy Hypertension Chief Complaint Admit Date PALP January 10, 2025 2 :30pm S/P [facility] ER 01/10January 12, 2025 1 :21pm E ORDER January 12, 2025 2 :22pm INT LABS January 22, 2025 7 :23am Reason for Visit Admit Date Stented coronary artery January 12 1:21pm History of nicotine dependence December 212024 1:21pm Hyperlipidemia January 12, 2025 1 :21pm Hypertension January 12, 2025 1 :21pm Atrial fibrillation, new onset December 212024 1:21pm Advance Directives Advance Directive Response Recorded Date/ Time Living Will No November 24 7:41am Power of Drill Bit Sharpener No November 24, 2021 7:41am Advance Directive Response Recorded Date/ Time Living Will No November 24, 022 11:26pm Power of Drill Bit Sharpener No November 24, 2021 11:26pm Advance Directive Response Recorded Date/ Time Living Will No November 25 022 3:40am Power of Drill Bit Sharpener No November 25, 2021 3:40am Advance Directive Response Recorded Date/ Time Living Will No October 25, 2022 8:41pm Power of Drill Bit Sharpener No October 25 8:41pm Advance Directive Response Recorded Date/ Time Living Will No July 27, 2023 10 :49pm Power of Drill Bit Sharpener No July 27, 2023 10:49pm Advance Directive Response Recorded Date/ Time Living Will No July 28, 2023 12 :39am Power of Drill Bit Sharpener No July 28, 2023 12:39am Advance Directive Response Recorded Date/ Time Do you have a Healthcare Power of Drill Bit Sharpener? No January 10, 2025 2:41pm Advance Directives No August 25 6:43am Reason for Referral Specialty Diagnoses / Procedures Referred By Contac t Referred To Contact Dermatology Diagnoses Urticaria of unknown origin Procedures CONSULT TO DERMATOLOGY Cash Puentes MD [address] [place] [address] Referral ID Status Reason Start Date Expiration Date Visits Requested Visits Authorized [id number] Ref Not Required PCP Requested Referral 11/28/2021 11/27/2022 1 1 Specialty Diagnoses / Procedures Referred By Contac t Referred To Contact General Surgery Diagnoses Heartburn Screening for colon cancer Procedures CONSULT TO GENERAL SURGERY OFFICE/OUTPATIENT [facility] 60-74 MINUTES Mirlande Lal, AMEENA.WAITER/WAITRESS COUNTER [address] [place] [address] Referral ID Status Reason Start Date Expiration Date Visits Requested Visits Authorized [id number] Pending Review PCP Requested Referral 12/01/2021 12/01/2022 1 1 Specialty Diagnoses / Procedures Referred By Contac t Referred To Contact Allergy Diagnoses Urticaria of unknown origin Procedures CONSULT TO ALLERGY/IMMUNOLOGY OFFICE/OUTPATIENT [facility] 60-74 MINUTES Mirlande Lal, AMEENA.WAITER/WAITRESS COUNTER [address] [place] [address] Referral ID Status Reason Start Date Expiration Date Visits Requested Visits Authorized [id number] Pending Review PCP Requested Referral 12/01/2021 12/01/2022 1 1 Specialty Diagnoses / Procedures Referred By Contac t Referred To Contact Dermatology Diagnoses Ingrown fingernail Procedures CONSULT TO DERMATOLOGY Mirladne Lal APRN.WAITER/WAITRESS COUNTER [address] [place] [address] Referral ID Status Reason Start Date Expiration Date Visits Requested Visits Authorized [id number] Ref Not Required PCP Requested Referral 08/03/2023 08/02/2024 1 1 Specialty Diagnoses / Procedures Referred By Contac t Referred To Contact General Surgery Diagnoses Screening for colon cancer Procedures CONSULT TO GENERAL SURGERY OFFICE/OUTPATIENT [facility] 60 MINUTES Mirlande Lal APRN.WAITER/WAITRESS COUNTER [address] [place] [address] Referral ID Status Reason Start Date Expiration Date Visits Requested Visits Authorized [id number] Authorized PCP Requested Referral 09/03/2023 09/02/2024 1 1 Specialty Diagnoses / Procedures Referred By Contac t Referred To Contact [facility] Diagnoses Essential hypertension Snoring Procedures HOME SLEEP APNEA TEST (HSAT) SLEEP STD AIRFLOW HRT RATE&O2 SAT EFFORT UNATT Mirlande Lal APRN.WAITER/WAITRESS COUNTER [address] [place] [address] [facility] [address] [place] [address] Referral ID Status Reason Start Date Expiration Date Visits Requested Visits Authorized [id number] Authorized Auto-Generat ed Referral 09/03/2023 09/02/2024 1 1 Summary Purpose Family History Relationship Condition Age at Onset Recorded Date/T ambrose Not Specified Cardiac disease Unknown father Coronary artery disease Unknown No Family History Records Found Additional Source Comments Source Comments (unrecognize d section and content) In the event this informatio n is protected by the Federal Confidentiality of Alcohol and Drug Abuse Patient Records regulations: The Federal rules restrict any use of the information to criminally investigate or prosecute any alcohol or drug abuse patient.[facility] Center[facility] the event this information is protected by the Federal Confidentiality of Alcohol and Drug Abuse Patient Records regulations: The Federal rules restrict any use of the information to criminally investigate or prosecute any alcohol or drug abuse patient.[facility] Center[facility] the event this information is protected by the Federal Confidentiality of Alcohol and Drug Abuse Patient Records regulations: The Federal rules restrict any use of the information to criminally investigate or prosecute any alcohol or drug abuse patient.[facility] Center[facility] the event this information is protected by the Federal Confidentiality of Alcohol and Drug Abuse Patient Records regulations: The Federal rules restrict any use of the information to criminally investigate or prosecute any alcohol or drug abuse patient.[facility] Center[facility] the event this information is protected by the Federal Confidentiality of Alcohol and Drug Abuse Patient Records regulations: The Federal rules restrict any use of the information to criminally investigate or prosecute any alcohol or drug abuse patient.[facility] CenterIn the event this information is protected by the Federal Confidentiality of Alcohol and Drug Abuse Patient Records regulations: The Federal rules restrict any use of the information to criminally investigate or prosecute any alcohol or drug abuse patient.[facility] CenterIn the event this information is protected by the Federal Confidentiality of Alcohol and Drug Abuse Patient Records regulations: The Federal rules restrict any use of the information to criminally investigate or prosecute any alcohol or drug abuse patient.[facility] CenterIn the event this information is protected by the Federal Confidentiality of Alcohol and Drug Abuse Patient Records regulations: The Federal rules restrict any use of the information to criminally investigate or prosecute any alcohol or drug abuse patient.[facility] CenterIn the event this information is protected by the Federal Confidentiality of Alcohol and Drug Abuse Patient Records regulations: The Federal rules restrict any use of the information to criminally investigate or prosecute any alcohol or drug abuse patient.[facility] CenterIn the event this information is protected by the Federal Confidentiality of Alcohol and Drug Abuse Patient Records regulations: The Federal rules restrict any use of the information to criminally investigate or prosecute any alcohol or drug abuse patient.[facility] Reason for Visit (unrecogniz ed section and content) Reason Onset Date Comments Ear Pain 07/10/2021 possibly caused by a toothache Reason Comments Patient Question Reason Comments Hospital Follow Up [facility] dc'd 11/25 dx: all ergic reaction, renal failure Reason Comments Knee Pain Swelling/pain right knee. Knelt down on pebble over a week ago. Reason Comments Ear Problem Bilateral ear pain x 1 day, and itchiness x 3 weeks Reason Comments Hospital F/U [facility] 07/27-07/28 dx: STEM I with 2 stents placed in distal LAD (has follow up with [facility] on 08/18) Reason Comments Results Reason Comments Follow Up Care Teams (unrecognized sec tion and content) Inseam Trimmer Relationship Specialty Start Date End Date Cash Puentes MD [address], [place] [id number] PCP - General Family Practice 09/19/15 Inseam Trimmer Relationship Specialty Start Date End Date Cash Puentes MD [address], [place] [id number] PCP - General Family Practice 09/19/15 Inseam Trimmer Relationship Specialty Start Date End Date Cash Puentes MD [address] [place] [address] PCP - General Family Practice 09/19/15 Inseam Trimmer Relationship Specialty Start Date End Date Cash Puentes MD [address] [place] [address] PCP - General Family Medicine 09/19/15 Team Status: Active Member Role Status Dates No Primary Care Physician Family Provider Active Dr. Cash Puentes MD Primary Care Provider Active Team Status: Inactive Member Role Status Dates Dr. Cash Puentes MD Primary Care Provider Active Dr. Victor Manuel Duenas MD Emergency Provider Active Inseam Trimmer Relationship Specialty Start Date End Date Cash Puentes MD [address] [place] [address] PCP - General Family Medicine 09/19/15 Team Status: Inactive Member Role Status Dates Dr. Cash Puentes MD Primary Care Provider Active Dr. Nathen Haynes DO Emergency Provider Active Dr. Marisa Lopez MD Referring Provider Active Team Status: Active Member Role Status Dates Dr. Cash Puentes MD Primary Care Provider Active Dr. Nathen Haynes DO Emergency Provider Active Dr. Marisa Lopez MD Admit Provider, At tending Provider, Referring Provider, Other Provider Active Team Status: Active Member Role Status Dates Dr. Cash Puentes MD Primary Care Provider Active Dr. Nathen Haynes DO Emergency Provider Active Dr. Marisa Lopez MD Admit Provider, Re ferring Provider, Other Provider Active Dr. Armand Worley DO Attending Provider Active Team Status: Active Member Role Status Dates Dr. Cash Puentes MD Primary Care Provider Active Dr. Nathen Haynes DO Emergency Provider Active Dr. Marisa Lopez MD Referring Provider Active Dr. Babita Carreno DO Admit Provider, Att ending Provider, Other Provider Active Team Status: Active Member Role Status Dates Dr. Cash Puentes MD Primary Care Provider Active Dr. Nathen Haynes DO Emergency Provider Active Dr. Marisa Lopez MD Attending Provider, Referring Pr ovider Active Dr. Babita Carreno DO Admit Provider, Other Provider Ac tive Team Status: Inactive Member Role Status Dates Dr. Cash Puentes MD Primary Care Provider Active Dr. Nathen Haynes DO Emergency Provider Active Dr. Marisa Lopez MD Referring Provider Active Dr. Babita Carreno DO Admit Provider, Attending Provide r Active Inseam Trimmer Relationship Specialty Start Date End Date Cash Puentes MD [address] [place] [address] PCP - General Family Medicine 09/19/15 Inseam Trimmer Relationship Specialty Start Date End Date Cash Puentes MD [address] [place] [address] PCP - General Family Medicine 09/19/15 Inseam Trimmer Relationship Specialty Start Date End Date Cash Puentes MD [address] [place] [address] PCP - General Family Medicine 09/19/15 Inseam Trimmer Relationship Specialty Start Date End Date Cash Puentes MD [address], [place] [id number] PCP - General Family Medicine 09/19/15 Inseam Trimmer Relationship Specialty Start Date End Date Cash Puentes MD [address] [place] [address] PCP - General Family Medicine 09/19/15 Team Status: Active Member Role/Relationship Status Dates Dr. Cash Puentes MD Primary care physician Active Team Status: Inactive Member Role/Relationship Status Dates Dr. Cash Puentes MD Primary care physician Active Start: January 10, 2025 End: January 10, 2025 Dr. Justino Kapoor DO Attending physician Active Start: January 10, 2025 End: January 10, 2025 Dr. Justino Kapoor DO Emergency Depart ent Physician Active Start: January 10, 2025 End: January 10, 2025 Team Status: Inactive Member Role/Relationship Status Dates Dr. Cash Puentes MD Primary care physician Active Start: January 12, 2025 End: January 12, 2025 Dr. Cash Puentes MD Referring Provider Active Start: January 12, 2025 End: January 12, 2025 Lizzie Burgess NP MEDICAL OFFICE COORDINATOR-C Attending physician Active Start: January 12, 2025 End: January 12, 2025 Team Status: Inactive Member Role/Relationship Status Dates Dr. Cash Puentes MD Primary care physician Active Start: January 12, 2025 End: January 12, 2025 Lizzie Burgess NP MEDICAL OFFICE COORDINATOR-C Attending physician Active Start: January 12, 2025 End: January 12, 2025 Lizzie Burgess NP, NP-Zeina Referring Provider Active Start: January 12, 2025 End: January 12, 2025 Team Status: Active Member Role/Relationship Status Dates Dr. Cash Puentes MD Primary care physician Active Start: January 22, 2025 Lizzie Burgess NP, NP-C Attending physician Active Start: January 22, 2025 Lizzie Burgess NP, NP-C Referring Provider Active Start: January 22, 2025 Goals (unrecognized section and content) Goals may be documented in a n alternate sectionGoals may be documented in an alternate sectionGoals may be documented in an alternate sectionGoals may be documented in an alternate sectionGoals may be documented in an alternate section (unrecognized sect ion and content) No Status Records FoundNo Status Records Found INFORMATION SOURCE (unrecogn ized section and content) DATE CREATED AUTHOR 01/14/2025 [facility] DATE CREATED AUTHOR AUTHOR'S ORGANIZ ATION 01/30/2025 [facility] FOR RECORDS PERTAINING TO PATIENTS WHO ARE OR HAVE BEEN ENROLLED IN A CHEMICAL DEPENDENCY/SUBSTANCEABUSE PROGRAM, SOME INFORMATION MAY BE OMITTED. This clinical summary was aggregated from multiple sources. Caution should be exercised in using it in the provision of clinical care. This summary normalizes information from multiple sources, and as a consequence, information in this document may materially change the coding, format and clinical context of patient data. In addition, data may be omitted in some cases. CLINICAL DECISIONS SHOULD BE BASED ON THE PRIMARY CLINICAL RECORDS. [employer] provides no warranty or guarantee of the accuracy or completeness of information in this document.
== END | disposition home or self-care (01) ==
PROVIDERS: PCP Family Medicine; Referring Provider Nurse Practitioner Gerontology; Visit Provider Nurse Practitioner Gerontology
DX: I48.91 Unspecified atrial fibrillation (principal)
CPT/HCPCS: 36415; 80048

== ENCOUNTER → 2025-02-19 | Outpatient (CLI) | payer OTHER, SELFPAY ==
[2024-02-25 15:35] VITALS: BMI 41.9
--- NOTE | 2025-02-19 14:31 | ECHOCS_ITS ---
Reason For Study Reason For Study: ATRIAL FIB-FLUTTER Procedure This was a 2D Doppler, Color Flow transthoracic echocardiogram. The study was technically difficult. Contrast injection was performed. Exam performed in department. Left Ventricle Normal left ventricular thickness. Markedly dilated left ventricular cavity. Severe global LV systolic dysfunction. Estimated LVEF 15%. At least stage I diastolic dysfunction. Right Ventricle Normal right ventricle. Atria The left atrium is severely enlarged. The right atrium is moderately enlarged. Mitral Valve Mild (1+) mitral valve insufficiency. Tricuspid Valve Trivial tricuspid valve insufficiency. Normal pulmonary artery pressure. Aortic Valve Trisinus/trileaflet aortic valve. Pulmonic Valve The pulmonic valve is not well visualized. Great Vessels Normal sized aortic root. Pericardium/Pleural No pericardial effusion. Medication 22 gauge I.V. with prn adaptor inserted into right arm. Diluted definity 2ml given slow IV push to enhance endocardial definition. MMode/2D Measurements & Calculations LVIDd: 6.7 cm IVSd: 0.93 cm asc Aorta Diam: 3.9 cm LVIDs: 5.1 cm LVPWd: 0.93 cm RVDd: 3.4 cm FS: 23.8 % LAV(MOD-bp): 92.6 ml LVAd ap4: 46.4 cm2 LVAd ap2: 47.5 cm2 LAV(MOD-bp) Indexed: 35.1 ml/m2 LVLd ap4: 9.0 cm LVLd ap2: 9.8 cm LAV(MOD-sp2): 90.5 ml EDV(MOD-sp4): 194.4 ml EDV(MOD-sp2): 192.5 ml LAV(MOD-sp4): 79.5 ml EDV(sp4-el): 203.2 ml EDV(sp2-el): 196.1 ml LVAs ap4: 40.4 cm2 LVAs ap2: 39.3 cm2 LVLs ap4: 8.5 cm LVLs ap2: 8.9 cm ESV(MOD-sp4): 156.0 ml ESV(MOD-sp2): 143.3 ml ESV(sp4-el): 162.6 ml ESV(sp2-el): 147.1 ml EF(MOD-sp4): 19.7 % EF(MOD-sp2): 25.6 % EF(sp4-el): 20.0 % SV(MOD-sp4): 38.4 ml SV(MOD-sp2): 49.3 ml SV(sp4-el): 40.6 ml SI(MOD-sp4): 14.6 ml/m2 SI(MOD-sp2): 18.7 ml/m2 LA A4 area: 26.2 cm2 LA dimension(2D): 4.8 cm RA A4 area: 23.6 cm2 TAPSE: 2.1 cm Time Measurements MV dec time: 0.13 sec Doppler Measurements & Calculations MV E max allen: 89.8 cm/sec Ao V2 max: 107.7 cm/sec LV V1 max: 43.4 cm/sec Ao max P.7 mmHg LV V1 max P.75 mmHg Ao V2 mean: 86.2 cm/sec LV V1 mean P.42 mmHg Ao mean P.2 mmHg LV V1 mean: 30.9 cm/sec Ao V2 VTI: 19.1 cm LV V1 VTI: 7.9 cm AV (velocity ratio): 0.41 PA V2 max: 99.0 cm/sec TR max allen: 208.2 cm/sec TR max P.3 mmHg ECHO/Echo Complete W/ Contrast Interpretation Summary Markedly dilated left ventricular cavity. Severe global LV systolic dysfunction . Estimated LVEF 15%. At least stage I diastolic dysfunction. The left atrium is severely enlarged. The right atrium is moderately enlarged. Ordering Physician: Lizzie Burgess Referring Physician: Cash Puentes Performed By: Robert Milan RDCS
== END | disposition home or self-care (01) ==
LOC: CVS 14:28
PROVIDERS: PCP Family Medicine; Referring Provider Nurse Practitioner Gerontology; Visit Provider Nurse Practitioner Gerontology
DX: I48.91 Unspecified atrial fibrillation (principal); I48.92 Unspecified atrial flutter
CPT/HCPCS: 93306; Q9957; A4216; C8929

== ENCOUNTER → 2025-02-28 | Outpatient (CLI) | payer OTHER, SELFPAY ==
[2024-02-25 15:35] VITALS: BMI 41.9
[2025-02-28 14:22] LABS: Hematocrit 48.8 % (40-54); Hemoglobin 16.8 g/dL (13.0-16.5); Immature Granulocytes Count 0.020 X10^3/uL (0.0-0.0); Mean Corp Hgb Conc 34.4 g/dL (32-36); Mean Corpuscular Volume 90.2 fL (80-94); Mean Platelet Vol. 10.5 fl (6.2-12.0); NRBC Flagged by Analyzer 0 % (0-5); Platelet Count 224 K/mm3 (150-450); RBC Distribution Width CV 14.0 % (11.6-14.6); RBC Distribution Width SD 46.2 fl (35.1-43.9); Red Blood Count 5.41 M/mm3 (4.6-6.2); White Blood Count 7.7 K/mm3 (4.4-11.0)
[2025-02-28 15:04] LABS: Anion Gap 10 (5-15); BUN 19 mg/dL (4-19); BUN/Creat Ratio 16.9 RATIO (10-20); Calcium,Total 9.7 mg/dL (7.6-11.0); Carbon Dioxide 25.7 mmol/L (21.0-32.0); Chloride 103 mmol/L (98-108); Glucose 88 mg/dL (70-99); Potassium 4.9 mmol/L (3.3-5.1)
== END | disposition home or self-care (01) ==
PROVIDERS: PCP Family Medicine; Referring Provider Nurse Practitioner Gerontology; Visit Provider Nurse Practitioner Gerontology
DX: I48.91 Unspecified atrial fibrillation (principal); I25.10 Atherosclerotic heart disease of native coronary artery without angina pectoris; R93.1 Abnormal findings on diagnostic imaging of heart and coronary circulation; R06.02 Shortness of breath
CPT/HCPCS: 36415; 80048; 85025